=== PATIENT | female | born 1935 | race Caucasian/White ===

== ENCOUNTER → 2016-07-11 | Outpatient (CLI) | payer OTHER, MEDICARE ==
[~2016-07-11] MED LIST: ALBU1AER9 INH; AMLO-110 PO; AMOX875T PO; ASPCH81X PO; CALC-354 PO; CARV3.12 PO; DIAZ5TAB PO; HYDR5SYP11 PO; LANS30CA12 PO; LEVO-217 PO; LOSA100T2 PO; POTA-327 PO; RIVA1TAB4 PO; SIMV20TA5 PO; SOLI5TAB2 PO; SYMIN160 INH; TEMA15CA4 PO; XRL15 PO
--- NOTE | 2016-07-11 11:39 | DIAGNOSTIC IMAGING REPORT ---
TWO VIEW CHEST CLINICAL HISTORY: Cough and dyspnea. FINDINGS: PA and lateral chest radiographs are compared to chest x-ray and chest CT dated 05/07/2016. The PA view is degraded by patient rotation and apical lordotic positioning. The heart is enlarged and there is atherosclerotic calcification of the thoracic aorta. The pulmonary vascular structures noncongested. No airspace consolidation or pleural effusion is identified. Scarring is again suggested at the right lung base. Chronic interstitial thickening is similar to previous. No pneumothorax is clearly seen. The skeletal structures are osteopenic. Degenerative change is noted throughout the thoracic spine. IMPRESSION: 1. Cardiomegaly without radiographic evidence of congestive failure. 2. No airspace consolidation or pleural effusion is identified. Electronically signed by: Doug Chakraborty M.D. 07/11/2016 11:38 AM Dictated Date/Time: 07/11/2016 11:36 AM
== END | disposition home or self-care (01) ==
LOC: C.RADBBURG 10:44
PROVIDERS: ATTEND Internal Medicine Pulmonary Disease
DX: R05 Cough (principal); R06.02 Shortness of breath; I51.7 Cardiomegaly

== ENCOUNTER → 2016-08-08 | Outpatient (CLI) | payer OTHER, MEDICARE ==
--- NOTE | 2016-08-08 10:56 | DIAGNOSTIC IMAGING REPORT ---
CT SCAN OF THE CHEST WITHOUT IV CONTRAST CLINICAL HISTORY: Follow-up pleural collection. COMPARISON STUDY: Chest CT dated 05/07/2016 and 04/18/2016. TECHNIQUE: CT scan of the thorax was performed from the thoracic inlet to the upper abdomen. Images are reviewed in the axial, sagittal, and coronal planes. IV contrast was not administered for this examination as per the referring clinician. CT DOSE: 317.92 mGy.cm FINDINGS: Thyroid: Imaged portions of the thyroid are mildly enlarged and heterogeneous, likely representing goiter. A portion of the right lobe extends into the superior mediastinum. Thoracic aorta: There is atherosclerotic calcification of the thoracic aorta, which is normal in caliber and demonstrates standard 3-vessel arch anatomy. Heart: The heart is enlarged and there is a small pericardial effusion. The coronary arteries are densely calcified. The main pulmonary arteries are mildly dilated suggesting pulmonary artery hypertension. There is diminished attenuation of the cardiac blood pool as compared to the myocardium suggesting anemia. Lungs and pleural spaces: There is only trace residual pleural fluid at the right lung base. The pleural collection identified previously has completely resolved. Loculated pleural fluid is previously seen at the right apex has also resolved. Linear atelectasis versus scarring is present in the lower lung bilaterally. There is no airspace consolidation typical for pneumonia. No left pleural effusion is seen. There are scattered calcified granulomas. There is a 7 mm lingular nodule seen on image #155. There are 2 right lower lobe nodules measuring up to 3 mm seen on images #134 and #147. A 2 mm left upper lobe nodule is seen on image #142. The trachea and central airways are clear. Mediastinum: There is no mediastinal lymphadenopathy. Viktoriya: Not well assessed without IV contrast. Axillae: There is no axillary lymphadenopathy. Upper abdomen: Cortical atrophy is noted in the partially imaged kidneys. Cholecystectomy clips are identified. Skeletal structures: The skeletal structures are osteopenic. Degenerative change and hyperkyphosis is noted in the thoracic spine. Arthritic change is noted in the shoulders. No lytic or blastic bony lesions are seen. IMPRESSION: 1. There is only trace residual pleural fluid at the right lung base. The loculated pleural collection seen previously has resolved. 2. No airspace consolidation is identified typical for pneumonia. 3. There are scattered indeterminant pulmonary nodules. The largest is in the lingula measures 7 mm. This is unchanged from previous and can be followed as per the Fleischner criteria. 4. Cardiomegaly with a small pericardial effusion. Please refer to below summary of Fleischner criteria recommendations for follow-up of incidental CT nodules (Gabriele Caal, Guidelines for management of small pulmonary nodules detected on CT scans: A statement from the Fleischner Society, Radiology 237: [phone].) Low Risk Patient: Minimal or no smoking or other known risk factors for malignancy <=4 mm: No follow-up needed. >4-6 mm: Initial follow-up CT at 12 months; if unchanged, no further follow-up. >6-8 mm: Initial follow-up CT at 6-12 months then at 18-24 months if no change. >8 mm: Follow-up CT at \R\3, 9, 24 months, or PET and/or biopsy. High Risk Patient: History of smoking or other known risk factors <=4 mm: Follow-up at 12 months; if unchanged, no further follow-up. >4-6 mm: Initial follow-up CT at 6-12 months then at 18-24 months if no change. >6-8 mm: Initial follow-up CT at 3-6 months then at 9-12 and 24 months if no change. >8 mm: Same as low risk patient. Note: Nodule size measured as average of length and width. Ground glass or partly solid nodules may require longer follow-up to exclude indolent adenocarcinoma. Electronically signed by: Doug Chakraborty M.D. 08/08/2016 10:55 AM Dictated Date/Time: 08/08/2016 9:45 AM
== END | disposition home or self-care (01) ==
LOC: C.CTS 09:13
PROVIDERS: ATTEND Internal Medicine Critical Care Medicine
DX: J90 Pleural effusion, not elsewhere classified (principal); J86.9 Pyothorax without fistula; R91.8 Other nonspecific abnormal finding of lung field; I51.7 Cardiomegaly; I82.432 Acute embolism and thrombosis of left popliteal vein; Z86.718 Personal history of other venous thrombosis and embolism

== ENCOUNTER → 2016-08-08 | Outpatient (CLI) | payer OTHER, MEDICARE ==
--- NOTE | 2016-08-08 10:10 | DIAGNOSTIC IMAGING REPORT ---
BILATERAL LOWER EXTREMITY VENOUS DOPPLER CLINICAL HISTORY: BILATERAL DVT COMPARISON STUDY: Bilateral lower extremity venous Doppler May 08, 2016. TECHNIQUE: Sonography of the deep venous system of the bilateral lower extremities was performed. Compression and augmentation were evaluated. FINDINGS: The deep venous thrombus shown within the right lower extremity on exam of May 08, 2016 is no longer visualized and has resolved. There is stranding within the left popliteal vein which is similar to exam of May 08, 2016. This is likely chronic. IMPRESSION: 1. No evidence of acute deep venous thrombus within either lower extremity. 2. Nonocclusive thrombus within the left popliteal vein which is similar to exam of May 08, 2016. This suggests chronic thrombus. 3. Interval resolution of right lower extremity deep venous thrombus since prior exam. Electronically signed by: Landon Guevara M.D. 08/08/2016 10:09 AM Dictated Date/Time: 08/08/2016 10:07 AM
== END | disposition home or self-care (01) ==
LOC: C.ULTR 09:15
PROVIDERS: ATTEND Family Medicine
DX: I82.432 Acute embolism and thrombosis of left popliteal vein (principal); Z86.718 Personal history of other venous thrombosis and embolism

== ENCOUNTER → 2016-11-06 | Outpatient (CLI) | payer OTHER, MEDICARE ==
--- NOTE | 2016-11-06 12:55 | MAMMOGRAPHY REPORT ---
BILATERAL DIGITAL SCREENING MAMMOGRAM WITH CAD: 11/06/2016 CLINICAL HISTORY: Routine screening. Patient has no complaints. TECHNIQUE: Current study was also evaluated with a Computer Aided Detection (CAD) system. Bilateral CC and MLO views were obtained. COMPARISON: Comparison is made to exams dated: 10/19/2015 mammogram, 10/13/2014 mammogram, 10/07/2013 juvenal mogram, 10/01/2012 mammogram, and 09/17/2011 mammogram - [facility]. BREAST COMPOSITION: The tissue of both breasts is almost entirely fatty. FINDINGS: No suspicious masses, calcifications, or areas of architectural distortion are noted in ei ther breast. There has been no significant interval change compared to prior exams. Scattered bilat eral benign-appearing calcifications are not significantly changed. There are stable postsurgical ch anges in the left upper outer breast. IMPRESSION: ACR BI-RADS CATEGORY 2: BENIGN There is no mammographic evidence of malignancy. A 1 year screening mammogram is recommended. The pa tient will receive written notification of the results. Approximately 10% of breast cancers are not detected with mammography. A negative mammographic report should not delay biopsy if a clinically suggestive mass is present. Anabel Daniels M.D. ah/:11/06/2016 09:30:02 Software Quality Tester: Mikaela IQBAL(R)(M), [facility] letter sent: Normal 1/2 BI-RADS Code: ACR BI-RADS Category 2: Benign
== END | disposition home or self-care (01) ==
LOC: C.MAMM 08:22
PROVIDERS: ATTEND Family Medicine
DX: Z12.31 Encounter for screening mammogram for malignant neoplasm of breast (principal)

== ENCOUNTER → 2017-08-20 | Outpatient (CLI) | payer OTHER, MEDICARE ==
--- NOTE | 2017-08-20 08:45 | DIAGNOSTIC IMAGING REPORT ---
(CHEST) THORAX WITHOUT CT DOSE: 397.20 mGy.cm HISTORY: Lung nodules I26.99 Pulmonary [id number] Pulmonary [id number] TECHNIQUE: Multiaxial CT images of the chest were performed without contrast. A dose lowering technique was utilized adhering to the principles of ALARA. COMPARISON: 08/08/2016 FINDINGS: ] Basilar chronic linear atelectatic/fibrotic change. No acute infiltrate. Pulmonary nodularity has remained stable with no interval change. Mild stable cardiomegaly. No significant mediastinal or hilar adenopathy. Tortuosity and ectasia of the thoracic aorta considered unchanged. Substernal thyroid with moderate impact upon the trachea at the thoracic inlet is unchanged. IMPRESSION: 1. Identical exam compared to the prior study. 2. Unchanging minimal nodularity. 3. 1 year follow-up is felt to be sufficient. The above report was generated using voice recognition software. It may contain grammatical, syntax or spelling errors. Electronically signed by: Jacques Mac M.D. 08/20/2017 8:44 AM Dictated Date/Time: 08/20/2017 8:38 AM
== END | disposition home or self-care (01) ==
LOC: C.CTS 08:23
PROVIDERS: ATTEND Surgery
DX: I26.99 Other pulmonary embolism without acute cor pulmonale (principal); R91.8 Other nonspecific abnormal finding of lung field

== ENCOUNTER → 2018-01-21 | Outpatient (CLI) | payer OTHER, MEDICARE ==
[~2018-01-21] MED LIST changes: +ALBU18002 INH; -ALBU1AER9 INH; -AMLO-110 PO; +AMLO5TAB3 PO; -AMOX875T PO; -CARV3.12 PO; +CARV6.252 PO; +CHOL1000 PO; +CRAN1TAB PO; -HYDR5SYP11 PO; -LANS30CA12 PO; -LEVO-217 PO; -LOSA100T2 PO; +LOSA100T33 PO; +MULT-506 PO; -POTA-327 PO; +POTA10TA PO; -RIVA1TAB4 PO; +SIMV10TA2 PO; -SIMV20TA5 PO; -TEMA15CA4 PO; +ZOLP6.2529
--- NOTE | 2018-01-21 15:42 | MAMMOGRAPHY REPORT ---
BILATERAL DIGITAL SCREENING MAMMOGRAM TOMOSYNTHESIS WITH CAD: 01/21/2018 CLINICAL HISTORY: Routine screening. Patient has no complaints. TECHNIQUE: The study was acquired using full field digital technology and interpreted from soft copy. Breast tomosynthesis in addition to standard 2D mammography was performed. Current study was also ev aluated with a Computer Aided Detection (CAD) system. COMPARISON: Comparison is made to exams dated: 11/06/2016 mammogram, 10/19/2015 mammogram, 10/13/2014 juvenal mogram, 10/07/2013 mammogram, 09/17/2011 mammogram, and 09/11/2010 mammogram - [facility] BREAST COMPOSITION: The tissue of both breasts is almost entirely fatty. FINDINGS: No suspicious masses, calcifications, or areas of architectural distortion are noted in either breast . There has been no significant interval change compared to prior exams. Scattered bilateral benign- appearing calcifications are not significantly changed. There are stable postsurgical changes in the left upper outer breast. IMPRESSION: ACR BI-RADS CATEGORY 2: BENIGN There is no mammographic evidence of malignancy. A 1 year screening mammogram is recommended.( 019) The patient will receive written notification of the results. Some breast cancers are not detected with mammography. A negative mammographic report should not cassandra y biopsy if a clinically suggestive mass is present. Anabel Daniels M.D. ah/:01/21/2018 08:23:00 Boot Maker: RT Lupis(Yoan)(M), [facility] letter sent: Normal 1/2 BI-RADS Code: ACR BI-RADS Category 2: Benign
== END | disposition home or self-care (01) ==
LOC: C.MAMM 07:49
PROVIDERS: ATTEND Family Medicine
DX: Z12.31 Encounter for screening mammogram for malignant neoplasm of breast (principal)

== ENCOUNTER 2019-05-04 19:43 | Inpatient (IN) ==
--- NOTE | 2019-05-04 20:04 | Emergency Department Note ---
Entered by Edie Carranza acting as a scribe for Kt Hutchinson DO History of Present Illness General Chief complaint: Leg Injury/Pain Stated complaint: LEG PAIN Time Seen by Provider: 05/04/19 19:48 History of Present Illness Provider complaint: right leg injury Onset (ago): hour(s) 8 Location: lower extremity and right Pain Consistency: + other (episode) Maximum Pain Intensity: 5 Associated symptoms: + other (fall on right hip, right ankle pain, heard a pop when bending down and could not get back up) Treatments prior to arrival: none The patient is an 83 year old female who presents to the ED with complaints of an episode of a right leg injury that occurred 8 hours ago. The patient states that she was sitting on a barstool for a long time this morning which caused her legs to become numb. The patient states that when she stood up and tried to walk, she fell because her legs were weak. Per daughter, the patient fell on her right hip. The patient states that she did not have much pain after this episode except for some minor right ankle pain. The patient states that later today she bent down, heard a pop and then had a very hard time standing back up. The patient states that she sat down on the toilet next to her and could not get back up. The patient denies receiving any treatments prior to arrival. Home Medications Home Medications Medication Instructions Recorded Confirmed Type albuterol sulfate 90 mcg/actuation 2 puffs INHALATION Q4H PRN gm 02/18/19 05/04/19 History aerosol inhaler amlodipine 5 mg tablet 5 mg PO QAM tab 02/18/19 05/04/19 History aspirin 81 mg tablet 81 mg PO QAM tab 02/18/19 05/04/19 History carvedilol 6.25 mg tablet 6.25 mg PO BID tab 02/18/19 05/04/19 History coenzyme Q10 10 10 mg capsule 1 mg PO QAM cap 02/18/19 05/04/19 History cranberry 400 mg capsule 400 mg PO DAILY 02/18/19 05/04/19 History diazepam 5 mg tablet 5 mg PO BID tab 02/18/19 05/04/19 History levothyroxine 50 mcg tablet 50 mcg PO QAM tab 02/18/19 05/04/19 History rivaroxaban 20 mg tablet 20 mg PO QAM #1 tab 02/18/19 05/04/19 History simvastatin 10 mg tablet 10 mg PO QPM tab 02/18/19 05/04/19 History solifenacin 5 mg tablet 5 mg PO DAILY tab 02/18/19 05/04/19 History valsartan 160 1 tab PO DAILY tab 02/18/19 05/04/19 History mg-hydrochlorothiazide 12.5 mg tablet budesonide-formoterol HFA 160 2 puffs INH BID 03/24/19 05/04/19 History mcg-4.5 mcg/actuation aerosol inhaler potassium citrate 10 mEq (1,080 10 meq PO BID tab 03/24/19 05/04/19 History mg) tablet,extended release montelukast 10 mg PO QPM 05/04/19 05/04/19 History Allergies Allergy/AdvReac Type Severity Reaction Status Date / Time adhesive Allergy Unknown BANDAIDS Unverified 05/04/19 20:14 AND CLOTH ADHESIVE-BLISTERS No Known Drug Allergies Allergy Unknown Verified 05/04/19 20:14 Past Med/Surg History Medical History (Updated 05/04/19 @ 21:17 by Edie Carranza) Asthma (Inactive) Bilateral pulmonary embolism Left ankle sprain (Inactive) Saddle embolism of pulmonary artery Social History Preferred Language: Japanese Feels Safe at Home: Yes Smoking Status: Never smoker Review of Systems See HPI for pertinent positives & negatives. and A total of 10 systems reviewed and were otherwise negative Physical Exam Vital Signs Vital Signs - 24 hr 05/04/19 19:48 05/04/19 20:55 Temperature 36.8 C Temperature Source Oral Pulse Rate 87 Pulse Rate [Right Finger] 76 Pulse Rhythm Regular Pulse Rhythm [Right Finger] Regular Pulse Strength Normal Pulse Strength [Right Finger] Normal Respiratory Rate 20 20 Respiratory Effort / Characteristics Non-Labored Spontaneous Non-Labored Spontaneous Respiratory Depth Normal Normal Respiratory Pattern Regular Blood Pressure 112/57 L Blood Pressure [Right Arm] 120/58 L Blood Pressure Mean 75 Blood Pressure Mean [Right Arm] 78 Blood Pressure Position Sitting Pulse Oximetry 98 97 Oxygen Delivery Method Room Air Room Air Sepsis Recent Fever Within 48 Hours No Sepsis Action Taken by Nursing No Action Required CONSTITUTIONAL/VITAL SIGNS: Reviewed / noted above. GENERAL: Non-toxic in appearance. INTEGUMENTARY: Warm, dry, and [place]. HEAD: Normocephalic. EYES: without scleral icterus or trauma. ENT/OROPHARYNX: clear and moist. LYMPHADENOPATHY/NECK: Is supple without lymphadenopathy or meningismus. RESPIRATORY: Lungs clear and equal. CARDIOVASCULAR: Regular rate and rhythm. GI/ABDOMEN: Soft and nontender. No organomegaly or pulsatile mass. No rebound or guarding. Normal bowel sounds. EXTREMITIES: Warm and well perfused. Right leg shortened compared to left. Distal pulses intact. Tenderness to palpation of right lateral hip. BACK: No CVA tenderness. NEUROLOGICAL: Intact without focal deficits. PSYCHIATRIC: normal affect. MUSCULOSKELETAL: Normally developed with good muscle tone. Course Course 1952: Past medical records reviewed. The patient was evaluated in room A11B. A complete history and physical exam was performed. 2103: I discussed the patient's case with Dr. Doll [facility] Hospitalist. He will evaluate the patient for further management. Consultations Consultation #1: I discussed the patient's case with Dr. Doll [facility] Ho spitalist. He will evaluate the patient for further management. Time: 21:04 Administered Medications Sodium Chloride (Nss 1000ml) 1,000 mls @ 150 mls/hr IV .[id number] ANITHA Stop: 05/05/19 02:39 Last Admin: 05/04/19 20:30 Dose: 150 mls/hr Documented by: [id number] Medical Decision Making Differential Diagnosis Differential diagnosis: Etiologies such as fracture, cervical/vertebral injury, dislocation, intra- abdominal process, pneumothorax, intrathoracic trauma, intracranial injury, soft tissue injury, neurologic process, as well as other traumatic pathologies were entertained. Medical Records Attestation: I reviewed the patient's medical records. Home Medications Current Medication List: was personally reviewed by me Laboratory Data Attestation: I reviewed the patient's lab results. Result diagrams: 05/04/19 19:55 05/04/19 19:55 Lab Results 05/04/19 05/04/19 05/04/19 Range/Units 19:55 19:55 19:55 WBC 10.14 (4.8-10.8) K/uL RBC 3.95 L (4.2-5.4) M/uL Hgb 11.5 L (12.0-16.0) g/dL Hct 34.9 L (37-47) % MCV 88.4 (80-100) fL MCH 29.1 (25-34) pg MCHC 33.0 (32-36) g/dL RDW Std Deviation 46.6 H (36.4-46.3) fL RDW Coeff of Jerrell 14.2 (11.5-14.5) % Plt Count 199 (130-400) K/uL MPV 9.4 (7.4-10.4) fL Immature Gran % (Auto) 0.3 % Neut % (Auto) 84.4 % Lymph % (Auto) 6.1 % [place] % (Auto) 7.8 % Eos % (Auto) 1.1 % Baso % (Auto) 0.3 % Immature Gran # (Auto) 0.03 H (0.00-0.02) K/uL Neut # (Auto) 8.56 H (1.4-6.5) K/uL Lymph # (Auto) 0.62 L (1.2-3.4) K/uL [place] # (Auto) 0.79 H (0.11-0.59) K/uL Eos # (Auto) 0.11 (0-0.5) K/uL Baso # (Auto) 0.03 (0-0.2) K/uL PT 11.9 (9.0-12.0) Seconds INR 1.2 H (0.9-1.1) APTT 25.6 (21.0-31.0) Seconds PTT Ratio 0.9 Sodium 139 (136-145) mmol/L Potassium 3.9 (3.5-5.1) mmol/L Chloride 107 (98-107) mmol/L Carbon Dioxide 23 (21-32) mmol/L Anion Gap 9.0 (3-11) BUN 24 H (7-18) mg/dl Creatinine 1.23 H (0.6-1.2) mg/dl Est Cr Clr Drug Dosing 28.1 ml/min Est GFR ( Amer) 47.6 Est GFR (Non-Af Amer) 41.1 BUN/Creatinine Ratio 19.5 (10-20) Glucose 139 H (70-99) mg/dl Calcium 9.1 (8.5-10.1) mg/dl Urine Color Urine Appearance (Clear) Urine pH (4.5-7.5) Ur Specific [place] (1.000-1.030) Urine Protein (Negative) Urine Glucose (UA) (Negative) Urine Ketones (Negative) Urine Blood (Negative) Urine Nitrite (Negative) Urine Bilirubin (Negative) Urine Urobilinogen (Negative) Ur Leukocyte Esterase (Negative) Blood Type Antibody Screen 05/04/19 05/04/19 Range/Units 20:15 20:24 WBC (4.8-10.8) K/uL RBC (4.2-5.4) M/uL Hgb (12.0-16.0) g/dL Hct (37-47) % MCV (80-100) fL MCH (25-34) pg MCHC (32-36) g/dL RDW Std Deviation (36.4-46.3) fL RDW Coeff of Jerrell (11.5-14.5) % Plt Count (130-400) K/uL MPV (7.4-10.4) fL Immature Gran % (Auto) % Neut % (Auto) % Lymph % (Auto) % [place] % (Auto) % Eos % (Auto) % Baso % (Auto) % Immature Gran # (Auto) (0.00-0.02) K/uL Neut # (Auto) (1.4-6.5) K/uL Lymph # (Auto) (1.2-3.4) K/uL [place] # (Auto) (0.11-0.59) K/uL Eos # (Auto) (0-0.5) K/uL Baso # (Auto) (0-0.2) K/uL PT (9.0-12.0) Seconds INR (0.9-1.1) APTT (21.0-31.0) Seconds PTT Ratio Sodium (136-145) mmol/L Potassium (3.5-5.1) mmol/L Chloride (98-107) mmol/L Carbon Dioxide (21-32) mmol/L Anion Gap (3-11) BUN (7-18) mg/dl Creatinine (0.6-1.2) mg/dl Est Cr Clr Drug Dosing ml/min Est GFR ( Amer) Est GFR (Non-Af Amer) BUN/Creatinine Ratio (10-20) Glucose (70-99) mg/dl Calcium (8.5-10.1) mg/dl Urine Color Yellow Urine Appearance Clear (Clear) Urine pH 6.5 (4.5-7.5) Ur Specific [place] 1.026 (1.000-1.030) Urine Protein Negative (Negative) Urine Glucose (UA) Negative (Negative) Urine Ketones Negative (Negative) Urine Blood Negative (Negative) Urine Nitrite Negative (Negative) Urine Bilirubin Negative (Negative) Urine Urobilinogen Negative (Negative) Ur Leukocyte Esterase Negative (Negative) Blood Type B Positive Antibody Screen NEGATIVE Imaging Data Radiologist's Impression: Radiology results as stated below per my review and the radiologist's interpretation: XR chest 1V portable CLINICAL HISTORY: fall, left hip fx trauma. Pain. COMPARISON STUDY: 04/24/2016 FINDINGS: The bones soft tissues and hemidiaphragms are normal. The cardiomediastinal silhouette is normal. The lungs are clear. The pulmonary vasculature is normal. IMPRESSION: Negative chest. The above report was generated using voice recognition software. It may contain grammatical, syntax or spelling errors. Electronically signed by: Jacques Mac M.D. 05/04/2019 8:26 PM XR hip LT 2V w pelvis CLINICAL HISTORY: fall, pain COMPARISON: None. DISCUSSION: Intertrochanteric fracture right hip. Superior migration of the right femoral shaft. No evidence dislocation. No evidence for acetabular protrusion. IMPRESSION: Intertrochanteric fracture right hip with superior migration of the right femoral shaft. The above report was generated using voice recognition software. It may contain grammatical, syntax or spelling errors. Electronically signed by: Jacques Mac M.D. 05/04/2019 8:30 PM ECG Data Attestation: I personally reviewed and interpreted this ECG as follows: Indication: + weakness Rate (beats per minute): 80 Rhythm: + normal sinus ECG ST segments: no ST elevation ECG Findings: no PACs and no PVCs Blood Pressure Blood Pressure Findings: Low blood pressure Blood Pressure Disposition: further management by hospitalist BO Vázquez This is a 83-year-old female who presents to the ED with a chief complaint of right hip pain. The patient states that she fell this morning just before noon. The patient was able to ambulate afterwards but heard a pop this evening and has had pain in her hip ever since. Family knows of short leg this evening. Brought her in for evaluation. Patient's exam reveals tenderness to palpation of right total hip. The patient has an intertrochanteric right hip fracture. Chest x-ray was negative for acute disease. CBC chemistry panel was unremarkable and EKG shows normal sinus rhythm. The patient has seen Dr. Finch to be in the past. I spoke with the hospitalist, who will see the patient for further evaluation and care. Impression & Plan Closed intertrochanteric fracture of right hip Discharge Plan Visit Data Chief Complaint: Leg Injury/Pain Stated Complaint: LEG PAIN ED Provider: Kt Hutchinson Discharge Problem: Closed intertrochanteric fracture of right hip Patient Disposition: Being Evaluated by Hospitalist Forms Stand Alone Forms: My [facility] Prescriptions Prescriptions: No Action solifenacin 5 mg tablet 5 mg PO DAILY RF: 0 diazepam 5 mg tablet 5 mg PO BID RF: 0 albuterol sulfate 90 mcg/actuation HFA aerosol inhaler 2 puffs inhalation Q4H PRN (Reason: Shortness Of Breath) RF: 0 aspirin 81 mg tablet 81 mg PO QAM RF: 0 levothyroxine 50 mcg tablet 50 mcg PO QAM RF: 0 amlodipine 5 mg tablet 5 mg PO QAM RF: 0 carvedilol 6.25 mg tablet 6.25 mg PO BID RF: 0 valsartan-hydrochlorothiazide 160-12.5 mg tablet 1 tab PO DAILY RF: 0 Xarelto 20 mg tablet 20 mg PO QAM Qty: 1 RF: 0 coenzyme Q10 10 mg capsule 1 mg PO QAM RF: 0 simvastatin 10 mg tablet 10 mg PO QPM RF: 0 cranberry 400 mg capsule 400 mg PO DAILY RF: 0 potassium citrate 10 mEq (1,080 mg) tablet extended release 10 meq PO BID RF: 0 Symbicort 160-4.5 mcg/actuation HFA aerosol inhaler 2 puffs INH BID RF: 0 montelukast 10 mg tablet 10 mg PO QPM RF: 0 Referrals Referrals: Tan Savage MD [Primary Care Provider] - Discharge Problem: Closed intertrochanteric fracture of right hip Qualifiers: Encounter type: initial encounter Fracture alignment: displaced Qualified Code(s): S72.141A - Displaced intertrochanteric fracture of right femur, initial encounter for closed fracture The scribe's documentation has been prepared under my direction and personally reviewed by me in its entirety. I confirm that the note above accurately reflects all work, treatment, procedures, and medical decision making performed by me.
[2019-05-04 20:13] LABS: Basophils # (auto) 0.03 K/uL (0-0.2); Basophils % (auto) 0.3 %; Eosinophils # (auto) 0.11 K/uL (0-0.5); Eosinophils % (auto) 1.1 %; Hematocrit (blood only) 34.9 % (37-47); Hemoglobin 11.5 g/dL (12.0-16.0); Immature Granulocytes # (auto) 0.03 K/uL (0.00-0.02); Immature Granulocytes % (auto) 0.3 %; Lymphocytes # (auto) 0.62 K/uL (1.2-3.4); Lymphocytes % (auto) 6.1 %; Mean Corpuscular Hemoglobin 29.1 pg (25-34); Mean Corpuscular Volume 88.4 fL (80-100); Mean Platelet Volume 9.4 fL (7.4-10.4); Monocytes # (auto) 0.79 K/uL (0.11-0.59); Monocytes % (auto) 7.8 %; Neutrophils # (auto) 8.56 K/uL (1.4-6.5); Neutrophils % (auto) 84.4 %; Platelet Count 199 K/uL (130-400); RDW Coefficient of Variation 14.2 % (11.5-14.5); RDW Standard Deviation 46.6 fL (36.4-46.3); Red Blood Count 3.95 M/uL (4.2-5.4); White Blood Count 10.14 K/uL (4.8-10.8)
[2019-05-04 20:20] LABS: BUN Creatinine Ratio 19.5 (10-20); Calcium 9.1 mg/dl (8.5-10.1); Creatinine Clr Calc Pharmacy 28.1 ml/min; Est GFR (African American) 47.6; Est GFR (Non-African American) 41.1; Potassium 3.9 mmol/L (3.5-5.1)
[2019-05-04 20:23] LABS: INR 1.2 (0.9-1.1); Partial Thromboplastin Ratio 0.9; Partial Thromboplastin Time 25.6 Seconds (21.0-31.0); Prothrombin Time 11.9 Seconds (9.0-12.0)
--- NOTE | 2019-05-04 20:27 | XRay Report ---
XR chest 1V portable CLINICAL HISTORY: fall, left hip fx trauma. Pain. COMPARISON STUDY: 04/24/2016 FINDINGS: The bones soft tissues and hemidiaphragms are normal. The cardiomediastinal silhouette is n ormal. The lungs are clear. The pulmonary vasculature is normal. IMPRESSION: Negative chest. The above report was generated using voice recognition software. It may contain grammatical, syntax or spelling errors. Electronically signed by: Jacques Mac M.D. 05/04/2019 8:26 PM
[2019-05-04 20:30] LABS: Appearance Urine Clear (Clear); Bilirubin Urine Negative (Negative); Blood Urine Negative (Negative); Color Urine Yellow; Glucose Urine UA Negative (Negative); Ketones Urine Negative (Negative); Leukocyte Esterase Urine Negative (Negative); Nitrite Urine Negative (Negative); Protein Urine Negative (Negative); Specific Gravity Urine 1.026 (1.000-1.030); Urobilinogen Urine Negative (Negative); pH Urine 6.5 (4.5-7.5)
[2019-05-04] MEDS: SODIUM CHLORIDE 0.9% 1000ML 1,000 ML IV SCH (20:30)
--- NOTE | 2019-05-04 20:31 | XRay Report ---
XR hip LT 2V w pelvis CLINICAL HISTORY: fall, pain COMPARISON: None. DISCUSSION: Intertrochanteric fracture right hip. Superior migration of the right femoral shaft. No e vidence dislocation. No evidence for acetabular protrusion. IMPRESSION: Intertrochanteric fracture right hip with superior migration of the right femoral shaft. The above report was generated using voice recognition software. It may contain grammatical, syntax or spelling errors. Electronically signed by: Jacques Mac M.D. 05/04/2019 8:30 PM
--- NOTE | 2019-05-04 21:51 | History & Physical Report ---
Date of Service May 04, 2019 Assessment & Plan (1) Closed intertrochanteric fracture of right hip: Status post mechanical fall. NPO after midnight Acetaminophen 600 mg p.o. every 6 hours PRN mild pain or temperature. Dilaudid 0.25 mg IV every 3 hours as needed severe pain. IVF's zofran 4mf IV q6h prn famotidine 20mg IV q12h Present on Admission?: Yes (2) Asthma: continue usual regimen: Abluterol HFA, symbicort and montelukast. Duo nebs available to use PRN Present on Admission?: Yes (3) Bilateral pulmonary embolism: recurrent has been on xarelto, with last dose this AM. Hold xarelto. Will need to be restarted after discussion with orthopedics at earliest acceptable time post op. Present on Admission?: Yes (4) Hypertension: Continue carvedilol and amlodipine with hold parameters. Hold for valsartan/HCTZ. Present on Admission?: Yes (5) Anxiety: Continue valium 5mg bid. Present on Admission?: Yes (6) Hypothyroidism (acquired): continue levothyroxine 50 mcg daily in a.m. Present on Admission?: Yes (7) Hyperlipidemia: Continue simvastatin 10 mg p.o. every evening. Present on Admission?: Yes (8) Bladder spasm: Hold solifenacin 5 mg p.o. daily while Santana cath is in place. Present on Admission?: Yes (9) Chronic anticoagulation: As discussed above. Present on Admission?: Yes History of Present Illness Chief Complaint: Patient presents to the emergency department with complaint of pain in her right hip area after she sustained a fall while stepping down off of a barstool at home. 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 She reportedly fell around noon time, and continued to walk on her hip with her walker until seen by her daughter, when she came home at around 5:00 PM. X-ray in the emergency department showed a right intertrochanteric hip fracture. Allergies Allergy/AdvReac Type Severity Reaction Status Date / Time adhesive Allergy Unknown BANDAIDS Unverified 05/04/19 20:14 AND CLOTH ADHESIVE-BLISTERS No Known Drug Allergies Allergy Unknown Verified 05/04/19 20:14 Home Medications Home Medications Medication Instructions Recorded Confirmed Type albuterol sulfate 90 mcg/actuation 2 puffs INHALATION Q4H PRN gm 02/18/19 05/04/19 History aerosol inhaler amlodipine 5 mg tablet 5 mg PO QAM tab 02/18/19 05/04/19 History aspirin 81 mg tablet 81 mg PO QAM tab 02/18/19 05/04/19 History carvedilol 6.25 mg tablet 6.25 mg PO BID tab 02/18/19 05/04/19 History coenzyme Q10 10 10 mg capsule 1 mg PO QAM cap 02/18/19 05/04/19 History cranberry 400 mg capsule 400 mg PO DAILY 02/18/19 05/04/19 History diazepam 5 mg tablet 5 mg PO BID tab 02/18/19 05/04/19 History levothyroxine 50 mcg tablet 50 mcg PO QAM tab 02/18/19 05/04/19 History rivaroxaban 20 mg tablet 20 mg PO QAM #1 tab 02/18/19 05/04/19 History simvastatin 10 mg tablet 10 mg PO QPM tab 02/18/19 05/04/19 History solifenacin 5 mg tablet 5 mg PO DAILY tab 02/18/19 05/04/19 History valsartan 160 1 tab PO DAILY tab 02/18/19 05/04/19 History mg-hydrochlorothiazide 12.5 mg tablet budesonide-formoterol HFA 160 2 puffs INH BID 03/24/19 05/04/19 History mcg-4.5 mcg/actuation aerosol inhaler potassium citrate 10 mEq (1,080 10 meq PO BID tab 03/24/19 05/04/19 History mg) tablet,extended release montelukast 10 mg PO QPM 05/04/19 05/04/19 History Past Med/Surg History Medical History (Updated 05/04/19 @ 21:42 by Jean-Claude Cortes MD) Anxiety Asthma Bilateral pulmonary embolism Bladder spasm Chronic anticoagulation Hyperlipidemia Hypertension Hypothyroidism (acquired) Left ankle sprain (Inactive) Saddle embolism of pulmonary artery Social History Preferred Language: [place] Feels Safe at Home: Yes Smoking Status: Never smoker Review of Systems Review of Systems: The patient denies chest pain, palpitations, shortness of breath, dyspnea on exertion, cough, lower extremity swelling, sore throat, fevers, chills, sweats, fatigue, nausea, vomiting, diarrhea , constipation, abdominal pain, pelvic pain, blood in urine or stool, dysuria, urinary frequency or urgency, lightheadedness, dizziness, headache, memory loss, loss of consciousness, rash, abnormal bruising or bleeding, generalized arthralgias or myalgias, back or neck pain, or night sweats. The review of systems is otherwise negative other than for that already noted above, and at least 10 systems have been reviewed. Physical Exam Physical Exam: The patient is awake, alert and oriented 3, well developed and well nourished, normocephalic and atraumatic, lying in bed and in no acute distress. HEENT--PERRL, EOMI, mucous membranes and oropharynx normal. Neck--supple. No JVD. No bruits. Thyroid normal, trachea midline, no adenopathy. Heart--normal S1 and S2. No murmurs, rubs or gallops. Lungs--clear bilaterally, no respiratory distress, no accessory muscle use. Abdomen--normal bowel sounds and soft. Nontender. Nondistended, no hernias or masses, no organomegaly. Extremities--no cyanosis or clubbing. No edema. Dermatologic--normal skin turgor, normal color, no abnormal lymph nodes, no rash. Neurologic--cranial nerves II through XII grossly intact. Rheumatologic--pain of her right hip, limiting range of motion. Psychiatric--normal affect. Results & Data Vital Signs (Past 12 Hours) Vital Signs Temp Pulse Pulse Resp BP BP Pulse Ox 05/04/19 20:55 76 20 120/58 L 97 05/04/19 19:48 98.2 F 87 20 112/57 L 98 Laboratory Results Laboratory Results WBC 10.14 K/uL (4.8-10.8) 05/04/19 19:55 RBC 3.95 M/uL (4.2-5.4) L 05/04/19 19:55 Hgb 11.5 g/dL (12.0-16.0) L 05/04/19 19:55 Hct 34.9 % (37-47) L 05/04/19 19:55 MCV 88.4 fL (80-100) 05/04/19 19:55 MCH 29.1 pg (25-34) 05/04/19 19:55 MCHC 33.0 g/dL (32-36) 05/04/19 19:55 RDW Std Deviation 46.6 fL (36.4-46.3) H 05/04/19 19:55 RDW Coeff of Jerrell 14.2 % (11.5-14.5) 05/04/19 19:55 Plt Count 199 K/uL (130-400) 05/04/19 19:55 MPV 9.4 fL (7.4-10.4) 05/04/19 19:55 Immature Gran % (Auto) 0.3 % 05/04/19 19:55 Neut % (Auto) 84.4 % 05/04/19 19:55 Lymph % (Auto) 6.1 % 05/04/19 19:55 [place] % (Auto) 7.8 % 05/04/19 19:55 Eos % (Auto) 1.1 % 05/04/19 19:55 Baso % (Auto) 0.3 % 05/04/19 19:55 Immature Gran # (Auto) 0.03 K/uL (0.00-0.02) H 05/04/19 19:55 Neut # (Auto) 8.56 K/uL (1.4-6.5) H 05/04/19 19:55 Lymph # (Auto) 0.62 K/uL (1.2-3.4) L 05/04/19 19:55 [place] # (Auto) 0.79 K/uL (0.11-0.59) H 05/04/19 19:55 Eos # (Auto) 0.11 K/uL (0-0.5) 05/04/19 19:55 Baso # (Auto) 0.03 K/uL (0-0.2) 05/04/19 19:55 PT 11.9 Seconds (9.0-12.0) 05/04/19 19:55 INR 1.2 (0.9-1.1) H 05/04/19 19:55 APTT 25.6 Seconds (21.0-31.0) 05/04/19 19:55 PTT Ratio 0.9 05/04/19 19:55 Sodium 139 mmol/L (136-145) 05/04/19 19:55 Potassium 3.9 mmol/L (3.5-5.1) 05/04/19 19:55 Chloride 107 mmol/L (98-107) 05/04/19 19:55 Carbon Dioxide 23 mmol/L (21-32) 05/04/19 19:55 Anion Gap 9.0 (3-11) 05/04/19 19:55 BUN 24 mg/dl (7-18) H 05/04/19 19:55 Creatinine 1.23 mg/dl (0.6-1.2) H 05/04/19 19:55 Est Cr Clr Drug Dosing 28.1 ml/min 05/04/19 19:55 Est GFR ( Amer) 47.6 05/04/19 19:55 Est GFR (Non-Af Amer) 41.1 05/04/19 19:55 BUN/Creatinine Ratio 19.5 (10-20) 05/04/19 19:55 Glucose 139 mg/dl (70-99) H 05/04/19 19:55 Calcium 9.1 mg/dl (8.5-10.1) 05/04/19 19:55 Urine Color Yellow 05/04/19 20:15 Urine Appearance Clear (Clear) 05/04/19 20:15 Urine pH 6.5 (4.5-7.5) 05/04/19 20:15 Ur Specific [place] 1.026 (1.000-1.030) 05/04/19 20:15 Urine Protein Negative (Negative) 05/04/19 20:15 Urine Glucose (UA) Negative (Negative) 05/04/19 20:15 Urine Ketones Negative (Negative) 05/04/19 20:15 Urine Blood Negative (Negative) 05/04/19 20:15 Urine Nitrite Negative (Negative) 05/04/19 20:15 Urine Bilirubin Negative (Negative) 05/04/19 20:15 Urine Urobilinogen Negative (Negative) 05/04/19 20:15 Ur Leukocyte Esterase Negative (Negative) 05/04/19 20:15 Blood Type B Positive 05/04/19 20:24 Antibody Screen NEGATIVE 05/04/19 20:24 Diagnostic Findings [facility] [place] [phone] XRay Report Patient: RASTA CADET Date: 05/04/19 MR#: [id number]: [address] [facility] Acct ID:[id number]: [address] Date: 1935[facility] Zip: [place] [address] Age: 83Location: ED Sex: F Room/Bed: Att Phy:Diagnosis: LEG PAIN Lily Phy: Tan Savage, DEEPTIervice Date: 05/04/19 Fam Phy:Interpreting Phy: Jacques Mac MD Admit Phy: Ordering Phy: Kt Hutchinson D.O. cc: ~ XR hip LT 2V w pelvis CLINICAL HISTORY: fall, pain COMPARISON: None. DISCUSSION: Intertrochanteric fracture right hip. Superior migration of the right femoral shaft. No evidence dislocation. No evidence for acetabular protrusion. IMPRESSION: Intertrochanteric fracture right hip with superior migration of the right femoral shaft. The above report was generated using voice recognition software. It may contain grammatical, syntax or spelling errors. Electronically signed by: Jacques Mac M.D. 05/04/2019 8:30 PM Dictated: 05/04/192027 Transcribed: 05/04/192027 [facility] [place] [phone] XRay Report Patient: RASTA CADET Date: 05/04/19 MR#: [id number]: [address] [facility] Acct ID:[id number]: [address] Date: 1935[facility] Zip: [place] [address] Age: 83Location: ED Sex: F Room/Bed: Att Phy:Diagnosis: LEG PAIN Lily Phy: Tan Savage MDService Date: 05/04/19 Fam Phy:Interpreting Phy: Jacques Mac MD Admit Phy: Ordering Phy: Kt Hutchinson D.O. cc: ~ XR chest 1V portable CLINICAL HISTORY: fall, left hip fx trauma. Pain. COMPARISON STUDY: 04/24/2016 FINDINGS: The bones soft tissues and hemidiaphragms are normal. The cardiomediastinal silhouette is normal. The lungs are clear. The pulmonary vasculature is normal. IMPRESSION: Negative chest. The above report was generated using voice recognition software. It may contain grammatical, syntax or spelling errors. Electronically signed by: Jacques Mac M.D. 05/04/2019 8:26 PM Dictated: 05/04/192025 Transcribed: 05/04/192025 Code Status & VTE Plan Code Status Full code VTE Prophylaxis Plan VTE Prophylaxis will be ordered: Yes PG Care Time/CCT Total # of Minutes Spent Total Time Spent with Patient: Total time spent is greater than 50% in coordination of care (as documented) at patient's floor/unit and/or counseling patient: (1) Closed intertrochanteric fracture of right hip Encounter type: initial encounter Fracture alignment: displaced Qualified Code(s): S72.141A - Displaced intertrochanteric fracture of right femur, initial encounter for closed fracture
[2019-05-04] MEDS ORDERED: ONDANSETRON INJ 2 MG/ML 2 ML VIAL IV PRN (22:35)
[2019-05-04] MEDS ORDERED: ALBUT/IPRATROP 3MG/0.5MG NEB 3 ML VIAL NEB PRN (22:35)
[2019-05-04] MEDS ORDERED: MAGNESIUM HYDROXIDE SUSP 30 ML UDC PO PRN (22:35)
[2019-05-04] MEDS ORDERED: BISACODYL 10 MG SUPP PR PRN (22:35)
[2019-05-04] MEDS ORDERED: NALOXONE HCL 0.4 MG/1 ML VIAL/CARP IV PRN (22:35)
[2019-05-04] MEDS: HYDROmorphone INJ 0.5 MG/0.5 ML SYR IV PRN (22:48)
[2019-05-04] MEDS: diazePAM 5 MG TABLET PO SCH (23:40)
[2019-05-05] MEDS: carvediloL 6.25 MG TAB PO SCH ×3 (00:06→20:29)
[2019-05-05] MEDS: BUDESONIDE/FORMOTEROL FUMARATE 160/4.5 60 PUFFS/INHALER INH SCH ×3 (00:07→20:28)
[2019-05-05] MEDS: HYDROmorphone INJ 0.5 MG/0.5 ML SYR IV PRN ×4 (02:04→16:43)
[2019-05-05] MEDS: SODIUM CHLORIDE 0.9% 1000ML 1,000 ML IV SCH (02:09)
[2019-05-05] MEDS: POTASSIUM CITRATE 10 MEQ TAB PO SCH ×2 (08:37→20:29)
[2019-05-05] MEDS: LEVOTHYROXINE SODIUM 50 MCG TABLET PO SCH (08:37)
[2019-05-05] MEDS: LACTATED RINGER'S 1,000 ML IV SCH ×2 (08:38→19:37)
[2019-05-05] MEDS: diazePAM 5 MG TABLET PO SCH ×2 (08:39→20:29)
[2019-05-05] MEDS ORDERED: Nursing to Pharmacy Communication ONE (08:51)
[2019-05-05] MEDS ORDERED: AMLODIPINE BESYLATE 5 MG TAB PO SCH (09:00)
--- NOTE | 2019-05-05 09:28 | Hospitalist Progress Note ---
Date of Service May 05, 2019 Assessment & Plan (1) Closed intertrochanteric fracture of right hip: 83 yo F PMHx HTN, HLD, hypothyroidism, asthma, bilateral PE on chronic mcc anticoagulation presents following a fall resulting in R hip fracture, for surgery tomorrow AM. Closed intertrochanteric fracture of right hip: - Occurred following a mechanical fall from standing height. - Likely an element of osteoporosis here and have ordered Vitamin D level and started Vitamin D 1000IU daily and Calcium 500mg TID. Will recommend follow up with DEXA and bisphosphonate 1 month following surgery. - Acetaminophen 600 mg p.o. every 6 hours PRN mild pain or temperature, Hydromorphone 0.25 mg IV q3h PRN severe pain. - LR @100cc/hr - Zofran 4mf IV q6h prn Asthma: - Continue home Albuterol HFA, Symbicort and montelukast. 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 - Hold Xarelto at this time, will have surgery per Ortho tomorrow AM. Will need to be restarted after discussion with orthopedics at earliest acceptable time post op. - One dose Lovenox 40mg SQ given in for interim period given history of multiple clotting events. Hypertension: - Continue carvedilol and amlodipine. - Hold valsartan/HCTZ at this time. - Pt normotensive. Anxiety: - Continue diazepam 5mg bid. Hypothyroidism (acquired): - Continue levothyroxine 50 mcg daily in a.m. Hyperlipidemia: - Continue simvastatin 10 mg p.o. every evening. Bladder spasm: - Hold solifenacin 5 mg p.o. daily while Santana cath is in place. (2) Hypertension: (3) Anxiety: (4) Asthma: (5) Bladder spasm: (6) Chronic anticoagulation: (7) Hyperlipidemia: (8) Hypothyroidism (acquired): Supervising Physician Co-Signing Physician Notes I personally examined the patient and verified all de la o points of history and exam, discussed case, and agree with decision making with Dr Downey. feeling ok overall pain meds help but wearing off now but is due for soemthing if she needs it vitals noted nad breathing unlabored no pallor or icterus no focal neuro deficits hip fx -for surgery tomorrow - medically acceptable risk -check D, supplement calcium and D, bisphosphonate in a month or so after healing VTE/recurrent -hold xarelto for surgery -proph dose lovenox today since high risk at baseline + fracture + immobilization = higher risk. resume xarelto as soon as possible post op (hopefully tomorrow night) otherwise as above Subjective Pt without acute events overnight. Pain intermittent but well controlled with PRN hydromorphone. For surgery tomorrow AM with Dr. Francisco. Review of Systems Constitutional: no fever, no chills and no malaise Respiratory: no cough and no dyspnea Cardiovascular: no chest pain, no palpitations and no edema Gastrointestinal: no abdominal pain, no constipation and no diarrhea/loose stools Genitourinary: no dysuria and no hematuria Musculoskeletal: hip pain as subjective Physical Exam Constitutional: WD/WN, vitals as above Respiratory: normal respiratory effort, lungs clear to auscultation Cardiovascular: Heart Sounds: no murmur irregularly irregular rhythm Gastrointestinal (Abdomen): normal bowel sounds, soft, nontender, no hepatosplenomegaly Skin: no rashes, warm and dry Psychiatric: A+Ox3, euthymic affect Results & Data Vital Signs (Past 12 Hours) Vital Signs Temp Pulse Pulse Resp BP BP Pulse Ox 05/05/19 08:36 86 135/76 05/05/19 07:09 37.3 C 86 16 145/74 H 91 05/04/19 22:30 36.6 C 85 18 147/79 H 97 05/04/19 22:07 81 20 150/75 H 96 Resident Activity Tracking Resident Involvement: Resident Care Provided Care Provided: Adult Hospital Medicine (1) Closed intertrochanteric fracture of right hip Encounter type: initial encounter Fracture alignment: displaced Qualified Code(s): S72.141A - Displaced intertrochanteric fracture of right femur, initial encounter for closed fracture
[2019-05-05] MEDS: SERTRALINE HCL 50 MG TABLET PO SCH (10:30)
--- NOTE | 2019-05-05 11:02 | Orthopedic Consultation ---
Date of Consultation May 05, 2019 Assessment & Plan (1) Closed intertrochanteric fracture of right hip: The patient is a 83 year old female who sustained a right hip fracture. The patients treatment options of conservative versus surgical intervention were discussed. Since the patient was an ambulatory prior to the injury and to avoid the risks of bed sores, pulmonary complications, and to give the best chance for ambulation, I recommended surgery. The patient and family underst ands the risks of surgery, which include but are not limited to: bleeding, infection, re-operation, damage to nerves and arteries, continued pain, failure of the hardware, mal-union, non-union, DVT, AL, PE, stroke, and . In addition she is aware of the 20-30% morbidity associated with hip fracture for up to 1 year following a hip fracture. The patient and family understands all of these instructions and explanations, all of their questions have been satisfactorily addressed. The patient has elected to proceed with surgery and the informed consent was signed. Due to the patient being on Xarelto, we will need to hold the dose for 2 days, prior to being able to perform the surgery. She will require intubation rather than spinal anesthesia. She may eat today, but will be nothing by mouth after midnight. She will remain nonweightbearing on the right lower extremity, bed rest. She has been placed on the add-on list for tomorrow, pending medically stable to proceed with surgery per the primary team, hospitalist service.Continue care per the primary service. Present on Admission?: Yes History of Present Illness Reason for Consultation: Right hip fracture. Requesting Physician: Jose Francisco Francisco M.D. Attending Physician: Octavio Hernandez DO History of Present Illness Jermaine is a pleasant 83-year-old female, who typically walks with a cane, who was sitting on a bar stool yesterday around noon and when she attempted to get up her foot was asleep and she fell on her right side. She ambulated the rest of the day using a walker until her daughter brought her to the emergency room where x-rays were obtained and she was admitted to the hospitalist service. She did take her Xarelto yesterday morning, For her recurrent PE. Allergies Allergy/AdvReac Type Severity Reaction Status Date / Time adhesive Allergy Unknown BANDAIDS Unverified 05/04/19 20:14 AND CLOTH ADHESIVE-BLISTERS No Known Drug Allergies Allergy Unknown Verified 05/04/19 20:14 Home Medications Home Medications Medication Instructions Recorded Confirmed Type albuterol sulfate 90 mcg/actuation 2 puffs INHALATION Q4H PRN gm 02/18/19 05/04/19 History aerosol inhaler amlodipine 5 mg tablet 5 mg PO HS tab 02/18/19 05/05/19 History aspirin 81 mg tablet 81 mg PO QAM tab 02/18/19 05/04/19 History carvedilol 6.25 mg tablet 6.25 mg PO BID tab 02/18/19 05/04/19 History coenzyme Q10 10 10 mg capsule 1 mg PO QAM cap 02/18/19 05/04/19 History cranberry 400 mg capsule 400 mg PO DAILY 02/18/19 05/04/19 History diazepam 5 mg tablet 5 mg PO BID tab 02/18/19 05/04/19 History levothyroxine 50 mcg tablet 50 mcg PO QAM tab 02/18/19 05/04/19 History rivaroxaban 20 mg tablet 20 mg PO QAM #1 tab 02/18/19 05/04/19 History simvastatin 10 mg tablet 10 mg PO QPM tab 02/18/19 05/04/19 History solifenacin 5 mg tablet 5 mg PO DAILY tab 02/18/19 05/04/19 History valsartan 160 1 tab PO DAILY tab 02/18/19 05/04/19 History mg-hydrochlorothiazide 12.5 mg tablet budesonide-formoterol HFA 160 2 puffs INH BID 03/24/19 05/04/19 History mcg-4.5 mcg/actuation aerosol inhaler potassium citrate 10 mEq (1,080 10 meq PO BID tab 03/24/19 05/04/19 History mg) tablet,extended release montelukast 10 mg PO QPM 05/04/19 05/04/19 History Patient History Medical History Anxiety Asthma Bilateral pulmonary embolism Bladder spasm Chronic anticoagulation Hyperlipidemia Hypertension Hypothyroidism (acquired) Left ankle sprain (Inactive) Saddle embolism of pulmonary artery Surgical History (Updated 05/05/19 @ 11:04 by Jose Francisco Francisco MD) History of cholecystectomy History of thoracentesis Social History Preferred Language: [place] Communication Ability: Effective Pre Parole Counseling Aide Required: No Beliefs That Will Affect Care: None marital status: / Current Living Situation: Family Current Living Situation Comment: daughter and grandson live with pt. Feels Safe at Home: Yes Smoking Status: Former smoker Second Hand Exposure: No ; Hx Alcohol Use: Yes Hx Substance Use: No Review of Systems Review of Systems: All systems reviewed & are unremarkable except as noted in HPI & below Physical Exam Physical Exam: She is resting comfortably on her hospital bed. She is examined in the presence of her daughter. Focusing on the right lower extremity, her sensation to light touch is intact distally. She is able to wiggle her toes and ankle up and down. 1+ PT pulse. She has bruising over the lateral aspect of her foot. + Forefoot squeeze test with pain to palpation over the fifth metatarsal. The leg is shortened and externally rotated. Tenderness palpation about the hip and groin. Results & Data Vital Signs (Past 12 Hours) Vital Signs Temp Pulse Pulse Resp BP Pulse Ox 05/05/19 08:36 86 135/76 05/05/19 07:09 37.3 C 86 16 145/74 H 91 Laboratory Results 05/04/19 05/04/19 05/04/19 Range/Units 20:24 20:15 19:55 WBC (4.8-10.8) K/uL RBC (4.2-5.4) M/uL Hgb (12.0-16.0) g/dL Hct (37-47) % MCV (80-100) fL MCH (25-34) pg MCHC (32-36) g/dL RDW Std Deviation (36.4-46.3) fL RDW Coeff of Jerrell (11.5-14.5) % Plt Count (130-400) K/uL MPV (7.4-10.4) fL Immature Gran % (Auto) % Neut % (Auto) % Lymph % (Auto) % [place] % (Auto) % Eos % (Auto) % Baso % (Auto) % Immature Gran # (Auto) (0.00-0.02) K/uL Neut # (Auto) (1.4-6.5) K/uL Lymph # (Auto) (1.2-3.4) K/uL [place] # (Auto) (0.11-0.59) K/uL Eos # (Auto) (0-0.5) K/uL Baso # (Auto) (0-0.2) K/uL PT (9.0-12.0) Seconds INR (0.9-1.1) APTT (21.0-31.0) Seconds PTT Ratio Sodium 139 (136-145) mmol/L Potassium 3.9 (3.5-5.1) mmol/L Chloride 107 (98-107) mmol/L Carbon Dioxide 23 (21-32) mmol/L Anion Gap 9.0 (3-11) BUN 24 H (7-18) mg/dl Creatinine 1.23 H (0.6-1.2) mg/dl Est Cr Clr Drug Dosing 28.1 ml/min Est GFR ( Amer) 47.6 Est GFR (Non-Af Amer) 41.1 BUN/Creatinine Ratio 19.5 (10-20) Glucose 139 H (70-99) mg/dl Calcium 9.1 (8.5-10.1) mg/dl Urine Color Yellow Urine Appearance Clear (Clear) Urine pH 6.5 (4.5-7.5) Ur Specific [place] 1.026 (1.000-1.030) Urine Protein Negative (Negative) Urine Glucose (UA) Negative (Negative) Urine Ketones Negative (Negative) Urine Blood Negative (Negative) Urine Nitrite Negative (Negative) Urine Bilirubin Negative (Negative) Urine Urobilinogen Negative (Negative) Ur Leukocyte Esterase Negative (Negative) Blood Type B Positive Antibody Screen NEGATIVE 05/04/19 05/04/19 Range/Units 19:55 19:55 WBC 10.14 (4.8-10.8) K/uL RBC 3.95 L (4.2-5.4) M/uL Hgb 11.5 L (12.0-16.0) g/dL Hct 34.9 L (37-47) % MCV 88.4 (80-100) fL MCH 29.1 (25-34) pg MCHC 33.0 (32-36) g/dL RDW Std Deviation 46.6 H (36.4-46.3) fL RDW Coeff of Jerrell 14.2 (11.5-14.5) % Plt Count 199 (130-400) K/uL MPV 9.4 (7.4-10.4) fL Immature Gran % (Auto) 0.3 % Neut % (Auto) 84.4 % Lymph % (Auto) 6.1 % [place] % (Auto) 7.8 % Eos % (Auto) 1.1 % Baso % (Auto) 0.3 % Immature Gran # (Auto) 0.03 H (0.00-0.02) K/uL Neut # (Auto) 8.56 H (1.4-6.5) K/uL Lymph # (Auto) 0.62 L (1.2-3.4) K/uL [place] # (Auto) 0.79 H (0.11-0.59) K/uL Eos # (Auto) 0.11 (0-0.5) K/uL Baso # (Auto) 0.03 (0-0.2) K/uL PT 11.9 (9.0-12.0) Seconds INR 1.2 H (0.9-1.1) APTT 25.6 (21.0-31.0) Seconds PTT Ratio 0.9 Sodium (136-145) mmol/L Potassium (3.5-5.1) mmol/L Chloride (98-107) mmol/L Carbon Dioxide (21-32) mmol/L Anion Gap (3-11) BUN (7-18) mg/dl Creatinine (0.6-1.2) mg/dl Est Cr Clr Drug Dosing ml/min Est GFR ( Amer) Est GFR (Non-Af Amer) BUN/Creatinine Ratio (10-20) Glucose (70-99) mg/dl Calcium (8.5-10.1) mg/dl Urine Color Urine Appearance (Clear) Urine pH (4.5-7.5) Ur Specific [place] (1.000-1.030) Urine Protein (Negative) Urine Glucose (UA) (Negative) Urine Ketones (Negative) Urine Blood (Negative) Urine Nitrite (Negative) Urine Bilirubin (Negative) Urine Urobilinogen (Negative) Ur Leukocyte Esterase (Negative) Blood Type Antibody Screen Diagnostic Findings RADIOGRAPHS: AP pelvis, AP and lateral of the right hip, show a displaced intertrochanteric Right hip fracture. (1) Closed intertrochanteric fracture of right hip Encounter type: initial encounter Fracture alignment: displaced Qualified Code(s): S72.141A - Displaced intertrochanteric fracture of right femur, initial encounter for closed fracture
[2019-05-05] MEDS ORDERED: ENOXAPARIN INJ 40 MG/0.4 ML SYR SQ ONE (14:15)
[2019-05-05] MEDS: CALCIUM CARBONATE 500 MG CHEWABLE TAB PO SCH (17:02)
[2019-05-05] MEDS: AMLODIPINE BESYLATE 5 MG TAB PO SCH (20:29)
[2019-05-05] MEDS: MONTELUKAST SODIUM 10 MG TABLET PO SCH (20:29)
[2019-05-05] MEDS: DOCUSATE SODIUM/SENNA 50/8.6MG TAB PO SCH (20:29)
[2019-05-05] MEDS: SIMVASTATIN 10 MG TAB PO SCH (20:29)
[2019-05-05] MEDS: OXYCODONE HCL IR 5 MG TAB (IMMEDIATE RELEASE) PO PRN (22:43)
[2019-05-06] MEDS: OXYCODONE HCL IR 5 MG TAB (IMMEDIATE RELEASE) PO PRN ×2 (04:13→20:08)
[2019-05-06] MEDS: LEVOTHYROXINE SODIUM 50 MCG TABLET PO SCH (05:49)
[2019-05-06 06:44] LABS: Hematocrit (blood only) 24.6 % (37-47); Hemoglobin 8.3 g/dL (12.0-16.0); Mean Corpuscular Hemoglobin 29.5 pg (25-34); Mean Corpuscular Hgb Conc 33.7 g/dL (32-36); Mean Corpuscular Volume 87.5 fL (80-100); Mean Platelet Volume 9.7 fL (7.4-10.4); Platelet Count 136 K/uL (130-400); RDW Coefficient of Variation 14.4 % (11.5-14.5); RDW Standard Deviation 46.3 fL (36.4-46.3); Red Blood Count 2.81 M/uL (4.2-5.4); White Blood Count 6.38 K/uL (4.8-10.8)
[2019-05-06 06:56] LABS: BUN Creatinine Ratio 15.6 (10-20); Calcium 8.7 mg/dl (8.5-10.1); Creatinine Clr Calc Pharmacy 42.6 ml/min; Est GFR (African American) 78.9; Est GFR (Non-African American) 68.1
[2019-05-06] MEDS ORDERED: SODIUM CHLORIDE 0.9% 250 ML IV PRN (07:05)
[2019-05-06] MEDS: HYDROmorphone INJ 0.5 MG/0.5 ML SYR IV PRN ×2 (07:33→23:57)
--- NOTE | 2019-05-06 08:35 | Hospitalist Progress Note ---
Date of Service May 06, 2019 Assessment & Plan (1) Closed intertrochanteric fracture of right hip: 83 yo F PMHx HTN, HLD, hypothyroidism, asthma, bilateral PE on chronic care home anticoagulation presents following a fall resulting in R hip fracture, for surgery this AM. Closed intertrochanteric fracture of right hip: - For surgery this AM. Will escalate PT/OT as able and continue in the outpatient. - Fracture occurred following a mechanical fall from standing height. - Likely an element of osteoporosis in this situation. Vitamin D level 21.3 this admission. Have increased VItamin D3 to 2000IU daily and continued Calcium 500mg TID. Have also started Vitamin D2 50,000IU weekly starting with first dose today. Will recommend follow up with DEXA and bisphosphonate 1 month following surgery. - Acetaminophen 600 mg p.o. every 6 hours PRN mild pain or temperature, Hydromorphone 0.25 mg IV q3h PRN severe pain. - Zofran 4mf IV q6h PRN nausea. Anemia ?2/2 Blood Loss: - Pt's Hgb dropped overnight from 11.5 -> 8.3 today but is without signs or symptoms of anemia, appears hemodynamically stable on exam and with stable vitals. - Type and crossed 2 units given patient is preparing for surgery this AM. Will follow symptoms and H/Hs post-op. - Held Xarelto for two days in the setting of surgery to minimize bleeding. - Will continue to follow H/H. Bilateral pulmonary embolism: - On care home AC with Xarelto, with last dose 05/04/19. - Received one dose Lovenox 40mg SQ yesterday interim period for DVT prophylaxis given history of multiple clotting events. - Will receive one dose today at 6:30pm. Will restart home Xarelto at PE treatment dose (20mg daily) tomorrow afternoon. Asthma: - Continue home Albuterol HFA, Symbicort and montelukast. - Duo nebs PRN SOB/wheezing. Hypertension: - Pt continues to be normotensive. - Continue carvedilol and amlodipine. - Hold valsartan/HCTZ at this time. Anxiety: - Continue diazepam 5mg BID. Hypothyroidism (acquired): - Continue levothyroxine 50 mcg PO qAM. Hyperlipidemia: - Continue simvastatin 10 mg PO qHS. Bladder spasm: - Hold solifenacin 5 mg PO daily while catheter in place. Code Status: FULL CODE FEN/GI: Advance as tolerated per ortho DVT ppx: Lovenox 40 SQ @ 6:30pm, will restart Xarelto tomorrow afternoon Dispo: med/surg (2) Hypertension: (3) Anxiety: (4) Asthma: (5) Bladder spasm: (6) Chronic anticoagulation: (7) Hyperlipidemia: (8) Hypothyroidism (acquired): Supervising Physician Co-Signing Physician Notes I personally examined the patient and verified all de la o points of history and exam, discussed case, and agree with decision making with Dr Downey. seen post op pain controlled well mostly with ice. dtr notes needing O2 but pt does not note sob. do note that she's ordered symbicort but she normally takes budesonide nebs bid and albuterol bid via neb. just uses symbicort when she can't use nebs. vitals noted nad breathing unlabored no pallor or icterus no focal neuro def icits hip fx -presumed osteoporotic -replace calcium and D, repeat D 3 months -anticipate bisphosphonate in about a month -stable post op, supportive care; PT/OT eval and treat and anticipate rehab foot fx -per ortho - again presumed osteoporotic hypoxia - suspect atelectasis. follow. wean O2 as possible, anticipate improvment especially once she' can start moving more VTE/recurrent -can resume xarelto tomorrow -proph dose lovenox again today since high risk at baseline + fracture + immobilization = higher risk. 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 otherwise as above Subjective Pt's Hgb dropped from 11.5 to 8.3 overnight. No increased fatigue, dizziness, CP, SOB. Pain in hip intermittent but well controlled with PRN hydromorphone. For surgery today with Dr. Francisco. Review of Systems Constitutional: no fever, no chills and no malaise Respiratory: no cough and no dyspnea Cardiovascular: no chest pain, no palpitations and no edema Gastrointestinal: no abdominal pain, no constipation and no diarrhea/loose stools Genitourinary: no dysuria and no hematuria Musculoskeletal: + joint pain (well controlled with PRN pain medication) Physical Exam Constitutional: WD/WN, vitals as above Respiratory: normal respiratory effort, lungs clear to auscultation Cardiovascular: RRR, no murmur, no edema Gastrointestinal (Abdomen): normal bowel sounds, soft, nontender, no hepatosplenomegaly Skin: no rashes, warm and dry Psychiatric: A+Ox3, euthymic affect Results & Data Vital Signs (Past 12 Hours) Vital Signs Temp Pulse Resp BP Pulse Ox 05/06/19 07:18 36.7 C 79 16 117/68 94 05/05/19 22:57 37.1 C 67 18 125/74 92 Laboratory Results Laboratory Results - last 24 hr 05/04/19 05/06/19 05/06/19 20:24 06:03 06:03 WBC 6.38 RBC 2.81 L Hgb 8.3 L D Hct 24.6 L MCV 87.5 MCH 29.5 MCHC 33.7 RDW Std Deviation 46.3 RDW Coeff of Jerrell 14.4 Plt Count 136 MPV 9.7 Sodium 138 Potassium 4.0 Chloride 108 H Carbon Dioxide 25 Anion Gap 5.0 BUN 13 Creatinine 0.81 D Est Cr Clr Drug Dosing 42.6 Est GFR ( Amer) 78.9 Est GFR (Non-Af Amer) 68.1 BUN/Creatinine Ratio 15.6 Glucose 104 H Calcium 8.7 25-OH Vitamin D Total Blood Type B Positive Blood Type Recheck Antibody Screen NEGATIVE Crossmatch See Detail 05/06/19 05/06/19 06:03 06:03 WBC RBC Hgb Hct MCV MCH MCHC RDW Std Deviation RDW Coeff of Jerrell Plt Count MPV Sodium Potassium Chloride Carbon Dioxide Anion Gap BUN Creatinine Est Cr Clr Drug Dosing Est GFR ( Amer) Est GFR (Non-Af Amer) BUN/Creatinine Ratio Glucose Calcium 25-OH Vitamin D Total 21.3 L Blood Type Blood Type Recheck B Positive Antibody Screen Crossmatch Medications Administered Current Medications Albuterol (Duoneb) 3 ml NEB Q4H PRN PRN Reason: dyspnea Stop: 06/03/19 22:34 Amlodipine Besylate (Norvasc) 5 mg PO HS ANITHA Stop: 06/04/19 20:59 Last Admin: 05/05/19 20:29 Dose: 5 mg Documented by: Atropine Sulfate (Atropine Sulfate) 0.5 mg IV Q1M PRN PRN Reason: PACU Use-HR<40 &/or Bradycardi Stop: 05/06/19 14:04 Bisacodyl (Dulcolax) 10 mg [place] DAILY PRN PRN Reason: Constipation Stop: 06/03/19 22:34 Budesonide/Formoterol Fumarate (Symbicort 160mcg/4.5mcg) 2 puffs INH BID [facility] Stop: 06/03/19 22:34 Last Admin: 05/05/19 20:28 Dose: 2 puffs Documented by: Calcium Carbonate (Tums) 500 mg PO TIDM [facility] Stop: 06/04/19 16:59 Last Admin: 05/05/19 17:02 Dose: 500 mg Documented by: Carvedilol (Coreg) 6.25 mg PO BID [facility] Stop: 06/03/19 22:34 Last Admin: 05/05/19 20:29 Dose: 6.25 mg Documented by: Diazepam (Valium) 5 mg PO BID [facility] Stop: 06/03/19 22:34 Last Admin: 05/05/19 20:29 Dose: 5 mg Documented by: Ephedrine Sulfate (Ephedrine Sulfate) 5 mg IV Q5M PRN PRN Reason: PACU Use Only-SBP<90 mmHg Stop: 05/06/19 14:04 Ergocalciferol (Vitamin D2) 50,000 units PO Th@2100 [facility] Stop: 06/05/19 20:59 Fentanyl Citrate (Fentanyl Citrate) 50 mcg IV Q5M PRN PRN Reason: PACU Use Only-Pain Stop: 05/06/19 14:04 Hydromorphone HCl (Dilaudid) 0.25 mg IV Q3H PRN PRN Reason: Pain Stop: 05/18/19 22:34 Last Admin: 05/06/19 07:33 Dose: 0.25 mg Documented by: Sodium Chloride (Nss) 250 mls @ 15 mls/hr IV .[id number] PRN PRN Reason: For Transfusion Stop: 05/06/19 17:06 Lactated Ringer's (Lr) 1,000 mls @ 0 mls/hr IV .Q0M ANITHA Stop: 06/05/19 08:59 Last Infusion: 05/06/19 10:12 Dose: Infused Documented by: Levothyroxine Sodium (Synthroid) 50 mcg PO DAILYBB [facility] Stop: 06/04/19 08:59 Last Admin: 11/29/19 05:49 Dose: 50 mcg Documented by: Magnesium Hydroxide (Milk Of Magnesia) 30 ml PO DAILY PRN PRN Reason: Constipation Stop: 06/03/19 22:34 Montelukast Sodium (Singulair) 10 mg PO QPM [facility] Stop: 06/04/19 20:59 Last Admin: 05/05/19 20:29 Dose: 10 mg Documented by: Naloxone HCl (Narcan) 0.1 mg IV UD PRN PRN Reason: Opiate Overdose Stop: 06/03/19 22:34 Nystatin (Mycostatin) 5 ml PO QID [facility] Stop: 05/10/19 08:59 Ondansetron HCl (Zofran) 4 mg IV Q6H PRN PRN Reason: Nausea Stop: 06/03/19 22:34 Ondansetron HCl (Zofran) 4 mg IV ONCE PRN PRN Reason: PACU Use Only-Nausea/Vomiting Stop: 05/06/19 14:04 Oxycodone HCl (Roxicodone Immediate Rel) 5 mg PO Q4H PRN PRN Reason: Pain Stop: 05/19/19 16:54 Last Admin: 05/06/19 04:13 Dose: 5 mg Documented by: Potassium Citrate (Urocit-K) 10 meq PO BID [facility] Stop: 06/04/19 08:59 Last Admin: 05/05/19 20:29 Dose: 10 meq Documented by: Senna/Docusate Sodium (Senokot S) 2 tab PO HS [facility] Stop: 06/04/19 20:59 Last Admin: 05/05/19 20:29 Dose: 2 tab Documented by: Sertraline HCl (Zoloft) 25 mg PO QAM [facility] Stop: 06/04/19 09:29 Last Admin: 05/05/19 10:30 Dose: 25 mg Documented by: Simvastatin (Zocor) 10 mg PO QPM [facility] Stop: 06/04/19 20:59 Last Admin: 05/05/19 20:29 Dose: 10 mg Documented by: Vitamin D (Vitamin D3) 2,000 units PO QAM [facility] Stop: 06/05/19 08:59 Resident Activity Tracking Resident Involvement: Resident Care Provided Care Provided: Adult Hospital Medicine (1) Closed intertrochanteric fracture of right hip Encounter type: initial encounter Fracture alignment: displaced Qualified Code(s): S72.141A - Displaced intertrochanteric fracture of right femur, initial encounter for closed fracture
[2019-05-06] MEDS ORDERED: LACTATED RINGER'S 1,000 ML IV SCH (09:00)
[2019-05-06] MEDS ORDERED: CHOLECALCIFEROL 1,000 UNITS TAB PO SCH (09:00)
[2019-05-06] MEDS ORDERED: ONDANSETRON INJ 2 MG/ML 2 ML VIAL IV PRN (09:04)
[2019-05-06] MEDS ORDERED: ATROPINE SULFATE 0.1 MG/ML 10ML SYR IV PRN (09:04)
[2019-05-06] MEDS ORDERED: ePHEDrine sulfate 50 MG/ML AMP IV PRN (09:04)
[2019-05-06] MEDS ORDERED: fentaNYL citrate 100 MCG/2 ML VIAL IV PRN (09:04)
--- NOTE | 2019-05-06 09:04 | Anesthesiology Consultation ---
Date of Service May 06, 2019 Moderate asthma Bilateral PEs Chronic anticoagultion acute on chronic anemia htn obesity hypothyroidism advanced age Assessment & Plan (1) Encounter for pre-operative examination: Chart Review Chart Review: Acceptable Risk for Surgery and Patient NOT seen in Pre Admission Testing Consults Requested none ASA ASA4 Proposed Anesthesia Anesthesia Type: General Risk / Benefits Reviewed With: PT / POA / Parent / Guardian, Accepts Plan and Informed Consent Obtained History Surgery Operation Date: 05/06/19 08:20 Proposed Procedures p Right Troch Nail Versus - Jose Francisco Andrei Francisco MD s Dynamic Hip Screw Open Reduction Internal Fixation - Jose Francisco Andrei Francisco MD Operation Date: 05/06/19 10:00 Proposed Procedures p Intramedullary Tito Femur - Jose Francisco Andrei Francisco MD s Open Reduction Internal Fixation Femur - Jose Francisco Andrei Francisco MD Height/Weight Height: 4 ft 8 in Weight: 69.4 kg Allergies Allergy/AdvReac Type Severity Reaction Status Date / Time adhesive Allergy Unknown BANDAIDS Verified 05/06/19 09:03 AND CLOTH ADHESIVE-BLISTERS No Known Drug Allergies Allergy Unknown Verified 05/04/19 20:14 Medications Home Medications Medication Instructions Recorded Confirmed Last Taken albuterol sulfate 90 mcg/actuation 2 puffs INHALATION Q4H PRN gm 02/18/19 05/04/19 Unknown aerosol inhaler amlodipine 5 mg tablet 5 mg PO HS tab 02/18/19 05/05/19 Unknown aspirin 81 mg tablet 81 mg PO QAM tab 02/18/19 05/04/19 Unknown carvedilol 6.25 mg tablet 6.25 mg PO BID tab 02/18/19 05/04/19 Unknown coenzyme Q10 10 10 mg capsule 1 mg PO QAM cap 02/18/19 05/04/19 Unknown cranberry 400 mg capsule 400 mg PO DAILY 02/18/19 05/04/19 Unknown diazepam 5 mg tablet 5 mg PO BID tab 02/18/19 05/04/19 Unknown levothyroxine 50 mcg tablet 50 mcg PO QAM tab 02/18/19 05/04/19 Unknown rivaroxaban 20 mg tablet 20 mg PO QAM #1 tab 02/18/19 05/04/19 Unknown simvastatin 10 mg tablet 10 mg PO QPM tab 02/18/19 05/04/19 Unknown solifenacin 5 mg tablet 5 mg PO DAILY tab 02/18/19 05/04/19 Unknown valsartan 160 1 tab PO DAILY tab 02/18/19 05/04/19 Unknown mg-hydrochlorothiazide 12.5 mg tablet budesonide-formoterol HFA 160 2 puffs INH BID 03/24/19 05/04/19 Unknown mcg-4.5 mcg/actuation aerosol inhaler potassium citrate 10 mEq (1,080 10 meq PO BID tab 03/24/19 05/04/19 Unknown mg) tablet,extended release montelukast 10 mg PO QPM 05/04/19 05/04/19 Unknown Active Medications Generic Name Dose Route Start Last Admin Trade Name Freq PRN Reason Stop Dose Admin Amlodipine Besylate 5 mg 05/05/19 21:00 05/05/19 20:29 Norvasc PO 06/04/19 20:59 5 mg HS ANITHA Administration Budesonide/Formoterol Fumarate 2 puffs 05/04/19 22:35 05/05/19 20:28 Symbicort 160mcg/4.5mcg INH 06/03/19 22:34 2 puffs BID ANITHA Administration Calcium Carbonate 500 mg 05/05/19 17:00 05/05/19 17:02 Tums PO 06/04/19 16:59 500 mg TIDM ANITHA Administration Carvedilol 6.25 mg 05/04/19 22:35 05/05/19 20:29 Coreg PO 06/03/19 22:34 6.25 mg BID ANITHA Administration Diazepam 5 mg 05/04/19 22:35 05/05/19 20:29 Valium PO 06/03/19 22:34 5 mg BID ANITHA Administration Hydromorphone HCl 0.25 mg 05/04/19 22:35 05/06/19 07:33 Dilaudid IV 05/18/19 22:34 0.25 mg Q3H PRN Administration Pain Levothyroxine Sodium 50 mcg 05/05/19 09:00 05/06/19 05:49 Synthroid PO 06/04/19 08:59 50 mcg DAILYBB ANITHA Administration Montelukast Sodium 10 mg 05/05/19 21:00 05/05/19 20:29 Singulair PO 06/04/19 20:59 10 mg QPM ANITHA Administration Oxycodone HCl 5 mg 05/05/19 16:55 05/06/19 04:13 Roxicodone Immediate Rel PO 05/19/19 16:54 5 mg Q4H PRN Administration Pain Potassium Citrate 10 meq 05/05/19 09:00 05/05/19 20:29 Urocit-K PO 06/04/19 08:59 10 meq BID ANITHA Administration Senna/Docusate Sodium 2 tab 05/05/19 21:00 05/05/19 20:29 Senokot S PO 06/04/19 20:59 2 tab HS ANITHA Administration Sertraline HCl 25 mg 05/05/19 09:30 05/05/19 10:30 Zoloft PO 06/04/19 09:29 25 mg QAM ANITHA Administration Simvastatin 10 mg 05/05/19 21:00 05/05/19 20:29 Zocor PO 06/04/19 20:59 10 mg QPM ANITHA Administration NPO Date Last Intake of Fluids: 05/05/19 Time Last Intake of Fluids: 23:59 Date Last Intake of Solids: 05/05/19 Time Last Intake of Solids: 23:59 Past Medical History Medical History Anxiety Asthma Bilateral pulmonary embolism Bladder spasm Chronic anticoagulation Hyperlipidemia Hypertension Hypothyroidism (acquired) Left ankle sprain (Inactive) Saddle embolism of pulmonary artery Exercise / Class Metabolic Activity III < 4 Walking/Shop/Light housework Past Surgical History Surgical History History of cholecystectomy History of thoracentesis Past Anesthesia History No Hx of Anesthesia Complications and No Family Hx of Anesthesia Complications History of PONV No Hx of PONV and No Hx of Motion Sickness Social History Smoking Status: Former smoker Do You Dip or Chew Tobacco: No Hx Alcohol Use: Yes alcohol intake frequency: other Alcohol Intake Frequency Comment: very rarely Hx Substance Use: No Physical Exam Vital Signs Last Vital Signs Temp 37.4 C 05/06/19 08:45 Pulse 80 05/06/19 08:45 Resp 18 05/06/19 08:45 BP 134/72 05/06/19 08:45 Pulse Ox 89 L 05/06/19 08:45 ENMT Mouth: no dentition abnormality Thyromental Distance: > or= 3.5 Finger Breadths Mallampati Class: II Neck normal visual inspection Respiratory normal respiratory effort Auscultation: lungs clear to auscultation bilaterally Cardiovascular Rate/Rhythm: regular rate and regular rhythm Psychiatric Orientation: alert Testing Laboratory Results 05/06/19 06:03 05/06/19 06:03 PT 11.9 Seconds (9.0-12.0) 05/04/19 19:55 INR 1.2 (0.9-1.1) H 05/04/19 19:55 APTT 25.6 Seconds (21.0-31.0) 05/04/19 19:55 Urine Color Yellow 05/04/19 20:15 Urine Appearance Clear (Clear) 05/04/19 20:15 Urine pH 6.5 (4.5-7.5) 05/04/19 20:15 Ur Specific [place] 1.026 (1.000-1.030) 05/04/19 20:15 Urine Protein Negative (Negative) 05/04/19 20:15 Urine Glucose (UA) Negative (Negative) 05/04/19 20:15 Urine Ketones Negative (Negative) 05/04/19 20:15 Urine Nitrite Negative (Negative) 05/04/19 20:15 Ur Leukocyte Esterase Negative (Negative) 05/04/19 20:15 Blood Type B Positive 05/04/19 20:24 Antibody Screen NEGATIVE 05/04/19 20:24
--- NOTE | 2019-05-06 09:53 | Orthopedic Progress Note ---
Date of Service May 06, 2019 Assessment & Plan (1) Closed intertrochanteric fracture of right hip: The patient is a 83 year old female who sustained a right hip fracture was on Xarelto, had to hold the dose for 2 days, prior to being able to perform the surgery. She will require intubation rather than spinal anesthesia. She has had nothing by mouth after midnight. Patient is aware of the risks and benefits. Informed consent signed yesterday. RLE initialled and patient identified. She will remain nonweightbearing on the right lower extremity, bed rest. Planned surgery today as hospitalist service deemed acceptable risk. Continue care per the primary service. Subjective Right hip and foot pain Review of Systems Review of Systems: All systems reviewed & are unremarkable except as noted in HPI & below Physical Exam Physical Exam: RLE: neurovascularly unchanged. Shortened and externally rotated. Results & Data Vital Signs (Past 12 Hours) Vital Signs Temp Pulse Resp BP Pulse Ox 05/06/19 08:45 37.4 C 80 18 134/72 89 L 05/06/19 07:18 36.7 C 79 16 117/68 94 05/05/19 22:57 37.1 C 67 18 125/74 92 Laboratory Results 05/06/19 05/06/19 05/06/19 Range/Units 06:03 06:03 06:03 WBC (4.8-10.8) K/uL RBC (4.2-5.4) M/uL Hgb (12.0-16.0) g/dL Hct (37-47) % MCV (80-100) fL MCH (25-34) pg MCHC (32-36) g/dL RDW Std Deviation (36.4-46.3) fL RDW Coeff of Jerrell (11.5-14.5) % Plt Count (130-400) K/uL MPV (7.4-10.4) fL Sodium 138 (136-145) mmol/L Potassium 4.0 (3.5-5.1) mmol/L Chloride 108 H (98-107) mmol/L Carbon Dioxide 25 (21-32) mmol/L Anion Gap 5.0 (3-11) BUN 13 (7-18) mg/dl Creatinine 0.81 D (0.6-1.2) mg/dl Est Cr Clr Drug Dosing 42.6 ml/min Est GFR ( Amer) 78.9 Est GFR (Non-Af Amer) 68.1 BUN/Creatinine Ratio 15.6 (10-20) Glucose 104 H (70-99) mg/dl Calcium 8.7 (8.5-10.1) mg/dl 25-OH Vitamin D Total 21.3 L (30-100) ng/ml Blood Type Blood Type Recheck B Positive Antibody Screen Crossmatch 05/06/19 05/04/19 Range/Units 06:03 20:24 WBC 6.38 (4.8-10.8) K/uL RBC 2.81 L (4.2-5.4) M/uL Hgb 8.3 L D (12.0-16.0) g/dL Hct 24.6 L (37-47) % MCV 87.5 (80-100) fL MCH 29.5 (25-34) pg MCHC 33.7 (32-36) g/dL RDW Std Deviation 46.3 (36.4-46.3) fL RDW Coeff of Jerrell 14.4 (11.5-14.5) % Plt Count 136 (130-400) K/uL MPV 9.7 (7.4-10.4) fL Sodium (136-145) mmol/L Potassium (3.5-5.1) mmol/L Chloride (98-107) mmol/L Carbon Dioxide (21-32) mmol/L Anion Gap (3-11) BUN (7-18) mg/dl Creatinine (0.6-1.2) mg/dl Est Cr Clr Drug Dosing ml/min Est GFR ( Amer) Est GFR (Non-Af Amer) BUN/Creatinine Ratio (10-20) Glucose (70-99) mg/dl Calcium (8.5-10.1) mg/dl 25-OH Vitamin D Total (30-100) ng/ml Blood Type B Positive Blood Type Recheck Antibody Screen NEGATIVE Crossmatch See Detail (1) Closed intertrochanteric fracture of right hip Encounter type: initial encounter Fracture alignment: displaced Qualified Code(s): S72.141A - Displaced intertrochanteric fracture of right femur, initial encounter for closed fracture
[2019-05-06] MEDS ORDERED: CEFAZOLIN 2,000 MG/15 ML IV PUSH IV ONE (09:57)
[2019-05-06] MEDS ORDERED: CEFAZOLIN 2000MG 2,000 MG/15 ML SYR IV ONE (09:59)
[2019-05-06] MEDS ORDERED: PROPOFOL IV EMULSION 10 MG/ML 20 ML VIAL IV ONE (10:05)
[2019-05-06] MEDS ORDERED: fentaNYL citrate 100 MCG/2 ML VIAL ONE ×2 (10:05→10:57)
[2019-05-06] MEDS ORDERED: BUPIVACAINE 0.5 % 5 MG/1 ML MPF 30ML VIAL ONE (10:18)
[2019-05-06] MEDS ORDERED: LIDOCAINE/EPINEPHRINE 1% 20 ML VIAL ONE (10:18)
[2019-05-06] MEDS ORDERED: ONDANSETRON INJ 2 MG/ML 2 ML VIAL ONE (10:57)
[2019-05-06] MEDS ORDERED: DEXAMETHASONE SOD INJ 4 MG/ML VIAL ONE (10:57)
[2019-05-06] MEDS ORDERED: ePHEDrine sulfate 50 MG/ML AMP ONE (11:06)
--- NOTE | 2019-05-06 12:56 | Post Operative Brief Note ---
Immediate Post Op Note v1 Date of Surgery May 06, 2019 Pre & Post Diagnosis Operation Date: 05/06/19 08:20 Pre-Op Diagnosis: Right Intertrochanteric Hip fracture Post-Op Diagnosis: Right Intertrochanteric Hip fracture; right 5th metatarsal fracture I identified the patient and participated in the time-out.: Yes Procedure Operation Date: 05/06/19 08:20 Actual Procedures 1) Right hip open reduction internal fixation 2) Right 5th metatarsal closed treatment(Right) - Jose Francisco Francisco MD Surgeon Jose Francisco Francisco MD Mixing Roll Operator Bhupendra Owen MD & C LUIS FELIPE Lezama Estimated Blood Loss 100 Findings Consistent with Post-Op Diagnosis Fluids 700 cc Drains Santana Catheter (from floor, remains in) Anesthesia Type General Complications Skin tear in fold of pannus
--- NOTE | 2019-05-06 12:59 | Operative Report ---
Post Operative Report Pre & Post Diagnosis Operation Date: 05/06/19 08:20 Pre-Op Diagnosis: Right Intertrochanteric Hip fracture Post-Op Diagnosis: Right Intertrochanteric Hip fracture; right 5th metatarsal fracture I identified the patient and participated in the time-out.: Yes Procedure Operation Date: 05/06/19 08:20 Actual Procedures 1) Right hip open reduction internal fixation 2) Right 5th metatarsal closed treatment(Right) - Jose Francisco Francisco MD Surgeon Jose Francisco Francisco MD Guest Relations Receptionist Bhupendra Owen MD & Vasyl Lezama PA-C Estimated Blood Loss 100 Findings See Below Comminuted displace right intertochanteric hip fracture & non-displaced 5th metatarsal base fracture. Fluids 700 cc Specimens n/a Drains n/a Anesthesia Type General Complications skin tear along crease of pannus Indications The patient is a 83 year old female who sustained a right hip fracture. The patients treatment options of conservative versus surgical intervention were discussed. Since the patient was an ambulatory prior to the injury and to avoid the risks of bed sores, pulmonary complications, and to give the best chance for ambulation, I recommended surgery. The patient and family understands the risks of surgery, which include but are not limited to: bleeding, infection, re- operation, damage to nerves and arteries, continued pain, failure of the hardware, mal-union, non-union, DVT, and . In addition she is aware of the 20-30% morbidity associated with hip fracture for up to 1 year following a hip fracture. The patient and family understands all of these instructions and explanations, all of their questions have been satisfactorily addressed. The patient has elected to proceed with surgery and the informed consent was signed. Description of Procedure IMPLANTS: 1) DHS 4-Hole Side Plate 135 degree (Synthes). 2) 85 mm Lag screw. 3) 6.5 mm Cannulated, long thread, screw (80 mm). 4) 4.5 mm Cortical screws (36 mm, 38 x 3). Description of Procedure: The patient was taken to the Operating Room and placed in the supine position on the fracture table after general anesthesia was administered. The correct patient was identified and a multidisciplinary time-out was performed identifying my initials on the right lower limb as the correct and operative limb. Prior to the incision being made, 2 grams of intravenous Ancef were given. Fluoroscopy was brought in to ensure adequate x-rays images could be obtained. A reduction was performed with traction, adduction of the operative limb, and on the AP, the fracture looked well aligned, however on the lateral, there was significant displacement in the anterior posterior direction, that could be corrected. At that point we decided to proceed with a DHS. In addition due to the patient continuing to complain of right foot pain, fluoroscopic images of the right foot were obtained and showed a nondisplaced fifth metatarsal base fracture. The right lower extremity was prepped in the standard fashion. The trochanter was marked as was the planned incision and trajectory of the lag screw. The incision was injected with a 50:50 mixture of 1% Lidocaine plain and 0.5% Bupivacaine with epinephrine for a total of 10 cc. The planned incision was made and carried down through the Tensor Fascia Wendy and vastus lateralis to expose the lateral femur. Two guide wires were placed, 1 for the lag screw and the second for the derotation screw. They were placed after using Fluro to ensure the near anatomic reduction by elevating the femur and using the bone hook to compress the medial fragment posteriorly. In addition, the foot was slightly externally rotated. Once satisfied with both guide wires, we initially planned to place the lag using the starting reamer to create the entry hole. There was some resistance and rotation of the medial fragment despite the derotation wire before the implant could be fully seated. The 6.5 mm cannulated derotation screw was placed. The lag screw was removed and it was tapped before placing the lag screw in the standard fashion. The side plate was placed in the standard fashion with 4 screws in the distal holes. Final x-rays were obtained showing TAD of less than 25mm, near anatomic reduction and the derotation screw in good position. The wounds were copiously irrigated. The Vastus lateralis was closed with #1 Vicryl. The Tensor Fascia Wendy was closed with 0 Vicryl. The deep fat was loosely closed with 2, 2-0 Vicryl sutures. The subcutaneous tissue was closed with 3-0 Vicryl. The skin was closed with aviva. The incisions were covered with Xeroform, 4x4s, ABD, and Tegaderm. The skin tear near the pannus was covered with Xeroform and Tegaderm. The patient was transfer to her hospital bed and taken to the PACU in stable condition. The sponge and needle counts were correct. Post-op Instructions: The patient was admitted to Med/surgery floor. The patient will be WBAT through the heel with post-op shoe and with a walker. The patient will be seen by PT/OT. Her labs will be checked in the am. DVT prophylaxis will be with TEDs, mechanical devices and Lovenox tonight, but will be switch back to Xarelto tomorrow afternoon. I attest to the content of the Intraoperative Record and any orders documented therein. Any exceptions are noted below.
--- NOTE | 2019-05-06 13:09 | Fluoroscopy Report ---
FL hip RT 2-3V CLINICAL HISTORY: RIGHT TROCH NAIL VS. SHIMON COMPARISON STUDY: Right hip radiographs May 04, 2019. FLUOROSCOPY TIME: 1 minute and 58 seconds. FLUOROSCOPIC IMAGES: 7 FINDINGS: These images demonstrate internal fixation of the right femur fracture with dynamic hip scr ew. Hardware is intact. Fracture alignment has improved and appears near anatomic. There are skin sta ples. Fluoroscopic images also demonstrate a minimally distracted transverse fracture within the base of the right fifth metatarsal. IMPRESSION: 1. Expected findings following internal fixation of the proximal right femoral fracture. 2. Minimally distracted transverse fracture within the base of the right fifth metatarsal. Electronically signed by: Landon Guevara M.D. 05/06/2019 1:08 PM
--- NOTE | 2019-05-06 13:18 | Operative Report ---
Post Operative Report Pre & Post Diagnosis Operation Date: 05/06/19 08:20 Pre-Op Diagnosis: Right Intertrochanteric Hip fracture Post-Op Diagnosis: Right Intertrochanteric Hip fracture; right 5th metatarsal fracture Operation Date: 05/06/19 10:00 <No data on this case meets the specified criteria> I identified the patient and participated in the time-out.: Yes Procedure Operation Date: 05/06/19 08:20 Actual Procedures p Right hip open reduction internal fixation; right 5th metatarsal closed treatment(Right) - Jose Francisco Francisco MD Operation Date: 05/06/19 10:00 <No data on this case meets the specified criteria> Surgeon Jose Francisco Francisco MD [employer] Supervisor Bhupendra Owen MD & C LUIS FELIPE Lezama Estimated Blood Loss 100 Findings Consistent with Post-Op Diagnosis Specimens as per procedure notes Complications none Disposition Accompanied Patient To Recovery: Yes Disposition: Recovery Room Description of Procedure Supine, fracture table, standard prep and drape, time-out Right hip open reduction internal fixation; right 5th metatarsal closed treatment Please see Dr Francisco's procedure notes for specific details I was present throughout the case, assisted for wound closure and transferred the patient to PACU in stable condition I attest to the content of the Intraoperative Record and any orders documented therein. Any exceptions are noted below.
[2019-05-06] MEDS: BUDESONIDE/FORMOTEROL FUMARATE 160/4.5 60 PUFFS/INHALER INH SCH (13:40)
[2019-05-06] MEDS: CALCIUM CARBONATE 500 MG CHEWABLE TAB PO SCH ×3 (13:40→19:48)
[2019-05-06] MEDS: diazePAM 5 MG TABLET PO SCH ×2 (13:40→21:29)
[2019-05-06] MEDS: NYSTATIN SUSP 500,000 U/5 ML UDC PO SCH ×4 (13:40→19:56)
[2019-05-06] MEDS: POTASSIUM CITRATE 10 MEQ TAB PO SCH ×2 (13:40→19:57)
[2019-05-06] MEDS: carvediloL 6.25 MG TAB PO SCH ×2 (13:41→19:55)
[2019-05-06] MEDS: SERTRALINE HCL 50 MG TABLET PO SCH (13:41)
--- NOTE | 2019-05-06 14:06 | Anesthesiology Progress Note ---
Date of Service May 06, 2019 Anesthesia Post Procedure Vital Signs Vital Signs: Temp Pulse Pulse Pulse Resp BP BP 05/06/19 14:00 80 17 138/77 05/06/19 13:50 36.4 C L 74 18 115/51 L 05/06/19 13:43 36.5 C 78 16 115/53 L 05/06/19 13:41 77 16 113/53 L 05/06/19 13:31 76 18 113/53 L 05/06/19 13:21 75 17 131/63 05/06/19 13:11 36.6 C 84 19 99/53 L 05/06/19 09:00 05/06/19 08:45 37.4 C 80 18 134/72 05/06/19 07:18 36.7 C 79 16 117/68 05/05/19 22:57 37.1 C 67 18 125/74 05/05/19 20:23 85 142/79 H 05/05/19 14:57 36.6 C 83 16 129/77 Pulse Ox 05/06/19 14:00 95 05/06/19 13:50 98 05/06/19 13:43 98 05/06/19 13:41 98 05/06/19 13:31 98 05/06/19 13:21 98 05/06/19 13:11 98 05/06/19 09:00 98 05/06/19 08:45 89 L 05/06/19 07:18 94 05/05/19 22:57 92 05/05/19 20:23 05/05/19 14:57 92 Pain Intensity Right Hip: Pain Intensity: 4 Transfer of Care Handoff Completed per policy Notes Mental Status: alert / awake / arousable Patient Amnestic to Procedure: Yes Nausea / Vomiting: adequately controlled Pain: adequately controlled Airway Patency, RR, SpO2: stable & adequate BP & HR: stable & adequate Hydration State: stable & adequate Anesthetic Complications: no major complications apparent
--- NOTE | 2019-05-06 14:10 | XRay Report ---
SINGLE VIEW PELVIS; SINGLE VIEW RIGHT HIP CLINICAL HISTORY: Postoperative examination. FINDINGS: An AP portable view of the hips and pelvis with a crosstable lateral portable view of the r ight hip are obtained. There is posttraumatic deformity of the right femoral neck. A dynamic compress ion screw with buttress plate has been placed in the right femur. There is also intertrochanteric cor tical lag screw. 4 cortical lag screws transfix the buttress plate. Near-anatomic alignment is mainta ined. There are expected postoperative changes overlying the right hip including skin clips, subcutan eous gas, and soft tissue swelling. The left hip and the visualized bony pelvis appear intact. IMPRESSION: Expected postoperative findings involving the right hip status post open reduction and in ternal fixation. Electronically signed by: Doug Chakraborty M.D. 05/06/2019 2:08 PM
[2019-05-06] MEDS ORDERED: NALOXONE HCL 0.4 MG/1 ML VIAL/CARP IV PRN (14:13)
--- NOTE | 2019-05-06 15:28 | Billing Data ---
Coding Level of Care Code 06293 Subseq Hosp Care Lvl 3
[2019-05-06] MEDS ORDERED: ENOXAPARIN INJ 40 MG/0.4 ML SYR SQ ONE (18:30)
[2019-05-06] MEDS: ALBUTEROL 0.083% NEBU SOLN 3 ML VIAL NEB SCH (19:27)
[2019-05-06] MEDS: BUDESONIDE 0.5 MG/2 ML VIAL (PULMICORT) NEB SCH (19:27)
[2019-05-06] MEDS: AMLODIPINE BESYLATE 5 MG TAB PO SCH (19:54)
[2019-05-06] MEDS: SIMVASTATIN 10 MG TAB PO SCH (19:55)
[2019-05-06] MEDS: MONTELUKAST SODIUM 10 MG TABLET PO SCH (19:56)
[2019-05-06] MEDS: CHOLECALCIFEROL 1,000 UNITS TAB PO SCH (19:56)
[2019-05-06] MEDS: DOCUSATE SODIUM/SENNA 50/8.6MG TAB PO SCH (19:57)
[2019-05-06] MEDS ORDERED: ERGOCALCIFEROL 50,000 UNITS CAP PO SCH (21:00)
[2019-05-07] MEDS: OXYCODONE HCL IR 5 MG TAB (IMMEDIATE RELEASE) PO PRN ×4 (04:55→20:09)
[2019-05-07 05:12] LABS: Hematocrit (blood only) 26.9 % (37-47); Hemoglobin 9.3 g/dL (12.0-16.0); Immature Granulocytes # (auto) 0.02 K/uL (0.00-0.02); Immature Granulocytes % (auto) 0.2 %; Lymphocytes # (auto) 0.44 K/uL (1.2-3.4); Lymphocytes % (auto) 5.3 %; Mean Corpuscular Hemoglobin 29.6 pg (25-34); Mean Corpuscular Hgb Conc 34.6 g/dL (32-36); Mean Corpuscular Volume 85.7 fL (80-100); Mean Platelet Volume 9.4 fL (7.4-10.4); Monocytes # (auto) 0.59 K/uL (0.11-0.59); Monocytes % (auto) 7.2 %; Neutrophils # (auto) 7.19 K/uL (1.4-6.5); Neutrophils % (auto) 87.3 %; Platelet Count 132 K/uL (130-400); RDW Coefficient of Variation 14.4 % (11.5-14.5); RDW Standard Deviation 44.7 fL (36.4-46.3); Red Blood Count 3.14 M/uL (4.2-5.4); White Blood Count 8.24 K/uL (4.8-10.8)
[2019-05-07 05:31] LABS: BUN Creatinine Ratio 18.3 (10-20); Calcium 8.4 mg/dl (8.5-10.1); Creatinine Clr Calc Pharmacy 37.1 ml/min; Est GFR (African American) 66.8; Est GFR (Non-African American) 57.6; Potassium 4.4 mmol/L (3.5-5.1)
[2019-05-07] MEDS: LEVOTHYROXINE SODIUM 50 MCG TABLET PO SCH (05:46)
[2019-05-07] MEDS: BUDESONIDE 0.5 MG/2 ML VIAL (PULMICORT) NEB SCH ×2 (07:31→18:59)
[2019-05-07] MEDS: ALBUTEROL 0.083% NEBU SOLN 3 ML VIAL NEB SCH ×2 (07:31→18:59)
--- NOTE | 2019-05-07 08:09 | Orthopedic Progress Note ---
Date of Service May 07, 2019 Assessment & Plan (1) Closed intertrochanteric fracture of right hip: POD # 1, S/P ORIF right hip fracture with DHS, doing as well as expected. Received 1 unit pRBC for acute anemia blood loss. Continue WBAT through heel with post-op shoe and walker. OOB to chair. PT/OT Continue pain control. D/C Santana from ortho stand point. DVT prophylaxis: SCDs, TEDs, restart Xarelto today. Ice right hip. Change dressings 05/08/2019. Continue care per primary service. Present on Admission?: Yes (2) Fracture of 5th metatarsal: Non-displaced right 5th Metatarsal fracture, closed. WBAT through heel, with post-op shoe. Ice, elevate. Continue pain control. Will follow-up as outpt in 2 weeks with x-rays 3 views Right foot. Present on Admission?: Yes Subjective Wish I was feeling much better. Denies SOB or CP. Review of Systems Review of Systems: All systems reviewed & are unremarkable except as noted in HPI & below Physical Exam Physical Exam: RLE: Neurovascularly intact. Dressings clean, dry, intact. + TTP R 5th metatarsal. Calfs soft and non-tender Results & Data Vital Signs (Past 12 Hours) Vital Signs Temp Pulse Pulse Resp BP Pulse Ox 05/07/19 07:32 79 18 93 05/07/19 03:44 36.8 C 88 16 117/61 94 05/06/19 23:25 36.8 C 84 16 111/66 95 Laboratory Results 05/07/19 05/07/19 05/04/19 Range/Units 04:55 04:55 20:24 WBC 8.24 (4.8-10.8) K/uL RBC 3.14 L (4.2-5.4) M/uL Hgb 9.3 L (12.0-16.0) g/dL Hct 26.9 L (37-47) % MCV 85.7 (80-100) fL MCH 29.6 (25-34) pg MCHC 34.6 (32-36) g/dL RDW Std Deviation 44.7 (36.4-46.3) fL RDW Coeff of Jerrell 14.4 (11.5-14.5) % Plt Count 132 (130-400) K/uL MPV 9.4 (7.4-10.4) fL Immature Gran % (Auto) 0.2 % Neut % (Auto) 87.3 % Lymph % (Auto) 5.3 % [place] % (Auto) 7.2 % Eos % (Auto) 0.0 % Baso % (Auto) 0.0 % Immature Gran # (Auto) 0.02 (0.00-0.02) K/uL Neut # (Auto) 7.19 H (1.4-6.5) K/uL Lymph # (Auto) 0.44 L (1.2-3.4) K/uL [place] # (Auto) 0.59 (0.11-0.59) K/uL Eos # (Auto) 0.00 (0-0.5) K/uL Baso # (Auto) 0.00 (0-0.2) K/uL Sodium 138 (136-145) mmol/L Potassium 4.4 (3.5-5.1) mmol/L Chloride 107 (98-107) mmol/L Carbon Dioxide 27 (21-32) mmol/L Anion Gap 4.0 (3-11) BUN 17 (7-18) mg/dl Creatinine 0.93 (0.6-1.2) mg/dl Est Cr Clr Drug Dosing 37.1 ml/min Est GFR ( Amer) 66.8 Est GFR (Non-Af Amer) 57.6 BUN/Creatinine Ratio 18.3 (10-20) Glucose 126 H (70-99) mg/dl Calcium 8.4 L (8.5-10.1) mg/dl Blood Type B Positive Antibody Screen NEGATIVE Crossmatch See Detail (1) Closed intertrochanteric fracture of right hip Encounter type: initial encounter Fracture alignment: displaced Qualified Code(s): S72.141A - Displaced intertrochanteric fracture of right femur, initial encounter for closed fracture
[2019-05-07] MEDS: POTASSIUM CITRATE 10 MEQ TAB PO SCH ×2 (09:32→20:06)
[2019-05-07] MEDS: carvediloL 6.25 MG TAB PO SCH ×2 (09:32→20:06)
[2019-05-07] MEDS: SERTRALINE HCL 50 MG TABLET PO SCH (09:32)
--- NOTE | 2019-05-07 09:32 | Hospitalist Progress Note ---
Date of Service May 07, 2019 Assessment & Plan (1) Closed intertrochanteric fracture of right hip: 83 yo F PMHx HTN, HLD, hypothyroidism, asthma, bilateral PE on chronic snf anticoagulation presents following a fall resulting in R hip fracture, for surgery this AM. Closed intertrochanteric fracture of right hip: - Surgery completed on 05/06/19. Will escalate PT/OT as able and continue in the outpatient. - Fracture occurred following a mechanical fall from standing height. - Likely an element of osteoporosis in this situation. Vitamin D level 21.3 this admission. Will supplement Vitamin D3 2000IU daily and continued Calcium 500mg TID. Have also started Vitamin D2 50,000IU weekly starting with first dose yesterday. Will recommend follow up with DEXA and bisphosphonate 1 month following surgery. - Oxycodone 5mg PO q4h PRN pain, Hydromorphone 0.25 mg IV q3h PRN pain. - Zofran 4mf IV q6h PRN nausea. - For eventual placement to SNF for physical rehabilitation. Anemia ?2/2 Blood Loss: - Pt's Hgb dropped overnight from 11.5 -> 8.3 today but is without signs or symptoms of anemia, appears hemodynamically stable on exam and with stable vitals. - Type and crossed 2 units given patient is preparing for surgery this AM. Will follow symptoms and H/Hs post-op. - Held Xarelto for two days in the setting of surgery to minimize bleeding. - Will continue to follow H/H. Bilateral pulmonary embolism: - On snf AC with Xarelto, with last dose 05/04/19. - Received one dose Lovenox 40mg SQ yesterday interim period for DVT prophylaxis given history of multiple clotting events. - Restarted home Xarelto at PE treatment dose (20mg daily) this afternoon. - Will trend H/H. Asthma: - Continue home Albuterol HFA, Symbicort and montelukast. - Duo nebs PRN SOB/wheezing. Hypertension: - Pt continues to be normotensive. - Continue carvedilol and amlodipine. - Hold valsartan/HCTZ at this time. Anxiety: - Continue diazepam 5mg BID. Hypothyroidism (acquired): - Continue levothyroxine 50 mcg PO qAM. Hyperlipidemia: - Continue simvastatin 10 mg PO qHS. Bladder spasm: - Santana d/c'ed this AM. - Continue home solifenacin 5mg daily today Code Status: FULL CODE FEN/GI: Heart Healthy DVT ppx: Xarelto 20mg daily Dispo: med/surg (2) Hypertension: (3) Anxiety: (4) Asthma: (5) Bladder spasm: (6) Chronic anticoagulation: (7) Hyperlipidemia: (8) Hypothyroidism (acquired): Supervising Physician Co-Signing Physician Notes I personally examined the patient and verified all de la o points of history and exam, discussed case, and agree with decision making with Dr Downey. doing well pain reasonable controlled. walked a little. vitals noted nad breathing unlabored no pallor or icterus no focal neuro deficits hip fx -presumed osteoporotic -replace calcium and D, repeat D 3 months -anticipate bisphosphonate in about a month -recovering well, continue supportive care and PT/OT eval and treat and anticipate rehab foot fx -per ortho - again presumed osteoporotic hypoxia - suspect atelectasis. improved. 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 otherwise as above Subjective Pt without acute events overnight. Pain well controlled with oxycodone PO and hydromorphone IV both PRN. Was able to take 3 steps yesterday and 5 steps this AM before having to stop due to discomfort. No fevers or chills, no dizziness headache CP SOB. Review of Systems Constitutional: no fever, no chills and no malaise Respiratory: no cough and no dyspnea Cardiovascular: no chest pain, no palpitations and no edema Gastrointestinal: no abdominal pain, no constipation and no diarrhea/loose stools Genitourinary: no dysuria and no hematuria Musculoskeletal: + joint pain (well controlled with PRN pain medication) Physical Exam Constitutional: WD/WN, vitals as above Respiratory: normal respiratory effort, lungs clear to auscultation Cardiovascular: RRR, no murmur, no edema Gastrointestinal (Abdomen): normal bowel sounds, soft, nontender, no hepatosplenomegaly Skin: no rashes, warm and dry Psychiatric: A+Ox3, euthymic affect Results & Data Vital Signs (Past 12 Hours) Vital Signs Temp Pulse Pulse Resp BP Pulse Ox 05/07/19 08:10 36.4 C L 77 16 123/72 93 05/07/19 07:32 79 18 93 05/07/19 03:44 36.8 C 88 16 117/61 94 05/06/19 23:25 36.8 C 84 16 111/66 95 Laboratory Results Laboratory Results - last 24 hr 05/04/19 05/07/19 05/07/19 20:24 04:55 04:55 WBC 8.24 RBC 3.14 L Hgb 9.3 L Hct 26.9 L MCV 85.7 MCH 29.6 MCHC 34.6 RDW Std Deviation 44.7 RDW Coeff of Jerrell 14.4 Plt Count 132 MPV 9.4 Immature Gran % (Auto) 0.2 Neut % (Auto) 87.3 Lymph % (Auto) 5.3 Ray % (Auto) 7.2 Eos % (Auto) 0.0 Baso % (Auto) 0.0 Immature Gran # (Auto) 0.02 Neut # (Auto) 7.19 H Lymph # (Auto) 0.44 L Ray # (Auto) 0.59 Eos # (Auto) 0.00 Baso # (Auto) 0.00 Sodium 138 Potassium 4.4 Chloride 107 Carbon Dioxide 27 Anion Gap 4.0 BUN 17 Creatinine 0.93 Est Cr Clr Drug Dosing 37.1 Est GFR ( Amer) 66.8 Est GFR (Non-Af Amer) 57.6 BUN/Creatinine Ratio 18.3 Glucose 126 H Calcium 8.4 L Blood Type B Positive Antibody Screen NEGATIVE Crossmatch See Detail Medications Administered Current Medications Albuterol (Duoneb) 3 ml NEB Q4H PRN PRN Reason: dyspnea Stop: 06/03/19 22:34 Albuterol (Ventolin 0.083% 2.5mg/3ml) 2.5 mg NEB BIDR ANITHA Stop: 06/05/19 18:59 Last Admin: 05/07/19 07:31 Dose: 2.5 mg Documented by: Amlodipine Besylate (Norvasc) 5 mg PO HS ANITHA Stop: 06/04/19 20:59 Last Admin: 05/06/19 19:54 Dose: 5 mg Documented by: Bisacodyl (Dulcolax) 10 mg NE DAILY PRN PRN Reason: Constipation Stop: 06/03/19 22:34 Budesonide (Pulmicort Respules) 0.5 mg NEB BIDR [facility] Stop: 06/05/19 18:59 Last Admin: 05/07/19 07:31 Dose: 0.5 mg Documented by: Budesonide/Formoterol Fumarate (Symbicort 160mcg/4.5mcg) 2 puffs INH BID [facility] Stop: 06/03/19 22:34 Last Admin: 05/06/19 13:40 Dose: Not Given Documented by: Calcium Carbonate (Tums) 500 mg PO TIDM [facility] Stop: 06/04/19 16:59 Last Admin: 05/07/19 12:02 Dose: Not Given Documented by: Carvedilol (Coreg) 6.25 mg PO BID [facility] Stop: 06/03/19 22:34 Last Admin: 05/07/19 09:32 Dose: 6.25 mg Documented by: Diazepam (Valium) 5 mg PO BID [facility] Stop: 06/03/19 22:34 Last Admin: 05/07/19 09:36 Dose: 5 mg Documented by: Ergocalciferol (Vitamin D2) 50,000 units PO Th@2100 [facility] Stop: 06/05/19 20:59 Last Admin: 05/06/19 19:58 Dose: 50,000 units Documented by: Hydromorphone HCl (Dilaudid) 0.25 mg IV Q3H PRN PRN Reason: Pain Stop: 05/18/19 22:34 Last Admin: 05/06/19 23:57 Dose: 0.25 mg Documented by: Levothyroxine Sodium (Synthroid) 50 mcg PO DAILYBB [facility] Stop: 06/04/19 08:59 Last Admin: 05/07/19 05:46 Dose: 50 mcg Documented by: Magnesium Hydroxide (Milk Of Magnesia) 30 ml PO DAILY PRN PRN Reason: Constipation Stop: 06/03/19 22:34 Miscellaneous (Order Awaiting Action) 1 ea N/A QS [facility] Stop: 06/06/19 11:59 Last Admin: 05/07/19 12:02 Dose: Not Given Documented by: Montelukast Sodium (Singulair) 10 mg PO QPM [facility] Stop: 06/04/19 20:59 Last Admin: 05/06/19 19:56 Dose: 10 mg Documented by: Naloxone HCl (Narcan) 0.1 mg IV UD PRN PRN Reason: Opioid Overdose Stop: 06/05/19 14:12 Nystatin (Mycostatin) 5 ml PO QID [facility] Stop: 05/10/19 08:59 Last Admin: 05/07/19 12:02 Dose: 5 ml Documented by: Ondansetron HCl (Zofran) 4 mg IV Q6H PRN PRN Reason: Nausea Stop: 06/03/19 22:34 Oxycodone HCl (Roxicodone Immediate Rel) 5 mg PO Q4H PRN PRN Reason: Pain Stop: 05/19/19 16:54 Last Admin: 05/07/19 10:24 Dose: 5 mg Documented by: Potassium Citrate (Urocit-K) 10 meq PO BID [facility] Stop: 06/04/19 08:59 Last Admin: 05/07/19 09:32 Dose: 10 meq Documented by: Rivaroxaban (Xarelto) 20 mg PO DAILY [facility] Stop: 06/06/19 11:59 Last Admin: 05/07/19 12:02 Dose: 20 mg Documented by: Senna/Docusate Sodium (Senokot S) 2 tab PO HS [facility] Stop: 06/04/19 20:59 Last Admin: 05/06/19 19:57 Dose: 2 tab Documented by: Sertraline HCl (Zoloft) 50 mg PO QAM [facility] Stop: 06/06/19 08:59 Last Admin: 05/07/19 09:32 Dose: 50 mg Documented by: Simvastatin (Zocor) 10 mg PO QPM [facility] Stop: 06/04/19 20:59 Last Admin: 05/06/19 19:55 Dose: 10 mg Documented by: Vitamin D (Vitamin D3) 2,000 units PO QAM [facility] Stop: 06/05/19 08:59 Last Admin: 05/06/19 19:56 Dose: 2,000 units Documented by: Resident Activity Tracking Resident Involvement: Resident Care Provided Care Provided: Adult Hospital Medicine (1) Closed intertrochanteric fracture of right hip Encounter type: initial encounter Fracture alignment: displaced Qualified Code(s): S72.141A - Displaced intertrochanteric fracture of right femur, initial encounter for closed fracture
[2019-05-07] MEDS: CALCIUM CARBONATE 500 MG CHEWABLE TAB PO SCH ×3 (09:33→17:32)
[2019-05-07] MEDS: NYSTATIN SUSP 500,000 U/5 ML UDC PO SCH ×4 (09:34→20:06)
[2019-05-07] MEDS: diazePAM 5 MG TABLET PO SCH ×2 (09:36→20:09)
[2019-05-07] MEDS: RIVAROXABAN 20 MG TAB PO SCH (12:02)
[2019-05-07] MEDS: SOLIFENACIN 5 MG SCH ×3 (12:02→23:47)
--- NOTE | 2019-05-07 17:06 | Billing Data ---
Coding Level of Care Code 07714 Subseq Hosp Care Lvl 3
[2019-05-07] MEDS: SIMVASTATIN 10 MG TAB PO SCH (20:06)
[2019-05-07] MEDS: AMLODIPINE BESYLATE 5 MG TAB PO SCH (20:06)
[2019-05-07] MEDS: DOCUSATE SODIUM/SENNA 50/8.6MG TAB PO SCH (20:06)
[2019-05-07] MEDS: MONTELUKAST SODIUM 10 MG TABLET PO SCH (20:06)
[2019-05-08] MEDS: LEVOTHYROXINE SODIUM 50 MCG TABLET PO SCH (05:30)
[2019-05-08] MEDS: OXYCODONE HCL IR 5 MG TAB (IMMEDIATE RELEASE) PO PRN ×4 (05:31→19:29)
[2019-05-08 05:37] LABS: Hematocrit (blood only) 24.1 % (37-47); Mean Corpuscular Hemoglobin 29.1 pg (25-34); Mean Corpuscular Hgb Conc 33.2 g/dL (32-36); Mean Corpuscular Volume 87.6 fL (80-100); Mean Platelet Volume 9.3 fL (7.4-10.4); Platelet Count 146 K/uL (130-400); RDW Coefficient of Variation 14.7 % (11.5-14.5); RDW Standard Deviation 46.8 fL (36.4-46.3); Red Blood Count 2.75 M/uL (4.2-5.4)
--- NOTE | 2019-05-08 07:13 | Hospitalist Progress Note ---
Date of Service May 08, 2019 Assessment & Plan (1) Closed intertrochanteric fracture of right hip: 83 yo F PMHx HTN, HLD, hypothyroidism, asthma, bilateral PE on chronic senior living anticoagulation presents following a fall resulting in R hip fracture, s/p surgery 05/06/19. Closed intertrochanteric fracture of right hip: - Surgery completed on 05/06/19. Will escalate PT/OT as able and continue in the outpatient. - Fracture occurred following a mechanical fall from standing height. - Likely an element of osteoporosis in this situation. Vitamin D level 21.3 this admission. Will supplement Vitamin D3 2000IU daily and continued Calcium 500mg TID. Have also started Vitamin D2 50,000IU weekly starting with first dose yesterday. Will recommend follow up with DEXA and bisphosphonate 1 month following surgery. - Oxycodone 5mg PO q4h PRN pain, Hydromorphone 0.25 mg IV q3h PRN pain. Ordered Tylenol 650mg PO TID scheduled. Ice packs to right hip helpful for pain so will continue. - Zofran 4mf IV q6h PRN nausea. - For eventual placement to SNF for physical rehabilitation. Anemia ?2/2 Blood Loss: - Pt's Hgb stable from 11.5 -> 8.3 -> 9.3 -> 8.0 today and is without signs or symptoms of anemia, appears hemodynamically stable on exam and with stable vitals. - Continue to follow H?H and monitor for Si/Sx of active bleeding. - Held Xarelto for two days in the setting of surgery to minimize bleeding, however restarted yesterday afternoon. - Will continue to follow H/H. Bilateral pulmonary embolism: - On senior living AC with Xarelto, with resumption of treatment started 05/07/19. - Received one dose Lovenox 40mg SQ in interim period of surgery for DVT prophylaxis given history of multiple clotting events. - Restarted home Xarelto at PE treatment dose (20mg daily) yesterday afternoon. - Will trend H/H. Non-displaced right 5th Metatarsal fracture: - per ortho weight-bearing as tolerated with boot, ice, elevation, pain control. - Will follow-up as outpatient in 2 weeks with x-rays 3 views R foot. Asthma: - Continue home Albuterol HFA, Symbicort and montelukast. - Duo nebs PRN SOB/wheezing. Hypertension: - Pt continues to be normotensive. - Continue carvedilol and amlodipine. - Hold valsartan/HCTZ at this time. Anxiety: - Continue diazepam 5mg BID. Hypothyroidism (acquired): - Continue levothyroxine 50 mcg PO qAM. Hyperlipidemia: - Continue simvastatin 10 mg PO qHS. Bladder spasm: - Santana d/c'ed yesterday. - Continue home solifenacin 5mg daily today Code Status: FULL CODE FEN/GI: Heart Healthy DVT ppx: Xarelto 20mg daily Dispo: med/surg (2) Hypertension: (3) Anxiety: (4) Asthma: (5) Bladder spasm: (6) Chronic anticoagulation: (7) Hyperlipidemia: (8) Hypothyroidism (acquired): Supervising Physician Co-Signing Physician Notes I personally examined the patient and verified all de la o points of history and exam, discussed case, and agree with decision making with Dr Downey. Pain controlled, leg just weak. Feeling a little discourageddiscussed normal pace of recovery from similar injuries, and that overall she is doing quite well but just needs to continue to give it time to heal and work hard with therapy. vitals noted nad breathing unlabored no pallor or icterus no focal neuro deficits hip fx -presumed osteoporotic -replace calcium and D, repeat D approximately 3 months -anticipate bisphosphonate in about a month after fractures had a chance to heal -recovering well, continue supportive care and PT/OT eval and treat and anticipate rehab tomorrow foot fx -per ortho - again presumed osteoporotic, management going well hypoxia - suspect atelectasis. improved. 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 Continue to follow. At any rate given her repeated and recurrent VTE, and less she was truly hemorrhaging the risks of stopping her anticoagulation would definitely outweigh the benefits. otherwise as above Subjective Pt without acute events overnight. Pain well controlled with oxycodone PO and hydromorphone IV both PRN. Continues to work with PT however reports it is very uncomfortable when she walks on her affected hip. Pain well controlled after she takes her PRN pain medications however wears off before she is due for another dose. No fevers or chills. No CP or SOB. No fatigue, dizziness. Review of Systems Constitutional: no fever, no chills and no malaise Respiratory: no cough and no dyspnea Cardiovascular: no chest pain, no palpitations and no edema Gastrointestinal: no abdominal pain, no constipation and no diarrhea/loose stools Genitourinary: no dysuria and no hematuria Musculoskeletal: + joint pain Physical Exam Constitutional: WD/WN, vitals as above Respiratory: normal respiratory effort, lungs clear to auscultation Cardiovascular: RRR, no murmur, no edema Gastrointestinal (Abdomen): normal bowel sounds, soft, nontender, no hepatosplenomegaly Musculoskeletal: Pt able to wiggle bilateral toes and ankles. Sensation intact to right foot. TTP over right lateral metatarsal. Skin: no rashes, warm and dry right hip with dressing clean dry and intact. right inguinal fold with dressing also clean dry and intact. Ecchymosis over right hip, right lateral foot. Psychiatric: A+Ox3, euthymic affect Results & Data Vital Signs (Past 12 Hours) Vital Signs Temp Pulse Resp BP Pulse Ox 05/08/19 07:09 36.8 C 78 16 111/66 94 05/07/19 23:05 36.6 C 92 H 18 106/64 91 05/07/19 20:05 89 132/72 Resident Activity Tracking Resident Involvement: Resident Care Provided Care Provided: Adult Hospital Medicine (1) Closed intertrochanteric fracture of right hip Encounter type: initial encounter Fracture alignment: displaced Qualified Code(s): S72.141A - Displaced intertrochanteric fracture of right femur, initial encounter for closed fracture
[2019-05-08] MEDS: ALBUTEROL 0.083% NEBU SOLN 3 ML VIAL NEB SCH ×2 (07:32→19:16)
[2019-05-08] MEDS: BUDESONIDE 0.5 MG/2 ML VIAL (PULMICORT) NEB SCH ×2 (07:32→19:16)
[2019-05-08] MEDS: CHOLECALCIFEROL 1,000 UNITS TAB PO SCH (09:01)
[2019-05-08] MEDS: CALCIUM CARBONATE 500 MG CHEWABLE TAB PO SCH ×3 (09:02→16:39)
[2019-05-08] MEDS: SOLIFENACIN 5 MG SCH (09:02)
[2019-05-08] MEDS: carvediloL 6.25 MG TAB PO SCH ×2 (09:02→21:14)
[2019-05-08] MEDS: SERTRALINE HCL 50 MG TABLET PO SCH (09:02)
[2019-05-08] MEDS: POTASSIUM CITRATE 10 MEQ TAB PO SCH ×2 (09:02→21:14)
[2019-05-08] MEDS: NYSTATIN SUSP 500,000 U/5 ML UDC PO SCH ×4 (09:02→21:14)
[2019-05-08] MEDS: RIVAROXABAN 20 MG TAB PO SCH (09:04)
[2019-05-08] MEDS: diazePAM 5 MG TABLET PO SCH ×2 (09:05→21:14)
[2019-05-08] MEDS ORDERED: ACETAMINOPHEN 325 MG TAB PO SCH (10:00)
[2019-05-08] MEDS: ACETAMINOPHEN 325 MG TAB PO SCH ×2 (13:03→21:14)
--- NOTE | 2019-05-08 13:12 | Orthopedic Progress Note ---
Date of Service May 08, 2019 Assessment & Plan (1) Closed intertrochanteric fracture of right hip: POD # 2, S/P ORIF right hip fracture with DHS, doing as well as expected. Received 1 unit pRBC for acute anemia blood loss POD #0. Hgb down to 8, currently asymptomatic. Will continue to monitor, would not hesitate to transfuse again. Continue WBAT through heel with post-op shoe and walker. OOB to chair. PT/OT Continue pain control. D/C Santana 05/07/2019. DVT prophylaxis: SCDs, TEDs, Xarelto. Ice right hip. Change dressings 05/08/2019. Continue care per primary service. (2) Fracture of 5th metatarsal: Non-displaced right 5th Metatarsal fracture, closed. WBAT through heel, with post-op shoe. Ice, elevate. Continue pain control. Will follow-up as outpt in 2 weeks with x-rays 3 views Right foot. Subjective Feeling tired. Denies CP or SOB Review of Systems Review of Systems: All systems reviewed & are unremarkable except as noted in HPI & below Physical Exam Physical Exam: RLE: Neurovascularly intact. Calf soft and non-tender. Dressing Clean, dry, intact. Results & Data Vital Signs (Past 12 Hours) Vital Signs Temp Pulse Resp BP Pulse Ox 05/08/19 07:36 77 16 93 05/08/19 07:09 36.8 C 78 16 111/66 94 Laboratory Results 05/08/19 05/04/19 Range/Units 04:57 20:24 WBC 6.00 (4.8-10.8) K/uL RBC 2.75 L (4.2-5.4) M/uL Hgb 8.0 L (12.0-16.0) g/dL Hct 24.1 L (37-47) % MCV 87.6 (80-100) fL MCH 29.1 (25-34) pg MCHC 33.2 (32-36) g/dL RDW Std Deviation 46.8 H (36.4-46.3) fL RDW Coeff of Jerrell 14.7 H (11.5-14.5) % Plt Count 146 (130-400) K/uL MPV 9.3 (7.4-10.4) fL Crossmatch See Detail (1) Closed intertrochanteric fracture of right hip Encounter type: initial encounter Fracture alignment: displaced Qualified Code(s): S72.141A - Displaced intertrochanteric fracture of right femur, initial encounter for closed fracture
[2019-05-08] MEDS: VESICARE 5 MG PO SCH (14:09)
--- NOTE | 2019-05-08 17:40 | Billing Data ---
Coding Level of Care Code 32392 Subseq Hosp Care Lvl 3
[2019-05-08] MEDS: SIMVASTATIN 10 MG TAB PO SCH (21:14)
[2019-05-08] MEDS: AMLODIPINE BESYLATE 5 MG TAB PO SCH (21:14)
[2019-05-08] MEDS: MONTELUKAST SODIUM 10 MG TABLET PO SCH (21:14)
[2019-05-08] MEDS: DOCUSATE SODIUM/SENNA 50/8.6MG TAB PO SCH (21:14)
[2019-05-09] MEDS: OXYCODONE HCL IR 5 MG TAB (IMMEDIATE RELEASE) PO PRN ×2 (04:31→16:14)
[2019-05-09] MEDS: LEVOTHYROXINE SODIUM 50 MCG TABLET PO SCH (05:17)
[2019-05-09 05:23] LABS: Hematocrit (blood only) 25.8 % (37-47); Hemoglobin 8.4 g/dL (12.0-16.0); Mean Corpuscular Hgb Conc 32.6 g/dL (32-36); Mean Platelet Volume 8.9 fL (7.4-10.4); Platelet Count 186 K/uL (130-400); RDW Coefficient of Variation 14.2 % (11.5-14.5); RDW Standard Deviation 46.4 fL (36.4-46.3); White Blood Count 4.95 K/uL (4.8-10.8)
[2019-05-09] MEDS: ALBUTEROL 0.083% NEBU SOLN 3 ML VIAL NEB SCH (06:58)
[2019-05-09] MEDS: BUDESONIDE 0.5 MG/2 ML VIAL (PULMICORT) NEB SCH (06:58)
[2019-05-09] MEDS: diazePAM 5 MG TABLET PO SCH (07:43)
[2019-05-09] MEDS: RIVAROXABAN 20 MG TAB PO SCH (07:43)
[2019-05-09] MEDS: ACETAMINOPHEN 325 MG TAB PO SCH ×2 (07:43→12:46)
[2019-05-09] MEDS: SERTRALINE HCL 50 MG TABLET PO SCH (07:43)
[2019-05-09] MEDS: CHOLECALCIFEROL 1,000 UNITS TAB PO SCH (07:43)
[2019-05-09] MEDS: POTASSIUM CITRATE 10 MEQ TAB PO SCH (07:43)
[2019-05-09] MEDS: carvediloL 6.25 MG TAB PO SCH (07:44)
[2019-05-09] MEDS: VESICARE 5 MG PO SCH (07:44)
[2019-05-09] MEDS: NYSTATIN SUSP 500,000 U/5 ML UDC PO SCH ×3 (07:44→16:04)
[2019-05-09] MEDS: CALCIUM CARBONATE 500 MG CHEWABLE TAB PO SCH ×3 (07:44→16:04)
--- NOTE | 2019-05-09 07:47 | Fluoroscopy Report ---
FL foot RT 2V CLINICAL HISTORY: EVAL RIGHT LATERAL FOOT PAIN COMPARISON STUDY: None. FLUOROSCOPY TIME: 1 minute and 58 seconds. FINDINGS: 3 fluoroscopic spot images of the right foot demonstrate a nondisplaced transverse fracture at the base of the fifth metatarsal. IMPRESSION: Nondisplaced transverse fracture at the base of the fifth metatarsal is noted. Electronically signed by: Michele Ocampo M.D. 05/09/2019 7:45 AM
--- NOTE | 2019-05-09 08:43 | Hospitalist Progress Note ---
Date of Service May 09, 2019 Assessment & Plan (1) Closed intertrochanteric fracture of right hip: 83 yo F PMHx HTN, HLD, hypothyroidism, asthma, bilateral PE on chronic group home anticoagulation presents following a fall resulting in R hip fracture, s/p surgery 05/06/19. Closed intertrochanteric fracture of right hip: - Surgery completed on 05/06/19. Will escalate PT/OT as able and continue in the outpatient. - Fracture occurred following a mechanical fall from standing height. - Likely an element of osteoporosis in this situation. Vitamin D level 21.3 this admission. Will supplement Vitamin D3 2000IU daily and continued Calcium 500mg TID. Have also started Vitamin D2 50,000IU weekly starting with first dose yesterday. Will recommend follow up with DEXA and bisphosphonate 1 month following surgery. - Oxycodone 5mg PO q4h PRN pain, Hydromorphone 0.25 mg IV q3h PRN pain. Ordered Tylenol 650mg PO TID scheduled. Ice packs to right hip helpful for pain so will continue. - Zofran 4mf IV q6h PRN nausea. - For eventual placement to SNF for physical rehabilitation. Acute blood loss anemia: - Pt's Hgb stable from 11.5 -> 8.3 -> 9.3 -> 8.0 -> 8.4 today and is without signs or symptoms of anemia, appears hemodynamically stable on exam and with stable vitals. - FOBT ordered to r/o GIB - Continue to follow H/H and monitor for Si/Sx of active bleeding. - Xarelto held for two days for surgery but restarted on 05/07. Bilateral pulmonary embolism: - On group home AC with Xarelto, with resumption of treatment started 05/07/19. - Received one dose Lovenox 40mg SQ in interim period of surgery for DVT prophylaxis given history of multiple clotting events. Non-displaced right 5th Metatarsal fracture: - per ortho weight-bearing as tolerated with boot, ice, elevation, pain control. - Will follow-up as outpatient in 2 weeks with x-rays 3 views R foot. Asthma: - Continue home Albuterol HFA, Symbicort and montelukast. - Duo nebs PRN SOB/wheezing. Hypertension: - Pt continues to be normotensive. - Continue carvedilol and amlodipine. - Hold valsartan/HCTZ at this time. Anxiety: - Continue diazepam 5mg BID. Hypothyroidism (acquired): - Continue levothyroxine 50 mcg PO qAM. Hyperlipidemia: - Continue simvastatin 10 mg PO qHS. Bladder spasm: - Santana d/c'ed yesterday. - Continue home solifenacin 5mg daily today Code Status: FULL CODE FEN/GI: Heart Healthy DVT ppx: Xarelto 20mg daily Dispo: med/surg (2) Hypertension: (3) Anxiety: (4) Asthma: (5) Bladder spasm: (6) Chronic anticoagulation: (7) Hyperlipidemia: (8) Hypothyroidism (acquired): (9) Acute blood loss anemia: Subjective Pt is a pleasant 83 F with PMH HLD, HTN, anxiety, PE who was admitted for R hip fracture and ORIF s/p fall from standing height. This morning feels well but is nervous to leave hospital and go to SNF. Has been walking with PT and OT. Attests to mild dyspnea while walking but otherwise not short of breath. Denies chest pain, leg swelling. Review of Systems Constitutional: + weakness; no fever and no chills Respiratory: + dyspnea on exertion; no cough and no dyspnea Cardiovascular: no chest pain and no palpitations Gastrointestinal: no abdominal pain, no early satiety and no cramping Musculoskeletal: + joint pain and + limited range of motion Physical Exam Constitutional: WD/WN, vitals as above no acute distress Respiratory: normal respiratory effort, lungs clear to auscultation no labored breathing, does not use accessory muscles and no cough Auscultation: no crackles, no rales, no rhonchi and no wheezes Cardiovascular: RRR, no murmur, no edema Gastrointestinal (Abdomen): Inspection/Auscultation: abdomen normal to ins pection and normal bowel sounds; abdomen not distended Psychiatric: A+Ox3, euthymic affect Mood: + anxious mood Results & Data Vital Signs (Past 12 Hours) Vital Signs Temp Pulse Pulse Resp BP Pulse Ox Pulse Ox 05/09/19 08:31 92 05/09/19 07:00 36.6 C 85 90 16 141/73 H 91 05/08/19 23:45 37 C 78 16 110/64 92 Laboratory Results WBC 4.95 K/uL (4.8-10.8) 05/09/19 04:59 RBC 2.90 M/uL (4.2-5.4) L 05/09/19 04:59 Hgb 8.4 g/dL (12.0-16.0) L 05/09/19 04:59 Hct 25.8 % (37-47) L 05/09/19 04:59 MCV 89.0 fL (80-100) 05/09/19 04:59 MCH 29.0 pg (25-34) 05/09/19 04:59 MCHC 32.6 g/dL (32-36) 05/09/19 04:59 RDW Std Deviation 46.4 fL (36.4-46.3) H 05/09/19 04:59 RDW Coeff of Jerrell 14.2 % (11.5-14.5) 05/09/19 04:59 Plt Count 186 K/uL (130-400) 05/09/19 04:59 MPV 8.9 fL (7.4-10.4) 05/09/19 04:59 Immature Gran % (Auto) 0.2 % 05/07/19 04:55 Neut % (Auto) 87.3 % 05/07/19 04:55 Lymph % (Auto) 5.3 % 05/07/19 04:55 Brooke % (Auto) 7.2 % 05/07/19 04:55 Eos % (Auto) 0.0 % 05/07/19 04:55 Baso % (Auto) 0.0 % 05/07/19 04:55 Immature Gran # (Auto) 0.02 K/uL (0.00-0.02) 05/07/19 04:55 Neut # (Auto) 7.19 K/uL (1.4-6.5) H 05/07/19 04:55 Lymph # (Auto) 0.44 K/uL (1.2-3.4) L 05/07/19 04:55 Brooke # (Auto) 0.59 K/uL (0.11-0.59) 05/07/19 04:55 Eos # (Auto) 0.00 K/uL (0-0.5) 05/07/19 04:55 Baso # (Auto) 0.00 K/uL (0-0.2) 05/07/19 04:55 PT 11.9 Seconds (9.0-12.0) 05/04/19 19:55 INR 1.2 (0.9-1.1) H 05/04/19 19:55 APTT 25.6 Seconds (21.0-31.0) 05/04/19 19:55 PTT Ratio 0.9 05/04/19 19:55 Sodium 138 mmol/L (136-145) 05/07/19 04:55 Potassium 4.4 mmol/L (3.5-5.1) 05/07/19 04:55 Chloride 107 mmol/L (98-107) 05/07/19 04:55 Carbon Dioxide 27 mmol/L (21-32) 05/07/19 04:55 Anion Gap 4.0 (3-11) 05/07/19 04:55 BUN 17 mg/dl (7-18) 05/07/19 04:55 Creatinine 0.93 mg/dl (0.6-1.2) 05/07/19 04:55 Est Cr Clr Drug Dosing 37.1 ml/min 05/07/19 04:55 Est GFR ( Amer) 66.8 05/07/19 04:55 Est GFR (Non-Af Amer) 57.6 05/07/19 04:55 BUN/Creatinine Ratio 18.3 (10-20) 05/07/19 04:55 Glucose 126 mg/dl (70-99) H 05/07/19 04:55 Calcium 8.4 mg/dl (8.5-10.1) L 05/07/19 04:55 25-OH Vitamin D Total 21.3 ng/ml (30-100) L 05/06/19 06:03 Urine Color Yellow 05/04/19 20:15 Urine Appearance Clear (Clear) 05/04/19 20:15 Urine pH 6.5 (4.5-7.5) 05/04/19 20:15 Ur Specific Mackay 1.026 (1.000-1.030) 05/04/19 20:15 Urine Protein Negative (Negative) 05/04/19 20:15 Urine Glucose (UA) Negative (Negative) 05/04/19 20:15 Urine Ketones Negative (Negative) 05/04/19 20:15 Urine Blood Negative (Negative) 05/04/19 20:15 Urine Nitrite Negative (Negative) 05/04/19 20:15 Urine Bilirubin Negative (Negative) 05/04/19 20:15 Urine Urobilinogen Negative (Negative) 05/04/19 20:15 Ur Leukocyte Esterase Negative (Negative) 05/04/19 20:15 Blood Type B Positive 05/04/19 20:24 Blood Type Recheck B Positive 05/06/19 06:03 Antibody Screen NEGATIVE 05/04/19 20:24 Crossmatch See Detail 05/04/19 20:24 (1) Closed intertrochanteric fracture of right hip Encounter type: initial encounter Fracture alignment: displaced Qualified Code(s): S72.141A - Displaced intertrochanteric fracture of right femur, initial encounter for closed fracture
--- NOTE | 2019-05-09 14:19 | Discharge Summary ---
Date of Service May 09, 2019 Admission HPI Per Admitting Provider The patient is an 83-year-old female with a past medical history including recurrent pulmonary embolism on chronic anticoagulation for life, hypertension, hyperlipidemia, COPD, anxiety, insomnia and hypothyroidism who presents to the emergency department after a fall from a barstool at home. She reportedly fell around noon time, and continued to walk on her hip with her walker until seen by her daughter, when she came home at around 5:00 PM. X-ray in the emergency department showed a right intertrochanteric hip fracture. Admission Exam Per Admitting Provider The patient is awake, alert and oriented 3, well developed and well nourished, normocephalic and atraumatic, lying in bed and in no acute distress. HEENT--PERRL, EOMI, mucous membranes and oropharynx normal. Neck--supple. No JVD. No bruits. Thyroid normal, trachea midline, no adenopathy. Heart--normal S1 and S2. No murmurs, rubs or gallops. Lungs--clear bilaterally, no respiratory distress, no accessory muscle use. Abdomen--normal bowel sounds and soft. Nontender. Nondistended, no hernias or masses, no organomegaly. Extremities--no cyanosis or clubbing. No edema. Dermatologic--normal skin turgor, normal color, no abnormal lymph nodes, no rash. Neurologic--cranial nerves II through XII grossly intact. Rheumatologic--pain of her right hip, limiting range of motion. Psychiatric--normal affect. Principal Diagnosis Closed intertrochanteric fracture of right hip Fracture of 5th Metatarsal Discharge Exam Constitutional WD/WN, vitals as above average body habitus, + physical limitations, cooperative and comfortable; not in distress Respiratory normal respiratory effort; no respiratory distress, no labored breathing, does not use accessory muscles, no cough and no audible wheezes Cardiovascular Rate/Rhythm: regular rate and regular rhythm Heart Sounds: normal S1 and normal S2; no gallop, no murmur and no cardiac rub Vessels: no JVD Extremities: no calf tenderness Gastrointestinal (Abdomen) Inspection/Auscultation: abdomen normal to inspection and normal bowel sounds; abdomen not distended Musculoskeletal Extremities: + limited ROM of extremities (limited R hip ROM) Discharge Data Allergies Allergy/AdvReac Type Severity Reaction Status Date / Time adhesive Allergy Unknown BANDAIDS Verified 05/06/19 09:03 AND CLOTH ADHESIVE-BLISTERS No Known Drug Allergies Allergy Unknown Verified 05/04/19 20:14 Consultations 05/04/19 22:35 Consult Case Management - Discharge Planning Routine Consult Case Management - Discharge Planning Routine Consult Orthopedic Surgery Routine 05/06/19 14:13 Consult Case Management - Discharge Planning Routine Procedures Performed Operation Date: 05/06/19 08:20 Actual Procedures p Right hip open reduction internal fixation(Right) - Jose Franciscoyoly Francisco MD s right 5th metatarsal closed treatment(Right) - Jose Francisco Andrei Francisco MD Operation Date: 05/06/19 10:00 <No data on this case meets the specified criteria> Ordered Studies 05/06/19 07:00 FL fluoroscopy <1hr Routine FL hip RT 2-3V Routine 05/06/19 11:00 FL fluoroscopy <1hr Routine FL foot RT 2V Routine Hospital Course (1) Closed intertrochanteric fracture of right hip: 83 yo F PMHx HTN, HLD, hypothyroidism, asthma, bilateral PE on chronic senior living anticoagulation presents following a fall resulting in R hip fracture, s/p surgery 05/06/19. Closed intertrochanteric fracture of right hip: - Surgery completed on 05/06/19. - Likely an element of osteoporosis in this situation. Vitamin D 21.3 this admission. Will supplement Vitamin D3 2000IU daily and continued Calcium 500mg TID. Have also started Vitamin D2 50,000IU weekly starting with first dose yesterday. Will recommend follow up with DEXA and bisphosphonate 1 month following surgery. - Oxycodone 5mg PO q4h PRN pain, Hydromorphone 0.25 mg IV q3h PRN pain. Ordered Tylenol 650mg PO TID scheduled. Ice packs to right hip helpful for pain so will continue. - transfused 1u pRBC after surgery due to anemia; stabilized after transfusion Bilateral pulmonary embolism: - Xarelto held for 2 days for surgery, bridged with lovenox in interim. Restarted home dose Xarelto 20 mg daily on 05/07. Non-displaced right 5th Metatarsal fracture: - per ortho weight-bearing as tolerated with boot, ice, elevation, pain control. - follow-up as outpatient in 2 weeks with x-rays 3 views R foot. Hypertension: - Normotensive during hospital stay. Held HTN medications; patient instructed not to restart until PCP appointment after discharge. All other medical conditions managed per home regimens. (2) Hypertension: (3) Anxiety: (4) Hypothyroidism (acquired): (5) Hyperlipidemia: (6) Chronic anticoagulation: (7) Encounter for pre-operative examination: (8) Fracture of 5th metatarsal: (9) Acute blood loss anemia: Total Time Total Time Spent Total Time Spent (In Minutes): Discharge Plan Discharge Items Patient Disposition: Transfer Halfway Fac Reason For Visit: R INTERTROCHANTERIC HIP FX Discharge Diagnosis: Right hip fracture, left fifth metatarsal fracture Activity: Per Instructions section Exercise/Sports: Gradually increase as tolerated Driving/Machine Use: do not drive or operate heavy machinery while using narcotics like Oxycodone Weightbearing: Right partial Non-emergency contact: Primary Care Provider and Hospitalist Call non-emergency contact if: you have any medication questions, your symptoms worsen, your pain is not controlled and your temperature is above 101 Follow-up/Referrals: Daytno Finch MD [Physician] - (per Dr. Finch's notes for follow up post- op) Tan Savage MD [Primary Care Provider] - Diet: Regular Addtl Attending Provider Instructions: You were treated with surgery in the hospital for a fracture of your right hip after your fall. The weakness in your bones that led to the break is likely due to osteoporosis. In order to strengthen your bones going forward and prevent futures bone breaks, we recommend taking 2000IU of Vitamin D3 every day as well as a 500 mg Calcium tab three times a day. We also recommend a DEXA scan and treatment with a bisphosphonate. Regarding your foot fracture, continue wearing the boot and place weight on the foot as tolerated. Continue supportive care of the fracture with ice and elevation. Follow up with orthopedic surgery for assessment and repeat xrays of your foot in 2 weeks. You were also noted to have a low blood count during your hospital stay. This leveled off after the day of surgery and is likely to be secondary to the blood lost during surgery. You can take a daily iron supplement to help increase your blood counts going forward. Of note your blood pressure was normal during your hospital stay despite not getting your blood pressure medications. Do not take them again until you are able to see your primary care physician and evaluate whether or not you need those medications. Continue taking all other medications that you were taking prior to admission to the hospital, especially the 20 mg Xarelto every day to prevent any blood clot formations. For your pain control, we recommend ice packs to the right hip to help control local pain and swelling. You have also be given scripts for stronger pain medications that you can use for breakthrough pain. We recommend taking Tylenol 650 mg scheduled three times a day, with the Oxycodone for break through pain in between the scheduled tylenol for optimal pain control. Take them as prescribed. Pending Studies at Discharge: No Stand-Alone Forms: [facility] Skilled Items Patient informed of condition?: Yes DNR: No Discharge Level of Care: Skilled Communicable Disease: No Discharge Prognosis: Stable Lines: None Urinary Catheter: No Medications and DC Order Prescriptions: New nystatin 100,000 unit/mL Suspension 5 ml PO QID 14 Days Qty: 280 RF: 0 acetaminophen [Mapap (acetaminophen)] 325 mg Tablet 650 mg PO TID 10 Days Qty: 60 RF: 0 sennosides-docusate sodium [Senokot-S] 8.6-50 mg Tablet 2 tab PO HS 16 Days Qty: 32 RF: 0 bisacodyl [Laxative (bisacodyl)] 10 mg Suppository 10 mg PA DAILY PRN (Reason: constipation) Qty: 30 RF: 0 budesonide 0.5 mg/2 mL Suspension For Nebulization 0.5 mg NEB BIDR 30 Days Qty: 30 RF: 0 sertraline 50 mg Tablet 50 mg PO QAM 30 Days Qty: 30 RF: 0 oxycodone 5 mg Tablet 5 mg PO Q4H PRN (Reason: pain) 4 Days Qty: 21 RF: 0 cholecalciferol (vitamin D3) [Vitamin D3] 25 mcg (1,000 unit) Tablet 2,000 unit PO QAM 30 Days Qty: 30 RF: 0 Continued solifenacin 5 mg tablet 5 mg PO DAILY RF: 0 diazepam 5 mg tablet 5 mg PO BID RF: 0 albuterol sulfate 90 mcg/actuation HFA aerosol inhaler 2 puffs inhalation Q4H PRN (Reason: Shortness Of Breath) RF: 0 aspirin 81 mg tablet 81 mg PO QAM RF: 0 levothyroxine 50 mcg tablet 50 mcg PO QAM RF: 0 rivaroxaban 20 mg tablet 20 mg PO QAM Qty: 1 RF: 0 coenzyme Q10 10 mg capsule 1 mg PO QAM RF: 0 simvastatin 10 mg tablet 10 mg PO QPM RF: 0 cranberry 400 mg capsule 400 mg PO DAILY RF: 0 potassium citrate 10 mEq (1,080 mg) tablet extended release 10 meq PO BID RF: 0 Symbicort 160-4.5 mcg/actuation HFA aerosol inhaler 2 puffs INH BID RF: 0 montelukast 10 mg tablet 10 mg PO QPM RF: 0 Discontinued amlodipine 5 mg tablet 5 mg PO HS RF: 0 carvedilol 6.25 mg tablet 6.25 mg PO BID RF: 0 valsartan-hydrochlorothiazide 160-12.5 mg tablet 1 tab PO DAILY RF: 0 Discharge Orders: Discharge Order (Routine); Ordered 05/09/19 Ordered By: Tahmina Garcia/Other Patient Handouts: Fx Femur ORIF Admission Data Admit Date/Time: 05/04/19 21:33 Attending Provider: Vinicio Merrill Admit Provider: Jean-Claude Cortes Primary Care Provider: Tan Savage Other Providers: [facility] ; Dayton Finch Other Interventions: Discharge Summary Assessment (RN) Last Done: 05/09/19 16:26 DC Date/Time DO NOT enter until pt leaves facility: 05/09/19 16:50 Supervising Physician Co-Signing Physician Notes Attending attestation Pt seen and examined in concert with Dr. Carrillo. In agreement with the documented findings as noted in the resident documentation with any exceptions or additions as noted here. Resting in bed without active pain. Participating in rehab services with some discomfort at the hip and difficulty in gait coordination 2/2 boot and hip. On examination, S1/S2 nl RRR no MCG. CTAB. Abd NT/ND BS+ve Intertrochanteric right hip fracture, closed - orthopaedics consultation - Continue D3/calcium supplementation daily, agree w/ DEXA and bisphosophonate therapy 1 mo s/p discharge. Anemia - stable following procedure and resumption of Xarelto, but would repeat as outpatient and monitor for stigmata of bleeding. Bilateral pulmonary embolism - Xarelto Else see resident documentation as noted. Resident Activity Tracking Resident Involvement: Resident Care Provided Care Provided: Adult Hospital Medicine
== END 2019-05-09 16:50 | DRG 480 ==
LOC: ED 19:43 → 3N 21:33 → SUATTDRO 21:33 → 3N 22:18

== ENCOUNTER 2019-12-06 05:00 | Inpatient (IN) ==
--- NOTE | 2019-11-24 15:48 | PAT Medication Instructions ---
Medication Instructions Date of Service November 24, 2019 Home Medications albuterol sulfate 90 mcg/actuation aerosol inhaler 2 puffs INHALATION Q4H PRN coenzyme Q10 10 mg capsule 100 mg PO QAM cranberry 400 mg capsule 500 mg PO QAM diazepam 5 mg tablet 5 mg PO BID levothyroxine 50 mcg tablet 50 mcg PO QAM rivaroxaban 20 mg tablet 20 mg PO QAM simvastatin 10 mg tablet 10 mg PO QPM solifenacin 5 mg tablet 5 mg PO QAM montelukast 10 mg PO QPM albuterol sulfate 1.25 mg/3 mL solution for nebulization 1.25 mg INH BID amlodipine 5 mg tablet 5 mg PO QPM budesonide 0.25 mg/2 mL suspension for nebulization 2 ml INH BID calcium carbonate 200 mg calcium (500 mg) chewable tablet 200 mg PO TID carvedilol 6.25 mg tablet 6.25 mg PO BID celecoxib 100 mg capsule 100 mg PO QAM cholecalciferol (vitamin D3) 25 mcg (1,000 unit) capsule 25 mcg PO BID loratadine 10 mg tablet 10 mg PO QAM sertraline 50 mg tablet 50 mg PO QAM aspirin [Aspir-81] 81 mg PO QPM cyanocobalamin (vitamin B-12) 1,000 mcg PO QAM magnesium oxide 500 mg PO Q2D ASK your surgeon for instructions celecoxib 100 mg capsule 100 mg PO QAM ASK your prescriber and surgeon rivaroxaban 20 mg tablet 20 mg PO QAM STOP taking 2 weeks before surgery coenzyme Q10 10 mg capsule 100 mg PO QAM cranberry 400 mg capsule 500 mg PO QAM DO NOT take the morning of surgery calcium carbonate 200 mg calcium (500 mg) chewable tablet 200 mg PO TID cholecalciferol (vitamin D3) 25 mcg (1,000 unit) capsule 25 mcg PO BID loratadine 10 mg tablet 10 mg PO QAM cyanocobalamin (vitamin B-12) 1,000 mcg PO QAM magnesium oxide 500 mg PO Q2D solifenacin 5 mg tablet 5 mg PO QAM Take morning of surgery With a small sip of water, OTHERWISE NOTHING TO EAT OR DRINK AFTER MIDNIGHT: albuterol sulfate 1.25 mg/3 mL solution for nebulization 1.25 mg INH BID (if needed) budesonide 0.25 mg/2 mL suspension for nebulization 2 ml INH BID carvedilol 6.25 mg tablet 6.25 mg PO BID sertraline 50 mg tablet 50 mg PO QAM albuterol sulfate 90 mcg/actuation aerosol inhaler 2 puffs INHALATION Q4H PRN (use if needed; please bring with you to hospital day of surgery if possible) diazepam 5 mg tablet 5 mg PO BID levothyroxine 50 mcg tablet 50 mcg PO QAM Take evening before surgery albuterol sulfate 1.25 mg/3 mL solution for nebulization 1.25 mg INH BID (if needed) amlodipine 5 mg tablet 5 mg PO QPM budesonide 0.25 mg/2 mL suspension for nebulization 2 ml INH BID calcium carbonate 200 mg calcium (500 mg) chewable tablet 200 mg PO TID carvedilol 6.25 mg tablet 6.25 mg PO BID cholecalciferol (vitamin D3) 25 mcg (1,000 unit) capsule 25 mcg PO BID aspirin [Aspir-81] 81 mg PO QPM albuterol sulfate 90 mcg/actuation aerosol inhaler 2 puffs INHALATION Q4H PRN (if needed) diazepam 5 mg tablet 5 mg PO BID simvastatin 10 mg tablet 10 mg PO QPM montelukast 10 mg PO QPM Other Notes If you have any questions please call us at [phone] or [phone] or [phone] or [phone]
--- NOTE | 2019-11-25 10:44 | Anesthesiology Consultation ---
Date of Service November 25, 2019 Assessment & Plan (1) Encounter for pre-operative examination: *Spoke to pharmacist re: elevated coags. Patient is on Xarelto, which can cause false elevations in PT/INR/PTT, though not usually this high. Surgeon's office was made aware of potentially increased bleeding risk and possibility that SAB may be contraindicated if coags elevated again AM DOS. Patient's prescriber (Luis Eduardo Hernandez, pulmonology), was also notified to review labs, and made aware anesthesia would need Xarelto held for at least 3 days prior for spinal block. Patient will also be contacting him for instructions regarding holding Xarelto and possible Lovenox bridge. *Spoke to blood bank re: + antibodies. Patient will need to arrive an extra 1 hr early DOS to allow time to properly T+C. OR office notified. Pulmonary Clearance 11/09 = "Patient continue with the surgery for her hip. At this time she is to let us know if her surgeon is requiring breathing [sic, presumably meant 'bridging'] or not. I am not sure was rale to that [sic] will absolutely need to. We will discuss." PCP Clearance 11/09 = "Seen in the office on 11/09 for pre- op evaluation. She has an acceptable risk for the planned total hip replacement. She currently is taking Xarelto for chronic PE. This will be stopped three days prior to surgery and she will be started on Lovenox." CHECK PT/INR/PTT AM DOS (see above notes) Chart Review Chart Review: Acceptable Risk for Surgery and Patient seen in Pre Admission Testing Teaching & Discussion Instructed NPO after midnight before surgery, except medications with 15 cc of water. Medication instructions provided according to the PAT guidelines. Xarelto instructions per surgeon and prescriber, patient made aware must be held x 3 days min for SAB. History Surgery Operation Date: 12/06/19 07:00 Proposed Procedures p Right Total Hip Removal of Synthes DHS Plate and Screws - Edosn Womack MD Height/Weight Height: 4 ft 8 in Weight: 64 kg Allergies Allergy/AdvReac Type Severity Reaction Status Date / Time adhesive Allergy Unknown BANDAIDS Verified 11/23/19 13:22 AND CLOTH ADHESIVE-BLISTERS No Known Drug Allergies Allergy Unknown Verified 11/23/19 13:22 Medications Home Medications Medication Instructions Recorded Confirmed Last Taken albuterol sulfate 90 mcg/actuation 2 puffs INHALATION Q4H PRN gm 02/18/19 11/23/19 Unknown aerosol inhaler coenzyme Q10 10 mg capsule 100 mg PO QAM cap 02/18/19 11/23/19 Unknown cranberry 400 mg capsule 500 mg PO QAM 02/18/19 11/23/19 Unknown diazepam 5 mg tablet 5 mg PO BID tab 02/18/19 11/23/19 Unknown levothyroxine 50 mcg tablet 50 mcg PO QAM tab 02/18/19 11/23/19 Unknown rivaroxaban 20 mg tablet 20 mg PO QAM #1 tab 02/18/19 11/23/19 Unknown simvastatin 10 mg tablet 10 mg PO QPM tab 02/18/19 11/23/19 Unknown solifenacin 5 mg tablet 5 mg PO QAM tab 02/18/19 11/23/19 Unknown montelukast 10 mg PO QPM 05/04/19 11/23/19 Unknown albuterol sulfate 1.25 mg/3 mL 1.25 mg INH BID ml 11/10/19 11/23/19 Unknown solution for nebulization amlodipine 5 mg tablet 5 mg PO QPM 11/10/19 11/23/19 Unknown budesonide 0.25 mg/2 mL suspension 2 ml INH BID 11/10/19 11/23/19 Unknown for nebulization calcium carbonate 200 mg calcium 200 mg PO TID 11/10/19 11/23/19 Unknown (500 mg) chewable tablet carvedilol 6.25 mg tablet 6.25 mg PO BID 11/10/19 11/23/19 Unknown celecoxib 100 mg capsule 100 mg PO QAM 11/10/19 11/23/19 Unknown cholecalciferol (vitamin D3) 25 25 mcg PO BID 11/10/19 11/23/19 Unknown mcg (1,000 unit) capsule loratadine 10 mg tablet 10 mg PO QAM 11/10/19 11/23/19 Unknown sertraline 50 mg tablet 50 mg PO QAM 11/10/19 11/23/19 Unknown aspirin [Aspir-81] 81 mg PO QPM 11/23/19 11/23/19 Unknown cyanocobalamin (vitamin B-12) 1,000 mcg PO QAM 11/23/19 11/23/19 Unknown magnesium oxide 500 mg PO Q2D 11/23/19 11/23/19 Unknown Past Medical History Medical History Anxiety Asthma Sees [facility] pulmonology. Using neb BID. Very rare rescue inhaler use Bilateral pulmonary embolism ~ 4 yrs ago, was being treated for empyema Bladder spasm Chronic anticoagulation DVT (deep venous thrombosis) HX-ON XARELTO Essential tremor very slight in hands Hyperlipidemia Hypertension Hypothyroidism (acquired) Left ankle sprain (Inactive) Saddle embolism of pulmonary artery ~ 4 yrs ago Urinary, incontinence, stress female Exercise / Class Metabolic Activity III < 4 Walking/Shop/Light housework Currently limited by hip pain since fracture in April 2019. Prior to that doing stairs daily with mild SOB, no chest pain. Past Surgical History Surgical History History of cholecystectomy History of colonoscopy History of hysterectomy TOTAL History of open reduction and internal fixation (ORIF) procedure RIGHT HIP History of thoracentesis Past Anesthesia History No Hx of Anesthesia Complications and No Family Hx of Anesthesia Complications History of PONV No Hx of PONV and No Hx of Motion Sickness Social History Smoking Status: Former smoker Smoking End Date: QUIT MANY YRS AGO Hx Alcohol Use: No alcohol intake frequency: other Hx Substance Use: No Review of Systems Pt denies any recent chest pain, shortness of breath, palpitations, cough, fever or URI. Physical Exam Vital Signs BP: 158/65 (pt is somewhat nervous today) P: 56bpm SPO2: 97% RA T: 98.4 F R: 18 ENMT Mouth: + dentures (full upper, partial lower); no chipped teeth and no loose teeth Thyromental Distance: > or= 3.5 Finger Breadths (4) Mallampati Class: II Neck + short neck; neck extension not limited Respiratory normal respiratory effort Auscultation: lungs clear to auscultation bilaterally and + diminished lung so unds (slightly, B/L) Cardiovascular Rate/Rhythm: regular rate and regular rhythm Heart Sounds: no murmur Extremities: no edema Musculoskeletal Spine: + kyphosis Testing Laboratory Results 11/25/19 10:55 11/25/19 10:55 PT 16.2 Seconds (9.0-12.0) H 11/25/19 10:55 INR 1.6 (0.9-1.1) H 11/25/19 10:55 APTT 39.4 Seconds (21.0-31.0) H 11/25/19 10:55 Urine Color Yellow 11/25/19 Unknown Urine Appearance Clear (Clear) 11/25/19 Unknown Urine pH 7.5 (4.5-7.5) 11/25/19 Unknown Ur Specific Sullivan 1.012 (1.000-1.030) 11/25/19 Unknown Urine Protein Negative (Negative) 11/25/19 Unknown Urine Glucose (UA) Negative (Negative) 11/25/19 Unknown Urine Ketones Negative (Negative) 11/25/19 Unknown Urine Nitrite Negative (Negative) 11/25/19 Unknown Ur Leukocyte Esterase Negative (Negative) 11/25/19 Unknown Blood Type B Positive 11/25/19 10:55 Antibody Screen POSITIVE A 11/25/19 10:55 *Spoke to pharmacist re: elevated coags. Patient is on Xarelto, which can cause false elevations in PT/INR/PTT, though not usually this high. Surgeon's office was made aware of potentially increased bleeding risk. Patient's prescriber (Luis Eduardo Hernandez, pulmonology), was also notified to review labs, and made aware anesthesia would need Xarelto held for at least 3 days prior for spinal block. Patient will also be contacting him for instructions regarding holding Xarelto and possible Lovenox bridge. *Spoke to blood bank re: + antibodies. Patient will need to arrive an extra 1 hr early DOS to allow time to properly T+C. OR office notified. Electrocardiogram Date: 05/04/19 Findings: + NSR @ (80bpm) Premature atrial complexes. Chest X-Ray Date: 05/04/19 Findings: + NAD Echocardiogram Date: 11/10/17 EF: 50-55% LV Function: normal Other Findings: + LVH (mild concentric) and + diastolic dysfunction (Grade I) RV is mildly dilated. RV systolic function is moderately reduced, with global HK and apical dyskinesis. There is mild-moderate tricuspid regurgitation. RVSP elevated at 50-60 mmHg. Compared to study from 2016, there is little change.
[2019-11-25 11:14] LABS: Appearance Urine Clear (Clear); Bilirubin Urine Negative (Negative); Blood Urine Negative (Negative); Color Urine Yellow; Glucose Urine UA Negative (Negative); Ketones Urine Negative (Negative); Leukocyte Esterase Urine Negative (Negative); Nitrite Urine Negative (Negative); Protein Urine Negative (Negative); Specific Gravity Urine 1.012 (1.000-1.030); Urobilinogen Urine Negative (Negative); pH Urine 7.5 (4.5-7.5)
[2019-11-25 11:15] LABS: Basophils # (auto) 0.02 K/uL (0-0.2); Basophils % (auto) 0.3 %; Eosinophils # (auto) 0.34 K/uL (0-0.5); Eosinophils % (auto) 4.8 %; Hematocrit (blood only) 36.3 % (37-47); Hemoglobin 11.7 g/dL (12.0-16.0); Immature Granulocytes # (auto) 0.02 K/uL (0.00-0.02); Immature Granulocytes % (auto) 0.3 %; Lymphocytes # (auto) 0.95 K/uL (1.2-3.4); Lymphocytes % (auto) 13.5 %; Mean Corpuscular Hemoglobin 28.9 pg (25-34); Mean Corpuscular Hgb Conc 32.2 g/dL (32-36); Mean Corpuscular Volume 89.6 fL (80-100); Mean Platelet Volume 9.5 fL (7.4-10.4); Monocytes # (auto) 0.56 K/uL (0.11-0.59); Neutrophils # (auto) 5.14 K/uL (1.4-6.5); Neutrophils % (auto) 73.1 %; Platelet Count 294 K/uL (130-400); RDW Coefficient of Variation 13.8 % (11.5-14.5); RDW Standard Deviation 45.9 fL (36.4-46.3); Red Blood Count 4.05 M/uL (4.2-5.4); White Blood Count 7.03 K/uL (4.8-10.8)
[2019-11-25 11:26] LABS: INR 1.6 (0.9-1.1); Partial Thromboplastin Ratio 1.4; Partial Thromboplastin Time 39.4 Seconds (21.0-31.0); Prothrombin Time 16.2 Seconds (9.0-12.0)
[2019-11-25 13:11] LABS: BUN Creatinine Ratio 17.9 (10-20); Calcium 9.3 mg/dl (8.5-10.1); Creatinine Clr Calc Pharmacy 42.3 ml/min; Est GFR (African American) 82.6; Est GFR (Non-African American) 71.3; Potassium 4.1 mmol/L (3.5-5.1)
--- NOTE | 2019-11-28 07:40 | History & Physical Report ---
Date of Service November 28, 2019 Assessment & Plan (1) Fracture of right hip requiring operative repair: The patient was educated regarding today's findings. Informed written consent to proceed with total hip arthroplasty and removal of her sent DHS plate and screws will be obtained the morning of surgery. Preoperative lab work, EKG, and chest x-ray have been ordered. She will obtain medical clearance from her PCP, Dr. Savage. She will also obtain a bridging schedule for her Xarelto. Preoperative imaging has been obtained. She already has access to a walker and wheelchair. Anticipate return to her halfway facility. Patient is aware of the COVID-19 risks associated with surgery. She is currently asymptomatic of any COVID-19 symptoms. She will be scheduled for nasal swab testing of COVID-19 prior to surgery and results will be made available to her prior to surgery. History of Present Illness Chief Complaint: Right hip pain Primary Care Provider: Tan Savage MD This 83-year-old white female presents today with her daughter for her preoperative history and physical. She is scheduled to undergo a right hip removal of Synthes DHS plate and screws and total hip arthroplasty on 12/06/2019. The patient initially injured herself 05/04/2019 after her fall. She underwent hip ORIF surgery on 05/06/2019. She initially did well. Eventually, she developed significant right hip pain. Subsequent films showed that the DHS screw was cutting through the femoral head and scraping the acetabulum. She has been unable to ambulate without pain. She is currently sitting in a wheelchair. She denies any numbness or tingling. Hip fracture went on to nonunion. It has failed at this point. She now has pain with all activities of daily living. Pain is worse with any attempt at weightbearing. She elects to proceed with additional surgical intervention in hopes of improving her pain and function. Preoperative imaging has been obtained. Allergies Allergy/AdvReac Type Severity Reaction Status Date / Time adhesive Allergy Unknown BANDAIDS Verified 11/23/19 13:22 AND CLOTH ADHESIVE-BLISTERS No Known Drug Allergies Allergy Unknown Verified 11/23/19 13:22 Home Medications Home Medications Medication Instructions Recorded Confirmed Type albuterol sulfate 90 mcg/actuation 2 puffs INHALATION Q4H PRN gm 02/18/19 11/23/19 History aerosol inhaler coenzyme Q10 10 mg capsule 100 mg PO QAM cap 02/18/19 11/23/19 History cranberry 400 mg capsule 500 mg PO QAM 02/18/19 11/23/19 History diazepam 5 mg tablet 5 mg PO BID tab 02/18/19 11/23/19 History levothyroxine 50 mcg tablet 50 mcg PO QAM tab 02/18/19 11/23/19 History rivaroxaban 20 mg tablet 20 mg PO QAM #1 tab 02/18/19 11/23/19 History simvastatin 10 mg tablet 10 mg PO QPM tab 02/18/19 11/23/19 History solifenacin 5 mg tablet 5 mg PO QAM tab 02/18/19 11/23/19 History montelukast 10 mg PO QPM 05/04/19 11/23/19 History albuterol sulfate 1.25 mg/3 mL 1.25 mg INH BID ml 11/10/19 11/23/19 History solution for nebulization amlodipine 5 mg tablet 5 mg PO QPM 11/10/19 11/23/19 History budesonide 0.25 mg/2 mL suspension 2 ml INH BID 11/10/19 11/23/19 History for nebulization calcium carbonate 200 mg calcium 200 mg PO TID 11/10/19 11/23/19 History (500 mg) chewable tablet carvedilol 6.25 mg tablet 6.25 mg PO BID 11/10/19 11/23/19 History celecoxib 100 mg capsule 100 mg PO QAM 11/10/19 11/23/19 History cholecalciferol (vitamin D3) 25 25 mcg PO BID 11/10/19 11/23/19 History mcg (1,000 unit) capsule loratadine 10 mg tablet 10 mg PO QAM 11/10/19 11/23/19 History sertraline 50 mg tablet 50 mg PO QAM 11/10/19 11/23/19 History aspirin [Aspir-81] 81 mg PO QPM 11/23/19 11/23/19 History cyanocobalamin (vitamin B-12) 1,000 mcg PO QAM 11/23/19 11/23/19 History magnesium oxide 500 mg PO Q2D 11/23/19 11/23/19 History Past Med/Surg History Medical History Anxiety Asthma Sees [facility] pulmonology. Using neb BID. Very rare rescue inhaler use Bilateral pulmonary embolism ~ 4 yrs ago, was being treated for empyema Bladder spasm Chronic anticoagulation DVT (deep venous thrombosis) HX-ON XARELTO Essential tremor very slight in hands Hyperlipidemia Hypertension Hypothyroidism (acquired) Left ankle sprain (Inactive) Saddle embolism of pulmonary artery ~ 4 yrs ago Urinary, incontinence, stress female Surgical History History of cholecystectomy History of colonoscopy History of hysterectomy TOTAL History of open reduction and internal fixation (ORIF) procedure RIGHT HIP History of thoracentesis Social History Preferred Language: Sami Communication Ability: Effective 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 Other Information That Helps Us Care for You: No Feels Safe at Home: Yes Safety Concerns: Feels Safe At This Time Smoking Status: Former smoker Smoking End Date: QUIT MANY YRS AGO ; Second Hand Exposure: Yes (FAMILY) ; Hx Alcohol Use: No Hx Substance Use: No Review of Systems Review of Systems: All systems reviewed & are unremarkable except as noted in HPI & below Physical Exam Physical Exam: Vitals: Weight 64 kg, height not obtained, temperature 36.3 oral, BP 160/82, pulse 60, O2 sat 97% on room air. General: Well-developed, well-nourished, elderly white female in no acute distress. Sitting in a chair, alert and oriented. Skin: Warm and dry with fair turgor. No rashes or lesions. No ecchymosis or erythema. HEENT: Normocephalic, atraumatic. Eyes: PERRLA, EOMI. Oropharynx and nares exam deferred due to COVID precautions. Heart: fairly regular with occasional irregular beats. No murmurs, gallops or rubs. Lungs: clear to auscultation bilaterally, no crackles, rhonchi or wheezing, good air movement. Abdomen: Mildly obese, bowel sounds present x4, soft, nontender. No organomegaly. No masses. Musculoskeletal: Right hip evaluation reveals no obvious asymmetry or deformity. The patient is seated comfortably in her wheelchair. She is able to stand from the wheelchair with visible discomfort. She is bearing more weight on her left leg than on the right. No discomfort with palpation over the left hip or thigh. There is pain with palpation over the right hip anteriorly, laterally, and posteriorly. Supple motion of the left hip. She has pain with any attempted motion of the right hip. There is also limited flexion as well as internal and external rotation. External rotation is only around 10 degrees, internal rotation to neutral. No discomfort with extension of the knee or intact motion of the ankle. Neurologic: Gross sensation is intact across both lower extremities by soft t ouch. Peripheral pulses are 2+. Results & Data Results & Data ([facility]) Diagnostic Findings Radiographic imaging previously obtained shows right side dynamic hip screw cutting through the femoral head and impacting the acetabulum. There is an additional cannulated screw within the right femoral neck, which also appears to have cut out. She has collapse of the head compared to her old films. 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
[2019-12-06] MEDS ORDERED: LR 500ML BOLUS, THEN 15ML/HR IV SCH (06:00)
[2019-12-06] MEDS ORDERED: LR 60ML/HR IV SCH (06:00)
[2019-12-06] MEDS ORDERED: ROPIVACAINE 0.5% HCL/PF 150 MG, BUPIVACAINE 0.5% MPF 30 ML, EPINEPHrine 0.15 MG, Ketoro... INFIL SCH (06:00)
[2019-12-06] MEDS ORDERED: TRANEXAMIC ACID 1,000 MG x 1 **For Topical Use TOP SCH (06:00)
[2019-12-06] MEDS ORDERED: CEFAZOLIN 2000MG 2,000 MG/15 ML SYR IV SCH (06:00)
[2019-12-06] MEDS ORDERED: BUPIVACAINE 0.5 % 5 MG/1 ML PF 10ML VIAL ONE (06:19)
[2019-12-06 06:21] LABS: Partial Thromboplastin Ratio 1.1; Partial Thromboplastin Time 29.3 Seconds (21.0-31.0); Prothrombin Time 10.7 Seconds (9.0-12.0)
[2019-12-06] MEDS ORDERED: PROPOFOL IV EMULSION 10 MG/ML 20 ML VIAL IV ONE ×2 (06:23→07:14)
[2019-12-06] MEDS ORDERED: LIDOCAINE HCL 2% 2 ML VIAL/AMP(20MG/ML) INFIL ONE (06:23)
--- NOTE | 2019-12-06 06:23 | History & Physical Bridge Note ---
Date of Service December 06, 2019 History & Physical Bridge Note I have examined the patient, reviewed the History & Physical and in the interval since the performance of the History & Physical I have noted the following changes of clinical significance: consent obtained/site marked/covid screen negative.no changes noted
[2019-12-06] MEDS ORDERED: MIDAZOLAM HCL 1 MG/ML 2ML VIAL ONE (06:24)
[2019-12-06] MEDS ORDERED: fentaNYL citrate 100 MCG/2 ML VIAL ONE ×2 (06:51→08:12)
[2019-12-06] MEDS ORDERED: ePHEDrine sulfate 50 MG/ML AMP IV PRN (06:58)
[2019-12-06] MEDS ORDERED: HYDROmorphone INJ 1 MG/ML SYRINGE IV PRN (06:58)
[2019-12-06] MEDS ORDERED: PROMETHAZINE HCL 12.5 MG in SODIUM CHLORIDE 0.9% 50 ML IV PRN (06:58)
[2019-12-06] MEDS ORDERED: fentaNYL citrate 100 MCG/2 ML VIAL IV PRN (06:58)
[2019-12-06] MEDS ORDERED: ONDANSETRON INJ 2 MG/ML 2 ML VIAL IV PRN ×2 (06:58→11:44)
[2019-12-06] MEDS ORDERED: METOCLOPRAMIDE HCL INJ 5 MG/ML 2 ML VIAL IV PRN ×2 (06:58→11:44)
[2019-12-06] MEDS ORDERED: ATROPINE SULFATE 0.1 MG/ML 10ML SYR IV PRN (06:58)
[2019-12-06] MEDS ORDERED: ORTHO JOINT ANESTHETIC ONE (07:05)
[2019-12-06] MEDS ORDERED: ROCURONIUM BROMIDE 10 MG/ML 5 ML VIAL IV ONE (07:14)
[2019-12-06] MEDS ORDERED: GLYCOPYRROLATE 0.2 MG/ML VIAL ONE ×3 (07:36→09:04)
[2019-12-06] MEDS ORDERED: ePHEDrine sulfate 50 MG/ML SYR ONE (07:36)
[2019-12-06] MEDS ORDERED: NEOSTIGMINE METHYLSULFATE 5 MG/5 ML SYR ONE (09:04)
--- NOTE | 2019-12-06 09:46 | Post Operative Brief Note ---
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
--- NOTE | 2019-12-06 10:18 | Operative Report ---
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 I identified the patient and participated in the time-out.: Yes Procedure Operation Date: 12/06/19 07:00 Actual Procedures p Right Total Hip Arthroplasty (Uncemented) with Removal of Synthes Dynamic Hip Screw Plate and Screws(Right) - Edson Womack MD Surgeon MARIE Womack MD Dump Grounds Checker [email or web address] Estimated Blood Loss 200 Findings Consistent with Post-Op Diagnosis Specimens see operative report Drains none Complications none Disposition Accompanied Patient To Recovery: Yes Disposition: Recovery Room Indications This 84-year-old white female presented to the office with complaints of intractable right hip pain. She had previously undergone ORIF of a femoral fracture using DHS plate and screws. The screws had cut out and the fracture we nt on to nonunion. She elected to proceed with further surgical intervention in hopes of alleviating her pain and improving her function. Preoperative imaging was obtained. Description of Procedure Patient was taken to the operating room where she was given general anesthesia. She was prepped and draped in the usual sterile fashion. Please see Dr. Womack's operative report for specifics of the procedure. I was present for the entire case from initial patient positioning through final wound closure. Assistance was provided in tissue retraction, hemostasis, trial implant placement, final implant placement, and final wound closure. Patient was taken to the recovery room in satisfactory condition. I attest to the content of the Intraoperative Record and any orders documented therein. Any exceptions are noted below.
--- NOTE | 2019-12-06 10:26 | XRay Report ---
SINGLE VIEW PELVIS CLINICAL HISTORY: Postoperative examination. FINDINGS: 2 AP portable views of the hips and pelvis with is compared to study dated 11/25/2019. A bip olar right hip arthroplasty is in near-anatomic alignment. At least 2 cortical lag screws transfix th e acetabular cup. No acute fracture is identified. There are expected postoperative changes overlying the right hip including skin clips, subcutaneous gas, and soft tissue swelling. Moderate degenerativ e joint space narrowing is seen in the left hip. Atherosclerotic calcification is noted in the femora l arteries. IMPRESSION: Expected postoperative findings status post right hip arthroplasty. No acute fracture is seen. ACT 112: Negative or not required by law. Electronically signed by: Doug Chakraborty M.D. 12/06/2019 10:25 AM
--- NOTE | 2019-12-06 10:38 | Anesthesiology Progress Note ---
Date of Service December 06, 2019 Anesthesia Post Procedure Vital Signs Vital Signs: Temp Pulse Pulse Resp BP Pulse Ox 12/06/19 10:30 66 16 116/56 L 100 12/06/19 10:20 62 16 127/60 100 12/06/19 10:10 70 16 130/81 98 12/06/19 10:03 36.4 C L 77 16 108/53 L 96 12/06/19 06:15 62 18 162/66 H 95 12/06/19 05:41 37.1 C 65 20 156/68 H 96 Pain Intensity Right Hip: Pain Intensity: 5 Transfer of Care Handoff Completed per policy Notes Mental Status: alert / awake / arousable and participated in evaluation Patient Amnestic to Procedure: Yes Nausea / Vomiting: adequately controlled Pain: adequately controlled Airway Patency, RR, SpO2: stable & adequate BP & HR: stable & adequate Hydration State: stable & adequate Anesthetic Complications: no major complications apparent
[2019-12-06] MEDS ORDERED: VANCOMYCIN HCL 1,000 MG in SODIUM CHLORIDE 0.9% 250 ML IV ONE (11:00)
--- NOTE | 2019-12-06 11:24 | Operative Report (OR) ---
DATE OF OPERATION: 12/06/2019 SURGEON: Edson Womack MD. DISCHARGE SPECIALIST: Johana Owen MD. SECOND DISCHARGE SPECIALIST: Dickson Lezama PA-C. 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 OPERATION PERFORMED: 1. Hardware removal. 2. Total hip arthroplasty, right hip. PERIOPERATIVE SITUATION: Medically cleared female with intractable pain secondary to nonunion and cutout of the hardware of unstable proximal intertrochanteric femur fracture on the right side. At this point in time, she cannot live like this. She did not want to just risk hardware removal and continued pain. She wanted to go through a total hip replacement with all the risks and consequences of that. Consent was signed. She understands the risks and consequences and even . She is on chronic anticoagulation. SUMMARY OF IMPLANTS: Size 50 multi hole cup, 25 screw, 20 screw, 15 screw, 15 screw, 20 screw, liner is a 32 x 50 neutral liner, 32+1 ceramic head, stem size is 13.5 small stature AML. ESTIMATED BLOOD LOSS: 200 mL. CRYSTALLOID: Per Anesthesia. DESCRIPTION OF PROCEDURE: After the patient was appropriately identified, site verified, consent verified, antibiotics confirmed as being given, the old incision was utilized and extended proximally. Full thickness flaps raised, lots of scarring noted. IT band and gluteus nadya fascia opened. Protuberant hardware noted. Subperiosteal dissection of all the hardware then performed. The head was completely cutout and disengaged from the femur. The hardware was then removed and the screw removed. Proximal femur was then cut requiring multiple revisions based on the deformity. The femoral head was then removed. There was large acetabular defect including central wear as well as posterior-superior wear from the screws. This was all debrided carefully. Care taken not to penetrate the soft tissue of the acetabular floor. Serial reaming was then carried out. A 48 cup was tried to be used. It was too small. A 50 cup was then placed. It had a modest bite and then using 5 screws, excellent purchase was obtained with 3 of the screws and modest purchase with 2 of the screws. The cup was then stable in the pelvis. The wound was then irrigated, a trial liner seated. Proximal femur was then delivered in the wound. Soft tissue excised, canal localized and then serial reaming carried up to a 13.5 broach and then a trial reduction carried out. The hip was actually quite stable without any soft tissue support, so it was elected not to put a constrained liner particularly in light of the bone loss and the potential pullout. The hip was then dislocated, the remaining trial elements were removed. The permanent liner seated, the permanent stem seated. It is about 3-4 mm proud, but had excellent friction fly tier and +1 head placed and the hip reduced. It was stable without any soft tissue reduction or repair. It should be mentioned that 3 sutures were placed through the proximal femoral bone with #2 Vicryl and the hip abductors were then repaired to the remnants of the proximal femur. It should be mentioned that there was really no major bony fragments to the trochanter. Everything was all small fragments and the plate, etc., could not be utilized. Once this was done, the wound was irrigated with Betadine and Pulsavac and the IT band and gluteus nadya fascia closed with #2 Vicryl, subcutaneous layer with #2-0 Vicryl and stainless steel clips for skin. Appropriate dressing applied and the patient transferred to Recovery Room in satisfactory condition having tolerated the procedure well. Overall prognosis for this hip is guarded based on the potential for infection, DVT issues and soft bone with bone destruction and potential for acetabular cutout if she is not appropriately cared for. She needs to be cautious of dislocation. Leg lengths to be within millimeters, probably a centimeter of equality. We do not want to over tension the sciatic nerve and hopefully that did not occur with this part of the procedure, but things look quite good at the end.Post op xrays look good. I attest to the content of the Intraoperative Record and any orders documented therein. Any exceptions are noted below. MTDD
[2019-12-06] MEDS ORDERED: OXYCODONE HCL IR 5 MG TAB (IMMEDIATE RELEASE) PO PRN (11:44)
[2019-12-06] MEDS ORDERED: MAGNESIUM HYDROXIDE SUSP 30 ML UDC PO PRN (11:44)
[2019-12-06] MEDS ORDERED: DiphenhydrAMINE HCL 50 MG/ML VIAL IV PRN (11:44)
[2019-12-06] MEDS ORDERED: HYDROmorphone INJ 0.5 MG/0.5 ML SYR IV PRN (11:44)
[2019-12-06] MEDS ORDERED: ALUMINUM/MAGNESIUM SUSP 30 ML UDC PO PRN (11:44)
[2019-12-06] MEDS ORDERED: bisacodyL 10 MG SUPP PR PRN (11:44)
[2019-12-06] MEDS ORDERED: NALOXONE HCL 0.4 MG/1 ML VIAL/CARP IV PRN (11:44)
[2019-12-06] MEDS ORDERED: ALBUTEROL HFA 8 GM INHALER INH PRN (11:44)
[2019-12-06] MEDS ORDERED: SODIUM CHLORIDE 0.9% 1000ML 1,000 ML IV SCH (11:44)
[2019-12-06] MEDS: ACETAMINOPHEN 500 MG TAB PO SCH ×2 (13:32→22:04)
[2019-12-06] MEDS: KETOROLAC TROMETHAMINE 15 MG/ML VIAL IV SCH ×2 (13:32→18:47)
[2019-12-06] MEDS: CEFAZOLIN 1000MG 1,000 MG/7.5 ML SYR IV SCH ×2 (16:34→22:38)
[2019-12-06] MEDS: ASCORBIC ACID 500 MG TAB PO SCH (16:53)
[2019-12-06] MEDS: FERROUS GLUCONATE 324 MG TAB PO SCH (16:53)
--- NOTE | 2019-12-06 17:05 | Progress Notes ---
DATE: 12/06/2019 SUBJECTIVE: Postop check, status post revision right total hip replacement with removal of hardware from a proximal femoral nonunion with significant bone destruction from hardware. At this point in time, the patient is doing well, has no major issues. She states she is not nauseated or vomiting. She just does not have an appetite. She denies chest pain, shortness of breath, fever or chills. She notes that her hip pain is well manageable. OBJECTIVE: Vital signs are stable. She is afebrile. Wound dressing is clean, dry and intact. Femoral and sciatic nerve neurovascular function is excellent. Postop x-rays look excellent. ASSESSMENT: Overall, doing well. Continue with postoperative care pathway. Little bit worried about her bone destruction and her osteoporosis. We need to get that treated. We will need to protect her weightbearing with a walker. This is also for balance. Leg lengths were relatively close based on physical exam and x-ray.
[2019-12-06] MEDS: ALBUTEROL 0.083% NEBU SOLN 3 ML VIAL INH SCH (19:22)
[2019-12-06] MEDS: BUDESONIDE 0.25 MG/2 ML VIAL (PULMICORT) INH SCH (19:23)
[2019-12-06] MEDS: SENNA 8.6 MG TAB PO SCH (20:16)
[2019-12-06] MEDS: ASPIRIN 81 MG ECTAB PO SCH (20:17)
[2019-12-06] MEDS: AMLODIPINE BESYLATE 5 MG TAB PO SCH (20:17)
[2019-12-06] MEDS: DOCUSATE SODIUM 100 MG CAP PO SCH (20:17)
[2019-12-06] MEDS: MONTELUKAST SODIUM 10 MG TABLET PO SCH (20:17)
[2019-12-06] MEDS: SIMVASTATIN 10 MG TAB PO SCH (20:17)
[2019-12-06] MEDS: carvediloL 6.25 MG TAB PO SCH (20:17)
[2019-12-06] MEDS: CHOLECALCIFEROL 1,000 UNITS 25 MCG TAB PO SCH (20:17)
[2019-12-06] MEDS: diazePAM 5 MG TABLET PO SCH (22:04)
[2019-12-07] MEDS: KETOROLAC TROMETHAMINE 15 MG/ML VIAL IV SCH ×2 (00:25→06:26)
[2019-12-07] MEDS: LEVOTHYROXINE SODIUM 50 MCG TABLET PO SCH (05:40)
[2019-12-07] MEDS: ACETAMINOPHEN 500 MG TAB PO SCH ×3 (05:41→21:50)
[2019-12-07 06:28] LABS: Basophils # (auto) 0.01 K/uL (0-0.2); Basophils % (auto) 0.1 %; Eosinophils # (auto) 0.01 K/uL (0-0.5); Eosinophils % (auto) 0.1 %; Hematocrit (blood only) 23.5 % (37-47); Hemoglobin 7.8 g/dL (12.0-16.0); Immature Granulocytes # (auto) 0.02 K/uL (0.00-0.02); Immature Granulocytes % (auto) 0.2 %; Lymphocytes # (auto) 0.81 K/uL (1.2-3.4); Lymphocytes % (auto) 7.8 %; Mean Corpuscular Hemoglobin 28.8 pg (25-34); Mean Corpuscular Hgb Conc 33.2 g/dL (32-36); Mean Corpuscular Volume 86.7 fL (80-100); Mean Platelet Volume 9.5 fL (7.4-10.4); Monocytes # (auto) 1.07 K/uL (0.11-0.59); Monocytes % (auto) 10.3 %; Neutrophils # (auto) 8.42 K/uL (1.4-6.5); Neutrophils % (auto) 81.5 %; Platelet Count 294 K/uL (130-400); RDW Coefficient of Variation 14.2 % (11.5-14.5); RDW Standard Deviation 44.9 fL (36.4-46.3); Red Blood Count 2.71 M/uL (4.2-5.4); White Blood Count 10.34 K/uL (4.8-10.8)
[2019-12-07 06:49] LABS: BUN Creatinine Ratio 20.8 (10-20); Calcium 8.3 mg/dl (8.5-10.1); Creatinine Clr Calc Pharmacy 32.5 ml/min; Est GFR (African American) 62.3; Est GFR (Non-African American) 53.7; Potassium 3.9 mmol/L (3.5-5.1)
[2019-12-07] MEDS ORDERED: SODIUM CHLORIDE 0.9% 250 ML IV PRN ×2 (06:51→07:04)
[2019-12-07 06:53] LABS: RBC Morphology Unremarkable
[2019-12-07] MEDS: ALBUTEROL 0.083% NEBU SOLN 3 ML VIAL INH SCH ×2 (06:54→19:41)
[2019-12-07] MEDS: BUDESONIDE 0.25 MG/2 ML VIAL (PULMICORT) INH SCH ×2 (06:54→19:41)
--- NOTE | 2019-12-07 07:00 | Progress Notes ---
DATE: 12/07/2019 SUBJECTIVE: Postop day #1 status post conversion of femoral nonunion and loose hardware to total hip replacement. At this point in time, the patient did well overnight. She denies any chest pain, shortness of breath, fever, chills, nausea, vomiting, or headache. OBJECTIVE: Vital signs are stable. She is afebrile. The a.m. laboratory work is pending. Neurovascular check, femoral sciatic nerve is normal. Hip is located. Has minimal discomfort. A.m. lab work is pending. ASSESSMENT AND PLAN: Overall, doing well. If she does well with PT/OT and her a.m. lab work looks good, we will discharge today. She will be discharged on her usual anticoagulants. She will have a Prevena placed. She will be partial weightbearing, right lower extremity to tolerance, but protected based on hip abductor deformity from fracture, etc. She will have some leg weakness. She will need to be protected. She also has significant osteoporosis. will need transfusion and reassess for discharge later today patient on xarelto and had revision surgery so blood indicated MTDD
--- NOTE | 2019-12-07 07:57 | Discharge Summary (DS) ---
DATE OF DISCHARGE: Pending. CHIEF COMPLAINT: Right hip pain. HISTORY OF PRESENT ILLNESS: The patient underwent elective removal of hardware for nonunion with bony destruction of the right hip followed by right total hip replacement. At this point in time, the patient's hospital course has been uneventful. She denies any chest pain, shortness of breath, fever, chills, nausea, vomiting or headache. PAST MEDICAL HISTORY: Remarkable for anxiety, asthma, pulmonary embolism, bladder spasm, chronic anticoagulation, DVT, history of Xarelto use, essential tremor, hyperlipidemia, hypertension, hypothyroidism, ankle sprain, saddle embolism 4 years ago, urinary incontinence, stress-induced female. PAST SURGICAL HISTORY: Remarkable for cholecystectomy, colonoscopy, hysterectomy, status post ORIF of a hip fracture with nonunion, history of thoracentesis. SOCIAL HISTORY: Reveals that she has family. She does communicate well. There is no sewage screen operator required. She is a . She has a daughter and grandson that live with the patient. She feels safe at home. She is a former smoker. REVIEW OF SYSTEMS: Reveals no chest pain, shortness of breath, fever, chills, nausea, vomiting or headache. Hospital course has been uneventful to date. She will restart her Xarelto tomorrow. She will be up with partial weightbearing on the right lower extremity with walker. She will have a Prevena on her wound based on the size of her wound. This required extensile exposure based on the deformity of the proximal femur. services advisor/case management are involved. Discharge pending on how well she does with PT, OT tomorrow. will ressess after transfusion to see if she will be ready for discharge. MAYDA
[2019-12-07] MEDS ORDERED: dexAMETHasone 10 MG in SYRINGE 0 ML IV SCH (08:00)
[2019-12-07] MEDS ORDERED: FUROSEMIDE 20 MG in SYRINGE 0 ML IV SCH (08:00)
[2019-12-07] MEDS: RIVAROXABAN 10 MG TABLET PO SCH (08:38)
[2019-12-07] MEDS: SERTRALINE HCL 50 MG TABLET PO SCH (08:38)
[2019-12-07] MEDS: MULTIVITAMIN TAB PO SCH (08:38)
[2019-12-07] MEDS: FERROUS GLUCONATE 324 MG TAB PO SCH ×2 (08:39→18:17)
[2019-12-07] MEDS: LORATADINE 10 MG TAB PO SCH (08:39)
[2019-12-07] MEDS: CYANOCOBALAMIN 500 MCG TABLET (VITAMIN B-12) PO SCH (08:39)
[2019-12-07] MEDS: DOCUSATE SODIUM 100 MG CAP PO SCH ×2 (08:39→20:46)
[2019-12-07] MEDS: ASCORBIC ACID 500 MG TAB PO SCH ×2 (08:39→18:17)
[2019-12-07] MEDS: CHOLECALCIFEROL 1,000 UNITS 25 MCG TAB PO SCH ×2 (08:40→20:44)
[2019-12-07] MEDS: carvediloL 6.25 MG TAB PO SCH ×2 (08:40→20:44)
[2019-12-07] MEDS: SOLIFENACIN SUCCINATE PO SCH (08:40)
[2019-12-07] MEDS: diazePAM 5 MG TABLET PO SCH ×2 (08:43→20:47)
--- NOTE | 2019-12-07 08:45 | Anesthesiology Progress Note ---
Date of Service December 07, 2019 Anesthesia Post Procedure Vital Signs Vital Signs: Temp Pulse Pulse Pulse Pulse Resp BP 12/07/19 08:31 36.6 C 90 18 120/51 L 12/07/19 08:06 36.6 C 87 18 122/73 12/07/19 07:52 36.9 C 83 16 12/07/19 06:55 74 14 12/07/19 03:16 36.8 C 87 16 12/06/19 23:58 36.8 C 91 H 16 12/06/19 20:10 74 12/06/19 19:24 107 H 18 12/06/19 18:49 36.9 C 74 18 12/06/19 14:23 36.5 C 84 16 12/06/19 13:15 73 16 12/06/19 12:14 36.4 C L 71 16 12/06/19 11:43 36.4 C L 71 15 12/06/19 11:15 36.5 C 70 16 12/06/19 11:00 66 16 12/06/19 10:50 67 16 12/06/19 10:40 36.6 C 65 16 12/06/19 10:30 66 16 12/06/19 10:20 62 16 12/06/19 10:10 70 16 12/06/19 10:03 36.4 C L 77 16 BP BP Pulse Ox 12/07/19 08:31 93 12/07/19 08:06 12/07/19 07:52 119/66 91 12/07/19 06:55 92 12/07/19 03:16 109/67 91 12/06/19 23:58 116/70 90 12/06/19 20:10 105/64 12/06/19 19:24 94 12/06/19 18:49 125/69 91 12/06/19 14:23 156/80 H 96 12/06/19 13:15 142/73 H 100 12/06/19 12:14 117/65 100 12/06/19 11:43 125/74 100 12/06/19 11:15 127/64 93 12/06/19 11:00 136/67 100 12/06/19 10:50 117/59 L 100 12/06/19 10:40 122/59 L 100 12/06/19 10:30 116/56 L 100 12/06/19 10:20 127/60 100 12/06/19 10:10 130/81 98 12/06/19 10:03 108/53 L 96 Pain Intensity Right Hip: Pain Intensity: 4 Notes Mental Status: alert / awake / arousable and participated in evaluation Patient Amnestic to Procedure: Yes Nausea / Vomiting: adequately controlled Pain: adequately controlled Airway Patency, RR, SpO2: stable & adequate BP & HR: stable & adequate Hydration State: stable & adequate Anesthetic Complications: no major complications apparent and Pt Satisfied with anesthetic care
[2019-12-07] MEDS ORDERED: MAGNESIUM OXIDE 400 MG TAB PO SCH (09:00)
--- NOTE | 2019-12-07 09:37 | Orthopedic Progress Note ---
Date of Service December 07, 2019 Assessment & Plan (1) S/P total hip arthroplasty: Prevena dressing placed. Sealed, functioning. Allowed out of bed, total hip posterior precautions. PWB RLE. Abduction pillow between legs Ice to right hip PRN Xarelto for DVT prophylaxis, Teds and SCD's for DVT prophylaxis Needs PT/OT today after blood transfusion completed. Will plan for discharge later today to home with in home nursing if does well in PT/OT. If not doing well out of bed, may need inpatient rehab. Please see Dr. Womack's note for further details. Admission and Anticipated Discharge Date Admission Date: December 06, 2019 Subjective doing fine, blood transfusing. No complaints of pain right hip. Has not been out of bed yet. Physical Exam Physical Exam: Right hip incision intact with retained aviva. Bloody drainage from proximal incision. Skin edges approximated. No surrounding ecchymosis or fracture blisters. No erythema. No surrounding seroma or hematoma. Results & Data ([facility]) Vital Signs (Past 12 Hours) Vital Signs Temp Pulse Pulse Pulse Resp BP BP 12/07/19 09:16 36.4 C L 82 18 120/62 12/07/19 08:46 36.9 C 77 18 130/74 12/07/19 08:31 36.6 C 90 18 120/51 L 12/07/19 08:06 36.6 C 87 18 122/73 12/07/19 07:52 36.9 C 83 16 119/66 12/07/19 06:55 74 14 12/07/19 03:16 36.8 C 87 16 109/67 12/06/19 23:58 36.8 C 91 H 16 116/70 Pulse Ox 12/07/19 09:16 92 12/07/19 08:46 92 12/07/19 08:31 93 12/07/19 08:06 12/07/19 07:52 91 12/07/19 06:55 92 12/07/19 03:16 91 12/06/19 23:58 90
--- NOTE | 2019-12-07 13:23 | Progress Notes ---
DATE: 12/07/2019 She is getting her second unit of blood. Her hemoglobin was 7.8 and due to the fact that she is on chronic Xarelto, chronic illness based on her age I did not feel it was appropriate to discharge her without getting transfusion. She is getting her second unit now. 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 As such, it is more appropriate for her to stay overnight to repeat her crit in the morning and have OT, PT evaluate appropriately and determine whether she is going to a facility versus home.
[2019-12-07 19:26] LABS: Hematocrit (blood only) 31.8 % (37-47)
[2019-12-07] MEDS: MONTELUKAST SODIUM 10 MG TABLET PO SCH (20:43)
[2019-12-07] MEDS: SENNA 8.6 MG TAB PO SCH (20:43)
[2019-12-07] MEDS: AMLODIPINE BESYLATE 5 MG TAB PO SCH (20:43)
[2019-12-07] MEDS: SIMVASTATIN 10 MG TAB PO SCH (20:45)
[2019-12-07] MEDS: ASPIRIN 81 MG ECTAB PO SCH (20:45)
[2019-12-08] MEDS: LEVOTHYROXINE SODIUM 50 MCG TABLET PO SCH (06:00)
[2019-12-08] MEDS: ACETAMINOPHEN 500 MG TAB PO SCH (06:00)
[2019-12-08 06:13] LABS: Basophils # (auto) 0.01 K/uL (0-0.2); Basophils % (auto) 0.1 %; Eosinophils # (auto) 0.01 K/uL (0-0.5); Eosinophils % (auto) 0.1 %; Hematocrit (blood only) 29.5 % (37-47); Hemoglobin 10.1 g/dL (12.0-16.0); Immature Granulocytes # (auto) 0.05 K/uL (0.00-0.02); Immature Granulocytes % (auto) 0.4 %; Lymphocytes # (auto) 0.83 K/uL (1.2-3.4); Lymphocytes % (auto) 7.1 %; Mean Corpuscular Hemoglobin 29.4 pg (25-34); Mean Corpuscular Hgb Conc 34.2 g/dL (32-36); Mean Platelet Volume 9.8 fL (7.4-10.4); Monocytes # (auto) 1.33 K/uL (0.11-0.59); Monocytes % (auto) 11.3 %; Neutrophils # (auto) 9.53 K/uL (1.4-6.5); Platelet Count 245 K/uL (130-400); RDW Coefficient of Variation 14.2 % (11.5-14.5); RDW Standard Deviation 44.2 fL (36.4-46.3); Red Blood Count 3.43 M/uL (4.2-5.4); White Blood Count 11.76 K/uL (4.8-10.8)
[2019-12-08] MEDS: ALBUTEROL 0.083% NEBU SOLN 3 ML VIAL INH SCH (07:07)
[2019-12-08] MEDS: BUDESONIDE 0.25 MG/2 ML VIAL (PULMICORT) INH SCH (07:07)
[2019-12-08] MEDS: ASCORBIC ACID 500 MG TAB PO SCH (08:03)
[2019-12-08] MEDS: RIVAROXABAN 10 MG TABLET PO SCH (08:03)
[2019-12-08] MEDS: CYANOCOBALAMIN 500 MCG TABLET (VITAMIN B-12) PO SCH (08:03)
[2019-12-08] MEDS: LORATADINE 10 MG TAB PO SCH (08:03)
[2019-12-08] MEDS: CHOLECALCIFEROL 1,000 UNITS 25 MCG TAB PO SCH (08:03)
[2019-12-08] MEDS: SERTRALINE HCL 50 MG TABLET PO SCH (08:03)
[2019-12-08] MEDS: MULTIVITAMIN TAB PO SCH (08:03)
[2019-12-08] MEDS: carvediloL 6.25 MG TAB PO SCH (08:03)
[2019-12-08] MEDS: FERROUS GLUCONATE 324 MG TAB PO SCH (08:03)
[2019-12-08] MEDS: SOLIFENACIN SUCCINATE PO SCH (08:04)
[2019-12-08] MEDS: diazePAM 5 MG TABLET PO SCH (08:07)
[2019-12-08] MEDS: DOCUSATE SODIUM 100 MG CAP PO SCH (08:07)
--- NOTE | 2019-12-08 08:18 | Progress Notes ---
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 The patient did well overnight. A little restless. Really not having much pain. She notes she has no major issues sitting like she used to have. She notes that her pain preoperatively is virtually all gone. Vital signs are stable. She is afebrile. Hematocrit stable at 29.5. Wound VAC has minimal drainage, although the container has probably half full. At this point in time, will need to have that exchanged prior to discharge. She is back on her anticoagulation. ASSESSMENT: Overall, doing well. Continue with guarded weightbearing based on bone stock and the type of surgery she had. In addition follow up in a week for the wound VAC change. We will likely leave her aviva in 3 weeks.
--- NOTE | 2019-12-08 09:53 | Orthopedic Progress Note ---
Date of Service December 08, 2019 Assessment & Plan (1) S/P total hip arthroplasty: Wound VAC canister was changed today. Anticipate discharge to home with home health services later today. She will receive PT and OT here today before departure. Will discharge on Keflex 500 mg 3 times daily x2 weeks. Xarelto has been resumed. She has not used any IV Dilaudid while in the hospital. She did have a dose of oxycodone this morning for pain. Prescription will be provided. Follow-up in the office in 1 week for wound VAC removal. Appointment has been made for at 330. Admission and Anticipated Discharge Date Admission Date: December 06, 2019 Subjective This 84-year-old white female is seen today in her room. She is sitting in a chair. Has no complaints. She states her hip feels better than it did preoperatively. She describes soreness in both of her lower legs, which she states happens after use of the SCDs. She is hoping to go home today. She denies any chest pain or shortness of breath. No other complaints. Review of Systems Review of Systems: Unchanged from yesterday. Physical Exam Physical Exam: Evaluation of the right hip reveals her wound VAC to be in tova ce. VAC canister is approximately 3/4 full. She has supple motion of the right hip. Has some soreness with palpation over the incision. Intact motor function to her knee and ankle. Neurologic: Gross sensation is intact across both lower extremities by soft touch. Peripheral pulses are 2+. Results & Data ([facility]) Vital Signs (Past 12 Hours) Vital Signs Temp Pulse Pulse Pulse Resp BP BP 12/08/19 07:54 36.4 C L 73 80 74 16 159/82 H 154/69 H 12/08/19 07:46 36.4 C L 80 16 159/82 H 12/08/19 07:07 74 18 12/07/19 23:00 36.4 C L 88 16 154/69 H Pulse Ox 12/08/19 07:54 93 12/08/19 07:46 93 12/08/19 07:07 93 12/07/19 23:00 92 Laboratory Results H&H obtained today is 10.1 and 29.5.
--- NOTE | 2020-01-01 11:03 | Orthopedic Consultation ---
Date of Consultation January 01, 2020 Assessment & Plan (1) Failure of right total hip arthroplasty with dislocation of hip: Dr Francisco discussed with patient and daughter performing a closed reduction of her right hip. The consent was signed. The potential risks complications and outcomes were reviewed. They would like to proceed. This will be performed in ED vs Operating Room Anesthesia to see. Medicine consulted for admission. Patient receiving 1 unit of PRBc currently and plan to get another unit after the procedure. After procedure we will plan for a compression dressing to right hip and place patient in Hip Abductor Brace to follow SHP. I, Dr. Francisco, saw and examined the patient and agree with the above findings and plan of care. Present on Admission?: Yes History of Present Illness Reason for Consultation: right hip wound bleeding. dislocated right total hip replacement Requesting Physician: Jose Francisco Francisco MD Attending Physician: Hospitalist History of Present Illness Patient is a 84-year-old female patient of Dr Womack. Came into ED this am by ambulance and orthopedics consulted for bleeding from incision and worsening pain and weakness. S/P R THR by Dr Womack on 12-06-19. History of hypertension, hypothyroidism, PE currently maintained on Xarelto. Patient denies any new trauma. Pain worse in the right hip overnight according to patient and the daughter. This am daughter helped transfer her from bed to toilet then chair. Upon doing so, wound began to drain proximally. Unable to stop. ER called. Per patient, she has felt weak and near syncopal several times. Patient's on Xarelto daily last took it yesterday morning. Patient has not been ambulating other than transfers since the surgery and was started on Levaquin this week for concerns for infection of the hip secondary to some chronic drainage of wound since surgery. No fevers reported. Again denies any new trauma. Denies chest pain or shortness of breath. Upon arrival to ED, xrays show dislocated right hip. Hgb at 7.0. Medicine has been consulted for evaluation and admission. 2 units of PRBCs ordered. Allergies Allergy/AdvReac Type Severity Reaction Status Date / Time adhesive Allergy Unknown BANDAIDS Verified 01/01/20 10:56 AND CLOTH ADHESIVE-BLISTERS No Known Drug Allergies Allergy Unknown Verified 01/01/20 10:56 Home Medications Home Medications Medication Instructions Recorded Confirmed Type albuterol sulfate 90 mcg/actuation 2 puffs INHALATION Q4H PRN gm 02/18/19 01/01/20 History aerosol inhaler coenzyme Q10 10 mg capsule 100 mg PO QAM cap 02/18/19 01/01/20 History diazepam 5 mg tablet 5 mg PO BID tab 02/18/19 01/01/20 History levothyroxine 50 mcg tablet 50 mcg PO QAM tab 02/18/19 01/01/20 History rivaroxaban 20 mg tablet 20 mg PO QAM #1 tab 02/18/19 01/01/20 History simvastatin 10 mg tablet 10 mg PO HS tab 02/18/19 01/01/20 History solifenacin 5 mg tablet 5 mg PO QAM tab 02/18/19 01/01/20 History montelukast 10 mg PO HS 05/04/19 01/01/20 History albuterol sulfate 1.25 mg/3 mL 1.25 mg INH BID ml 11/10/19 01/01/20 History solution for nebulization amlodipine 5 mg tablet 5 mg PO HS 11/10/19 01/01/20 History budesonide 0.25 mg/2 mL suspension 2 ml INH BID 11/10/19 01/01/20 History for nebulization calcium carbonate 200 mg calcium 200 mg PO TID 11/10/19 01/01/20 History (500 mg) chewable tablet carvedilol 6.25 mg tablet 6.25 mg PO BID 11/10/19 01/01/20 History cholecalciferol (vitamin D3) 25 25 mcg PO BID 11/10/19 01/01/20 History mcg (1,000 unit) capsule loratadine 10 mg tablet 10 mg PO QAM 11/10/19 01/01/20 History sertraline 50 mg tablet 50 mg PO QAM 11/10/19 01/01/20 History aspirin [Aspir-81] 81 mg PO HS 11/23/19 01/01/20 History cyanocobalamin (vitamin B-12) 1,000 mcg PO QAM 11/23/19 01/01/20 History magnesium oxide 500 mg PO Q2D@2100 11/23/19 01/01/20 History oxycodone-acetaminophen [Percocet] 1 tab PO Q6H PRN #20 tab 12/07/19 01/01/20 Rx ascorbic acid (vitamin C) [Vitamin 500 mg PO QAM 01/01/20 01/01/20 History C] celecoxib 100 mg PO QAM 01/01/20 01/01/20 History cranberry 500 mg PO QAM 01/01/20 01/01/20 History levofloxacin 500 mg PO QAM 01/01/20 01/01/20 History prednisone 20 mg PO QAM 01/01/20 01/01/20 History Patient History Medical History Anxiety Asthma Sees [facility] [place] pulmonology. Using neb BID. Very rare rescue inhaler use Bilateral pulmonary embolism ~ 4 yrs ago, was being treated for empyema Bladder spasm Chronic anticoagulation DVT (deep venous thrombosis) HX-ON XARELTO Essential tremor very slight in hands Hyperlipidemia Hypertension Hypothyroidism (acquired) Left ankle sprain (Inactive) Saddle embolism of pulmonary artery ~ 4 yrs ago Urinary, incontinence, stress female Surgical History History of cholecystectomy History of colonoscopy History of hysterectomy TOTAL History of open reduction and internal fixation (ORIF) procedure RIGHT HIP History of thoracentesis Social History Smoking Status: Never smoker Second Hand Exposure: No; Hx Alcohol Use: No Hx Substance Use: No Preferred Language: Bruneian Communication Ability: Effective 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 Other Information That Helps Us Care for You: No Feels Safe at Home: Yes Safety Concerns: Feels Safe At This Time Review of Systems Review of Systems: Admits to right hip pain, right hip drainage. Feeling lightheaded. Denies f/c/s. Denies SOB, Chest pain. Denies numbness or tingling into right leg. Physical Exam Physical Exam: Patient laying in bed with daughter present. A and O x 3. Head: normocephalic and atraumatic Extremities: Patient has significant ecchymosis and bruising to right hip. Right hip wound with aviva and steri strips. At the superior edge of the wound there is active bleeding. No pus or foul odor. Right leg is shortened and externally rotated. Patient able to wiggle B toes and ankles. Sensation intact to light touch. Palpable DP and PT pulses. Calves soft. NEUROLOGICAL: No focal deficits Results & Data ([facility]) Diagnostic Findings RIGHT HIP 2 VIEWS CLINICAL HISTORY: Right hip pain. FINDINGS: AP and crosstable lateral views of the right hip are compared to study dated 12/06/2019. The skeletal structures are osteopenic. No acute fracture is seen. A right hip arthroplasty is in place. There is superior dislocation of the femoral component of the arthroplasty. The acetabular cup appears to have fractured through the right acetabulum and projects over the right hemipelvis. Chronic appearing posttraumatic deformity is noted in the right proximal femur. Screw tracks are present in the proximal femoral shaft. Skin clips, soft tissue swelling, and subcutaneous gas are expected postoperative findings. There is atherosclerotic calcification of the right femoral artery. IMPRESSION: 1. The acetabular cup appears to have fractured through the right acetabulum and now projects over the right hemipelvis. 2. There is associated dislocation of the femoral component of the arthroplasty.
--- NOTE | 2020-01-01 11:59 | Anesthesiology Consultation ---
Date of Service January 01, 2020 Assessment & Plan (1) Encounter for pre-operative examination: Chart Review Chart Review: Acceptable Risk for Surgery (Patient getting 1 unit blood for hx 7 ) History Surgery Operation Date: 12/06/19 07:00 Proposed Procedures p Right Total Hip Removal of Synthes DHS Plate and Screws - Edson Womack MD Height/Weight Height: 4 ft 8 in Weight: 61.689 kg Allergies Allergy/AdvReac Type Severity Reaction Status Date / Time adhesive Allergy Unknown BANDAIDS Verified 01/01/20 10:56 AND CLOTH ADHESIVE-BLISTERS No Known Drug Allergies Allergy Unknown Verified 01/01/20 10:56 Medications Home Medications Medication Instructions Recorded Confirmed Last Taken albuterol sulfate 90 mcg/actuation 2 puffs INHALATION Q4H PRN gm 02/18/19 01/01/20 12/06/19 04:15 aerosol inhaler coenzyme Q10 10 mg capsule 100 mg PO QAM cap 02/18/19 01/01/20 12/31/19 diazepam 5 mg tablet 5 mg PO BID tab 02/18/19 01/01/20 12/31/19 levothyroxine 50 mcg tablet 50 mcg PO QAM tab 02/18/19 01/01/20 12/31/19 rivaroxaban 20 mg tablet 20 mg PO QAM #1 tab 02/18/19 01/01/20 12/31/19 simvastatin 10 mg tablet 10 mg PO HS tab 02/18/19 01/01/20 12/31/19 solifenacin 5 mg tablet 5 mg PO QAM tab 02/18/19 01/01/20 12/31/19 montelukast 10 mg PO HS 05/04/19 01/01/20 12/31/19 albuterol sulfate 1.25 mg/3 mL 1.25 mg INH BID ml 11/10/19 01/01/20 12/31/19 solution for nebulization amlodipine 5 mg tablet 5 mg PO HS 11/10/19 01/01/20 12/31/19 budesonide 0.25 mg/2 mL suspension 2 ml INH BID 11/10/19 01/01/20 12/31/19 for nebulization calcium carbonate 200 mg calcium 200 mg PO TID 11/10/19 01/01/20 12/31/19 (500 mg) chewable tablet carvedilol 6.25 mg tablet 6.25 mg PO BID 11/10/19 01/01/20 12/31/19 cholecalciferol (vitamin D3) 25 25 mcg PO BID 11/10/19 01/01/20 12/31/19 mcg (1,000 unit) capsule loratadine 10 mg tablet 10 mg PO QAM 11/10/19 01/01/20 12/31/19 sertraline 50 mg tablet 50 mg PO QAM 11/10/19 01/01/20 12/31/19 aspirin [Aspir-81] 81 mg PO HS 11/23/19 01/01/20 12/31/19 cyanocobalamin (vitamin B-12) 1,000 mcg PO QAM 11/23/19 01/01/20 12/31/19 magnesium oxide 500 mg PO Q2D@2100 11/23/19 01/01/20 12/04/19 17:30 oxycodone-acetaminophen [Percocet] 1 tab PO Q6H PRN #20 tab 12/07/19 01/01/20 12/31/19 22:15 1 tablet ascorbic acid (vitamin C) [Vitamin 500 mg PO QAM 01/01/20 01/01/20 12/31/19 C] celecoxib 100 mg PO QAM 01/01/20 01/01/20 12/31/19 cranberry 500 mg PO QAM 01/01/20 01/01/20 12/31/19 levofloxacin 500 mg PO QAM 01/01/20 01/01/20 12/31/19 prednisone 20 mg PO QAM 01/01/20 01/01/20 12/31/19 NPO Date Last Intake of Fluids: 12/05/19 Time Last Intake of Fluids: 21:30 Last Intake of Fluids Comment: sips of water with medsd this am at 0430 Date Last Intake of Solids: 12/05/19 Time Last Intake of Solids: 17:30 Past Medical History Medical History Anxiety Asthma Sees [facility] [place]. Using neb BID. Very rare rescue inhaler use Bilateral pulmonary embolism ~ 4 yrs ago, was being treated for empyema Bladder spasm Chronic anticoagulation DVT (deep venous thrombosis) HX-ON XARELTO Essential tremor very slight in hands Hyperlipidemia Hypertension Hypothyroidism (acquired) Left ankle sprain (Inactive) Saddle embolism of pulmonary artery ~ 4 yrs ago Urinary, incontinence, stress female Past Surgical History Surgical History History of cholecystectomy History of colonoscopy History of hysterectomy TOTAL History of open reduction and internal fixation (ORIF) procedure RIGHT HIP History of thoracentesis Past Anesthesia History No Hx of Anesthesia Complications History of PONV No Hx of PONV and No Hx of Motion Sickness Social History Smoking Status: Never smoker Smoking End Date: QUIT MANY YRS AGO Hx Alcohol Use: No alcohol intake frequency: other Hx Substance Use: No Physical Exam Vital Signs Last Vital Signs Temp 36.4 C L 12/08/19 07:54 Pulse 74 12/08/19 07:54 Resp 16 12/08/19 07:54 BP 154/69 H 12/08/19 07:54 Pulse Ox 93 12/08/19 07:54 Testing Laboratory Results 12/08/19 05:14 12/07/19 05:46 PT 10.7 Seconds (9.0-12.0) 12/06/19 05:31 INR 1.0 (0.9-1.1) 12/06/19 05:31 APTT 29.3 Seconds (21.0-31.0) 12/06/19 05:31 Urine Color Yellow 11/25/19 Unknown Urine Appearance Clear (Clear) 11/25/19 Unknown Urine pH 7.5 (4.5-7.5) 11/25/19 Unknown Ur Specific [place] 1.012 (1.000-1.030) 11/25/19 Unknown Urine Protein Negative (Negative) 11/25/19 Unknown Urine Glucose (UA) Negative (Negative) 11/25/19 Unknown Urine Ketones Negative (Negative) 11/25/19 Unknown Urine Nitrite Negative (Negative) 11/25/19 Unknown Ur Leukocyte Esterase Negative (Negative) 11/25/19 Unknown Blood Type B Positive 12/06/19 05:30 Antibody Screen POSITIVE A 12/06/19 05:30 12/06/19 07:56 Gram Stain - Final Hip,Right Aerobic and Anaerobic Culture - Final No growth Laboratory Tests 01/01/20 09:47 Hct 21.9 L
--- NOTE | 2020-01-01 14:30 | Operative Report ---
Post Operative Report Pre & Post Diagnosis Operation Date: 01/01/2020 Pre-Op Diagnosis: s/p Right SHIMON, dislocated Post-Op Diagnosis: s/p Right SHIMON, dislocated I identified the patient and participated in the time-out.: Yes Procedure Operation Date: 12/06/19 07:00 Actual Procedures Right SHIMON Closed Reduction, Ly Francisco MD Surgeon Jose Francisco Francisco MD [employer] Representative Juan David Drummond PA-C Estimated Blood Loss 0 Findings Consistent with Post-Op Diagnosis Specimens n/a Anesthesia Type MAC Complications none Indications 84 y.o. female 3 weeks s/p R SHIMON, presented to ED today with bloody drainage from incision and light headedness. No obvious injury, but x-rays revealed a dislocated R SHIMON. Discussed the risk and benefits of closed reduction. The patient and daughter agreed and the informed consent was signed. Description of Procedure The patient was taken to the Trauma bay and anesthesia provided the conscious sedation. A Time-out was preformed identifying the patient and the RLE as the correct limb for closed reduction. Once the patient was relaxed enough following conscious sedation a reduction maneuver was preformed with flexion, traction, internal rotation. The leg was no longer shortened and able to internal and external rotate the leg. negative pistoning of the limb. Post reduction radiographs confirmed a reduced R SHIMON. An Abduction pillow was placed. The incision was re-enforced with 4x4's, ABD's and a compressive dressing. She will be admitted to Hospitalist service. Currently undergoing transfusion. Bedrest for now. An Abduction brace was sent with the patient to the floor. She will be re-educated on Total Hip Precautions. Ortho will continue to follow while in house. Will cancel her outpatient appoint tomorrow with Dr. Womack and will notify him that she has been admitted. I attest to the content of the Intraoperative Record and any orders documented therein. Any exceptions are noted below.
--- NOTE | 2020-02-21 09:32 | Coding Query ---
To promote full compliance with coding requirements relating to patient care, physician participation is requested in all cases of type copyist uncertainty. Please assist us with the question(s) below: Coding Question(s): It was noted on Progress Notes 12/06/19 and 12/07/19 in the record that the patient has/is suspected to have osteoporosis. According to coding guidelines "a code for osteoporotic fracture, and not a traumatic fracture, should be used for any patient with known osteoporosis who suffers a fracture, even if the patient had a minor fall or trauma, if that fall or trauma would not usually break a normal, healthy bone." Please indicate below the type of fracture: Physician's Response(s): ( x ) Osteoporotic fracture of (type copyist indicate site of fracture)pelvis/femur ( ) Traumatic fracture of (type copyist indicate site of fracture) ( ) Other, please specify ( ) Unable to be determined MTDD
== END 2019-12-08 11:36 | disposition home health service (06) | DRG 469 ==
LOC: ASU 05:00 → 3N 05:00 → OBSVTOIN 10:13 → 3N 18:49

== ENCOUNTER 2020-01-01 09:13 | Inpatient (IN) ==
[2020-01-01] MEDS ORDERED: SODIUM CHLORIDE 0.9% 500 ML IV SCH (09:45)
[2020-01-01 10:07] LABS: Basophils # (auto) 0.03 K/uL (0-0.2); Basophils % (auto) 0.3 %; Eosinophils # (auto) 0.08 K/uL (0-0.5); Eosinophils % (auto) 0.8 %; Hematocrit (blood only) 21.9 % (37-47); Immature Granulocytes # (auto) 0.08 K/uL (0.00-0.02); Immature Granulocytes % (auto) 0.8 %; Lymphocytes # (auto) 1.18 K/uL (1.2-3.4); Lymphocytes % (auto) 12.3 %; Mean Corpuscular Hemoglobin 29.3 pg (25-34); Mean Corpuscular Volume 91.6 fL (80-100); Monocytes # (auto) 1.17 K/uL (0.11-0.59); Monocytes % (auto) 12.2 %; Neutrophils # (auto) 7.05 K/uL (1.4-6.5); Neutrophils % (auto) 73.6 %; Platelet Count 387 K/uL (130-400); RDW Coefficient of Variation 15.2 % (11.5-14.5); RDW Standard Deviation 51.1 fL (36.4-46.3); Red Blood Count 2.39 M/uL (4.2-5.4); White Blood Count 9.59 K/uL (4.8-10.8)
[2020-01-01] MEDS ORDERED: SODIUM CHLORIDE 0.9% 250 ML IV PRN (10:10)
[2020-01-01] MEDS ORDERED: SODIUM CHLORIDE 0.9% 1000ML 500 ML IV ONE (10:11)
--- NOTE | 2020-01-01 10:20 | Emergency Department Note ---
Impression & Plan Bleeding from right hip wound, Acute blood loss anemia, Dislocation of internal right hip prosthesis, Acute hypotension, Weakness, Near syncope ED Provider Note Provider: Brandon Friend MD DATE OF SERVICE: 01/01/2020 CHIEF COMPLAINT: Bleeding, weakness HISTORY OF PRESENT ILLNESS: Patient is a 84-year-old female with a history of hypertension, hypothyroidism, PE currently maintained on Xarelto status post redo right hip arthroplasty on December 05 presenting today due to bleeding from the incisional wound with weakness and worsening pain of the right hip. Patient denies any new trauma. Pain worse in the right hip overnight according to patient and the daughter. He is felt weak and near syncopal several times. Daughter noted this morning bleeding from the upper area of the incisional wound. Patient's on Xarelto daily last took it yesterday morning. Patient is on Coreg normally. No new falls reported. Patient has not been ambulating since the surgery and was started on Levaquin this week for concerns for infection of the hip. No fevers reported. Again denies any new trauma. Denies chest pain or shortness of breath. States she is occasional been feeling near syncopal. REVIEW OF SYSTEMS: A total of 10 review of systems was obtained and negative except as stated above in the HPI. PAST MEDICAL HISTORY: As noted above MEDICATIONS: Reviewed home medications which include Xarelto (last dose yesterday morning) SOCIAL HISTORY: Lives at home with daughter, very distant former smoker PHYSICAL EXAM: GENERAL: alert and oriented laying in stretcher eyes closed appears weak Head: normocephalic and atraumatic EYES: No injection, discharge or icterus. NECK: Trachea midline. Supple. ENT: Mucous membranes pink and moist. LUNGS: Airway patent. No retractions. Breath sounds clear HEART: Regular rate and rhythm. No chest wall tenderness ABDOMEN: Soft and non-tender, without guarding or rebound. SKIN: Acyanotic, warm, dry, without rashes EXTREMITIES: Patient has significant ecchymosis and bruising around a very large right lateral hip wound stapled. At the superior edge of the wound there is active bleeding present form the wound. Gauze and pressure was applied here. 1+ PD pulse R foot. NEUROLOGICAL: No focal deficits. No aphasia. No facial droop or slurred speech. Neuro intact in the R foot/lower leg. EK bpm sinus rhythm with PACs. No acute ST segment elevation or depressions appreciated. CONTINUOUS CARDIAC MONITORING: was ordered and showed a heart rate of 70's bpm in normal sinus rhythm occasional PAC HOSPITAL COURSE: 936 Patient was first seen and H&P performed. 953 patient consented for blood, which for her daughter to sign who was at bedside. Called blood bank who states she is antibodies and screening is in process. 1032 orthopedics at bedside with the patient. 1041 called and discussed with the blood bank who state their matching antibodies anti-specific blood should be available within the next 20 to 25 minutes. Blood pressures have improved at this point with some fluid hydration. 1101 discussed the patient with the hospitalist team for admission with orthopedic consultation. Patient's laboratory studies and imaging reviewed. Differential includes Infection, dehydration, metabolic abnormality, hypo/hyperglycemia, electrolyte disturbance, anemia, hypoxia, cardiac sources, intracerebral event, toxicologic, neurologic, as well as other pathologies. IMPRESSION/MEDICAL DECISION MAKING: Called to the room by nursing staff for evaluation of the patient has bleeding from her upper surgical site was hypotensive. Reports more pain swelling and bleeding around the right hip incisional site starting overnight. Patient is on Xarelto last dose yesterday morning. Patient is pale. Morning care hemoglobin 6.8 inform hemoglobin 7. Still having active bleeding gauze and some pressure was applied to the area. Discussed with orthopedics who are made aware of the patient. They states they be down to see the patient. X-rays obtained to the area showing evidence of what appears to be dislocation of the arthroplasty of the right hip. No new traumas reported. Unsure what this is from a she is not been ambulatory since the surgery plan is been sometime since she is an x-ray according to family members. Patient is neurologically intact in the right lower extremity however. No tachycardia with the patient is maintained on a beta-aubrey. Patient's blood pressure did improve with some fluid hydration and patient was consented as well with her daughter's consent for blood and urgent 2 units of blood were ordered and given. Orthopedics evaluated in the emergency department. Given the hemodynamic instability and acute anemia requiring transfusion do not feel conscious sedation by myself at this time would be in the patient's best interest or safety. Anesthesia will be involved for possible sedation per orthopedics vs OR. Hospitalist was alerted for admission for further care. DIAGNOSIS: Near syncope, weakness, right hip pain, right hip dislocation, right hip bleeding, acute blood loss anemia DISPOSITION: Hospitalist will evaluate in addition to the orthopedics team who is planning fo r reduction of dislocation of her hip Critical Care I have personally spent 31 minutes of critical care time in the direct management of this patient. This includes bedside care, interpretation of diagnostic studies, and testing, discussion with consultants, patient, and family members, and other required patient management activities. These 31 minutes is in excess of all separately billable procedures. 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 Other Information That Helps Us Care for You: No Feels Safe at Home: Yes Safety Concerns: Feels Safe At This Time Allergies Allergies Allergy/AdvReac Type Severity Reaction Status Date / Time adhesive Allergy Unknown BANDAIDS Verified 01/01/20 10:56 AND CLOTH ADHESIVE-BLISTERS No Known Drug Allergies Allergy Unknown Verified 01/01/20 10:56 Home Meds Home Medications Medication Instructions Recorded Confirmed albuterol sulfate 90 mcg/actuation 2 puffs INHALATION Q4H PRN gm 02/18/19 01/01/20 aerosol inhaler coenzyme Q10 10 mg capsule 100 mg PO QAM cap 02/18/19 01/01/20 diazepam 5 mg tablet 5 mg PO BID tab 02/18/19 01/01/20 levothyroxine 50 mcg tablet 50 mcg PO QAM tab 02/18/19 01/01/20 rivaroxaban 20 mg tablet 20 mg PO QAM #1 tab 02/18/19 01/01/20 simvastatin 10 mg tablet 10 mg PO HS tab 02/18/19 01/01/20 solifenacin 5 mg tablet 5 mg PO QAM tab 02/18/19 01/01/20 montelukast 10 mg PO HS 05/04/19 01/01/20 albuterol sulfate 1.25 mg/3 mL 1.25 mg INH BID ml 11/10/19 01/01/20 solution for nebulization amlodipine 5 mg tablet 5 mg PO HS 11/10/19 01/01/20 budesonide 0.25 mg/2 mL suspension 2 ml INH BID 11/10/19 01/01/20 for nebulization calcium carbonate 200 mg calcium 200 mg PO TID 11/10/19 01/01/20 (500 mg) chewable tablet carvedilol 6.25 mg tablet 6.25 mg PO BID 11/10/19 01/01/20 cholecalciferol (vitamin D3) 25 25 mcg PO BID 11/10/19 01/01/20 mcg (1,000 unit) capsule loratadine 10 mg tablet 10 mg PO QAM 11/10/19 01/01/20 sertraline 50 mg tablet 50 mg PO QAM 11/10/19 01/01/20 aspirin [Aspir-81] 81 mg PO 11/23/19 01/01/20 cyanocobalamin (vitamin B-12) 1,000 mcg PO QAM 11/23/19 01/01/20 magnesium oxide 500 mg PO Q2D@2100 11/23/19 01/01/20 ascorbic acid (vitamin C) [Vitamin 500 mg PO QAM 01/01/20 01/01/20 C] celecoxib 100 mg PO QAM 01/01/20 01/01/20 cranberry 500 mg PO QAM 01/01/20 01/01/20 levofloxacin 500 mg PO QAM 01/01/20 01/01/20 prednisone 20 mg PO QAM 01/01/20 01/01/20 Previous Rx's Medication Instructions Recorded oxycodone-acetaminophen [Percocet] 1 tab PO Q6H PRN #20 tab 12/07/19 Results & Data (ED) Vital Signs Vital Signs - 24 hr 01/01/20 09:31 01/01/20 09:34 01/01/20 09:40 Temperature 36.8 C Temperature Source Oral Pulse Rate 86 90 87 Pulse Rate from SpO2 Sensor 81 87 Respiratory Rate 28 H 20 28 H Respiratory Effort / Characteristics Non-Labored Respiratory Depth Normal Blood Pressure 78/47 L 85/50 L 63/46 L Blood Pressure Mean 52 61 51 Blood Pressure Position Lying Pulse Oximetry 95 99 99 Oxygen Delivery Method Room Air Room Air Room Air Oxygen Flow Rate Sepsis Recent Fever Within 48 Hours No Sepsis New/Unexplained Change in Mental Status No Sepsis Action Taken by Nursing No Action Required End-Tidal CO2 01/01/20 09:42 01/01/20 09:59 01/01/20 10:00 Temperature Temperature Source Pulse Rate 80 78 77 Pulse Rate from SpO2 Sensor 81 78 Respiratory Rate 25 H 30 H 24 Respiratory Effort / Characteristics Respiratory Depth Blood Pressure 85/44 L 104/39 L 95/42 L Blood Pressure Mean 48 58 51 Blood Pressure Position Pulse Oximetry 97 97 Oxygen Delivery Method Room Air Room Air Room Air Oxygen Flow Rate Sepsis Recent Fever Within 48 Hours Sepsis New/Unexplained Change in Mental Status Sepsis Action Taken by Nursing End-Tidal CO2 01/01/20 10:05 01/01/20 10:10 01/01/20 10:15 Temperature Temperature Source Pulse Rate 85 87 84 Pulse Rate from SpO2 Sensor 85 84 84 Respiratory Rate 27 H 24 24 Respiratory Effort / Characteristics Respiratory Depth Blood Pressure 66/41 L 103/49 L 92/42 L Blood Pressure Mean 49 58 45 Blood Pressure Position Pulse Oximetry 97 95 93 Oxygen Delivery Method Room Air Room Air Room Air Oxygen Flow Rate Sepsis Recent Fever Within 48 Hours Sepsis New/Unexplained Change in Mental Status Sepsis Action Taken by Nursing End-Tidal CO2 01/01/20 10:20 01/01/20 10:25 01/01/20 10:30 Temperature Temperature Source Pulse Rate 76 81 78 Pulse Rate from SpO2 Sensor 78 77 77 Respiratory Rate 26 H 23 22 Respiratory Effort / Characteristics Respiratory Depth Blood Pressure 123/53 L 121/52 L 121/57 L Blood Pressure Mean 80 62 60 Blood Pressure Position Pulse Oximetry 98 99 98 Oxygen Delivery Method Room Air Room Air Room Air Oxygen Flow Rate Sepsis Recent Fever Within 48 Hours Sepsis New/Unexplained Change in Mental Status Sepsis Action Taken by Nursing End-Tidal CO2 01/01/20 10:35 01/01/20 10:40 01/01/20 10:45 Temperature Temperature Source Pulse Rate 82 79 83 Pulse Rate from SpO2 Sensor 82 79 83 Respiratory Rate 18 23 26 H Respiratory Effort / Characteristics Respiratory Depth Blood Pressure 124/71 132/53 L 128/56 L Blood Pressure Mean 76 62 66 Blood Pressure Position Pulse Oximetry 96 98 98 Oxygen Delivery Method Room Air Room Air Room Air Oxygen Flow Rate Sepsis Recent Fever Within 48 Hours Sepsis New/Unexplained Change in Mental Status Sepsis Action Taken by Nursing End-Tidal CO2 01/01/20 10:50 01/01/20 10:55 01/01/20 11:26 Temperature 37.0 C Temperature Source Oral Pulse Rate 85 84 85 Pulse Rate from SpO2 Sensor 86 84 Respiratory Rate 24 21 20 Respiratory Effort / Characteristics Respiratory Depth Blood Pressure 141/58 H 139/60 139/51 L Blood Pressure Mean 80 89 80 Blood Pressure Position Lying Pulse Oximetry 97 98 97 Oxygen Delivery Method Room Air Room Air Oxygen Flow Rate Sepsis Recent Fever Within 48 Hours Sepsis New/Unexplained Change in Mental Status Sepsis Action Taken by Nursing End-Tidal CO2 01/01/20 11:30 01/01/20 11:42 01/01/20 11:50 Temperature 37.0 C 37.1 C Temperature Source Oral Pulse Rate 83 90 87 Pulse Rate from SpO2 Sensor 83 88 Respiratory Rate 22 20 22 Respiratory Effort / Characteristics Respiratory Depth Blood Pressure 135/61 145/51 H Blood Pressure Mean 94 82 Blood Pressure Position Pulse Oximetry 97 97 97 Oxygen Delivery Method Oxygen Flow Rate Sepsis Recent Fever Within 48 Hours Sepsis New/Unexplained Change in Mental Status Sepsis Action Taken by Nursing End-Tidal CO2 01/01/20 11:58 01/01/20 12:00 01/01/20 12:05 Temperature 37.1 C Temperature Source Oral Pulse Rate 86 83 92 H Pulse Rate from SpO2 Sensor 86 85 96 H Respiratory Rate Respiratory Effort / Characteristics Respiratory Depth Blood Pressure 152/71 H 153/64 H 155/63 H Blood Pressure Mean 80 69 91 Blood Pressure Position Pulse Oximetry 98 97 97 Oxygen Delivery Method Room Air Room Air Room Air Oxygen Flow Rate Sepsis Recent Fever Within 48 Hours Sepsis New/Unexplained Change in Mental Status Sepsis Action Taken by Nursing End-Tidal CO2 25 26 01/01/20 12:11 01/01/20 12:15 01/01/20 12:16 Temperature Temperature Source Pulse Rate 80 80 78 Pulse Rate from SpO2 Sensor 76 81 Respiratory Rate Respiratory Effort / Characteristics Spontaneous Respiratory Depth Shallow Blood Pressure 117/30 L 117/38 L Blood Pressure Mean 59 81 Blood Pressure Position Pulse Oximetry 96 100 100 Oxygen Delivery Method Nasal Cannula Nasal Cannula Nasal Cannula Oxygen Flow Rate 4 4 4 Sepsis Recent Fever Within 48 Hours Sepsis New/Unexplained Change in Mental Status Sepsis Action Taken by Nursing End-Tidal CO2 14 16 12 01/01/20 12:20 01/01/20 12:25 01/01/20 12:26 Temperature 37.0 C Temperature Source Oral Pulse Rate 81 86 Pulse Rate from SpO2 Sensor 81 85 Respiratory Rate Respiratory Effort / Characteristics Non-Labored Spontaneous Respiratory Depth Normal Blood Pressure 131/56 L 119/61 Blood Pressure Mean 81 67 Blood Pressure Position Pulse Oximetry 100 95 Oxygen Delivery Method Nasal Cannula Room Air Oxygen Flow Rate 2 Sepsis Recent Fever Within 48 Hours Sepsis New/Unexplained Change in Mental Status Sepsis Action Taken by Nursing End-Tidal CO2 24 26 01/01/20 12:32 01/01/20 12:36 01/01/20 12:41 Temperature Temperature Source Pulse Rate 84 90 83 Pulse Rate from SpO2 Sensor 93 H 84 82 Respiratory Rate Respiratory Effort / Characteristics Respiratory Depth Blood Pressure 139/59 L 135/95 128/63 Blood Pressure Mean 89 114 73 Blood Pressure Position Pulse Oximetry 97 94 96 Oxygen Delivery Method Room Air Room Air Oxygen Flow Rate Sepsis Recent Fever Within 48 Hours Sepsis New/Unexplained Change in Mental Status Sepsis Action Taken by Nursing End-Tidal CO2 28 29 25 01/01/20 12:45 01/01/20 12:47 01/01/20 12:51 Temperature 36.7 C Temperature Source Oral Pulse Rate 84 74 Pulse Rate from SpO2 Sensor 87 78 Respiratory Rate Respiratory Effort / Characteristics Respiratory Depth Blood Pressure 142/58 H 148/68 H Blood Pressure Mean 82 81 Blood Pressure Position Pulse Oximetry 96 97 Oxygen Delivery Method Room Air Oxygen Flow Rate Sepsis Recent Fever Within 48 Hours Sepsis New/Unexplained Change in Mental Status Sepsis Action Taken by Nursing End-Tidal CO2 01/01/20 12:56 01/01/20 13:00 01/01/20 13:01 Temperature 36.9 C Temperature Source Oral Pulse Rate 72 76 Pulse Rate from SpO2 Sensor 78 79 Respiratory Rate Respiratory Effort / Characteristics Respiratory Depth Blood Pressure 150/67 H 131/79 Blood Pressure Mean 83 84 Blood Pressure Position Pulse Oximetry 97 96 Oxygen Delivery Method Room Air Oxygen Flow Rate Sepsis Recent Fever Within 48 Hours Sepsis New/Unexplained Change in Mental Status Sepsis Action Taken by Nursing End-Tidal CO2 01/01/20 13:05 01/01/20 13:11 01/01/20 13:15 Temperature 36.9 C Temperature Source Oral Pulse Rate 83 77 85 Pulse Rate from SpO2 Sensor 80 76 88 Respiratory Rate Respiratory Effort / Characteristics Respiratory Depth Blood Pressure 145/51 H 139/61 142/68 H Blood Pressure Mean 92 103 80 Blood Pressure Position Pulse Oximetry 95 95 96 Oxygen Delivery Method Room Air Room Air Room Air Oxygen Flow Rate Sepsis Recent Fever Within 48 Hours Sepsis New/Unexplained Change in Mental Status Sepsis Action Taken by Nursing End-Tidal CO2 01/01/20 13:20 Temperature 36.9 C Temperature Source Oral Pulse Rate 81 Pulse Rate from SpO2 Sensor 80 Respiratory Rate Respiratory Effort / Characteristics Respiratory Depth Blood Pressure 147/90 H Blood Pressure Mean 109 Blood Pressure Position Pulse Oximetry 96 Oxygen Delivery Method Room Air Oxygen Flow Rate Sepsis Recent Fever Within 48 Hours Sepsis New/Unexplained Change in Mental Status Sepsis Action Taken by Nursing End-Tidal CO2 Laboratory Data Result diagrams: 01/01/20 09:47 01/01/20 09:47 Lab Results 01/01/20 01/01/20 01/01/20 Range/Units 09:47 09:47 09:47 WBC 9.59 (4.8-10.8) K/uL RBC 2.39 L (4.2-5.4) M/uL Hgb 7.0 L (12.0-16.0) g/dL Hct 21.9 L (37-47) % MCV 91.6 (80-100) fL MCH 29.3 (25-34) pg MCHC 32.0 (32-36) g/dL RDW Std Deviation 51.1 H (36.4-46.3) fL RDW Coeff of Jerrell 15.2 H (11.5-14.5) % Plt Count 387 (130-400) K/uL MPV 9.0 (7.4-10.4) fL Immature Gran % (Auto) 0.8 % Neut % (Auto) 73.6 % Lymph % (Auto) 12.3 % Stanton % (Auto) 12.2 % Eos % (Auto) 0.8 % Baso % (Auto) 0.3 % Reticulocyte % (Auto) (0.5-2.0) % Neut # (Auto) 7.05 H (1.4-6.5) K/uL Lymph # (Auto) 1.18 L (1.2-3.4) K/uL Stanton # (Auto) 1.17 H (0.11-0.59) K/uL Eos # (Auto) 0.08 (0-0.5) K/uL Baso # (Auto) 0.03 (0-0.2) K/uL Reticulocyte # (0.02-0.10) 10^6/uL Immature Gran # (Auto) 0.08 H (0.00-0.02) K/uL Polychromasia 1+ PT 12.0 (9.0-12.0) Seconds INR 1.1 (0.9-1.1) APTT < 20.0 L (21.0-31.0) Seconds PTT Ratio 0.7 Sodium (136-145) mmol/L Potassium (3.5-5.1) mmol/L Chloride (98-107) mmol/L Carbon Dioxide (21-32) mmol/L Anion Gap (3-11) BUN (7-18) mg/dl Creatinine (0.6-1.2) mg/dl Est Cr Clr Drug Dosing ml/min Est GFR ( Amer) Est GFR (Non-Af Amer) BUN/Creatinine Ratio (10-20) Glucose (70-99) mg/dl POC Glucose (70-99) mg/dl Lactate (0.4-2.0) mmol/L Calcium (8.5-10.1) mg/dl Magnesium (1.8-2.4) mg/dl Iron (35-150) mcg/dl Transferrin (200-360) mg/dl Transferrin % Sat (15-50) % Ferritin (8-388) ng/ml Total Bilirubin (0.2-1) mg/dl AST (15-37) U/L ALT (12-78) U/L Alkaline Phosphatase (45-117) U/L Troponin I (0-0.045) ng/ml Total Protein (6.4-8.2) gm/dl Albumin (3.4-5.0) gm/dl Globulin (2.5-4.0) gm/dl Albumin/Globulin Ratio (0.9-2) TSH (0.300-4.500) uIu/ml Blood Type B Positive Antibody Screen POSITIVE A Antibody Identification Anti-E Crossmatch See Detail 01/01/20 01/01/20 01/01/20 Range/Units 09:47 09:47 09:47 WBC (4.8-10.8) K/uL RBC (4.2-5.4) M/uL Hgb (12.0-16.0) g/dL Hct (37-47) % MCV (80-100) fL MCH (25-34) pg MCHC (32-36) g/dL RDW Std Deviation (36.4-46.3) fL RDW Coeff of Jerrell (11.5-14.5) % Plt Count (130-400) K/uL MPV (7.4-10.4) fL Immature Gran % (Auto) % Neut % (Auto) % Lymph % (Auto) % Stanton % (Auto) % Eos % (Auto) % Baso % (Auto) % Reticulocyte % (Auto) 4.6 H (0.5-2.0) % Neut # (Auto) (1.4-6.5) K/uL Lymph # (Auto) (1.2-3.4) K/uL Stanton # (Auto) (0.11-0.59) K/uL Eos # (Auto) (0-0.5) K/uL Baso # (Auto) (0-0.2) K/uL Reticulocyte # 0.11 H (0.02-0.10) 10^6/uL Immature Gran # (Auto) (0.00-0.02) K/uL Polychromasia PT (9.0-12.0) Seconds INR (0.9-1.1) APTT (21.0-31.0) Seconds PTT Ratio Sodium 143 (136-145) mmol/L Potassium 3.7 (3.5-5.1) mmol/L Chloride 112 H (98-107) mmol/L Carbon Dioxide 22 (21-32) mmol/L Anion Gap 9.0 (3-11) BUN 20 H (7-18) mg/dl Creatinine 1.05 (0.6-1.2) mg/dl Est Cr Clr Drug Dosing 32.3 ml/min Est GFR ( Amer) 57.3 Est GFR (Non-Af Amer) 49.4 BUN/Creatinine Ratio 18.6 (10-20) Glucose 109 H (70-99) mg/dl POC Glucose (70-99) mg/dl Lactate (0.4-2.0) mmol/L Calcium 8.1 L (8.5-10.1) mg/dl Magnesium 2.1 (1.8-2.4) mg/dl Iron 35 (35-150) mcg/dl Transferrin 197 L (200-360) mg/dl Transferrin % Sat 13 L (15-50) % Ferritin 179.4 (8-388) ng/ml Total Bilirubin 0.4 (0.2-1) mg/dl AST 10 L (15-37) U/L ALT 13 (12-78) U/L Alkaline Phosphatase 112 (45-117) U/L Troponin I < 0.015 (0-0.045) ng/ml Total Protein 5.5 L (6.4-8.2) gm/dl Albumin 2.7 L (3.4-5.0) gm/dl Globulin 2.8 (2.5-4.0) gm/dl Albumin/Globulin Ratio 1.0 (0.9-2) TSH 1.300 (0.300-4.500) uIu/ml Blood Type Antibody Screen Antibody Identification Crossmatch 01/01/20 01/01/20 Range/Units 09:57 13:08 WBC (4.8-10.8) K/uL RBC (4.2-5.4) M/uL Hgb (12.0-16.0) g/dL Hct (37-47) % MCV (80-100) fL MCH (25-34) pg MCHC (32-36) g/dL RDW Std Deviation (36.4-46.3) fL RDW Coeff of Jerrell (11.5-14.5) % Plt Count (130-400) K/uL MPV (7.4-10.4) fL Immature Gran % (Auto) % Neut % (Auto) % Lymph % (Auto) % Stanton % (Auto) % Eos % (Auto) % Baso % (Auto) % Reticulocyte % (Auto) (0.5-2.0) % Neut # (Auto) (1.4-6.5) K/uL Lymph # (Auto) (1.2-3.4) K/uL Stanton # (Auto) (0.11-0.59) K/uL Eos # (Auto) (0-0.5) K/uL Baso # (Auto) (0-0.2) K/uL Reticulocyte # (0.02-0.10) 10^6/uL Immature Gran # (Auto) (0.00-0.02) K/uL Polychromasia PT (9.0-12.0) Seconds INR (0.9-1.1) APTT (21.0-31.0) Seconds PTT Ratio Sodium (136-145) mmol/L Potassium (3.5-5.1) mmol/L Chloride (98-107) mmol/L Carbon Dioxide (21-32) mmol/L Anion Gap (3-11) BUN (7-18) mg/dl Creatinine (0.6-1.2) mg/dl Est Cr Clr Drug Dosing ml/min Est GFR ( Amer) Est GFR (Non-Af Amer) BUN/Creatinine Ratio (10-20) Glucose (70-99) mg/dl POC Glucose 101 H (70-99) mg/dl Lactate 4.8 H* (0.4-2.0) mmol/L Calcium (8.5-10.1) mg/dl Magnesium (1.8-2.4) mg/dl Iron (35-150) mcg/dl Transferrin (200-360) mg/dl Transferrin % Sat (15-50) % Ferritin (8-388) ng/ml Total Bilirubin (0.2-1) mg/dl AST (15-37) U/L ALT (12-78) U/L Alkaline Phosphatase (45-117) U/L Troponin I (0-0.045) ng/ml Total Protein (6.4-8.2) gm/dl Albumin (3.4-5.0) gm/dl Globulin (2.5-4.0) gm/dl Albumin/Globulin Ratio (0.9-2) TSH (0.300-4.500) uIu/ml Blood Type Antibody Screen Antibody Identification Crossmatch Administered Medications Discontinued Medications Sodium Chloride (Nss) 500 mls @ 999 mls/hr IV .Q31M ANITHA Stop: 01/01/20 10:15 Last Infusion: 01/01/20 10:33 Dose: 0 mls/hr Documented by: [id number] Admin: 01/01/20 09:54 Dose: 999 mls/hr Documented by: [id number] Sodium Chloride (Nss 1000ml) 500 mls @ 999 mls/hr IV .Q31M ONE Stop: 01/01/20 10:41 Last Infusion: 01/01/20 10:59 Dose: 0 mls/hr Documented by: [id number] Admin: 01/01/20 10:25 Dose: 999 mls/hr Documented by: [id number] Pantoprazole Sodium 40 mg/ (Syringe) 10 mls @ 5 mls/min IV NOW ONE Stop: 01/01/20 12:16 Last Admin: 01/01/20 12:56 Dose: 5 mls/min Documented by: [id number] Discharge Plan Visit Data Chief Complaint: Bleeding ED Provider: Brandon Friend Discharge Problem: Bleeding from right hip wound, Acute blood loss anemia, Dislocation of internal right hip prosthesis, Acute hypotension, Weakness, Near syncope Patient Disposition: Admitted As Inpatient Condition: Serious Discharge Instructions Interventions: ED Discharge Assessment Last Done: 01/01/20 13:21 Forms Stand Alone Forms: Anesthesia/Sedation, Adult, [facility] Prescriptions Prescriptions: No Action solifenacin 5 mg tablet 5 mg PO QAM RF: 0 diazepam 5 mg tablet 5 mg PO BID RF: 0 albuterol sulfate 90 mcg/actuation HFA aerosol inhaler 2 puffs inhalation Q4H PRN (Reason: Shortness Of Breath) RF: 0 levothyroxine 50 mcg tablet 50 mcg PO QAM RF: 0 rivaroxaban 20 mg tablet 20 mg PO QAM Qty: 1 RF: 0 coenzyme Q10 10 mg capsule 100 mg PO QAM RF: 0 simvastatin 10 mg tablet 10 mg PO HS RF: 0 budesonide 0.25 mg/2 mL suspension for nebulization 2 ml INH BID RF: 0 albuterol sulfate 1.25 mg/3 mL solution for nebulization 1.25 mg INH BID RF: 0 sertraline 50 mg tablet 50 mg PO QAM RF: 0 carvedilol 6.25 mg tablet 6.25 mg PO BID RF: 0 loratadine 10 mg tablet 10 mg PO QAM RF: 0 amlodipine 5 mg tablet 5 mg PO HS RF: 0 calcium carbonate [Tums] 200 mg calcium (500 mg) tablet,chewable 200 mg PO TID RF: 0 cholecalciferol (vitamin D3) 25 mcg (1,000 unit) capsule 25 mcg PO BID RF: 0 montelukast 10 mg tablet 10 mg PO HS RF: 0 aspirin [Aspir-81] 81 mg Tablet,Delayed Release (Dr/Ec) 81 mg PO HS RF: 0 cyanocobalamin (vitamin B-12) 1,000 mcg Capsule 1,000 mcg PO QAM RF: 0 magnesium oxide 500 mg Capsule 500 mg PO Q2D@2100 RF: 0 oxycodone-acetaminophen [Percocet] 5-325 mg tablet 1 tab PO Q6H PRN (Reason: pain) Qty: 20 RF: 0 prednisone 20 mg tablet 20 mg PO QAM RF: 0 levofloxacin 500 mg tablet 500 mg PO QAM RF: 0 celecoxib 100 mg capsule 100 mg PO QAM RF: 0 cranberry 500 mg Capsule 500 mg PO QAM RF: 0 ascorbic acid (vitamin C) [Vitamin C] 500 mg tablet 500 mg PO QAM RF: 0 Referrals Referrals: Tan Savage MD [Primary Care Provider] -
[2020-01-01 10:29] LABS: INR 1.1 (0.9-1.1); Partial Thromboplastin Ratio 0.7; Partial Thromboplastin Time < 20.0 Seconds (21.0-31.0)
[2020-01-01 10:33] LABS: Polychromasia 1+
--- NOTE | 2020-01-01 10:34 | XRay Report ---
RIGHT HIP 2 VIEWS CLINICAL HISTORY: Right hip pain. FINDINGS: AP and crosstable lateral views of the right hip are compared to study dated 12/06/2019. The skeletal structures are osteopenic. No acute fracture is seen. A right hip arthroplasty is in place. There is superior dislocation of the femoral component of the arthroplasty. The acetabular cup appea rs to have fractured through the right acetabulum and projects over the right hemipelvis. Chronic alina earing posttraumatic deformity is noted in the right proximal femur. Screw tracks are present in the proximal femoral shaft. Skin clips, soft tissue swelling, and subcutaneous gas are expected postopera tive findings. There is atherosclerotic calcification of the right femoral artery. IMPRESSION: 1. The acetabular cup appears to have fractured through the right acetabulum and now projects over th e right hemipelvis. 2. There is associated dislocation of the femoral component of the arthroplasty. Electronically signed by: Doug Chakraborty M.D. 01/01/2020 10:33 AM
--- NOTE | 2020-01-01 10:40 | XRay Report ---
SINGLE VIEW CHEST CLINICAL HISTORY: Generalized weakness. FINDINGS: An AP, portable, supine chest radiograph is compared to study dated 05/04/2019 and correlat ed with chest CT dated 11/09/2017. The examination is degraded by portable technique and patient rotati on. The heart is enlarged noting atherosclerotic calcification of the thoracic aorta. The pulmonary vasculature is noncongested. Emphysema and chronic interstitial thickening is similar to previous. T here is bibasilar scarring/atelectasis. No airspace consolidation or large pleural effusion is identi fied. No pneumothorax is seen. The skeletal structures are osteopenic. The bony thorax is grossly int act. IMPRESSION: Cardiomegaly and emphysema with no acute cardiopulmonary abnormality. ACT 112: Negative or not required by law. Electronically signed by: Doug Chakraborty M.D. 01/01/2020 10:39 AM
[2020-01-01 10:46] LABS: Alanine Aminotransferase 13 U/L (12-78); Albumin Level 2.7 gm/dl (3.4-5.0); Aspartate Aminotransferase 10 U/L (15-37); BUN Creatinine Ratio 18.6 (10-20); Blood Urea Nitrogen 20 mg/dl (7-18); Calcium 8.1 mg/dl (8.5-10.1); Carbon Dioxide 22 mmol/L (21-32); Chloride 112 mmol/L (98-107); Creatinine Clr Calc Pharmacy 32.3 ml/min; Est GFR (African American) 57.3; Est GFR (Non-African American) 49.4; Glucose 109 mg/dl (70-99); Magnesium 2.1 mg/dl (1.8-2.4); Potassium 3.7 mmol/L (3.5-5.1); Sodium 143 mmol/L (136-145)
[2020-01-01 10:55] LABS: Alkaline Phosphatase 112 U/L (45-117); Bilirubin,Total 0.4 mg/dl (0.2-1); Globulin 2.8 gm/dl (2.5-4.0); Total Protein 5.5 gm/dl (6.4-8.2); Troponin I < 0.015 ng/ml (0-0.045)
--- NOTE | 2020-01-01 11:30 | Orthopedic Consultation ---
Date of Consultation January 01, 2020 History of Present Illness Allergies Allergy/AdvReac Type Severity Reaction Status Date / Time adhesive Allergy Unknown BANDAIDS Verified 01/01/20 10:56 AND CLOTH ADHESIVE-BLISTERS No Known Drug Allergies Allergy Unknown Verified 01/01/20 10:56 Home Medications Home Medications Medication Instructions Recorded Confirmed Type albuterol sulfate 90 mcg/actuation 2 puffs INHALATION Q4H PRN gm 02/18/19 01/01/20 History aerosol inhaler coenzyme Q10 10 mg capsule 100 mg PO QAM cap 02/18/19 01/01/20 History diazepam 5 mg tablet 5 mg PO BID tab 02/18/19 01/01/20 History levothyroxine 50 mcg tablet 50 mcg PO QAM tab 02/18/19 01/01/20 History rivaroxaban 20 mg tablet 20 mg PO QAM #1 tab 02/18/19 01/01/20 History simvastatin 10 mg tablet 10 mg PO HS tab 02/18/19 01/01/20 History solifenacin 5 mg tablet 5 mg PO QAM tab 02/18/19 01/01/20 History montelukast 10 mg PO HS 05/04/19 01/01/20 History albuterol sulfate 1.25 mg/3 mL 1.25 mg INH BID ml 11/10/19 01/01/20 History solution for nebulization amlodipine 5 mg tablet 5 mg PO HS 11/10/19 01/01/20 History budesonide 0.25 mg/2 mL suspension 2 ml INH BID 11/10/19 01/01/20 History for nebulization calcium carbonate 200 mg calcium 200 mg PO TID 11/10/19 01/01/20 History (500 mg) chewable tablet carvedilol 6.25 mg tablet 6.25 mg PO BID 11/10/19 01/01/20 History cholecalciferol (vitamin D3) 25 25 mcg PO BID 11/10/19 01/01/20 History mcg (1,000 unit) capsule loratadine 10 mg tablet 10 mg PO QAM 11/10/19 01/01/20 History sertraline 50 mg tablet 50 mg PO QAM 11/10/19 01/01/20 History aspirin [Aspir-81] 81 mg PO HS 11/23/19 01/01/20 History cyanocobalamin (vitamin B-12) 1,000 mcg PO QAM 11/23/19 01/01/20 History magnesium oxide 500 mg PO Q2D@2100 11/23/19 01/01/20 History oxycodone-acetaminophen [Percocet] 1 tab PO Q6H PRN #20 tab 12/07/19 01/01/20 Rx ascorbic acid (vitamin C) [Vitamin 500 mg PO QAM 01/01/20 01/01/20 History C] celecoxib 100 mg PO QAM 01/01/20 01/01/20 History cranberry 500 mg PO QAM 01/01/20 01/01/20 History levofloxacin 500 mg PO QAM 01/01/20 01/01/20 History prednisone 20 mg PO QAM 01/01/20 01/01/20 History Patient History Social History Smoking Status: Never smoker Second Hand Exposure: No; Hx Alcohol Use: Yes Hx Substance Use: No Preferred Language: Luxembourgish Communication Ability: Effective 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 Feels Safe at Home: Yes Results & Data ([facility]) Vital Signs (Past 12 Hours) Vital Signs Temp Pulse Resp BP Pulse Ox 01/01/20 11:26 37.0 C 85 20 139/51 L 97 01/01/20 10:55 84 21 139/60 98 01/01/20 10:50 85 24 141/58 H 97 01/01/20 10:45 83 26 H 128/56 L 98 01/01/20 10:40 79 23 132/53 L 98 01/01/20 10:35 82 18 124/71 96 01/01/20 10:30 78 22 121/57 L 98 01/01/20 10:25 81 23 121/52 L 99 01/01/20 10:20 76 26 H 123/53 L 98 01/01/20 10:15 84 24 92/42 L 93 01/01/20 10:10 87 24 103/49 L 95 01/01/20 10:05 85 27 H 66/41 L 97 01/01/20 10:00 77 24 95/42 L 97 01/01/20 09:59 78 30 H 104/39 L 07/26/20 09:42 80 25 H 85/44 L 97 01/01/20 09:40 87 28 H 63/46 L 99 01/01/20 09:34 36.8 C 90 20 85/50 L 99 01/01/20 09:31 86 28 H 78/47 L 95
--- NOTE | 2020-01-01 11:41 | History & Physical Report ---
Date of Service January 01, 2020 Assessment & Plan (1) Failure of right total hip arthroplasty with dislocation of hip: Given the emergent situation of needing this procedure for hemostatic pressure to stop bleeding, under sedation only, although risk of increased bleeding during the procedure this would be a surgical consideration not a medical one. I do not feel any further medical optimization is needed in order to proceed with closed reduction of her right hip under sedation. She is currently hemodynamically stable and last dose Xarelto > 24 hours, renal function = CKD stage 3 therefore likely at upper end of usual elimination: half life (5-9 hours), complete elimination (25-45 hours). Non-life threatening at the current time therefore do not feel Kcentra is warranted. Consider tranexamic acid if ongoing bleeding not stopped with hemostatic measures with reduction. Stop Xarelto last dose yesterday morning. Stop Aspirin last dose yesterday morning. Plt 387. No platelet transfusion warranted. Stop Celebrex Stop prednisone taper Last ate and drank yesterday. (2) Dislocation of internal right hip prosthesis: (3) Postoperative wound hematoma: (4) Symptomatic anemia: Suspect due to hematoma in hip although slight concerning she has had a change in bowels yesterday with diarrhea, no epigastric pain on exam and since she was only symptomatic today I believe blood loss is all her bleeding into her hip. Will give IV pantoprazole 40mg stat. Continue transfusion with 2 units packed RBCs and repeat H&H 1 hour after last transfusion. (5) Acute blood loss anemia: (6) SOB (shortness of breath): Secondary to anemia as above. Will reassess after blood transfusions and hip reduction. (7) Asthma: Continue budesonide nebs BID, albuterol PRN (8) Hypertension: Hold all anti-hypertensives until hemodynamic stability is known post hip relocation. Last dose carvedilol yesterday morning (did not take any pills last night) Last dose amlodipine 12/29 (9) Hypothyroidism (acquired): TSH WNL Continue levothyroxine (10) Hyperlipidemia: Continue simvastatin (11) Bladder spasm: Continue solifenacin (start next dose tomorrow) (12) History of pulmonary embolism: No hypoxia. Tachycardia. Chest pain. 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 Certainly Xarelto needs discontinued currently. Will defer restarting to orthopedics. Early mobilization will be de la o to preventing this again. (13) Lactic acidosis: Repeat lactic avid now. Suspect due to hypotension from acute blood loss anemia. causing hypoperfusion. 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 She has not been walking on her hip since the operation. Having a small amount of drainage from her hip. However this morning she had a sudden onset blood discharge from her hip surgical site that occurred around 8:30am this morning. She transferred from her wheelchair and after getting up from the wheelchair she had a pool of blood on the chair coming from top and bottom of the bandage. Associated with sudden onset shortness of breath and diaphoresis. Chills started in the ER. Taking iron pills right after last surgery on December 05 (beginning of December). More constipated since discharge and needed to take. Had diarrhea ?black yesterday. No abdominal pain. Was not symptomatic from anemia until today. In the ER she was hypotensive and short of breath. Hgb 7.0. Blood pressure improved with 1L NSS fluid bolus. Started 2 unit blood transfusion. XR showed hip dislocation acetabular cup fractured through the right acetabulum. She was evaluated in the ER with Dr Francisco and cleared for emergent relocation of her hip to help with hemostasis. Allergies Allergy/AdvReac Type Severity Reaction Status Date / Time adhesive Allergy Unknown BANDAIDS Verified 01/01/20 10:56 AND CLOTH ADHESIVE-BLISTERS No Known Drug Allergies Allergy Unknown Verified 01/01/20 10:56 Home Medications Home Medications Medication Instructions Recorded Confirmed Type albuterol sulfate 90 mcg/actuation 2 puffs INHALATION Q4H PRN gm 02/18/19 01/01/20 History aerosol inhaler coenzyme Q10 10 mg capsule 100 mg PO QAM cap 02/18/19 01/01/20 History diazepam 5 mg tablet 5 mg PO BID tab 02/18/19 01/01/20 History levothyroxine 50 mcg tablet 50 mcg PO QAM tab 02/18/19 01/01/20 History rivaroxaban 20 mg tablet 20 mg PO QAM #1 tab 02/18/19 01/01/20 History simvastatin 10 mg tablet 10 mg PO HS tab 02/18/19 01/01/20 History solifenacin 5 mg tablet 5 mg PO QAM tab 02/18/19 01/01/20 History montelukast 10 mg PO HS 05/04/19 01/01/20 History albuterol sulfate 1.25 mg/3 mL 1.25 mg INH BID ml 11/10/19 01/01/20 History solution for nebulization amlodipine 5 mg tablet 5 mg PO HS 11/10/19 01/01/20 History budesonide 0.25 mg/2 mL suspension 2 ml INH BID 11/10/19 01/01/20 History for nebulization calcium carbonate 200 mg calcium 200 mg PO TID 11/10/19 01/01/20 History (500 mg) chewable tablet carvedilol 6.25 mg tablet 6.25 mg PO BID 11/10/19 01/01/20 History cholecalciferol (vitamin D3) 25 25 mcg PO BID 11/10/19 01/01/20 History mcg (1,000 unit) capsule loratadine 10 mg tablet 10 mg PO QAM 11/10/19 01/01/20 History sertraline 50 mg tablet 50 mg PO QAM 11/10/19 01/01/20 History aspirin [Aspir-81] 81 mg PO HS 11/23/19 01/01/20 History cyanocobalamin (vitamin B-12) 1,000 mcg PO QAM 11/23/19 01/01/20 History magnesium oxide 500 mg PO Q2D@2100 11/23/19 01/01/20 History oxycodone-acetaminophen [Percocet] 1 tab PO Q6H PRN #20 tab 12/07/19 01/01/20 Rx ascorbic acid (vitamin C) [Vitamin 500 mg PO QAM 01/01/20 01/01/20 History C] celecoxib 100 mg PO QAM 01/01/20 01/01/20 History cranberry 500 mg PO QAM 01/01/20 01/01/20 History levofloxacin 500 mg PO QAM 01/01/20 01/01/20 History prednisone 20 mg PO QAM 01/01/20 01/01/20 History Past Med/Surg History Social History Smoking Status: Never smoker Second Hand Exposure: No; Hx Alcohol Use: No Hx Substance Use: No Preferred Language: Icelandic Communication Ability: Effective 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 Other Information That Helps Us Care for You: No Feels Safe at Home: Yes Safety Concerns: Feels Safe At This Time Review of Systems Review of Systems: All systems reviewed & are unremarkable except as noted in HPI & below Gastrointestinal: + constipation and + melena (possible although also on iron supplement, new diarrhea yesterday); no abdominal pain, no heartburn, no nausea, no vomiting, no coffee ground emesis and no hematemesis Physical Exam Constitutional: well developed and + obese; + not well nourished and no acute distress Eyes: + anicteric sclerae; normal pupil size ENMT: external ear and nose normal, oropharynx normal Neck: trachea midline, no thyromegaly Respiratory: normal respiratory effort, lungs clear to auscultation Cardiovascular: Rate/Rhythm: regular rate and regular rhythm Heart Sounds: no murmur Vessels: no JVD Gastrointestinal (Abdomen): normal bowel sounds, soft, nontender, no hepatosplenomegaly Musculoskeletal: Tender, ecchymotic right hip, b/l cool, cyanotic feet, equal. Neurologic: awake; no focal motor deficits (sensation intact distal to hip dislocation) and not confused Psychiatric: A+Ox3, euthymic affect Results & Data Results & Data ([facility]) Vital Signs (Past 12 Hours) Vital Signs Temp Pulse Resp BP Pulse Ox 01/01/20 11:26 37.0 C 85 20 139/51 L 97 01/01/20 10:55 84 21 139/60 98 01/01/20 10:50 85 24 141/58 H 97 01/01/20 10:45 83 26 H 128/56 L 98 01/01/20 10:40 79 23 132/53 L 98 01/01/20 10:35 82 18 124/71 96 01/01/20 10:30 78 22 121/57 L 98 01/01/20 10:25 81 23 121/52 L 99 01/01/20 10:20 76 26 H 123/53 L 98 07/26/20 10:15 84 24 92/42 L 93 01/01/20 10:10 87 24 103/49 L 95 01/01/20 10:05 85 27 H 66/41 L 97 01/01/20 10:00 77 24 95/42 L 97 01/01/20 09:59 78 30 H 104/39 L 01/01/20 09:42 80 25 H 85/44 L 97 01/01/20 09:40 87 28 H 63/46 L 99 01/01/20 09:34 36.8 C 90 20 85/50 L 99 01/01/20 09:31 86 28 H 78/47 L 95 Diagnostic Findings SINGLE VIEW CHEST IMPRESSION: Cardiomegaly and emphysema with no acute cardiopulmonary abnormality. RIGHT HIP 2 VIEWS IMPRESSION: 1. The acetabular cup appears to have fractured through the right acetabulum and now projects over the right hemipelvis. 2. There is associated dislocation of the femoral component of the arthroplasty. ECG Indication: other Rate (beats per minute): 89 Rhythm: normal sinus Findings: + PAC and + prolonged QT (QTc 491ms) Comparison ECG Date: from (01/01/2020) Change: no significant change Code Status & VTE Plan Code Status DNR in setting of cardiac arrest. Otherwise ok for mechanical ventilation VTE Prophylaxis Plan VTE Prophylaxis will be ordered: Yes Reason for no VTE drug order: Contraindicated PG Care Time/CCT Total # of Minutes Spent Total Time Spent with Patient: Total time spent is greater than 50% in coordination of care (as documented) at patient's floor/unit and/or counseling patient: Coding Level of Care Code 74248 Initial Inpt Care Lvl 3 Diagnoses Failure of right total hip arthroplasty with dislocation of hip T84.020A Encounter type: initial encounter Dislocation of internal right hip prosthesis T84.020A Encounter type: initial encounter Postoperative wound hematoma Symptomatic anemia D64.9 Acute blood loss anemia D62 SOB (shortness of breath) R06.02 Asthma J45.909 Hypertension I10 Hypothyroidism (acquired) E03.9 Hyperlipidemia E78.5 Bladder spasm N32.89 History of pulmonary embolism Z86.711 Lactic acidosis E87.2 (1) Failure of right total hip arthroplasty with dislocation of hip Encounter type: initial encounter Qualified Code(s): T84.020A - Dislocation of internal right hip prosthesis, initial encounter (2) Dislocation of internal right hip prosthesis Encounter type: initial encounter Qualified Code(s): T84.020A - Dislocation of internal right hip prosthesis, initial encounter
[2020-01-01 11:58] LABS: Reticulocyte % 4.6 % (0.5-2.0); Reticulocytes # 0.11 10^6/uL (0.02-0.10)
--- NOTE | 2020-01-01 12:03 | Anesthesiology Consultation ---
Date of Service January 01, 2020 Assessment & Plan (1) Encounter for pre-operative examination: Chart Review Chart Review: Acceptable Risk for Surgery (Getting blood ) History Height/Weight Height: 4 ft 9 in Weight: 65.8 kg Allergies Allergy/AdvReac Type Severity Reaction Status Date / Time adhesive Allergy Unknown BANDAIDS Verified 01/01/20 10:56 AND CLOTH ADHESIVE-BLISTERS No Known Drug Allergies Allergy Unknown Verified 01/01/20 10:56 Medications Home Medications Medication Instructions Recorded Confirmed Last Taken albuterol sulfate 90 mcg/actuation 2 puffs INHALATION Q4H PRN gm 02/18/19 01/01/20 12/06/19 04:15 aerosol inhaler coenzyme Q10 10 mg capsule 100 mg PO QAM cap 02/18/19 01/01/20 12/31/19 diazepam 5 mg tablet 5 mg PO BID tab 02/18/19 01/01/20 12/31/19 levothyroxine 50 mcg tablet 50 mcg PO QAM tab 02/18/19 01/01/20 12/31/19 rivaroxaban 20 mg tablet 20 mg PO QAM #1 tab 02/18/19 01/01/20 12/31/19 simvastatin 10 mg tablet 10 mg PO HS tab 02/18/19 01/01/20 12/31/19 solifenacin 5 mg tablet 5 mg PO QAM tab 02/18/19 01/01/20 12/31/19 montelukast 10 mg PO HS 05/04/19 01/01/20 12/31/19 albuterol sulfate 1.25 mg/3 mL 1.25 mg INH BID ml 11/10/19 01/01/20 12/31/19 solution for nebulization amlodipine 5 mg tablet 5 mg PO HS 11/10/19 01/01/20 12/31/19 budesonide 0.25 mg/2 mL suspension 2 ml INH BID 11/10/19 01/01/20 12/31/19 for nebulization calcium carbonate 200 mg calcium 200 mg PO TID 11/10/19 01/01/20 12/31/19 (500 mg) chewable tablet carvedilol 6.25 mg tablet 6.25 mg PO BID 11/10/19 01/01/20 12/31/19 cholecalciferol (vitamin D3) 25 25 mcg PO BID 06/09/2501/01/20 12/31/19 mcg (1,000 unit) capsule loratadine 10 mg tablet 10 mg PO QAM 11/10/19 01/01/20 12/31/19 sertraline 50 mg tablet 50 mg PO QAM 11/10/19 01/01/20 12/31/19 aspirin [Aspir-81] 81 mg PO HS 11/23/19 01/01/20 12/31/19 cyanocobalamin (vitamin B-12) 1,000 mcg PO QAM 11/23/19 01/01/20 12/31/19 magnesium oxide 500 mg PO Q2D@2100 11/23/19 01/01/20 12/04/19 17:30 oxycodone-acetaminophen [Percocet] 1 tab PO Q6H PRN #20 tab 12/07/19 01/01/20 12/31/19 22:15 1 tablet ascorbic acid (vitamin C) [Vitamin 500 mg PO QAM 01/01/20 01/01/20 12/31/19 C] celecoxib 100 mg PO QAM 01/01/20 01/01/20 12/31/19 cranberry 500 mg PO QAM 01/01/20 01/01/20 12/31/19 levofloxacin 500 mg PO QAM 01/01/20 01/01/20 12/31/19 prednisone 20 mg PO QAM 01/01/20 01/01/20 12/31/19 Social History Smoking Status: Never smoker Hx Alcohol Use: No alcohol intake frequency: other Hx Substance Use: No Physical Exam Vital Signs Last Vital Signs Temp 37.1 C 01/01/20 11:42 Pulse 90 01/01/20 11:42 Resp 20 01/01/20 11:42 BP 145/51 H 01/01/20 11:42 Pulse Ox 97 01/01/20 11:42 Testing Laboratory Results 01/01/20 09:47 01/01/20 09:47 PT 12.0 Seconds (9.0-12.0) 01/01/20 09:47 INR 1.1 (0.9-1.1) 01/01/20 09:47 APTT < 20.0 Seconds (21.0-31.0) L 01/01/20 09:47 Blood Type B Positive 01/01/20 09:47 Antibody Screen POSITIVE A 01/01/20 09:47
--- NOTE | 2020-01-01 12:04 | Anesthesiology Consultation ---
Date of Service January 01, 2020 History Height/Weight Height: 4 ft 9 in Weight: 65.8 kg Allergies Allergy/AdvReac Type Severity Reaction Status Date / Time adhesive Allergy Unknown BANDAIDS Verified 01/01/20 10:56 AND CLOTH ADHESIVE-BLISTERS No Known Drug Allergies Allergy Unknown Verified 01/01/20 10:56 Medications Home Medications Medication Instructions Recorded Confirmed Last Taken albuterol sulfate 90 mcg/actuation 2 puffs INHALATION Q4H PRN gm 02/18/19 01/01/20 12/06/19 04:15 aerosol inhaler coenzyme Q10 10 mg capsule 100 mg PO QAM cap 02/18/19 01/01/20 12/31/19 diazepam 5 mg tablet 5 mg PO BID tab 02/18/19 01/01/20 12/31/19 levothyroxine 50 mcg tablet 50 mcg PO QAM tab 02/18/19 01/01/20 12/31/19 rivaroxaban 20 mg tablet 20 mg PO QAM #1 tab 02/18/19 01/01/20 12/31/19 simvastatin 10 mg tablet 10 mg PO HS tab 02/18/19 01/01/20 12/31/19 solifenacin 5 mg tablet 5 mg PO QAM tab 02/18/19 01/01/20 12/31/19 montelukast 10 mg PO HS 05/04/19 01/01/20 12/31/19 albuterol sulfate 1.25 mg/3 mL 1.25 mg INH BID ml 11/10/19 01/01/20 12/31/19 solution for nebulization amlodipine 5 mg tablet 5 mg PO HS 11/10/19 01/01/20 12/31/19 budesonide 0.25 mg/2 mL suspension 2 ml INH BID 11/10/19 01/01/20 12/31/19 for nebulization calcium carbonate 200 mg calcium 200 mg PO TID 11/10/19 01/01/20 12/31/19 (500 mg) chewable tablet carvedilol 6.25 mg tablet 6.25 mg PO BID 11/10/19 01/01/20 12/31/19 cholecalciferol (vitamin D3) 25 25 mcg PO BID 11/10/19 01/01/20 12/31/19 mcg (1,000 unit) capsule loratadine 10 mg tablet 10 mg PO QAM 11/10/19 01/01/20 12/31/19 sertraline 50 mg tablet 50 mg PO QAM 11/10/19 01/01/20 12/31/19 aspirin [Aspir-81] 81 mg PO HS 11/23/19 01/01/20 12/31/19 cyanocobalamin (vitamin B-12) 1,000 mcg PO QAM 11/23/19 01/01/20 12/31/19 magnesium oxide 500 mg PO Q2D@2100 11/23/19 01/01/20 12/04/19 17:30 oxycodone-acetaminophen [Percocet] 1 tab PO Q6H PRN #20 tab 12/07/19 01/01/20 12/31/19 22:15 1 tablet ascorbic acid (vitamin C) [Vitamin 500 mg PO QAM 01/01/20 01/01/20 12/31/19 C] celecoxib 100 mg PO QAM 01/01/20 01/01/20 12/31/19 cranberry 500 mg PO QAM 01/01/20 01/01/20 12/31/19 levofloxacin 500 mg PO QAM 01/01/20 01/01/20 12/31/19 prednisone 20 mg PO QAM 01/01/20 01/01/20 12/31/19 Social History Smoking Status: Never smoker Hx Alcohol Use: No alcohol intake frequency: other Hx Substance Use: No Physical Exam Vital Signs Last Vital Signs Temp 37.1 C 01/01/20 12:00 Pulse 92 H 01/01/20 12:05 Resp 22 01/01/20 11:50 BP 155/63 H 01/01/20 12:05 Pulse Ox 97 01/01/20 12:05 Testing Laboratory Results 01/01/20 09:47 01/01/20 09:47 PT 12.0 Seconds (9.0-12.0) 01/01/20 09:47 INR 1.1 (0.9-1.1) 01/01/20 09:47 APTT < 20.0 Seconds (21.0-31.0) L 01/01/20 09:47 Blood Type B Positive 01/01/20 09:47 Antibody Screen POSITIVE A 01/01/20 09:47
[2020-01-01] MEDS ORDERED: ONDANSETRON INJ 2 MG/ML 2 ML VIAL IV PRN ×2 (12:08→13:54)
[2020-01-01] MEDS ORDERED: ATROPINE SULFATE 0.1 MG/ML 10ML SYR IV PRN (12:08)
[2020-01-01] MEDS ORDERED: fentaNYL citrate 100 MCG/2 ML VIAL IV PRN (12:08)
[2020-01-01] MEDS ORDERED: PANTOprazole 40 MG in SYRINGE 0 ML IV ONE (12:15)
[2020-01-01 12:18] LABS: Ferritin 179.4 ng/ml (8-388)
--- NOTE | 2020-01-01 13:10 | Anesthesiology Progress Note ---
Date of Service January 01, 2020 Anesthesia Post Procedure Vital Signs Vital Signs: Temp Pulse Resp BP Pulse Ox 01/01/20 13:05 36.9 C 83 145/51 H 95 01/01/20 13:01 76 131/79 96 01/01/20 13:00 36.9 C 01/01/20 12:56 72 150/67 H 97 01/01/20 12:51 74 148/68 H 97 01/01/20 12:47 36.7 C 01/01/20 12:45 84 142/58 H 96 01/01/20 12:41 83 128/63 96 01/01/20 12:36 90 135/95 94 01/01/20 12:32 84 139/59 L 97 01/01/20 12:26 86 119/61 95 01/01/20 12:25 37.0 C 01/01/20 12:20 81 131/56 L 100 01/01/20 12:16 78 117/38 L 100 01/01/20 12:15 80 100 01/01/20 12:11 80 117/30 L 96 01/01/20 12:05 92 H 155/63 H 97 01/01/20 12:00 37.1 C 83 153/64 H 97 01/01/20 11:58 86 152/71 H 98 01/01/20 11:50 87 22 97 01/01/20 11:42 37.1 C 90 20 145/51 H 97 01/01/20 11:30 37.0 C 83 22 135/61 97 01/01/20 11:26 37.0 C 85 20 139/51 L 97 01/01/20 10:55 84 21 139/60 98 01/01/20 10:50 85 24 141/58 H 97 01/01/20 10:45 83 26 H 128/56 L 98 01/01/20 10:40 79 23 132/53 L 98 01/01/20 10:35 82 18 124/71 96 01/01/20 10:30 78 22 121/57 L 98 01/01/20 10:25 81 23 121/52 L 99 01/01/20 10:20 76 26 H 123/53 L 98 01/01/20 10:15 84 24 92/42 L 93 01/01/20 10:10 87 24 103/49 L 95 01/01/20 10:05 85 27 H 66/41 L 97 01/01/20 10:00 77 24 95/42 L 97 01/01/20 09:59 78 30 H 104/39 L 01/01/20 09:42 80 25 H 85/44 L 97 01/01/20 09:40 87 28 H 63/46 L 99 01/01/20 09:34 36.8 C 90 20 85/50 L 99 01/01/20 09:31 86 28 H 78/47 L 95 Pain Intensity Right Upper Hip: Pain Intensity: 4 Transfer of Care Handoff Completed per policy Notes Mental Status: alert / awake / arousable Patient Amnestic to Procedure: Yes Nausea / Vomiting: adequately controlled Pain: adequately controlled Airway Patency, RR, SpO2: stable & adequate BP & HR: stable & adequate Hydration State: stable & adequate Anesthetic Complications: no major complications apparent
--- NOTE | 2020-01-01 13:14 | XRay Report ---
SINGLE VIEW PELVIS; SINGLE VIEW RIGHT HIP CLINICAL HISTORY: Postreduction examination. Right hip pain. FINDINGS: An AP, portable, supine view of the pelvis with a crosstable lateral portable view of the r ight hip are compared to study performed earlier the same day 01/01/2020. The skeletal structures are osteopenic. A right hip arthroplasty is in place. The right acetabular cup has fractured through the right acetabulum and is located along the right pelvic sidewall. There is been reduction of a disloc ated right femoral head. Chronic appearing posttraumatic deformity is again seen in the right proxima l femur. Screw tracks are present in the proximal femoral shaft. Skin clips, soft tissue swelling, an d subcutaneous gas are expected postoperative findings. There is atherosclerotic calcification of the right femoral artery. IMPRESSION: 1. The right acetabular cup has fractured through the acetabular wall and is located along the right pelvic sidewall. Orthopedic assessment is recommended. 2. There has been successful reduction of the dislocated femoral head component of the arthroplasty. Electronically signed by: Doug Chakraborty M.D. 01/01/2020 1:12 PM
[2020-01-01] MEDS ORDERED: levoFLOXacin 250 MG TABLET PO SCH (13:54)
--- NOTE | 2020-01-01 16:03 | Consultation Report ---
DATE OF CONSULTATION: 01/01/2020 ORTHOPEDIC CONSULTATION ADDENDUM I took a look at her x-rays. Post reduction it is clear that her pelvic implant, the acetabular implant is cutting loose from the acetabulum and is migrating centrally. At this point in time, the dangers that the screws on the cup will end up cutting some vital blood vessel structures. This was discussed in detail with the patient and with her daughter. At this point in time, we will need to let the blood thinner wear down, get her hemodynamically stable and then prepare for an excisional arthroplasty. We will try to attempt to contact Vascular Surgery just to make sure that they are on standby for this. We will either do this tomorrow or on Thursday depending on how she is doing hemodynamically. Discussed with Ld Lund, her Internal Medicine hospitalist. Past medical history is remarkable for multiple hip procedures including cut out of a cephalomedullary nail, recent revision to total hip replacement with a significant acetabular bone loss. At this point in time, it is clear that her osteopenia is becoming an issue. PAST MEDICAL HISTORY: Remarkable for anemia, pulmonary disease, asthma, hypertension, hypothyroidism, hyperlipidemia, pulmonary embolism and is on chronic Xarelto. PAST SURGICAL HISTORY: Remarkable for hip fracture surgery. PERTINENT PHYSICAL EXAMINATION: Today reveals the right leg to be slightly short, is comfortable, has normal neurovascular check to femoral sciatic nerves. The wound is clean and dry. The thigh is without any masses or swelling.palpable DP/PT pulses R lower extremity. X-rays are reviewed revealing the centralization of the cup. 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 At this point in time, we will need excisional arthroplasty in an urgent fashion. Discussed in detail with her daughter and the patient. Consent obtained. Keep n.p.o. after midnight. Hold all blood thinners. MAYDA
[2020-01-01 16:12] LABS: Hematocrit (blood only) 30.9 % (37-47); Hemoglobin 10.1 g/dL (12.0-16.0)
--- NOTE | 2020-01-01 17:40 | XRay Report ---
LEFT HIP 2 VIEWS CLINICAL HISTORY: Left hip assessment. 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 FINDINGS: AP and frog-leg views of the left hip are correlated with pelvic x-ray dated 12/06/2019. The skeletal structures are osteopenic. There is no radiographic evidence of fracture involving the left hip or the visualized left hemipelvis. Mild degenerative joint space narrowing is seen in the left h ip. The overlying soft tissues are normal as imaged. Atherosclerotic calcification is noted in the le ft femoral artery. IMPRESSION: No acute bony abnormality is seen in the left hip. Electronically signed by: Doug Chakraborty M.D. 01/01/2020 5:38 PM
[2020-01-01] MEDS: ALBUTEROL 0.083% NEBU SOLN 3 ML VIAL INH SCH (19:00)
[2020-01-01] MEDS: BUDESONIDE 0.25 MG/2 ML VIAL (PULMICORT) INH SCH (19:00)
[2020-01-01] MEDS: MONTELUKAST SODIUM 10 MG TABLET PO SCH (20:06)
[2020-01-01] MEDS: MAGNESIUM OXIDE 400 MG TAB PO SCH (20:06)
[2020-01-01] MEDS: SIMVASTATIN 10 MG TAB PO SCH (20:06)
[2020-01-01] MEDS: carvediloL 6.25 MG TAB PO SCH (20:07)
[2020-01-01] MEDS: CHOLECALCIFEROL 1,000 UNITS 25 MCG TAB PO SCH (20:07)
[2020-01-01] MEDS: diazePAM 5 MG TABLET PO SCH (20:12)
[2020-01-01] MEDS ORDERED: carvediloL 6.25 MG TAB PO SCH (21:00)
[2020-01-01 21:23] LABS: Hematocrit (blood only) 29.2 % (37-47); Hemoglobin 9.6 g/dL (12.0-16.0)
[2020-01-01] MEDS: PANTOprazole 40 MG in SYRINGE 0 ML IV SCH (22:30)
[2020-01-01 22:41] LABS: Appearance Urine Clear (Clear); Bacteria Urine Automated Negative (Negative); Bilirubin Urine Negative (Negative); Blood Urine Trace (Negative); Color Urine Yellow; Epithelial Cell Urine Auto 20-30 /lpf (0-5); Glucose Urine UA Negative (Negative); Ketones Urine Negative (Negative); Leukocyte Esterase Urine Negative (Negative); Nitrite Urine Negative (Negative); Protein Urine Negative (Negative); RBC Urine Automated 0-4 /hpf (0-4); Specific Gravity Urine 1.014 (1.000-1.030); Urobilinogen Urine Negative (Negative); pH Urine 7.5 (4.5-7.5)
[2020-01-02] MEDS: LEVOTHYROXINE SODIUM 50 MCG TABLET PO SCH (05:40)
[2020-01-02 05:59] LABS: Basophils # (auto) 0.02 K/uL (0-0.2); Basophils % (auto) 0.3 %; Eosinophils % (auto) 1.6 %; Hematocrit (blood only) 28.5 % (37-47); Hemoglobin 9.3 g/dL (12.0-16.0); Immature Granulocytes # (auto) 0.06 K/uL (0.00-0.02); Immature Granulocytes % (auto) 0.9 %; Lymphocytes % (auto) 18.8 %; Mean Corpuscular Hemoglobin 28.6 pg (25-34); Mean Corpuscular Hgb Conc 32.6 g/dL (32-36); Mean Corpuscular Volume 87.7 fL (80-100); Mean Platelet Volume 9.2 fL (7.4-10.4); Monocytes # (auto) 0.85 K/uL (0.11-0.59); Monocytes % (auto) 13.3 %; Neutrophils # (auto) 4.17 K/uL (1.4-6.5); Neutrophils % (auto) 65.1 %; Platelet Count 241 K/uL (130-400); RDW Coefficient of Variation 15.2 % (11.5-14.5); RDW Standard Deviation 48.2 fL (36.4-46.3); Red Blood Count 3.25 M/uL (4.2-5.4)
[2020-01-02 06:31] LABS: Albumin Globulin Ratio 0.9 (0.9-2); Albumin Level 2.4 gm/dl (3.4-5.0); BUN Creatinine Ratio 15.3 (10-20); Bilirubin,Total 0.7 mg/dl (0.2-1); Calcium 8.1 mg/dl (8.5-10.1); Creatinine Clr Calc Pharmacy 42.8 ml/min; Est GFR (African American) 79.6; Est GFR (Non-African American) 68.7; Globulin 2.7 gm/dl (2.5-4.0); Potassium 4.2 mmol/L (3.5-5.1); Total Protein 5.1 gm/dl (6.4-8.2)
--- NOTE | 2020-01-02 07:06 | Progress Notes ---
DATE: 01/02/2020 ORTHOPEDIC PROGRESS NOTE SUBJECTIVE: At this point in time, the patient is resting comfortably in bed. She states she slept well last night. She denies any chest pain, shortness of breath, fever, chills, nausea, vomiting or headache. She denies any abdominal pain. She denies any increasing right hip pain. Hematocrit stable at 28.5. OBJECTIVE: Vital signs are stable. She is not tachycardic. Neurovascular check, femoral sciatic nerve is intact including good dorsalis pedis pulse. Wound dressing clean, dry and intact. Abdomen soft, nontender. Calves nontender. INR is 1.1. APTT is less than 20 seconds. ASSESSMENT: The patient is resting comfortably, tenuous situation, had a face to face discussion with her again this morning with her daughter and herself last evening going over the risks and complications which include neurovascular injury, infection, need for repeat operation. They understands that the leg will be short with a Girdlestone/excisional arthroplasty and will need a shoe buildup. X-rays were gone over with the daughter in person at the computer screen.She is not a good candidate for pelvic reconstruction and revision based on co-morbidities and annual mortality rate associated with hip fracture in general. Excisional arthroplasty will get her on her feet quickly with risks of infection and instability being decreased; and minimizing her baseline risk of DVT/PE; this compared to major revision surgery. This was discussed with the patient and her daughter as well. At this point in time, will make arrangements as soon as possible to do the excisional arthroplasty pending OR availability. Still holding anticoagulant at this point in time. MAYDA
[2020-01-02] MEDS: ALBUTEROL 0.083% NEBU SOLN 3 ML VIAL INH SCH ×2 (07:10→19:17)
[2020-01-02] MEDS: BUDESONIDE 0.25 MG/2 ML VIAL (PULMICORT) INH SCH ×2 (07:12→19:16)
[2020-01-02] MEDS ORDERED: PROPOFOL IV EMULSION 10 MG/ML 20 ML VIAL IV ONE (07:35)
[2020-01-02] MEDS ORDERED: LIDOCAINE HCL 2% 2 ML VIAL/AMP(20MG/ML) INFIL ONE (07:35)
[2020-01-02] MEDS ORDERED: ONDANSETRON INJ 2 MG/ML 2 ML VIAL ONE ×2 (07:35→11:46)
[2020-01-02] MEDS ORDERED: MIDAZOLAM HCL 1 MG/ML 2ML VIAL ONE (07:35)
[2020-01-02] MEDS ORDERED: fentaNYL citrate 100 MCG/2 ML VIAL ONE ×2 (07:36→11:22)
[2020-01-02] MEDS: ASCORBIC ACID 500 MG TAB PO SCH (07:50)
[2020-01-02] MEDS: CHOLECALCIFEROL 1,000 UNITS 25 MCG TAB PO SCH ×2 (07:50→21:05)
[2020-01-02] MEDS: CYANOCOBALAMIN 500 MCG TABLET (VITAMIN B-12) PO SCH (07:50)
[2020-01-02] MEDS: carvediloL 6.25 MG TAB PO SCH ×2 (07:53→21:05)
[2020-01-02] MEDS: SOLIFENACIN SUCCINATE 5 MG PO SCH (07:56)
[2020-01-02] MEDS: diazePAM 5 MG TABLET PO SCH ×2 (07:56→21:05)
[2020-01-02] MEDS: SERTRALINE HCL 50 MG TABLET PO SCH (07:56)
[2020-01-02] MEDS: LORATADINE 10 MG TAB PO SCH (07:57)
--- NOTE | 2020-01-02 08:04 | Anesthesiology Consultation ---
Date of Service January 02, 2020 Assessment & Plan (1) Encounter for pre-operative examination: Chart Review Chart Review: Acceptable Risk for Surgery and Patient NOT seen in Pre Admission Testing Consults Requested none ASA ASA3 Proposed Anesthesia Anesthesia Type: General Anesthesia Line Insertion: Arterial line Risk / Benefits Reviewed With: PT / POA / Parent / Guardian, Accepts Plan and Informed Consent Obtained Additional Notes Patient is only about 48 hours outside of last dose of xarelto - will require GA History Surgery Operation Date: 01/02/20 07:30 Proposed Procedures p Right Hip Excisional Arthroplasty - Edson Womack MD Height/Weight Height: 4 ft 9 in Weight: 67 kg Allergies Allergy/AdvReac Type Severity Reaction Status Date / Time adhesive Allergy Unknown BANDAIDS Verified 01/01/20 10:56 AND CLOTH ADHESIVE-BLISTERS No Known Drug Allergies Allergy Unknown Verified 01/01/20 10:56 Medications Home Medications Medication Instructions Recorded Confirmed Last Taken albuterol sulfate 90 mcg/actuation 2 puffs INHALATION Q4H PRN gm 02/18/19 01/01/20 12/06/19 04:15 aerosol inhaler coenzyme Q10 10 mg capsule 100 mg PO QAM cap 02/18/19 01/01/20 12/31/19 diazepam 5 mg tablet 5 mg PO BID tab 02/18/19 01/01/20 12/31/19 levothyroxine 50 mcg tablet 50 mcg PO QAM tab 02/18/19 01/01/20 12/31/19 rivaroxaban 20 mg tablet 20 mg PO QAM #1 tab 02/18/19 01/01/20 12/31/19 simvastatin 10 mg tablet 10 mg PO HS tab 02/18/19 01/01/20 12/31/19 solifenacin 5 mg tablet 5 mg PO QAM tab 02/18/19 01/01/20 12/31/19 montelukast 10 mg PO HS 05/04/19 01/01/20 12/31/19 albuterol sulfate 1.25 mg/3 mL 1.25 mg INH BID ml 11/10/19 01/01/20 12/31/19 solution for nebulization amlodipine 5 mg tablet 5 mg PO HS 11/10/19 01/01/20 12/31/19 budesonide 0.25 mg/2 mL suspension 2 ml INH BID 0601/01/20 12/31/19 for nebulization calcium carbonate 200 mg calcium 200 mg PO TID 11/10/19 01/01/20 12/31/19 (500 mg) chewable tablet carvedilol 6.25 mg tablet 6.25 mg PO BID 11/10/19 01/01/20 12/31/19 cholecalciferol (vitamin D3) 25 25 mcg PO BID 11/10/19 01/01/20 12/31/19 mcg (1,000 unit) capsule loratadine 10 mg tablet 10 mg PO QAM 11/10/19 01/01/20 12/31/19 sertraline 50 mg tablet 50 mg PO QAM 11/10/19 01/01/20 12/31/19 aspirin [Aspir-81] 81 mg PO HS 11/23/19 01/01/20 12/31/19 cyanocobalamin (vitamin B-12) 1,000 mcg PO QAM 11/23/19 01/01/20 12/31/19 magnesium oxide 500 mg PO Q2D@2100 11/23/19 01/01/20 12/04/19 17:30 oxycodone-acetaminophen [Percocet] 1 tab PO Q6H PRN #20 tab 12/07/19 01/01/20 12/31/19 22:15 1 tablet ascorbic acid (vitamin C) [Vitamin 500 mg PO QAM 01/01/20 01/01/20 12/31/19 C] celecoxib 100 mg PO QAM 01/01/20 01/01/20 12/31/19 cranberry 500 mg PO QAM 01/01/20 01/01/20 12/31/19 levofloxacin 500 mg PO QAM 01/01/20 01/01/20 12/31/19 prednisone 20 mg PO QAM 01/01/20 01/01/20 12/31/19 Active Medications Generic Name Dose Route Start Last Admin Trade Name Freq PRN Reason Stop Dose Admin Albuterol 2.5 mg 01/01/20 19:00 01/02/20 07:10 Ventolin 0.083% 2.5mg/3ml INH 01/31/20 18:59 2.5 mg BIDR ANITHA Administration Ascorbic Acid 500 mg 01/02/20 09:00 01/02/20 07:50 Vitamin C PO 02/01/20 08:59 Not Given QAM ANITHA Budesonide 0.25 mg 01/01/20 19:00 01/02/20 07:12 Pulmicort Respules INH 01/31/20 18:59 0.25 mg BIDR ANITHA Administration Carvedilol 6.25 mg 01/01/20 21:00 01/02/20 07:53 Coreg PO 01/31/20 20:59 6.25 mg BID ANITHA Administration Cyanocobalamin 1,000 mcg 01/02/20 09:00 01/02/20 07:50 Vitamin B-12 PO 02/01/20 08:59 Not Given QAM ANITHA Diazepam 5 mg 01/01/20 21:00 01/02/20 07:56 Valium PO 01/31/20 20:59 Not Given BID ANITHA Pantoprazole Sodium 40 mg/ 10 mls @ 5 mls/min 01/01/20 21:45 01/02/20 08:29 Syringe IV 01/31/20 21:44 Not Given BID ANITHA Levothyroxine Sodium 50 mcg 01/02/20 06:30 01/02/20 05:40 Synthroid PO 02/01/20 06:29 Not Given DAILYBB ANITHA Loratadine 10 mg 01/02/20 09:00 01/02/20 07:57 Claritin PO 02/01/20 08:59 Not Given QAM ANITHA Magnesium Oxide 400 mg 01/01/20 21:00 01/01/20 20:06 Mag-Ox PO 01/31/20 20:59 400 mg Q2D@2100 ANITHA Administration Montelukast Sodium 10 mg 01/01/20 21:00 01/01/20 20:06 Singulair PO 01/31/20 20:59 10 mg HS ANITHA Administration Sertraline HCl 50 mg 01/02/20 09:00 01/02/20 07:56 Zoloft PO 02/01/20 08:59 50 mg QAM ANITHA Administration Simvastatin 10 mg 01/01/20 21:00 01/01/20 20:06 Zocor PO 01/31/20 20:59 10 mg HS ANITHA Administration Solifenacin 1 ea 01/02/20 09:00 01/02/20 07:56 Vesicare PO 02/01/20 08:59 Not Given DAILY ANITHA Vitamin D 1,000 units 01/01/20 21:00 01/02/20 07:50 Vitamin D3 PO 01/31/20 20:59 Not Given BID ANITHA NPO Date Last Intake of Fluids: 01/01/20 Time Last Intake of Fluids: 00:00 Date Last Intake of Solids: 01/01/20 Time Last Intake of Solids: 19:00 Past Medical History Medical History Anxiety Asthma Sees [facility] [place]. Using neb BID. Very rare rescue inhaler use Bilateral pulmonary embolism ~ 4 yrs ago, was being treated for empyema Bladder spasm Chronic anticoagulation DVT (deep venous thrombosis) HX-ON XARELTO Essential tremor very slight in hands Hyperlipidemia Hypertension Hypothyroidism (acquired) Left ankle sprain (Inactive) Saddle embolism of pulmonary artery ~ 4 yrs ago Urinary, incontinence, stress female Exercise / Class Metabolic Activity III < 4 Walking/Shop/Light housework (Limited due to hip pain since procedure in 2019) Past Surgical History Surgical History History of cholecystectomy History of colonoscopy History of hysterectomy TOTAL History of open reduction and internal fixation (ORIF) procedure RIGHT HIP History of thoracentesis Past Anesthesia History No Hx of Anesthesia Complications History of PONV No Hx of PONV and No Hx of Motion Sickness Social History Smoking Status: Never smoker Hx Alcohol Use: No alcohol intake frequency: other Hx Substance Use: No substance use type: does not use Review of Systems Negative for chest pain or shortness of breath. Patient denies active symptoms of GERD. Physical Exam Vital Signs Last Vital Signs Temp 37.3 C 01/02/20 08:26 Pulse 90 01/02/20 08:26 Resp 18 01/02/20 08:26 BP 153/95 H 01/02/20 08:26 Pulse Ox 95 01/02/20 08:26 Constitutional not obese ENMT Mouth: no TMJ abnormality and oral opening not small Thyromental Distance: > or= 3.5 Finger Breadths Mallampati Class: III Mouth / Teeth: 1. missing Neck normal visual inspection; neck extension not limited Respiratory normal respiratory effort Auscultation: lungs clear to auscultation bilaterally Cardiovascular Rate/Rhythm: regular rate; + abnormal rhythm Heart Sounds: no murmur Neurologic moves all extremities Psychiatric Orientation: alert and oriented x 3 Testing Laboratory Results 01/02/20 05:25 01/02/20 05:25 PT 12.0 Seconds (9.0-12.0) 01/01/20 09:47 INR 1.1 (0.9-1.1) 01/01/20 09:47 APTT < 20.0 Seconds (21.0-31.0) L 01/01/20 09:47 Urine Color Yellow 01/01/20 Unknown Urine Appearance Clear (Clear) 01/01/20 Unknown Urine pH 7.5 (4.5-7.5) 01/01/20 Unknown Ur Specific Cornish 1.014 (1.000-1.030) 01/01/20 Unknown Urine Protein Negative (Negative) 01/01/20 Unknown Urine Glucose (UA) Negative (Negative) 01/01/20 Unknown Urine Ketones Negative (Negative) 01/01/20 Unknown Urine Nitrite Negative (Negative) 01/01/20 Unknown Ur Leukocyte Esterase Negative (Negative) 01/01/20 Unknown Urine WBC (Auto) 1-5 /hpf (0-5) 01/01/20 Unknown Urine RBC (Auto) 0-4 /hpf (0-4) 01/01/20 Unknown U Hyaline Cast (Auto) 1-5 /lpf (0-5) 01/01/20 Unknown U Epithel Cells (Auto) 20-30 /lpf (0-5) H 01/01/20 Unknown Urine Bacteria (Auto) Negative (Negative) 01/01/20 Unknown Blood Type B Positive 01/01/20 09:47 Antibody Screen POSITIVE A 01/01/20 09:47 Electrocardiogram Date: 01/01/20 Findings: + NSR @ (89) Sinus rhythm with Premature atrial complexes Prolonged QT Abnormal ECG Chest X-Ray Date: 01/01/20 Cardiomegaly and emphysema with no acute cardiopulmonary abnormality. Other Testing Echocardiogram Date: 11/10/17 EF: 50-55% LV Function: normal Other Findings: + LVH (mild concentric) and + diastolic dysfunction (Grade I) RV is mildly dilated. RV systolic function is moderately reduced, with global HK and apical dyskinesis. There is mild-moderate tricuspid regurgitation. RVSP elevated at 50-60 mmHg. Compared to study from 2016, there is little change.
[2020-01-02] MEDS ORDERED: SODIUM CHLORIDE 0.9% 250 ML IV PRN (08:06)
[2020-01-02] MEDS: PANTOprazole 40 MG in SYRINGE 0 ML IV SCH ×2 (08:29→21:05)
--- NOTE | 2020-01-02 08:46 | History & Physical Bridge Note ---
Date of Service January 02, 2020 History & Physical Bridge Note I have examined the patient, reviewed the History & Physical and in the interval since the performance of the History & Physical I have noted the following changes of clinical significance:site marked and went over risks and logic for excisional arthroplasty documented in previous notes. Her and her daughter state they understand. changes noted
[2020-01-02] MEDS ORDERED: CEFAZOLIN 2000MG 2,000 MG/15 ML SYR IV STA (08:47)
[2020-01-02] MEDS ORDERED: CEFAZOLIN 2,000 MG/15 ML IV PUSH IV ONE (08:49)
[2020-01-02] MEDS ORDERED: NON-FORMULARY MEDICATION (Coenzyme Q10 100 MG) PO SCH (09:00)
[2020-01-02] MEDS ORDERED: NON-FORMULARY MEDICATION (Cranberry 500 MG) PO SCH (09:00)
[2020-01-02] MEDS ORDERED: GENTAMICIN SULFATE 40 MG/ML 2 ML VIAL ONE (09:05)
[2020-01-02] MEDS ORDERED: THROMBIN FOR SOLN 20000 UNIT KIT ONE (09:36)
[2020-01-02] MEDS ORDERED: GELATIN SPONGE SZ 100 ONE (09:37)
[2020-01-02] MEDS ORDERED: ATROPINE SULFATE 0.1 MG/ML 10ML SYR IV PRN (10:03)
[2020-01-02] MEDS ORDERED: ONDANSETRON INJ 2 MG/ML 2 ML VIAL IV PRN (10:03)
[2020-01-02] MEDS ORDERED: ePHEDrine sulfate 50 MG/ML AMP IV PRN (10:03)
--- NOTE | 2020-01-02 11:32 | Post Operative Brief Note ---
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
--- NOTE | 2020-01-02 11:33 | Post Operative Brief Note ---
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
--- NOTE | 2020-01-02 11:43 | Procedure Note ---
Procedure Note Date of Service January 02, 2020 Radial arterial line placed in preopin preparation for SHIMON with Dr. More. Right wrist prepped with chlorhexidine and draped with sterile towels. Site infiltrated with 1 cc of 1% lidocaine. 20 G angiocath placed under sterile technique utilizing sterile gloves, surgical hats and masks. Catheter threaded using seldinger technique with return of pulsatile, bright red blood. Site covered with occlusive dressing and taped in place. Waveform consistent with correct arterial placement. After placement, fingers of procedural hand had normal perfusion. Patient tolerated procedure well without complications. Darlene Green MD, PhD Anesthesiologist Coding
[2020-01-02] MEDS ORDERED: GLYCOPYRROLATE 0.2 MG/ML VIAL ONE (11:46)
[2020-01-02] MEDS ORDERED: DEXAMETHASONE SOD INJ 4 MG/ML VIAL ONE (11:46)
[2020-01-02] MEDS ORDERED: NEOSTIGMINE METHYLSULFATE 5 MG/5 ML SYR ONE (11:46)
[2020-01-02] MEDS ORDERED: ePHEDrine sulfate 50 MG/ML SYR ONE (11:46)
[2020-01-02] MEDS: fentaNYL citrate 100 MCG/2 ML VIAL IV PRN ×4 (12:17→12:32)
[2020-01-02 12:27] LABS: iSTAT Creatinine 0.7 mg/dl (0.6-1.3); iSTAT Hemoglobin 7.1 g/dl (12.0-16.0); iSTAT Ionized Calcium 1.22 mmol/l (1.12-1.32); iSTAT Potassium 3.8 mmol/L (3.3-5.0)
[2020-01-02 12:27] LABS: iSTAT Creatinine 0.5 mg/dl (0.6-1.3); iSTAT Hemoglobin 8.8 g/dl (12.0-16.0); iSTAT Ionized Calcium 1.2 mmol/l (1.12-1.32); iSTAT Potassium 3.6 mmol/L (3.3-5.0)
--- NOTE | 2020-01-02 12:29 | Operative Report (OR) ---
DATE OF OPERATION: 01/02/2020 SURGEON: Edson Womack MD. CLOCK AND WATCH ASSEMBLER: Naif. No resident or fellow available. PREOPERATIVE DIAGNOSIS: Acetabular fixation failure, complex revision of right total hip replacement following failed DHS. 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 OPERATION PERFORMED: Right excisional arthroplasty/Girdlestone procedure, right hip. PERIOPERATIVE SITUATION: Medically cleared female who had failure of the fixation and spontaneous dislocation of the right total hip replacement that was put in about 3-1/2 weeks ago. Her history is very complicated in the fact that she had a failed ORIF of a proximal femur fracture, had marked deformity and marked bone loss from cutout of the internal fixation of the implant. It is a DHS type implant. The x-rays looked ominous with a protrusion of the cup into the acetabulum. Due to the fact that she is on Xarelto and had a seroma postop with some minor drainage and now with the instability, protrusion and rotation of the cup, it was deemed best to proceed with excisional arthroplasty after discussing all the options including major pelvic reconstruction with revision implantation. She has already had multiple DVTs and PEs in the past and with that type of procedure, would likely need to be limited weightbearing and would not be allowed to move as freely without risk of instability, so it was deemed appropriate to proceed with excisional arthroplasty after discussing with her and her daughter. Everybody agrees. ESTIMATED BLOOD LOSS: 150 mL. PATHOLOGY PENDING: None. Implants removed. This is right hip. DESCRIPTION OF PROCEDURE: The patient was appropriately identified, site verified, consent verified. Antibiotics confirmed as being given. The right lower extremity was prepped and draped in usual routine fashion with the patient in the left lateral decubitus position. The remaining aviva were removed. The wound was then opened. There was some subcutaneous and subfascial old seroma fluid and some hematoma. There was no acute hemorrhage. Once this was all opened up, the IT band was split down to the femur and then using subperiosteal dissection, the proximal femur was then identified. Things were protruded internally so it was very difficult to get normal anatomy. Care was taken to stay away from the posterior aspect of the femur to avoid the sciatic nerve. At no point was it encountered. Once this was identified and all the tissue removed around the proximal femur, the femur was then dislocated. The femoral head removed. Attempts to remove the stem with a slap extraocular were futile and required an ETO. Once this was done, the femur was removed easily. This was then irrigated and closed with suture. There was no hardware put in. Excellent exposure of the acetabulum was then obtained with appropriate retraction, the cup at this point in time was facing very retroverted and very displaced, internally it was manipulated carefully with a cloth gloved hand to bring it out of the pelvis and then it was removed in mass. It did not require any poly removal or screw removal. The wound was irrigated, packed for a few minutes, then the packs were removed. There was no arterial bleeding or deep venous bleeding noted. Thrombin was then placed, Gelfoam was then placed. The wound was then irrigated one final time and then closed with #2 Vicryl, 2-0 Vicryl and stainless steel clips. Appropriate dressing was applied. The patient was transferred to the recovery room after 20 minutes of extubation time secondary to COVID protocol. Pathology pending none. I attest to the content of the Intraoperative Record and any orders documented therein. Any exceptions are noted below. MTDD
--- NOTE | 2020-01-02 12:50 | Anesthesiology Progress Note ---
Date of Service January 02, 2020 Anesthesia Post Procedure Vital Signs Vital Signs: Temp Pulse Pulse Resp BP BP Pulse Ox 01/02/20 12:35 56 L 18 127/55 L 99 01/02/20 12:25 56 L 18 89/63 L 95 01/02/20 12:15 61 18 144/63 H 96 01/02/20 12:09 36.6 C 69 18 134/63 97 01/02/20 08:26 37.3 C 90 18 153/95 H 95 01/02/20 08:00 84 01/02/20 07:32 36.3 C L 78 18 149/63 H 99 01/02/20 07:12 79 16 93 01/02/20 02:45 37.1 C 83 18 123/73 93 01/02/20 01:02 88 01/01/20 22:56 37.2 C 77 18 136/74 94 01/01/20 19:33 37.3 C 83 18 138/77 94 01/01/20 19:05 83 16 95 01/01/20 16:01 37.2 C 101 H 16 160/66 H 93 01/01/20 13:55 37.3 C 89 18 155/86 H 96 01/01/20 13:20 36.9 C 81 147/90 H 96 01/01/20 13:15 85 142/68 H 96 01/01/20 13:11 77 139/61 95 01/01/20 13:05 36.9 C 83 145/51 H 95 01/01/20 13:01 76 131/79 96 01/01/20 13:00 36.9 C 01/01/20 12:56 72 150/67 H 97 01/01/20 12:51 74 148/68 H 97 Pulse Ox 01/02/20 12:35 01/02/20 12:25 01/02/20 12:15 01/02/20 12:09 01/02/20 08:26 01/02/20 08:00 01/02/20 07:32 01/02/20 07:12 01/02/20 02:45 01/02/20 01:02 01/01/20 22:56 01/01/20 19:33 01/01/20 19:05 01/01/20 16:01 01/01/20 13:55 96 01/01/20 13:20 01/01/20 13:15 01/01/20 13:11 01/01/20 13:05 01/01/20 13:01 01/01/20 13:00 01/01/20 12:56 01/01/20 12:51 Pain Intensity Right Upper Hip: Pain Intensity: 3 Transfer of Care Handoff Completed per policy Notes Mental Status: alert / awake / arousable and participated in evaluation Patient Amnestic to Procedure: Yes Nausea / Vomiting: adequately controlled Pain: adequately controlled Airway Patency, RR, SpO2: stable & adequate BP & HR: stable & adequate Hydration State: stable & adequate Anesthetic Complications: no major complications apparent and Pt Satisfied with anesthetic care
[2020-01-02] MEDS ORDERED: bisacodyL 10 MG SUPP PR PRN (13:11)
[2020-01-02] MEDS ORDERED: NALOXONE HCL 0.4 MG/1 ML VIAL/CARP IV PRN (13:11)
[2020-01-02] MEDS ORDERED: HYDROmorphone INJ 0.5 MG/0.5 ML SYR IV PRN (13:11)
[2020-01-02] MEDS ORDERED: MAGNESIUM HYDROXIDE SUSP 30 ML UDC PO PRN (13:11)
--- NOTE | 2020-01-02 13:54 | Electrocardiogram Report ---
Test Reason : Blood Pressure : / mmHG Vent. Rate : 079 BPM Atrial Rate : 079 BPM P-R Int : 142 ms QRS Dur : 080 ms QT Int : 426 ms P-R-T Axes : 064 041 035 degrees QTc Int : 488 ms Poor data quality, interpretation may be adversely affected Sinus rhythm with Premature atrial complexes Otherwise normal ECG When compared with ECG of 04-MAY-2019 20:07, Nonspecific T wave abnormality now evident in Inferior leads Confirmed by Wolfgang Craven ([id number]) on 01/02/2020 1:54:27 PM Referred By: Confirmed By:Wolfgang Craven
[2020-01-02] MEDS: ACETAMINOPHEN 500 MG TAB PO SCH ×2 (13:57→21:05)
[2020-01-02] MEDS: SODIUM CHLORIDE 0.9% 1000ML 1,000 ML IV SCH ×2 (13:59→23:28)
[2020-01-02 16:40] LABS: Hematocrit (blood only) 32.2 % (37-47); Hemoglobin 10.5 g/dL (12.0-16.0)
--- NOTE | 2020-01-02 16:40 | Operative Report ---
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 Tourist Information Assistant Drea Disla PA-C, no fellow available Estimated Blood Loss 150 Findings Consistent with Post-Op Diagnosis Specimens None Anesthesia Type General Complications none Description of Procedure Patient was taken to the recovery room, placed under general anesthesia. Given 1 gm IV Ancef for surgical prophylaxis. Time out performed, prepped and draped in routine sterile fashion. I was present for the entire case, please see Dr. Womack's operative report for further detail. During the procedure, I assisted with position, tissue retraction, explantation, irrigation, debridement, closure and dressings. Patient was awakened and taken to the recovery room in stable condition. I attest to the content of the Intraoperative Record and any orders documented therein. Any exceptions are noted below.
--- NOTE | 2020-01-02 16:56 | Orthopedic Progress Note ---
Date of Service January 02, 2020 Assessment & Plan (1) Dislocation of internal right hip prosthesis: POD 0- explantation of hip prosthesis today with Dr. Womack Monitor H/H, improved at 1 unit PRBC's. CBC ordered for tomorrow AM Resume Xarelto tomorrow morning. May be out of bed to chair, toe touch weight bearing with assistance of a walker Ice to right hip PRN pain/swelling. No hip precautions necessary. ROM as tolerated for transfers only. PT/OT as ordered Case management for discharge needs. Will discuss findings with Dr. Womack. Will re-eval in AM. Admission and Anticipated Discharge Date Admission Date: January 01, 2020 Subjective Doing well, awake and alert, daughter at bedside. Pleasant. Physical Exam Physical Exam: Exam of right lower extremity: Surgical dressings intact, clean and dry. Left leg shortened as expected. Toe and ankle with full ROM. Dorsalis pedis pulse trace, distal sensation is normal. Strength 5/5. Results & Data ([facility]) Vital Signs (Past 12 Hours) Vital Signs Temp Pulse Pulse Resp BP BP Pulse Ox 01/02/20 16:00 36.8 C 67 18 125/70 94 01/02/20 15:23 36.4 C L 81 16 105/61 93 01/02/20 14:00 37 C 62 18 103/65 95 01/02/20 13:30 36.5 C 57 L 20 120/64 93 01/02/20 13:12 36.5 C 63 16 127/74 97 01/02/20 12:45 36.6 C 62 18 137/60 99 01/02/20 12:35 56 L 18 127/55 L 99 01/02/20 12:25 56 L 18 89/63 L 95 01/02/20 12:15 61 18 144/63 H 96 01/02/20 12:09 36.6 C 69 18 134/63 97 01/02/20 08:26 37.3 C 90 18 153/95 H 95 01/02/20 08:00 84 01/02/20 07:32 36.3 C L 78 18 149/63 H 99 01/02/20 07:12 79 16 93 Laboratory Results 01/02/20 01/02/20 01/02/20 Range/Units 16:31 11:29 10:49 WBC (4.8-10.8) K/uL RBC (4.2-5.4) M/uL Hgb 10.5 L (12.0-16.0) g/dL POC Hgb 8.8 L 7.1 L (12.0-16.0) g/dl Hct 32.2 L (37-47) % POC Hct 26 L 21 L (37-47) % MCV (80-100) fL MCH (25-34) pg MCHC (32-36) g/dL RDW Std Deviation (36.4-46.3) fL RDW Coeff of Jerrell (11.5-14.5) % Plt Count (130-400) K/uL MPV (7.4-10.4) fL Immature Gran % (Auto) % Neut % (Auto) % Lymph % (Auto) % Sutter % (Auto) % Eos % (Auto) % Baso % (Auto) % Neut # (Auto) (1.4-6.5) K/uL Lymph # (Auto) (1.2-3.4) K/uL Sutter # (Auto) (0.11-0.59) K/uL Eos # (Auto) (0-0.5) K/uL Baso # (Auto) (0-0.2) K/uL Immature Gran # (Auto) (0.00-0.02) K/uL POC Sodium 138 138 (135-144) mmol/L Sodium (136-145) mmol/L POC Potassium 3.6 3.8 (3.3-5.0) mmol/L Potassium (3.5-5.1) mmol/L POC Chloride 108 107 (101-112) mmol/L Chloride (98-107) mmol/L Carbon Dioxide (21-32) mmol/L POC Total CO2 23 L 24 (24-31) mmol/L Anion Gap (3-11) POC Anion Gap 11.0 L 12.0 L (16-25) mmol/L POC BUN 10 11 (7-18) mg/dl BUN (7-18) mg/dl Creatinine (0.6-1.2) mg/dl POC Creatinine 0.5 L 0.7 (0.6-1.3) mg/dl Est Cr Clr Drug Dosing ml/min Est GFR ( Amer) Est GFR (Non-Af Amer) BUN/Creatinine Ratio (10-20) Glucose (70-99) mg/dl POC Glucose (other) 108 H 90 (70-99) mg/dl Calcium (8.5-10.1) mg/dl POC Ioniz Calcium Gricel 1.20 1.22 (1.12-1.32) mmol/l Total Bilirubin (0.2-1) mg/dl AST (15-37) U/L ALT (12-78) U/L Alkaline Phosphatase (45-117) U/L Total Protein (6.4-8.2) gm/dl Albumin (3.4-5.0) gm/dl Globulin (2.5-4.0) gm/dl Albumin/Globulin Ratio (0.9-2) Urine Color Urine Appearance (Clear) Urine pH (4.5-7.5) Ur Specific Julian (1.000-1.030) Urine Protein (Negative) Urine Glucose (UA) (Negative) Urine Ketones (Negative) Urine Blood (Negative) Urine Nitrite (Negative) Urine Bilirubin (Negative) Urine Urobilinogen (Negative) Ur Leukocyte Esterase (Negative) Urine WBC (Auto) (0-5) /hpf Urine RBC (Auto) (0-4) /hpf U Hyaline Cast (Auto) (0-5) /lpf U Epithel Cells (Auto) (0-5) /lpf Urine Bacteria (Auto) (Negative) Blood Type Antibody Screen Antibody Identification Antibody ID Comment Crossmatch 01/02/20 01/02/20 01/01/20 Range/Units 05:25 05:25 Unknown WBC 6.40 (4.8-10.8) K/uL RBC 3.25 L (4.2-5.4) M/uL Hgb 9.3 L (12.0-16.0) g/dL POC Hgb (12.0-16.0) g/dl Hct 28.5 L (37-47) % POC Hct (37-47) % MCV 87.7 (80-100) fL MCH 28.6 (25-34) pg MCHC 32.6 (32-36) g/dL RDW Std Deviation 48.2 H (36.4-46.3) fL RDW Coeff of Jerrell 15.2 H (11.5-14.5) % Plt Count 241 (130-400) K/uL MPV 9.2 (7.4-10.4) fL Immature Gran % (Auto) 0.9 % Neut % (Auto) 65.1 % Lymph % (Auto) 18.8 % Sutter % (Auto) 13.3 % Eos % (Auto) 1.6 % Baso % (Auto) 0.3 % Neut # (Auto) 4.17 (1.4-6.5) K/uL Lymph # (Auto) 1.20 (1.2-3.4) K/uL Sutter # (Auto) 0.85 H (0.11-0.59) K/uL Eos # (Auto) 0.10 (0-0.5) K/uL Baso # (Auto) 0.02 (0-0.2) K/uL Immature Gran # (Auto) 0.06 H (0.00-0.02) K/uL POC Sodium (135-144) mmol/L Sodium 143 (136-145) mmol/L POC Potassium (3.3-5.0) mmol/L Potassium 4.2 (3.5-5.1) mmol/L POC Chloride (101-112) mmol/L Chloride 112 H (98-107) mmol/L Carbon Dioxide 28 (21-32) mmol/L POC Total CO2 (24-31) mmol/L Anion Gap 3.0 (3-11) POC Anion Gap (16-25) mmol/L POC BUN (7-18) mg/dl BUN 12 (7-18) mg/dl Creatinine 0.80 (0.6-1.2) mg/dl POC Creatinine (0.6-1.3) mg/dl Est Cr Clr Drug Dosing 42.8 ml/min Est GFR ( Amer) 79.6 Est GFR (Non-Af Amer) 68.7 BUN/Creatinine Ratio 15.3 (10-20) Glucose 87 (70-99) mg/dl POC Glucose (other) (70-99) mg/dl Calcium 8.1 L (8.5-10.1) mg/dl POC Ioniz Calcium Gricel (1.12-1.32) mmol/l Total Bilirubin 0.7 (0.2-1) mg/dl AST 8 L (15-37) U/L ALT 10 L (12-78) U/L Alkaline Phosphatase 98 (45-117) U/L Total Protein 5.1 L (6.4-8.2) gm/dl Albumin 2.4 L (3.4-5.0) gm/dl Globulin 2.7 (2.5-4.0) gm/dl Albumin/Globulin Ratio 0.9 (0.9-2) Urine Color Yellow Urine Appearance Clear (Clear) Urine pH 7.5 (4.5-7.5) Ur Specific Julian 1.014 (1.000-1.030) Urine Protein Negative (Negative) Urine Glucose (UA) Negative (Negative) Urine Ketones Negative (Negative) Urine Blood Trace H (Negative) Urine Nitrite Negative (Negative) Urine Bilirubin Negative (Negative) Urine Urobilinogen Negative (Negative) Ur Leukocyte Esterase Negative (Negative) Urine WBC (Auto) 1-5 (0-5) /hpf Urine RBC (Auto) 0-4 (0-4) /hpf U Hyaline Cast (Auto) 1-5 (0-5) /lpf U Epithel Cells (Auto) 20-30 H (0-5) /lpf Urine Bacteria (Auto) Negative (Negative) Blood Type Antibody Screen Antibody Identification Antibody ID Comment Crossmatch 01/01/20 01/01/20 Range/Units 21:09 09:47 WBC (4.8-10.8) K/uL RBC (4.2-5.4) M/uL Hgb 9.6 L (12.0-16.0) g/dL POC Hgb (12.0-16.0) g/dl Hct 29.2 L (37-47) % POC Hct (37-47) % MCV (80-100) fL MCH (25-34) pg MCHC (32-36) g/dL RDW Std Deviation (36.4-46.3) fL RDW Coeff of Jerrell (11.5-14.5) % Plt Count (130-400) K/uL MPV (7.4-10.4) fL Immature Gran % (Auto) % Neut % (Auto) % Lymph % (Auto) % Sutter % (Auto) % Eos % (Auto) % Baso % (Auto) % Neut # (Auto) (1.4-6.5) K/uL Lymph # (Auto) (1.2-3.4) K/uL Sutter # (Auto) (0.11-0.59) K/uL Eos # (Auto) (0-0.5) K/uL Baso # (Auto) (0-0.2) K/uL Immature Gran # (Auto) (0.00-0.02) K/uL POC Sodium (135-144) mmol/L Sodium (136-145) mmol/L POC Potassium (3.3-5.0) mmol/L Potassium (3.5-5.1) mmol/L POC Chloride (101-112) mmol/L Chloride (98-107) mmol/L Carbon Dioxide (21-32) mmol/L POC Total CO2 (24-31) mmol/L Anion Gap (3-11) POC Anion Gap (16-25) mmol/L POC BUN (7-18) mg/dl BUN (7-18) mg/dl Creatinine (0.6-1.2) mg/dl POC Creatinine (0.6-1.3) mg/dl Est Cr Clr Drug Dosing ml/min Est GFR ( Amer) Est GFR (Non-Af Amer) BUN/Creatinine Ratio (10-20) Glucose (70-99) mg/dl POC Glucose (other) (70-99) mg/dl Calcium (8.5-10.1) mg/dl POC Ioniz Calcium Gricel (1.12-1.32) mmol/l Total Bilirubin (0.2-1) mg/dl AST (15-37) U/L ALT (12-78) U/L Alkaline Phosphatase (45-117) U/L Total Protein (6.4-8.2) gm/dl Albumin (3.4-5.0) gm/dl Globulin (2.5-4.0) gm/dl Albumin/Globulin Ratio (0.9-2) Urine Color Urine Appearance (Clear) Urine pH (4.5-7.5) Ur Specific Julian (1.000-1.030) Urine Protein (Negative) Urine Glucose (UA) (Negative) Urine Ketones (Negative) Urine Blood (Negative) Urine Nitrite (Negative) Urine Bilirubin (Negative) Urine Urobilinogen (Negative) Ur Leukocyte Esterase (Negative) Urine WBC (Auto) (0-5) /hpf Urine RBC (Auto) (0-4) /hpf U Hyaline Cast (Auto) (0-5) /lpf U Epithel Cells (Auto) (0-5) /lpf Urine Bacteria (Auto) (Negative) Blood Type B Positive Antibody Screen POSITIVE A Antibody Identification Anti-E Antibody ID Comment Crossmatch See Detail (1) Dislocation of internal right hip prosthesis Encounter type: initial encounter Qualified Code(s): T84.020A - Dislocation of internal right hip prosthesis, initial encounter
[2020-01-02] MEDS: CEFAZOLIN 1000MG 1,000 MG/7.5 ML SYR IV SCH (17:38)
[2020-01-02] MEDS: OXYCODONE/ACETAMINOPHEN 5mg/325mg TAB PO PRN (18:56)
[2020-01-02] MEDS: SIMVASTATIN 10 MG TAB PO SCH (21:05)
[2020-01-02] MEDS: MONTELUKAST SODIUM 10 MG TABLET PO SCH (21:05)
--- NOTE | 2020-01-02 21:08 | Progress Notes ---
DATE: 01/02/2020 Postop excisional arthroplasty, right hip. The patient is sitting up in bed, not having much discomfort. Did take 1 oral narcotic pill. She is doing her breathing treatment for her asthma. She has no chest pain, shortness of breath, fever, chills, nausea, vomiting or headache. She denies any marked numbness or tingling in the legs. Physical assessment reveals abdomen soft, nontender. No sign of any intrapelvic bleeding. Neurovascular check of femoral sciatic nerve distally is normal. Pulses intact. Good active extension and flexion. Gross sensation is normal. Wound dressing is clean, dry and intact. Thigh is soft. The vacuumized drain is with mild output. ASSESSMENT: Overall, doing reasonably well. Hep-Lock IV if eats more. Repeat laboratory work per internal medicine hospitalist coverage. At this point in time, continue bed rest overnight. Start her Xarelto tomorrow. Hematocrits have been stable.
--- NOTE | 2020-01-02 22:25 | Hospitalist Progress Note ---
Date of Service January 02, 2020 Assessment & Plan (1) Failure of right total hip arthroplasty with dislocation of hip: Given the emergent situation of needing this procedure for hemostatic pressure to stop bleeding, under sedation only, although risk of increased bleeding during the procedure this would be a surgical consideration not a medical one. I do not feel any further medical optimization is needed in order to proceed with closed reduction of her right hip under sedation. She is currently hemodynamically stable and last dose Xarelto > 24 hours, renal function = CKD stage 3 therefore likely at upper end of usual elimination: half life (5-9 hours), complete elimination (25-45 hours). Non-life threatening at the current time therefore do not feel Kcentra is warranted. Consider tranexamic acid if ongoing bleeding not stopped with hemostatic measures with reduction. Stop Xarelto last dose yesterday morning. Stop Aspirin last dose yesterday morning. Plt 387. No platelet transfusion warranted. Stop Celebrex Stop prednisone taper Last ate and drank yesterday. 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 Will repeat PRBC later today. (2) Dislocation of internal right hip prosthesis: (3) Postoperative wound hematoma: Closed reduction as above. (4) Symptomatic anemia: improved after transfusion with 3 units packed RBCs. (5) Acute blood loss anemia: (6) SOB (shortness of breath): Secondary to anemia as above. Will reassess after blood transfusions and hip reduction. (7) Asthma: Continue budesonide nebs BID, albuterol PRN (8) Hypertension: Hold all anti-hypertensives until hemodynamic stability is known post hip relocation. Last dose carvedilol yesterday morning (did not take any pills last night) Last dose amlodipine 12/29 (9) Hypothyroidism (acquired): TSH WNL Continue levothyroxine (10) Hyperlipidemia: Continue simvastatin (11) Bladder spasm: Continue solifenacin (start next dose tomorrow) (12) History of pulmonary embolism: No hypoxia. Tachycardia. Chest pain. 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 Certainly Xarelto needs discontinued currently. Will defer restarting to orthopedics. Early mobilization will be de la o to preventing this again. (13) Lactic acidosis: repeat to 2.5. patient appears hemodynmically stable and with no complaints. Admission and Anticipated Discharge Date Admission Date: January 01, 2020 Subjective Patient is resting in bed, has no new complaints. Updated family at bedside Review of Systems Review of Systems: All systems reviewed & are unremarkable except as noted in HPI & below Physical Exam Physical Exam: Constitutional: well developed and + obese; + not well nourished and no acute distress Eyes: + anicteric sclerae; normal pupil size ENMT: external ear and nose normal, oropharynx normal Neck: trachea midline, no thyromegaly Respiratory: normal respiratory effort, lungs clear to auscultation Cardiovascular: Rate/Rhythm: regular rate and regular rhythm Heart Sounds: no murmur Vessels: no JVD Gastrointestinal (Abdomen): normal bowel sounds, soft, nontender, no hepatosplenomegaly Musculoskeletal: Tender, ecchymotic right hip, b/l cool, cyanotic feet, equal. Neurologic: awake; no focal motor deficits (sensation intact distal to hip dislocation) and not confused Psychiatric: A+Ox3, euthymic affect Results & Data Results & Data ([facility]) Vital Signs (Past 12 Hours) Vital Signs Temp Pulse Pulse Resp BP BP Pulse Ox 01/02/20 21:04 77 132/66 01/02/20 19:55 36.8 C 89 16 137/78 92 01/02/20 19:18 65 18 95 01/02/20 16:00 36.8 C 67 18 125/70 94 01/02/20 15:23 36.4 C L 81 16 105/61 93 01/02/20 15:00 85 01/02/20 14:00 37 C 62 18 103/65 95 01/02/20 13:30 36.5 C 57 L 20 120/64 93 01/02/20 13:12 36.5 C 63 16 127/74 97 01/02/20 12:45 36.6 C 62 18 137/60 99 01/02/20 12:35 56 L 18 127/55 L 99 01/02/20 12:25 56 L 18 89/63 L 95 01/02/20 12:15 61 18 144/63 H 96 01/02/20 12:09 36.6 C 69 18 134/63 97 PG Care Time/CCT Total # of Minutes Spent Total Time Spent with Patient: Total time spent is greater than 50% in coordination of care (as documented) at patient's floor/unit and/or counseling patient: Coding Level of Care Code 45923 Subseq Hosp Care Lvl 3 Diagnoses Failure of right total hip arthroplasty with dislocation of hip T84.020A Encounter type: initial encounter Dislocation of internal right hip prosthesis T84.020A Encounter type: initial encounter Postoperative wound hematoma Symptomatic anemia D64.9 Acute blood loss anemia D62 SOB (shortness of breath) R06.02 Asthma J45.909 Hypertension I10 Hypothyroidism (acquired) E03.9 Hyperlipidemia E78.5 Bladder spasm N32.89 History of pulmonary embolism Z86.711 Lactic acidosis E87.2 (1) Dislocation of internal right hip prosthesis Encounter type: initial encounter Qualified Code(s): T84.020A - Dislocation of internal right hip prosthesis, initial encounter (2) Failure of right total hip arthroplasty with dislocation of hip Encounter type: initial encounter Qualified Code(s): T84.020A - Dislocation of internal right hip prosthesis, initial encounter
[2020-01-03] MEDS: CEFAZOLIN 1000MG 1,000 MG/7.5 ML SYR IV SCH ×4 (00:53→18:30)
[2020-01-03] MEDS: LEVOTHYROXINE SODIUM 50 MCG TABLET PO SCH (05:30)
[2020-01-03] MEDS: ACETAMINOPHEN 500 MG TAB PO SCH ×3 (05:30→21:10)
[2020-01-03 06:29] LABS: Basophils # (auto) 0.01 K/uL (0-0.2); Basophils % (auto) 0.1 %; Eosinophils # (auto) 0.05 K/uL (0-0.5); Eosinophils % (auto) 0.6 %; Hematocrit (blood only) 25.6 % (37-47); Hemoglobin 8.2 g/dL (12.0-16.0); Immature Granulocytes # (auto) 0.05 K/uL (0.00-0.02); Immature Granulocytes % (auto) 0.6 %; Lymphocytes # (auto) 0.84 K/uL (1.2-3.4); Lymphocytes % (auto) 9.8 %; Mean Corpuscular Hemoglobin 27.7 pg (25-34); Mean Corpuscular Volume 86.5 fL (80-100); Mean Platelet Volume 9.4 fL (7.4-10.4); Monocytes # (auto) 1.04 K/uL (0.11-0.59); Monocytes % (auto) 12.1 %; Neutrophils # (auto) 6.57 K/uL (1.4-6.5); Neutrophils % (auto) 76.8 %; Platelet Count 201 K/uL (130-400); RDW Coefficient of Variation 15.5 % (11.5-14.5); RDW Standard Deviation 48.4 fL (36.4-46.3); Red Blood Count 2.96 M/uL (4.2-5.4); White Blood Count 8.56 K/uL (4.8-10.8)
[2020-01-03] MEDS: ALBUTEROL 0.083% NEBU SOLN 3 ML VIAL INH SCH ×2 (06:52→19:37)
[2020-01-03] MEDS: BUDESONIDE 0.25 MG/2 ML VIAL (PULMICORT) INH SCH ×2 (06:53→19:37)
[2020-01-03 07:03] LABS: BUN Creatinine Ratio 20.5 (10-20); Calcium 7.9 mg/dl (8.5-10.1); Creatinine Clr Calc Pharmacy 40.2 ml/min; Est GFR (Non-African American) 63.8
[2020-01-03] MEDS ORDERED: SODIUM CHLORIDE 0.9% 250 ML IV PRN (07:21)
--- NOTE | 2020-01-03 08:28 | Progress Notes ---
DATE: 01/03/2020 SUBJECTIVE: Postop check status post excisional arthroplasty/Girdlestone procedure, right hip, based on bone insufficiency fracture and instability of acetabulum with intrapelvic penetration. At this point in time, the patient is doing well overnight. She denies any significant issues with abdominal pain. She is able to eat, drink, and void. She notes no numbness or tingling in her feet. She denies chest pain, shortness of breath, fever, chills, nausea, vomiting, or headache. Main complaint was inability to sleep based on the SCDs. PHYSICAL EXAMINATION: Reveals intact, neurovascular check, femoral sciatic nerve bilaterally. No pain with axial loading of the right leg. Calves nontender. Abdomen soft, nontender. A.m. labs are pending. Last hematocrit last night was excellent. Wound dressing clean, dry and intact. ASSESSMENT AND PLAN: Overall doing reasonably well. At this point in time, we will leave the present dressing in place, leave drains in place. We will not place Prevena or pull drains until tomorrow. Needs to have case management assess, needs to have PT, OT. We will likely prepare for discharge for tomorrow.
--- NOTE | 2020-01-03 08:32 | Orthopedic Progress Note ---
Date of Service January 03, 2020 Assessment & Plan (1) Dislocation of internal right hip prosthesis: POD 1- explantation of hip prosthesis with Dr. Womack 1 unit PRBC's transfusing now. Resume Xarelto today. May be out of bed to chair, toe touch weight bearing with assistance of a walker Ice to right hip PRN pain/swelling. No hip precautions necessary. ROM as tolerated for transfers only. PT/OT as ordered Case management for discharge needs. Will discuss findings with Dr. Womack. Will leave dressings and Hemovacs in place today. Admission and Anticipated Discharge Date Admission Date: January 01, 2020 Subjective Doing well, awake and alert, sitting up eating breakfast. blood infusing. Appetite better today. Denies chest pain, shortness of breath, nausea or vomiting. Physical Exam Physical Exam: Right hip dressings clean, dry, intact. Hemovac functioning. Right leg shortened as expected. Dorsalis pedis 1+, no distal edema. Distal sensation normal. Moves toes and ankle well. Results & Data ([facility]) Vital Signs (Past 12 Hours) Vital Signs Temp Pulse Pulse Resp BP BP Pulse Ox 01/03/20 08:10 36.9 C 70 16 107/61 94 01/03/20 07:52 36.8 C 69 15 103/46 L 93 01/03/20 07:12 61 01/03/20 06:54 60 16 97 01/03/20 04:28 36.6 C 78 20 112/63 96 01/03/20 02:39 79 01/03/20 00:20 37.0 C 81 20 127/54 L 95 01/02/20 21:04 77 132/66 Laboratory Results 01/03/20 01/03/20 01/02/20 Range/Units 05:38 05:38 16:31 WBC 8.56 (4.8-10.8) K/uL RBC 2.96 L (4.2-5.4) M/uL Hgb 8.2 L 10.5 L (12.0-16.0) g/dL POC Hgb (12.0-16.0) g/dl Hct 25.6 L 32.2 L (37-47) % POC Hct (37-47) % MCV 86.5 (80-100) fL MCH 27.7 (25-34) pg MCHC 32.0 (32-36) g/dL RDW Std Deviation 48.4 H (36.4-46.3) fL RDW Coeff of Jerrell 15.5 H (11.5-14.5) % Plt Count 201 (130-400) K/uL MPV 9.4 (7.4-10.4) fL Immature Gran % (Auto) 0.6 % Neut % (Auto) 76.8 % Lymph % (Auto) 9.8 % Madison % (Auto) 12.1 % Eos % (Auto) 0.6 % Baso % (Auto) 0.1 % Neut # (Auto) 6.57 H (1.4-6.5) K/uL Lymph # (Auto) 0.84 L (1.2-3.4) K/uL Madison # (Auto) 1.04 H (0.11-0.59) K/uL Eos # (Auto) 0.05 (0-0.5) K/uL Baso # (Auto) 0.01 (0-0.2) K/uL Immature Gran # (Auto) 0.05 H (0.00-0.02) K/uL POC Sodium (135-144) mmol/L Sodium 139 (136-145) mmol/L POC Potassium (3.3-5.0) mmol/L Potassium 4.0 (3.5-5.1) mmol/L POC Chloride (101-112) mmol/L Chloride 111 H (98-107) mmol/L Carbon Dioxide 23 (21-32) mmol/L POC Total CO2 (24-31) mmol/L Anion Gap 5.0 (3-11) POC Anion Gap (16-25) mmol/L POC BUN (7-18) mg/dl BUN 17 (7-18) mg/dl Creatinine 0.85 (0.6-1.2) mg/dl POC Creatinine (0.6-1.3) mg/dl Est Cr Clr Drug Dosing 40.2 ml/min Est GFR ( Amer) 74.0 Est GFR (Non-Af Amer) 63.8 BUN/Creatinine Ratio 20.5 H (10-20) Glucose 89 (70-99) mg/dl POC Glucose (other) (70-99) mg/dl Calcium 7.9 L (8.5-10.1) mg/dl POC Ioniz Calcium Gricel (1.12-1.32) mmol/l Blood Type Antibody Screen Antibody Identification Antibody ID Comment Crossmatch 01/02/20 01/02/20 01/01/20 Range/Units 11:29 10:49 09:47 WBC (4.8-10.8) K/uL RBC (4.2-5.4) M/uL Hgb (12.0-16.0) g/dL POC Hgb 8.8 L 7.1 L (12.0-16.0) g/dl Hct (37-47) % POC Hct 26 L 21 L (37-47) % MCV (80-100) fL MCH (25-34) pg MCHC (32-36) g/dL RDW Std Deviation (36.4-46.3) fL RDW Coeff of Jerrell (11.5-14.5) % Plt Count (130-400) K/uL MPV (7.4-10.4) fL Immature Gran % (Auto) % Neut % (Auto) % Lymph % (Auto) % Madison % (Auto) % Eos % (Auto) % Baso % (Auto) % Neut # (Auto) (1.4-6.5) K/uL Lymph # (Auto) (1.2-3.4) K/uL Madison # (Auto) (0.11-0.59) K/uL Eos # (Auto) (0-0.5) K/uL Baso # (Auto) (0-0.2) K/uL Immature Gran # (Auto) (0.00-0.02) K/uL POC Sodium 138 138 (135-144) mmol/L Sodium (136-145) mmol/L POC Potassium 3.6 3.8 (3.3-5.0) mmol/L Potassium (3.5-5.1) mmol/L POC Chloride 108 107 (101-112) mmol/L Chloride (98-107) mmol/L Carbon Dioxide (21-32) mmol/L POC Total CO2 23 L 24 (24-31) mmol/L Anion Gap (3-11) POC Anion Gap 11.0 L 12.0 L (16-25) mmol/L POC BUN 10 11 (7-18) mg/dl BUN (7-18) mg/dl Creatinine (0.6-1.2) mg/dl POC Creatinine 0.5 L 0.7 (0.6-1.3) mg/dl Est Cr Clr Drug Dosing ml/min Est GFR ( Amer) Est GFR (Non-Af Amer) BUN/Creatinine Ratio (10-20) Glucose (70-99) mg/dl POC Glucose (other) 108 H 90 (70-99) mg/dl Calcium (8.5-10.1) mg/dl POC Ioniz Calcium Gricel 1.20 1.22 (1.12-1.32) mmol/l Blood Type B Positive Antibody Screen POSITIVE A Antibody Identification Anti-E Antibody ID Comment Crossmatch See Detail Hemovac drainage: 500mL (1) Dislocation of internal right hip prosthesis Encounter type: initial encounter Qualified Code(s): T84.020A - Dislocation of internal right hip prosthesis, initial encounter
[2020-01-03] MEDS: RIVAROXABAN 20 MG TAB PO SCH (08:34)
[2020-01-03] MEDS: CHOLECALCIFEROL 1,000 UNITS 25 MCG TAB PO SCH ×2 (08:34→21:10)
[2020-01-03] MEDS: CYANOCOBALAMIN 500 MCG TABLET (VITAMIN B-12) PO SCH (08:35)
[2020-01-03] MEDS: ASCORBIC ACID 500 MG TAB PO SCH (08:35)
[2020-01-03] MEDS: carvediloL 6.25 MG TAB PO SCH ×2 (08:35→21:10)
[2020-01-03] MEDS: LORATADINE 10 MG TAB PO SCH (08:35)
[2020-01-03] MEDS: SERTRALINE HCL 50 MG TABLET PO SCH (08:35)
[2020-01-03] MEDS: SOLIFENACIN SUCCINATE 5 MG PO SCH (08:36)
[2020-01-03] MEDS: diazePAM 5 MG TABLET PO SCH ×2 (08:37→21:09)
[2020-01-03] MEDS: PANTOprazole 40 MG TAB PO SCH ×2 (11:31→21:10)
[2020-01-03 14:33] LABS: Hematocrit (blood only) 34.1 % (37-47); Hemoglobin 11.2 g/dL (12.0-16.0)
[2020-01-03] MEDS: OXYCODONE/ACETAMINOPHEN 5mg/325mg TAB PO PRN (14:34)
[2020-01-03] MEDS: MAGNESIUM OXIDE 400 MG TAB PO SCH (21:10)
[2020-01-03] MEDS: MONTELUKAST SODIUM 10 MG TABLET PO SCH (21:10)
[2020-01-03] MEDS: SIMVASTATIN 10 MG TAB PO SCH (21:10)
--- NOTE | 2020-01-03 22:54 | Hospitalist Progress Note ---
Date of Service January 03, 2020 Assessment & Plan (1) Failure of right total hip arthroplasty with dislocation of hip: Given the emergent situation of needing this procedure for hemostatic pressure to stop bleeding, under sedation only, although risk of increased bleeding during the procedure this would be a surgical consideration not a medical one. I do not feel any further medical optimization is needed in order to proceed with closed reduction of her right hip under sedation. She is currently hemodynamically stable and last dose Xarelto > 24 hours, renal function = CKD stage 3 therefore likely at upper end of usual elimination: half life (5-9 hours), complete elimination (25-45 hours). Non-life threatening at the current time therefore do not feel Kcentra is warranted. Consider tranexamic acid if ongoing bleeding not stopped with hemostatic measures with reduction. Restarted xarelto. Stop Aspirin last dose yesterday morning. Plt 387. No platelet transfusion warranted. 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 Hemglobin has been stable. (2) Dislocation of internal right hip prosthesis: (3) Postoperative wound hematoma: Closed reduction as above. (4) Symptomatic anemia: improved after transfusion with 3 units packed RBCs. (5) Acute blood loss anemia: (6) SOB (shortness of breath): Secondary to anemia as above. Will reassess after blood transfusions and hip reduction. (7) Asthma: Continue budesonide nebs BID, albuterol PRN (8) Hypertension: Hold all anti-hypertensives until hemodynamic stability is known post hip relocation. Last dose carvedilol yesterday morning (did not take any pills last night) Last dose amlodipine 12/29 (9) Hypothyroidism (acquired): TSH WNL Continue levothyroxine (10) Hyperlipidemia: Continue simvastatin (11) Bladder spasm: Continue solifenacin (start next dose tomorrow) (12) History of pulmonary embolism: No hypoxia. Tachycardia. Chest pain. 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 Certainly Xarelto needs discontinued currently. Will defer restarting to orthopedics. Early mobilization will be de la o to preventing this again. (13) Lactic acidosis: repeat to 2.5. patient appears hemodynmically stable and with no complaints. Admission and Anticipated Discharge Date Admission Date: January 01, 2020 Subjective 74 yo female reports no new symptoms today. Appears to have less bleeding now. Review of Systems Review of Systems: All systems reviewed & are unremarkable except as noted in HPI & below Physical Exam Physical Exam: Constitutional: well developed and + obese; + not well nourished and no acute distress Eyes: + anicteric sclerae; normal pupil size ENMT: external ear and nose normal, oropharynx normal Neck: trachea midline, no thyromegaly Respiratory: normal respiratory effort, lungs clear to auscultation Cardiovascular: Rate/Rhythm: regular rate and regular rhythm Heart Sounds: no murmur Vessels: no JVD Gastrointestinal (Abdomen): normal bowel sounds, soft, nontender, no hepatosplenomegaly Musculoskeletal: Tender, ecchymotic right hip, b/l cool, cyanotic feet, equal. Neurologic: awake; no focal motor deficits (sensation intact distal to hip dislocation) and not confused Psychiatric: A+Ox3, euthymic affect Results & Data Results & Data ([facility]) Vital Signs (Past 12 Hours) Vital Signs Temp Pulse Pulse Pulse Resp BP Pulse Ox 01/03/20 19:47 37.9 C H 74 21 117/60 92 01/03/20 19:37 74 16 94 01/03/20 16:00 36.4 C L 84 18 124/62 91 01/03/20 15:00 82 01/03/20 10:58 36.9 C 71 20 126/63 94 PG Care Time/CCT Total # of Minutes Spent Total Time Spent with Patient: Total time spent is greater than 50% in coordination of care (as documented) at patient's floor/unit and/or counseling patient: Coding Level of Care Code 52554 Subseq Hosp Care Lvl 3 Diagnoses Failure of right total hip arthroplasty with dislocation of hip T84.020A Encounter type: initial encounter Dislocation of internal right hip prosthesis T84.020A Encounter type: initial encounter Postoperative wound hematoma Symptomatic anemia D64.9 Acute blood loss anemia D62 SOB (shortness of breath) R06.02 Asthma J45.909 Hypertension I10 Hypothyroidism (acquired) E03.9 Hyperlipidemia E78.5 Bladder spasm N32.89 History of pulmonary embolism Z86.711 Lactic acidosis E87.2 Time Spent (min) 35 (1) Dislocation of internal right hip prosthesis Encounter type: initial encounter Qualified Code(s): T84.020A - Dislocation of internal right hip prosthesis, initial encounter (2) Failure of right total hip arthroplasty with dislocation of hip Encounter type: initial encounter Qualified Code(s): T84.020A - Dislocation of internal right hip prosthesis, initial encounter
[2020-01-04] MEDS: CEFAZOLIN 1000MG 1,000 MG/7.5 ML SYR IV SCH ×2 (02:29→10:25)
[2020-01-04] MEDS: ACETAMINOPHEN 500 MG TAB PO SCH ×3 (05:47→21:23)
[2020-01-04] MEDS: LEVOTHYROXINE SODIUM 50 MCG TABLET PO SCH (05:47)
--- NOTE | 2020-01-04 06:54 | Progress Notes ---
DATE: 01/04/2020 SUBJECTIVE: Day #2 status post [place]/excisional arthroplasty of the right hip. At this point in time, the patient is complaining of some pain. Just got some Tylenol. She states she slept pretty well last night. She denies any chest pain, shortness of breath, fever, chills, nausea, vomiting or headache. PHYSICAL EXAMINATION: Today reveals femoral nerve and sciatic nerve to be functioning. Gentle range of motion produces some discomfort. Dressing clean and dry. Drained less than 100. It was pulled this morning. Vital signs are stable. She is afebrile. Pulse is listed at 98, but the monitor has a rate of 68. Abdomen is soft, nontender. Calves are soft and nontender. Laboratory work ordered, H and H. ASSESSMENT AND PLAN: Overall, doing reasonably well. Needs to be more mobile and more safe with transfers prior to discharge. At this point, we will see how she does today. She can be weightbearing as tolerated on the right lower extremity with a walker. Will remove dressing later today and place Prevena on. Discharge is pending her safe mobility.
[2020-01-04 07:27] LABS: Hematocrit (blood only) 31.4 % (37-47); Hemoglobin 10.4 g/dL (12.0-16.0)
[2020-01-04] MEDS: ALBUTEROL 0.083% NEBU SOLN 3 ML VIAL INH SCH ×2 (07:31→19:22)
[2020-01-04] MEDS: BUDESONIDE 0.25 MG/2 ML VIAL (PULMICORT) INH SCH ×2 (07:31→19:21)
[2020-01-04] MEDS: carvediloL 6.25 MG TAB PO SCH ×2 (08:59→21:23)
[2020-01-04] MEDS: CYANOCOBALAMIN 500 MCG TABLET (VITAMIN B-12) PO SCH (08:59)
[2020-01-04] MEDS: LORATADINE 10 MG TAB PO SCH (09:00)
[2020-01-04] MEDS: SERTRALINE HCL 50 MG TABLET PO SCH (09:00)
[2020-01-04] MEDS: ASCORBIC ACID 500 MG TAB PO SCH (09:00)
[2020-01-04] MEDS: SOLIFENACIN SUCCINATE 5 MG PO SCH (09:00)
[2020-01-04] MEDS: CHOLECALCIFEROL 1,000 UNITS 25 MCG TAB PO SCH ×2 (09:00→21:23)
[2020-01-04] MEDS: PANTOprazole 40 MG TAB PO SCH ×2 (09:01→21:23)
[2020-01-04] MEDS: diazePAM 5 MG TABLET PO SCH ×2 (09:01→21:23)
[2020-01-04] MEDS: RIVAROXABAN 20 MG TAB PO SCH (09:02)
[2020-01-04] MEDS: OXYCODONE/ACETAMINOPHEN 5mg/325mg TAB PO PRN ×2 (09:06→16:37)
--- NOTE | 2020-01-04 16:09 | Electrocardiogram Report ---
Test Reason : Blood Pressure : / mmHG Vent. Rate : 089 BPM Atrial Rate : 089 BPM P-R Int : 162 ms QRS Dur : 078 ms QT Int : 404 ms P-R-T Axes : 047 054 022 degrees QTc Int : 491 ms Sinus rhythm with Premature atrial complexes Prolonged QT Abnormal ECG When compared with ECG of 01-JAN-2020 10:23, (unconfirmed) No significant change was found Confirmed by Wolfgang Craven ([id number]) on 01/04/2020 4:08:45 PM Referred By: REFERRED SELF Confirmed By:Wolfgang Craven
[2020-01-04] MEDS ORDERED: ENSURE PO SCH (21:00)
[2020-01-04] MEDS: MONTELUKAST SODIUM 10 MG TABLET PO SCH (21:23)
[2020-01-04] MEDS: SIMVASTATIN 10 MG TAB PO SCH (21:23)
--- NOTE | 2020-01-04 22:40 | Hospitalist Progress Note ---
Date of Service January 04, 2020 Assessment & Plan (1) Failure of right total hip arthroplasty with dislocation of hip: Given the emergent situation of needing this procedure for hemostatic pressure to stop bleeding, under sedation only, although risk of increased bleeding during the procedure this would be a surgical consideration not a medical one. I do not feel any further medical optimization is needed in order to proceed with closed reduction of her right hip under sedation. She is currently hemodynamically stable and last dose Xarelto > 24 hours, renal function = CKD stage 3 therefore likely at upper end of usual elimination: half life (5-9 hours), complete elimination (25-45 hours). Non-life threatening at the current time therefore do not feel Kcentra is warranted. Consider tranexamic acid if ongoing bleeding not stopped with hemostatic measures with reduction. Restarted xarelto. Stop Aspirin last dose yesterday morning. Plt 387. No platelet transfusion warranted. 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 Hemoglobin has been stable for past 24 hours, will continue to monitor. In regards to her weakness, patient cannot safely be discharged today. will keep her at least another day. (2) Dislocation of internal right hip prosthesis: (3) Postoperative wound hematoma: Closed reduction as above. (4) Symptomatic anemia: improved after transfusion with 3 units packed RBCs. (5) Acute blood loss anemia: (6) SOB (shortness of breath): Secondary to anemia as above. Will reassess after blood transfusions and hip reduction. (7) Asthma: Continue budesonide nebs BID, albuterol PRN (8) Hypertension: Hold all anti-hypertensives until hemodynamic stability is known post hip relocation. Last dose carvedilol yesterday morning (did not take any pills last night) Last dose amlodipine 12/29 (9) Hypothyroidism (acquired): TSH WNL Continue levothyroxine (10) Hyperlipidemia: Continue simvastatin (11) Bladder spasm: Continue solifenacin (start next dose tomorrow) (12) History of pulmonary embolism: No hypoxia. Tachycardia. Chest pain. 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 Certainly Xarelto needs discontinued currently. Will defer restarting to orthopedics. Early mobilization will be de la o to preventing this again. (13) Lactic acidosis: repeat to 2.5. patient appears hemodynmically stable and with no complaints. Admission and Anticipated Discharge Date Admission Date: January 01, 2020 Subjective 84 yo basia reports feeling weak today. She has no new symptoms. Her pain is relatively controlled with a level of 3-4 out of 10, however, she would like it to be lower. Review of Systems Review of Systems: All systems reviewed & are unremarkable except as noted in HPI & below Physical Exam Physical Exam: Constitutional: well developed and + obese; + not well nourished and no acute distress Eyes: + anicteric sclerae; normal pupil size ENMT: external ear and nose normal, oropharynx normal Neck: trachea midline, no thyromegaly Respiratory: normal respiratory effort, lungs clear to auscultation Cardiovascular: Rate/Rhythm: regular rate and regular rhythm Heart Sounds: no murmur Vessels: no JVD Gastrointestinal (Abdomen): normal bowel sounds, soft, nontender, no hepatosplenomegaly Musculoskeletal: Tender, ecchymotic right hip, b/l cool, cyanotic feet, equal. Neurologic: awake; no focal motor deficits (sensation intact distal to hip dislocation) and not confused Psychiatric: A+Ox3, euthymic affect Results & Data Results & Data ([facility]) Vital Signs (Past 12 Hours) Vital Signs Temp Pulse Pulse Resp BP Pulse Ox 01/04/20 19:48 37.3 C 76 19 134/72 94 01/04/20 19:24 75 18 93 01/04/20 15:53 36.9 C 79 20 133/69 94 01/04/20 15:00 78 01/04/20 11:00 37.1 C 79 18 151/72 H 97 PG Care Time/CCT Total # of Minutes Spent Total Time Spent with Patient: Total time spent is greater than 50% in coordination of care (as documented) at patient's floor/unit and/or counseling patient: Coding Level of Care Code 86854 Subseq Hosp Care Lvl 2 Diagnoses Failure of right total hip arthroplasty with dislocation of hip T84.020A Encounter type: initial encounter Dislocation of internal right hip prosthesis T84.020A Encounter type: initial encounter Postoperative wound hematoma Symptomatic anemia D64.9 Acute blood loss anemia D62 SOB (shortness of breath) R06.02 Asthma J45.909 Hypertension I10 Hypothyroidism (acquired) E03.9 Hyperlipidemia E78.5 Bladder spasm N32.89 History of pulmonary embolism Z86.711 Lactic acidosis E87.2 Time Spent (min) 25 (1) Dislocation of internal right hip prosthesis Encounter type: initial encounter Qualified Code(s): T84.020A - Dislocation of internal right hip prosthesis, initial encounter (2) Failure of right total hip arthroplasty with dislocation of hip Encounter type: initial encounter Qualified Code(s): T84.020A - Dislocation of internal right hip prosthesis, initial encounter
[2020-01-05] MEDS: LEVOTHYROXINE SODIUM 50 MCG TABLET PO SCH (06:01)
[2020-01-05] MEDS: ACETAMINOPHEN 500 MG TAB PO SCH ×3 (06:01→21:21)
--- NOTE | 2020-01-05 06:39 | Progress Notes ---
DATE: 01/05/2020 SUBJECTIVE: Postop day #3 status post excisional arthroplasty, right hip. At this point in time, her pain is managed. She denies any chest pain, shortness of breath, fever, chills, nausea, vomiting or headache. OBJECTIVE: Vital signs are stable. She is afebrile. Wound VAC is clean and dry. Neurovascular check, femoral and sciatic nerve is normal. ASSESSMENT: At this point in time, needs occupational and physical therapy progression to allow her to get more stable to go home to be discharged to home. We will see how she does today. If she passes today, we will discharge. If not, we will continue to progress daily.
[2020-01-05] MEDS: BUDESONIDE 0.25 MG/2 ML VIAL (PULMICORT) INH SCH ×2 (07:09→20:00)
[2020-01-05] MEDS: ALBUTEROL 0.083% NEBU SOLN 3 ML VIAL INH SCH ×2 (07:09→20:00)
[2020-01-05] MEDS: ASCORBIC ACID 500 MG TAB PO SCH (08:29)
[2020-01-05] MEDS: PANTOprazole 40 MG TAB PO SCH ×2 (08:29→21:22)
[2020-01-05] MEDS: LORATADINE 10 MG TAB PO SCH (08:30)
[2020-01-05] MEDS: RIVAROXABAN 20 MG TAB PO SCH (08:30)
[2020-01-05] MEDS: SERTRALINE HCL 50 MG TABLET PO SCH (08:30)
[2020-01-05] MEDS: CYANOCOBALAMIN 500 MCG TABLET (VITAMIN B-12) PO SCH (08:30)
[2020-01-05] MEDS: diazePAM 5 MG TABLET PO SCH ×2 (08:31→21:21)
[2020-01-05] MEDS: carvediloL 6.25 MG TAB PO SCH ×2 (08:31→21:21)
[2020-01-05] MEDS: CHOLECALCIFEROL 1,000 UNITS 25 MCG TAB PO SCH ×2 (08:31→21:21)
[2020-01-05] MEDS: SOLIFENACIN SUCCINATE 5 MG PO SCH (08:31)
[2020-01-05] MEDS: OXYCODONE/ACETAMINOPHEN 5mg/325mg TAB PO PRN ×2 (10:21→16:47)
--- NOTE | 2020-01-05 11:59 | Orthopedic Progress Note ---
Date of Service January 05, 2020 Assessment & Plan (1) Fracture of right hip requiring operative repair: Patient's wound VAC is functioning correctly. She continues to have drainage from her puncture site related to the postoperative drain. Due to her delicate skin, we will try a wound care sponge for absorption. This will need to be changed periodically. If it is not adequately controlling her drainage, folded ABD pad will be applied with pressure. This was discussed with nursing as well. Wound VAC will remain in place for 7 days. Follow-up in the office for removal. Anticipate transfer to home or [facility] based on patient desire and insurance coverage. Arrangements will be made by clinical social work therapist. Continue Percocet 1 tablet every 6 hours as needed for pain control. Continue with her walker for transfers. Continue Xarelto for DVT prophylaxis. Admission and Anticipated Discharge Date Admission Date: January 01, 2020 Subjective Patient is seen in room 280 this morning. Her daughter is present. Patient continues to have drainage from her right upper hip. She is using Percocet 1 tablet every 6 hours with reasonable pain control. No new complaints. PT is in the room starting her exercises. No chest pain, shortness of breath, nausea, or vomiting. Review of Systems Review of Systems: Unchanged from yesterday. Physical Exam Physical Exam: General: Well-developed, well-nourished, obese elderly white female, in no acute distress. Occasional discomfort from moving her right lower extremity. Musculoskeletal: Patient has intact motor function to the right knee, ankle, and toes. Limited motion of the right hip secondary to pain. She is able to transfer from bed to chair with her walker and assistance. Skin: Wound VAC remains in place. It is compressed and functioning. She continues to have significant serous drainage on the bed sheets and transfer mat. It is leaking from the hole where the drain was removed. It is fairly steady in production. No signs of infection. Dressing I placed there yesterday is saturated. Neurologic: Gross sensation is intact across both lower extremities by soft touch. Results & Data ([facility]) Vital Signs (Past 12 Hours) Vital Signs Temp Pulse Pulse Resp BP BP Pulse Ox 01/05/20 08:01 36.7 C 76 18 145/63 H 97 01/05/20 07:11 78 18 95 01/05/20 07:06 83 01/05/20 03:00 37.1 C 81 20 124/66 93 01/05/20 01:00 85
[2020-01-05] MEDS: MONTELUKAST SODIUM 10 MG TABLET PO SCH (21:21)
[2020-01-05] MEDS: CEFAZOLIN 1000MG 1,000 MG/7.5 ML SYR IV SCH (21:21)
[2020-01-05] MEDS: MAGNESIUM OXIDE 400 MG TAB PO SCH (21:21)
[2020-01-05] MEDS: SIMVASTATIN 10 MG TAB PO SCH (21:21)
--- NOTE | 2020-01-05 22:23 | Hospitalist Progress Note ---
Date of Service January 05, 2020 Assessment & Plan (1) Failure of right total hip arthroplasty with dislocation of hip: Given the emergent situation of needing this procedure for hemostatic pressure to stop bleeding, under sedation only, although risk of increased bleeding during the procedure this would be a surgical consideration not a medical one. I do not feel any further medical optimization is needed in order to proceed with closed reduction of her right hip under sedation. She is currently hemodynamically stable and last dose Xarelto > 24 hours, renal function = CKD stage 3 therefore likely at upper end of usual elimination: half life (5-9 hours), complete elimination (25-45 hours). Non-life threatening at the current time therefore do not feel Kcentra is warranted. Consider tranexamic acid if ongoing bleeding not stopped with hemostatic measures with reduction. Restarted xarelto. Stop Aspirin last dose yesterday morning. Plt 387. No platelet transfusion warranted. 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 Hemoglobin has been stable but she has been having blood in the wound vac. In regards to her weakness, patient cannot safely be discharged today. Patient wants to go home but continues to require rehab as per PT. No signs of sepsis today. will monitor. (2) Dislocation of internal right hip prosthesis: (3) Postoperative wound hematoma: Closed reduction as above. (4) Symptomatic anemia: improved after transfusion with 3 units packed RBCs. (5) Acute blood loss anemia: (6) SOB (shortness of breath): Secondary to anemia as above. Will reassess after blood transfusions and hip reduction. (7) Asthma: Continue budesonide nebs BID, albuterol PRN (8) Hypertension: Hold all anti-hypertensives until hemodynamic stability is known post hip relocation. Last dose carvedilol yesterday morning (did not take any pills last night) Last dose amlodipine 12/29 (9) Hypothyroidism (acquired): TSH WNL Continue levothyroxine (10) Hyperlipidemia: Continue simvastatin (11) Bladder spasm: Continue solifenacin (start next dose tomorrow) (12) History of pulmonary embolism: No hypoxia. Tachycardia. Chest pain. 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 Certainly Xarelto needs discontinued currently. Will defer restarting to orthopedics. Early mobilization will be de la o to preventing this again. (13) Lactic acidosis: repeat to 2.5. patient appears hemodynmically stable and with no complaints. Admission and Anticipated Discharge Date Admission Date: January 01, 2020 Subjective 84 yo female reports feeling well. She has no new complaints. Review of Systems Review of Systems: All systems reviewed & are unremarkable except as noted in HPI & below Physical Exam Physical Exam: Constitutional: well developed and + obese; + not well nourished and no acute distress Eyes: + anicteric sclerae; normal pupil size ENMT: external ear and nose normal, oropharynx normal Neck: trachea midline, no thyromegaly Respiratory: normal respiratory effort, lungs clear to auscultation Cardiovascular: Rate/Rhythm: regular rate and regular rhythm Heart Sounds: no murmur Vessels: no JVD Gastrointestinal (Abdomen): normal bowel sounds, soft, nontender, no hepatosplenomegaly Musculoskeletal: Tender, ecchymotic right hip, b/l cool, cyanotic feet, equal. Neurologic: awake; no focal motor deficits (sensation intact distal to hip dislocation) and not confused Psychiatric: A+Ox3, euthymic affect Results & Data Results & Data ([facility]) Vital Signs (Past 12 Hours) Vital Signs Temp Pulse Resp BP Pulse Ox 01/05/20 20:30 37.8 C H 70 18 169/81 H 98 01/05/20 16:00 36.3 C L 85 18 162/76 H 93 01/05/20 13:44 36.4 C L 74 18 115/52 L 92 PG Care Time/CCT Total # of Minutes Spent Total Time Spent with Patient: Total time spent is greater than 50% in coordination of care (as documented) at patient's floor/unit and/or counseling patient: Coding Level of Care Code 62396 Subseq Hosp Care Lvl 2 Diagnoses Failure of right total hip arthroplasty with dislocation of hip T84.020A Encounter type: initial encounter Dislocation of internal right hip prosthesis T84.020A Encounter type: initial encounter Postoperative wound hematoma Symptomatic anemia D64.9 Acute blood loss anemia D62 SOB (shortness of breath) R06.02 Asthma J45.909 Hypertension I10 Hypothyroidism (acquired) E03.9 Hyperlipidemia E78.5 Bladder spasm N32.89 History of pulmonary embolism Z86.711 Lactic acidosis E87.2 Time Spent (min) 25 (1) Dislocation of internal right hip prosthesis Encounter type: initial encounter Qualified Code(s): T84.020A - Dislocation of internal right hip prosthesis, initial encounter (2) Failure of right total hip arthroplasty with dislocation of hip Encounter type: initial encounter Qualified Code(s): T84.020A - Dislocation of internal right hip prosthesis, initial encounter
--- NOTE | 2020-01-05 22:32 | Urology Consultation ---
Date of Consultation January 05, 2020 Assessment & Plan (1) Urine leakage from surgical incision: Suspect possible urine drainage from surgical incision will get creatinine Because I suspect this is positive have ordered a CAT scan for the morning when radiology is here and can do whatever studies are necessary to establish a diagnosis Have ordered a urine culture from the Santana a CBC and a PRP Possible that the urine is draining from the bladder in an extraperitoneal fashion which I would expect to decrease substantially overnight with a Santana catheter in place and will monitor the drainage from the drain site and have instructed the nurse to document this. If patient had intraperitoneal drainage would suspect more of an abdominal discomfort Less likely the patient could have a ureteral injury but would need a CAT scan to establish this which is been ordered History of Present Illness Attending Physician: Rashel Sage History of Present Illness 84-year-old female status post total hip replacement with revisions who presented to the emergency room on 12/31 with significant hip pain significant anemia and bleeding from her recent surgery and x-ray that appeared to show that the acetabulum implant had busted through the bone into the pelvis. This was removed the following day urgently without apparent significant bleeding after the patient had been transfused the day before. Because she was having persistent bleeding through a drain site which is subsequently been removed and the drainage appears serous the wound nurse placed a stoma bag over the drain site and yellow fluid suspicious for urine has been draining. Dr. Womack called me this evening to asked me to evaluate this patient for possible bladder or ureteral injury. Patient has multiple medical problems including hypothyroidism hypertension she is on Xarelto for history of PE. She has been afebrile until this evening when her temp was 37 8. A Santana catheter was placed this evening and is draining clear urine. There is 40 cc of yellow clear fluid in the stoma bag that surrounds the old SABI site above her right hip incision. This was drained to 40 cc and will be sent for creatinine. The patient denies any abdominal pain or flank pain. No history of hematuria or urinary issues. The patient is somewhat somnolent or but responsive. Allergies Allergy/AdvReac Type Severity Reaction Status Date / Time adhesive Allergy Unknown BANDAIDS Verified 01/01/20 10:56 AND CLOTH ADHESIVE-BLISTERS No Known Drug Allergies Allergy Unknown Verified 01/01/20 10:56 Home Medications Home Medications Medication Instructions Recorded Confirmed Type albuterol sulfate 90 mcg/actuation 2 puffs INHALATION Q4H PRN gm 02/18/19 01/01/20 History aerosol inhaler coenzyme Q10 10 mg capsule 100 mg PO QAM cap 02/18/19 01/01/20 History diazepam 5 mg tablet 5 mg PO BID tab 02/18/19 01/01/20 History levothyroxine 50 mcg tablet 50 mcg PO QAM tab 02/18/19 01/01/20 History rivaroxaban 20 mg tablet 20 mg PO QAM #1 tab 02/18/19 01/01/20 History simvastatin 10 mg tablet 10 mg PO HS tab 02/18/19 01/01/20 History solifenacin 5 mg tablet 5 mg PO QAM tab 02/18/19 01/01/20 History montelukast 10 mg PO HS 05/04/19 01/01/20 History albuterol sulfate 1.25 mg/3 mL 1.25 mg INH BID ml 11/10/19 01/01/20 History solution for nebulization amlodipine 5 mg tablet 5 mg PO HS 11/10/19 01/01/20 History budesonide 0.25 mg/2 mL suspension 2 ml INH BID 11/10/19 01/01/20 History for nebulization calcium carbonate 200 mg calcium 200 mg PO TID 11/10/19 01/01/20 History (500 mg) chewable tablet cholecalciferol (vitamin D3) 25 25 mcg PO BID 11/10/19 01/01/20 History mcg (1,000 unit) capsule loratadine 10 mg tablet 10 mg PO QAM 11/10/19 01/01/20 History sertraline 50 mg tablet 50 mg PO QAM 11/10/19 01/01/20 History aspirin [Aspir-81] 81 mg PO HS 11/23/19 01/01/20 History cyanocobalamin (vitamin B-12) 1,000 mcg PO QAM 11/23/19 01/01/20 History magnesium oxide 500 mg PO Q2D@2100 11/23/19 01/01/20 History oxycodone-acetaminophen [Percocet] 1 tab PO Q6H PRN #20 tab 12/07/19 01/01/20 Rx ascorbic acid (vitamin C) [Vitamin 500 mg PO QAM 01/01/20 01/01/20 History C] celecoxib 100 mg PO QAM 01/01/20 01/01/20 History cranberry 500 mg PO QAM 01/01/20 01/01/20 History levofloxacin 500 mg PO QAM 01/01/20 01/01/20 History prednisone 20 mg PO QAM 01/01/20 01/01/20 History Patient History Medical History Anxiety Asthma Sees [facility] pulmonology. Using neb BID. Very rare rescue inhaler use Bilateral pulmonary embolism ~ 4 yrs ago, was being treated for empyema Bladder spasm Chronic anticoagulation DVT (deep venous thrombosis) HX-ON XARELTO Essential tremor very slight in hands Hyperlipidemia Hypertension Hypothyroidism (acquired) Left ankle sprain (Inactive) Saddle embolism of pulmonary artery ~ 4 yrs ago Urinary, incontinence, stress female Surgical History History of cholecystectomy History of colonoscopy History of hysterectomy TOTAL History of open reduction and internal fixation (ORIF) procedure RIGHT HIP History of thoracentesis Social History Smoking Status: Never smoker Second Hand Exposure: No; Hx Alcohol Use: No Hx Substance Use: No Preferred Language: Faroese Communication Ability: Effective Unit Control Clerk Required: No Beliefs That Will Affect Care: None marital status: / Current Living Situation: Family Current Living Situation Comment: daughter and grandson live with pt. Other Information That Helps Us Care for You: No Feels Safe at Home: Yes Safety Concerns: Feels Safe At This Time Physical Exam Gastrointestinal (Abdomen): Abdomen is soft and nontender Unable to see the site where the urine is draining secondary to the stoma bag that is over top of it. Musculoskeletal: Significant swelling around the proximal right hip and leg Results & Data Vital Signs (Past 12 Hours) Vital Signs Temp Pulse Resp BP Pulse Ox 01/05/20 20:30 37.8 C H 70 18 169/81 H 98 01/05/20 16:00 36.3 C L 85 18 162/76 H 93 01/05/20 13:44 36.4 C L 74 18 115/52 L 92 Laboratory Results Patient's creatinine has been normal at 0.85 on 01/02 Hematocrit was 10.4 and hemoglobin 30.1 0.4 on the no white blood cell count PG Care Time/CCT Total # of Minutes Spent Total Time Spent: 50 Total Time Spent with Patient: Total time spent is greater than 50% in coordination of care (as documented) at patient's floor/unit and/or counseling patient: Coding Level of Care Code 15117 Initial Inpt Care Lvl 3 Diagnoses Urine leakage from surgical incision N99.89
--- NOTE | 2020-01-05 22:36 | Progress Notes ---
DATE: 01/05/2020 Taking late evening rounds. At this point in time, the patient had a problem with her wound VAC now being full. There is some drainage coming from the proximal drain sites which is clear yellow fluid. Wound of her thigh is without any gross change. ASSESSMENT: Concerned about urine leak with particularly in light of the fact that she had an intrapelvic displacement of her acetabular component with screws. Need to rule out ureter versus bladder injury. Santana placed. Started on Ancef since she is afebrile. We will get Urology consult. Discussed with family and with the patient.
[2020-01-06] MEDS: LEVOTHYROXINE SODIUM 50 MCG TABLET PO SCH (06:22)
[2020-01-06] MEDS: ACETAMINOPHEN 500 MG TAB PO SCH ×3 (06:22→22:08)
[2020-01-06] MEDS: CEFAZOLIN 1000MG 1,000 MG/7.5 ML SYR IV SCH ×3 (06:23→20:26)
[2020-01-06] MEDS: BUDESONIDE 0.25 MG/2 ML VIAL (PULMICORT) INH SCH ×2 (06:50→19:12)
[2020-01-06] MEDS: ALBUTEROL 0.083% NEBU SOLN 3 ML VIAL INH SCH ×2 (06:50→19:12)
[2020-01-06 07:31] LABS: Basophils # (auto) 0.02 K/uL (0-0.2); Basophils % (auto) 0.2 %; Eosinophils # (auto) 0.27 K/uL (0-0.5); Eosinophils % (auto) 2.5 %; Hematocrit (blood only) 28.1 % (37-47); Immature Granulocytes # (auto) 0.04 K/uL (0.00-0.02); Immature Granulocytes % (auto) 0.4 %; Lymphocytes # (auto) 0.84 K/uL (1.2-3.4); Lymphocytes % (auto) 7.9 %; Mean Corpuscular Hemoglobin 28.6 pg (25-34); Mean Corpuscular Volume 89.2 fL (80-100); Mean Platelet Volume 9.2 fL (7.4-10.4); Monocytes # (auto) 1.04 K/uL (0.11-0.59); Monocytes % (auto) 9.8 %; Neutrophils # (auto) 8.45 K/uL (1.4-6.5); Neutrophils % (auto) 79.2 %; Platelet Count 255 K/uL (130-400); RDW Coefficient of Variation 15.4 % (11.5-14.5); RDW Standard Deviation 50.1 fL (36.4-46.3); Red Blood Count 3.15 M/uL (4.2-5.4); White Blood Count 10.66 K/uL (4.8-10.8)
--- NOTE | 2020-01-06 07:32 | Progress Notes ---
DATE: 01/06/2020 SUBJECTIVE: Postop day #4 status post Girdlestone procedure, right hip. Was noted to have some potential urine drainage from incision site concerning for potential bladder leak versus ureteral injury. A urology consult was obtained. Appreciate note. CT ordered for later today. The patient did relatively well overnight, has no increased pain and has no abdominal pain. Denies any fever, chills, chest pain, shortness of breath. Vital signs are stable, afebrile. Wound VAC is clean and dry. No major issues. It does appear that the drainage proximally are concerning for urine leak has decreased since the insertion of the Santana. Again a.m. labs are pending. The femoral sciatic nerve function is grossly normal. ASSESSMENT: Clinically hemodynamically stable, afebrile, no sign of sepsis, concerning for urine leak, work up appropriately being performed. Appropriate treatment at this point in time is in place with Santana and Ancef antibiotic coverage. We will await final results of CT scan as to determine what the next steps would be. This was discussed last evening with the daughter and with the patient as well as again this morning with the patient. She will not be discharged today. She was asking if she can go home, I told her at this point it is not clear as to when that would occur and that we would continue to monitor carefully. Told her I will check on her again this afternoon.
[2020-01-06 07:58] LABS: Alanine Aminotransferase < 6 U/L (12-78); Albumin Level 1.7 gm/dl (3.4-5.0); Aspartate Aminotransferase 9 U/L (15-37); BUN Creatinine Ratio 22.6 (10-20); Blood Urea Nitrogen 13 mg/dl (7-18); Calcium 8.1 mg/dl (8.5-10.1); Carbon Dioxide 26 mmol/L (21-32); Chloride 109 mmol/L (98-107); Creatinine Clr Calc Pharmacy 58.7 ml/min; Est GFR (African American) 99.5; Est GFR (Non-African American) 85.8; Glucose 91 mg/dl (70-99); Potassium 3.6 mmol/L (3.5-5.1); Sodium 139 mmol/L (136-145)
[2020-01-06 08:01] LABS: Albumin Globulin Ratio 0.5 (0.9-2); Alkaline Phosphatase 74 U/L (45-117); Bilirubin,Total 0.4 mg/dl (0.2-1); Globulin 3.2 gm/dl (2.5-4.0); Total Protein 4.9 gm/dl (6.4-8.2)
[2020-01-06] MEDS: carvediloL 6.25 MG TAB PO SCH ×2 (08:23→20:26)
[2020-01-06] MEDS: LORATADINE 10 MG TAB PO SCH (08:23)
[2020-01-06] MEDS: SERTRALINE HCL 50 MG TABLET PO SCH (08:23)
[2020-01-06] MEDS: CYANOCOBALAMIN 500 MCG TABLET (VITAMIN B-12) PO SCH (08:24)
[2020-01-06] MEDS: RIVAROXABAN 20 MG TAB PO SCH (08:24)
[2020-01-06] MEDS: ASCORBIC ACID 500 MG TAB PO SCH (08:24)
[2020-01-06] MEDS: PANTOprazole 40 MG TAB PO SCH ×2 (08:24→20:26)
[2020-01-06] MEDS: CHOLECALCIFEROL 1,000 UNITS 25 MCG TAB PO SCH ×2 (08:24→20:27)
[2020-01-06] MEDS: SOLIFENACIN SUCCINATE 5 MG PO SCH (08:25)
[2020-01-06] MEDS: diazePAM 5 MG TABLET PO SCH ×2 (08:26→20:27)
[2020-01-06] MEDS: OXYCODONE/ACETAMINOPHEN 5mg/325mg TAB PO PRN ×2 (08:33→15:47)
[2020-01-06] MEDS ORDERED: IOVERSOL 100ml IV ONE (09:21)
--- NOTE | 2020-01-06 10:16 | CT Scan Report ---
CT OF THE ABDOMEN AND PELVIS WITH AND WITHOUT CONTRAST HEMATURIA PROTOCOL CLINICAL HISTORY: Evaluate for bladder or ureteral injury. Urine leaking from surgical site. COMPARISON STUDY: Renal ultrasound October 18, 2013. TECHNIQUE: Unenhanced and split bolus phase imaging of the abdomen and pelvis was performed. Intraven ous injection of 93 cc Optiray 320 IV was uneventful. Automated exposure control was utilized for th e study. A dose lowering technique was utilized adhering to the principles of ALARA. CT DOSE: 1784.54 mGycm FINDINGS: Mild biliary ductal dilatation is likely related to cholecystectomy. There is no peripancre atic infiltration. The spleen, adrenal glands and pancreas are unremarkable. Upper abdominal ventral hernia is noted. A small portion of the lateral segment of the liver protrudes through the defect. A lower abdominal ventral hernia contains small and large bowel without evidence for a bowel obstructio n. There is colonic diverticulosis without evidence for acute diverticulitis. Note is made of a moder ate amount of stool within the colon and the rectum. No bowel wall thickening is identified on this e xamination. Major vasculature is patent. Trace left pleural effusion is noted within the lower lungs with associated atelectasis. Note is made of a markedly comminuted displaced right acetabular fracture. Hypodense material within the operative bed is postsurgical and may reflect hemostatic material. This contains no radiodense ma rkers. Note is made of multiple right hip operative bed fluid collections, the largest of which measu res approximately 11.4 x 3.8 cm. The collections extend to the right thyroid is asymmetric increased size of the proximal right thigh musculature. This demonstrates peripheral enhancement which is nonsp ecific in the early postoperative setting. Soft tissue gas within the operative bed is postsurgical. There are skin aviva. The right hip arthroplasty hardware has been removed. Note is made of a commi nuted displaced intertrochanteric fracture of the right femur. There is also a mildly displaced fract ure of the right inferior pubic ramus. No residual hardware is in place. No renal, ureteral or bladder calculi are present. No hydronephrosis or hydroureter. There is no evid ence for injury to the ureters or bladder. The ureters and bladder are from the operative s ite. No contrast extravasation is noted. A Santana balloon within the bladder is present. Nephrograms a re symmetric. IMPRESSION: 1. No evidence for bladder or ureteral injury. No hydronephrosis or hydroureter. No contrast extravas ation. 2. Postoperative findings within the right hip consistent with hardware removal. Soft tissue gas is p ostsurgical. Several operative bed fluid collections measure up to approximately 11.4 x 3.8 cm. These are nonspecific in the early postoperative setting and sterility cannot be assessed by CT. Hypodense material within the operative bed is postsurgical may reflect hemostatic material. Redemonstration o f a comminuted displaced right acetabular fracture. Intertrochanteric fracture of the right femur. 3. Bowel containing ventral hernia without evidence for a bowel obstruction. 4. Moderate amount of stool within the colon and rectum. ACT 112: Negative or not required by law. Electronically signed by: Landon Guevara M.D. 01/06/2020 10:15 AM
--- NOTE | 2020-01-06 11:46 | Urology Progress Note ---
Date of Service January 06, 2020 Subjective Patient is afebrile vital signs are stable. He has no complaints. Urine is clear in her Santana bag. The fluid from the left hip drain that was sent for creatinine came back at 0.6 so this is not urine but serum She also had a CT scan showing no bladder or ureteral injury with no hydronephrosis Assessment #1 Right hip drainage -this is not urine. CT shows no evidence of injury to the urinary tract. No urologic intervention necessary. Results & Data Vital Signs (Past 12 Hours) Vital Signs Temp Pulse Pulse Resp BP Pulse Ox 01/06/20 11:37 36.8 C 86 18 123/71 94 01/06/20 07:47 37.0 C 74 18 124/81 95 01/06/20 07:17 99 H 01/06/20 06:51 82 18 93 01/06/20 03:20 36.7 C 84 19 114/67 95 01/06/20 00:16 38.2 C H 99 H 21 111/67 93 01/05/20 23:59 92 H PG Care Time/CCT Total # of Minutes Spent Total Time Spent with Patient: Total time spent is greater than 50% in coordination of care (as documented) at patient's floor/unit and/or counseling patient: Coding Level of Care Code 11480 Subseq Hosp Care Lvl 1
[2020-01-06] MEDS: MONTELUKAST SODIUM 10 MG TABLET PO SCH (20:27)
[2020-01-06] MEDS: SIMVASTATIN 10 MG TAB PO SCH (20:27)
--- NOTE | 2020-01-06 21:50 | Progress Notes ---
DATE: 01/06/2020 Urological studies did not reveal any injury to the bladder or to the ureter.CT density variances secondary to gel foam plates x2. At this point in time, continue with wound VAC dressing and stoma dressing for serous drainage, likely related to Xarelto and low albumin. At this point in time, there is no evidence of infection. Neurovascular check distally is grossly normal. Continue to monitor. Needs to improve nutrition. Potential discharge/transfer to [facility] tomorrow if she does well overnight. MTDD
--- NOTE | 2020-01-06 22:24 | Hospitalist Progress Note ---
Date of Service January 06, 2020 Assessment & Plan (1) Failure of right total hip arthroplasty with dislocation of hip: Given the emergent situation of needing this procedure for hemostatic pressure to stop bleeding, under sedation only, although risk of increased bleeding during the procedure this would be a surgical consideration not a medical one. I do not feel any further medical optimization is needed in order to proceed with closed reduction of her right hip under sedation. She is currently hemodynamically stable and last dose Xarelto > 24 hours, renal function = CKD stage 3 therefore likely at upper end of usual elimination: half life (5-9 hours), complete elimination (25-45 hours). Non-life threatening at the current time therefore do not feel Kcentra is warranted. Consider tranexamic acid if ongoing bleeding not stopped with hemostatic measures with reduction. Restarted xarelto. Stop Aspirin last dose yesterday morning. Plt 387. No platelet transfusion warranted. 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 Hemoglobin has been stable but she has been having blood in the wound vac. In regards to her weakness, patient cannot safely be discharged today. Patient wants to go home but continues to require rehab as per PT. No signs of sepsis today. Patient will now require placement. Family is in agreement. Plan will be likely tomorrow. Also surgeon will like to monitor patient for another day. (2) Dislocation of internal right hip prosthesis: (3) Postoperative wound hematoma: Closed reduction as above. (4) Symptomatic anemia: improved after transfusion with 3 units packed RBCs. (5) Acute blood loss anemia: (6) SOB (shortness of breath): Secondary to anemia as above. Will reassess after blood transfusions and hip reduction. (7) Asthma: Continue budesonide nebs BID, albuterol PRN (8) Hypertension: Hold all anti-hypertensives until hemodynamic stability is known post hip relocation. Last dose carvedilol yesterday morning (did not take any pills last night) Last dose amlodipine 12/29 (9) Hypothyroidism (acquired): TSH WNL Continue levothyroxine (10) Hyperlipidemia: Continue simvastatin (11) Bladder spasm: Continue solifenacin (start next dose tomorrow) (12) History of pulmonary embolism: No hypoxia. Tachycardia. Chest pain. 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 on xarelto (13) Lactic acidosis: repeat to 2.5. patient appears hemodynmically stable and with no complaints. Admission and Anticipated Discharge Date Admission Date: January 01, 2020 Subjective 84 yo female reports no new symptoms today. Review of Systems Review of Systems: All systems reviewed & are unremarkable except as noted in HPI & below Physical Exam Physical Exam: Constitutional: well developed and + obese; + not well nourished and no acute distress Eyes: + anicteric sclerae; normal pupil size ENMT: external ear and nose normal, oropharynx normal Neck: trachea midline, no thyromegaly Respiratory: normal respiratory effort, lungs clear to auscultation Cardiovascular: Rate/Rhythm: regular rate and regular rhythm Heart Sounds: no murmur Vessels: no JVD Gastrointestinal (Abdomen): normal bowel sounds, soft, nontender, no hepatosplenomegaly Musculoskeletal: Tender, ecchymotic right hip, b/l cool, cyanotic feet, equal. Neurologic: awake; no focal motor deficits (sensation intact distal to hip dislocation) and not confused Psychiatric: A+Ox3, euthymic affect Results & Data Results & Data ([facility]) Vital Signs (Past 12 Hours) Vital Signs Temp Pulse Pulse Resp BP Pulse Ox 01/06/20 20:30 37.6 C H 91 H 18 147/69 H 95 01/06/20 19:14 104 H 16 94 01/06/20 15:14 37.4 C 67 18 127/76 95 01/06/20 14:55 76 01/06/20 11:37 36.8 C 86 18 123/71 94 PG Care Time/CCT Total # of Minutes Spent Total Time Spent with Patient: Total time spent is greater than 50% in coordination of care (as documented) at patient's floor/unit and/or counseling patient: Coding Level of Care Code 76848 Subseq Hosp Care Lvl 2 Diagnoses Failure of right total hip arthroplasty with dislocation of hip T84.020A Encounter type: initial encounter Dislocation of internal right hip prosthesis T84.020A Encounter type: initial encounter Postoperative wound hematoma Symptomatic anemia D64.9 Acute blood loss anemia D62 SOB (shortness of breath) R06.02 Asthma J45.909 Hypertension I10 Hypothyroidism (acquired) E03.9 Hyperlipidemia E78.5 Bladder spasm N32.89 History of pulmonary embolism Z86.711 Lactic acidosis E87.2 Time Spent (min) 25 (1) Dislocation of internal right hip prosthesis Encounter type: initial encounter Qualified Code(s): T84.020A - Dislocation of internal right hip prosthesis, initial encounter (2) Failure of right total hip arthroplasty with dislocation of hip Encounter type: initial encounter Qualified Code(s): T84.020A - Dislocation of internal right hip prosthesis, initial encounter
[2020-01-07] MEDS: ACETAMINOPHEN 500 MG TAB PO SCH (05:10)
[2020-01-07] MEDS: CEFAZOLIN 1000MG 1,000 MG/7.5 ML SYR IV SCH (05:10)
[2020-01-07] MEDS: LEVOTHYROXINE SODIUM 50 MCG TABLET PO SCH (05:12)
[2020-01-07] MEDS: ALBUTEROL 0.083% NEBU SOLN 3 ML VIAL INH SCH (07:01)
[2020-01-07] MEDS: BUDESONIDE 0.25 MG/2 ML VIAL (PULMICORT) INH SCH (07:01)
[2020-01-07] MEDS ORDERED: predniSONE 20 MG TAB PO STA (07:33)
[2020-01-07] MEDS ORDERED: levoFLOXacin 750 MG TAB PO ONE (07:45)
[2020-01-07] MEDS: LORATADINE 10 MG TAB PO SCH (08:53)
[2020-01-07] MEDS: CYANOCOBALAMIN 500 MCG TABLET (VITAMIN B-12) PO SCH (08:53)
[2020-01-07] MEDS: ASCORBIC ACID 500 MG TAB PO SCH (08:53)
[2020-01-07] MEDS: CHOLECALCIFEROL 1,000 UNITS 25 MCG TAB PO SCH (08:53)
[2020-01-07] MEDS: RIVAROXABAN 20 MG TAB PO SCH (08:53)
[2020-01-07] MEDS: PANTOprazole 40 MG TAB PO SCH (08:53)
[2020-01-07] MEDS: SERTRALINE HCL 50 MG TABLET PO SCH (08:53)
[2020-01-07] MEDS: carvediloL 6.25 MG TAB PO SCH (08:54)
[2020-01-07] MEDS: SOLIFENACIN SUCCINATE 5 MG PO SCH (08:54)
[2020-01-07] MEDS: diazePAM 5 MG TABLET PO SCH (08:58)
--- NOTE | 2020-01-07 09:03 | Progress Notes ---
REVISED REPORT DATE: 01/07/2020 SUBJECTIVE: Postop day number 5 status post Girdlestone/excisional arthroplasty right hip. At this point in time, the patient just feels little bit apprehensive about going to [facility]. Otherwise, has no problems. Denies chest pain, shortness of breath, fever, chills, nausea, vomiting or headache. Had a bowel movement last night. Has no abdominal pain. She notes no major numbness or tingling in either leg. She notes no calf pain. Vital signs are stable. She is afebrile. When she is asleep on the monitor, her pulse is roughly 75-80. After stimulating for vitals, it pumps up into the high 80s. T-max was 37.4. She is 95% saturated on room air. No labs today. Had abdomen and pelvis CT scan yesterday which did not reveal any urologic injury. This means that the drainage from her wound is based on poor nutrition with low albumin and the Xarelto. There is no active bleeding. This is all serosanguineous. PHYSICAL EXAMINATION: Today reveals abdomen to be soft, nontender. Calf soft, nontender. Neurovascular check bilaterally, femoral sciatic nerve is normal. Drainage is decreasing. Thigh is bruised and appropriately swollen. There is no tense swelling. ASSESSMENT AND PLAN: At this point in time, going home with her poor mobility is a high risk for fall; therefore, would suggest, and the patient and daughter at this point in time agreed to go to [facility]. Following recommendations should be carried out upon her admission to [facility]: 1. Continue Santana for 48 hours, then discontinue. 2. Prednisone 20 mg p.o. daily to try to assist with swelling, pain control of her right leg as well as improve her appetite. 3. Improve nutrition with protein supplements. 4. Continue pressure dressing with wound VAC as noted. 5. Continue stoma bag over the area of the drain to minimize tape issues. 6. Follow up on 01/11/2020, at [facility], so that we can change her wound VAC and appropriately assess. She will need shoe modifications on the right to level out her pelvis when she is ultimately up on her feet. Until the soft tissue consolidates, her leg will feel quite springy and hypermobile. She could be weightbearing as tolerated on the right leg. In addition, final recommendation is to place on levaquin 750 mg daily for wound prophylaxis. This will be ordered prior to discharge today. Prednisone will be ordered prior to discharge today. ADDENDUM ASSESSMENT AND PLAN: 1. Please strike the Rocephin and change to Levaquin 750 mg p.o. daily, adjust based on renal issues if needed. 2. Continue the Levaquin for 7 days until the patient reevaluated by us. 3. Continue prednisone 20 mg daily for a week and then we will likely decrease that pending how appetite and limb appearance looks. Please note previous note as well. MTDD
[2020-01-07] MEDS: OXYCODONE/ACETAMINOPHEN 5mg/325mg TAB PO PRN (09:15)
--- NOTE | 2020-01-15 22:12 | Discharge Summary ---
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 She has not been walking on her hip since the operation. Having a small amount of drainage from her hip. However this morning she had a sudden onset blood discharge from her hip surgical site that occurred around 8:30am this morning. She transferred from her wheelchair and after getting up from the wheelchair she had a pool of blood on the chair coming from top and bottom of the bandage. Associated with sudden o nset shortness of breath and diaphoresis. Chills started in the ER. Taking iron pills right after last surgery on December 05 (beginning of December). More constipated since discharge and needed to take. Had diarrhea ?black yesterday. No abdominal pain. Was not symptomatic from anemia until today. In the ER she was hypotensive and short of breath. Hgb 7.0. Blood pressure improved with 1L NSS fluid bolus. Started 2 unit blood transfusion. XR showed hip dislocation acetabular cup fractured through the right acetabulum. She was evaluated in the ER with Dr Francisco and cleared for emergent relocation of her hip to help with hemostasis. Principal Diagnosis as stated below Discharge Exam Constitutional: well developed and + obese; + not well nourished and no acute distress Eyes: + anicteric sclerae; normal pupil size ENMT: external ear and nose normal, oropharynx normal Neck: trachea midline, no thyromegaly Respiratory: normal respiratory effort, lungs clear to auscultation Cardiovascular: Rate/Rhythm: regular rate and regular rhythm Heart Sounds: no murmur Vessels: no JVD Gastrointestinal (Abdomen): normal bowel sounds, soft, nontender, no hepatosplenomegaly Musculoskeletal: Tender, ecchymotic right hip, b/l cool, cyanotic feet, equal. Neurologic: awake; no focal motor deficits (sensation intact distal to hip dislocation) and not confused Psychiatric: A+Ox3, euthymic affect Discharge Data Allergies Allergy/AdvReac Type Severity Reaction Status Date / Time adhesive Allergy Unknown BANDAIDS Verified 01/01/20 10:56 AND CLOTH ADHESIVE-BLISTERS No Known Drug Allergies Allergy Unknown Verified 01/01/20 10:56 Consultations 01/01/20 11:01 ED Decision to Admit Stat 01/03/20 08:00 Consult Case Management - Discharge Planning Routine 01/05/20 20:00 Consult Urology Routine Procedures Performed Operation Date: 01/02/20 07:30 Actual Procedures p Right Hip Excisional Arthroplasty(Right) - Edson Womack MD Ordered Studies 01/06/20 09:07 CT abdomen pelvis wo/w con Routine Hospital Course (1) Failure of right total hip arthroplasty with dislocation of hip: Given the emergent situation of needing this procedure for hemostatic pressure to stop bleeding, under sedation only, although risk of increased bleeding during the procedure this would be a surgical consideration not a medical one. I do not feel any further medical optimization is needed in order to proceed with closed reduction of her right hip under sedation. She is currently hemodynamically stable and last dose Xarelto > 24 hours, renal function = CKD stage 3 therefore likely at upper end of usual elimination: half life (5-9 hours), complete elimination (25-45 hours). Non-life threatening at th e current time therefore do not feel Kcentra is warranted. Consider tranexamic acid if ongoing bleeding not stopped with hemostatic measures with reduction. Restarted xarelto. Stop Aspirin last dose yesterday morning. Plt 387. No platelet transfusion warranted. 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 Hemoglobin has been stable but she has been having blood in the wound vac. In regards to her weakness, patient cannot safely be discharged today. Patient wants to go home but continues to require rehab as per PT. No signs of sepsis today. Patient will now require placement. Family is in agreement. Patient will be discharged today. (2) Dislocation of internal right hip prosthesis: (3) Postoperative wound hematoma: Closed reduction as above. (4) Symptomatic anemia: improved after transfusion with 3 units packed RBCs. (5) Acute blood loss anemia: (6) SOB (shortness of breath): Secondary to anemia as above. Will reassess after blood transfusions and hip reduction. (7) Asthma: Continue budesonide nebs BID, albuterol PRN (8) Hypertension: Hold all anti-hypertensives until hemodynamic stability is known post hip relocation. Last dose carvedilol yesterday morning (did not take any pills last night) Last dose amlodipine 12/29 (9) Hypothyroidism (acquired): TSH WNL Continue levothyroxine (10) Hyperlipidemia: Continue simvastatin (11) Bladder spasm: Continue solifenacin (start next dose tomorrow) (12) History of pulmonary embolism: No hypoxia. Tachycardia. Chest pain. 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 on xarelto (13) Lactic acidosis: repeat to 2.5. patient appears hemodynmically stable and with no complaints. Total Time Total Time Spent Total Time Spent (In Minutes): 32 Total Time Includes: Examination of the Patient, Discharge Planning and Medication Reconciliation Discharge Plan Discharge Items Patient Disposition: Transfer Inpatient Rehab Fac Reason For Visit: SYMPTOMATIC ANEMIA, POST OP HIP HEMATOMA AND DISLO Discharge Diagnosis: symptomatic anemia Condition on Discharge: Fair Activity: Per Instructions section Lifting: Gradually increase as tolerated Bathing: Keep incision dry Weightbearing: Right weightbearing Weightbearing Comment: WBAT Non-emergency contact: Surgeon Call non-emergency contact if: you have any medication questions, your pain is worsening, your temperature is above 101, your wound has increased redness, your wound has increased drainage and your wound pain has increased Follow-up/Referrals: Tan Savage MD [Primary Care Provider] - Diet: Heart Healthy Addtl Attending Provider Instructions: Follow up with Dickson at [facility] on ThursdayJanuary 10 at 1:30pm for wound vac removal Leave the wound vac in place at all times use your walker for transfers/ambulation. recommend rechecking hemoglobin on thursday. Continue fulton for 48 more hours. Pending Studies at Discharge: No Stand-Alone Forms: My [facility] Skilled Items Patient informed of condition?: Yes DNR: Yes (no chest compression or shock) Discharge Level of Care: Acute rehab Communicable Disease: No Discharge Prognosis: Improving Lines: None Urinary Catheter: Yes Medications and DC Order Prescriptions: New carvedilol 6.25 mg Tablet 6.25 mg PO BID Qty: 60 RF: 0 pantoprazole 40 mg Tablet,Delayed Release (Dr/Ec) 40 mg PO BID Qty: 60 RF: 0 Continued solifenacin 5 mg tablet 5 mg PO QAM RF: 0 diazepam 5 mg tablet 5 mg PO BID RF: 0 albuterol sulfate 90 mcg/actuation HFA aerosol inhaler 2 puffs inhalation Q4H PRN (Reason: Shortness Of Breath) RF: 0 levothyroxine 50 mcg tablet 50 mcg PO QAM RF: 0 rivaroxaban 20 mg tablet 20 mg PO QAM Qty: 1 RF: 0 coenzyme Q10 10 mg capsule 100 mg PO QAM RF: 0 simvastatin 10 mg tablet 10 mg PO HS RF: 0 budesonide 0.25 mg/2 mL suspension for nebulization 2 ml INH BID RF: 0 albuterol sulfate 1.25 mg/3 mL solution for nebulization 1.25 mg INH BID RF: 0 sertraline 50 mg tablet 50 mg PO QAM RF: 0 loratadine 10 mg tablet 10 mg PO QAM RF: 0 calcium carbonate [Tums] 200 mg calcium (500 mg) tablet,chewable 200 mg PO TID RF: 0 cholecalciferol (vitamin D3) 25 mcg (1,000 unit) capsule 25 mcg PO BID RF: 0 montelukast 10 mg tablet 10 mg PO HS RF: 0 cyanocobalamin (vitamin B-12) 1,000 mcg Capsule 1,000 mcg PO QAM RF: 0 magnesium oxide 500 mg Capsule 500 mg PO Q2D@2100 RF: 0 cranberry 500 mg Capsule 500 mg PO QAM RF: 0 ascorbic acid (vitamin C) [Vitamin C] 500 mg tablet 500 mg PO QAM RF: 0 prednisone 20 mg tablet 20 mg PO QAM Qty: 7 RF: 0 oxycodone-acetaminophen [Percocet] 5-325 mg tablet 1 tab PO Q6H PRN (Reason: pain) Qty: 20 RF: 0 levofloxacin 500 mg tablet 500 mg PO QAM Qty: 7 RF: 0 Discontinued amlodipine 5 mg tablet 5 mg PO HS RF: 0 aspirin [Aspir-81] 81 mg Tablet,Delayed Release (Dr/Ec) 81 mg PO HS RF: 0 celecoxib 100 mg capsule 100 mg PO QAM RF: 0 Discharge Orders: Discharge Order (Routine); Ordered 01/07/20 Ordered By: Rashel Sage Admission Data Admit Date/Time: 01/01/20 11:16 Attending Provider: Rashel Sage Admit Provider: Ld Lund Primary Care Provider: Tan Savage Other Providers: Ld Lund ; [facility] ; Wolfgang Laura ; Lucian Mario ; Zain Rangel I. ; Vinicio Zamorano ; Natasha Lee ; Naima Mathew ; Tan Mckay ; Adelaida Barrera ; Rhonda Berkowitz ; Dustin Bledsoe ; Светлана Lucia ; [facility] Other Interventions: Discharge Summary Assessment (RN) Last Done: 01/07/20 12:51 DC Date/Time DO NOT enter until pt leaves facility: 01/07/20 13:26 Coding Level of Care Code D/C Day Management >30 mins Diagnoses Failure of right total hip arthroplasty with dislocation of hip T84.020A Encounter type: initial encounter Dislocation of internal right hip prosthesis T84.020A Encounter type: initial encounter Postoperative wound hematoma Symptomatic anemia D64.9 Acute blood loss anemia D62 SOB (shortness of breath) R06.02 Asthma J45.909 Hypertension I10 Hypothyroidism (acquired) E03.9 Hyperlipidemia E78.5 Bladder spasm N32.89 History of pulmonary embolism Z86.711 Lactic acidosis E87.2
--- NOTE | 2020-02-21 14:01 | Operative Report ---
Post Operative Report Pre & Post Diagnosis Operation Date: 01/01/2020 Pre-Op Diagnosis: s/p Right SHIMON, dislocated Post-Op Diagnosis: s/p Right SHIMON, dislocated I identified the patient and participated in the time-out.: Yes Procedure Operation Date: 12/06/19 07:00 Actual Procedures Right SHIMON Closed Reduction, Ly Francisco MD Surgeon Jose Francisco Francisco MD Rn Or Lvn Juan David Drummond PA-C Estimated Blood Loss 0 Findings Consistent with Post-Op Diagnosis Specimens n/a Anesthesia Type MAC Complications none Indications 84 y.o. female 3 weeks s/p R SHIMON, presented to ED today with bloody drainage from incision and light headedness. No obvious injury, but x-rays revealed a dislocated R SHIMON. Discussed the risk and benefits of closed reduction. The patient and daughter agreed and the informed consent was signed. Description of Procedure The patient was taken to the Trauma bay and anesthesia provided the conscious sedation. A Time-out was preformed identifying the patient and the RLE as the correct limb for closed reduction. Once the patient was relaxed enough following conscious sedation a reduction maneuver was preformed with flexion, traction, internal rotation. The leg was no longer shortened and able to internal and external rotate the leg. negative pistoning of the limb. Post reduction radiographs confirmed a reduced R SHIMON. An Abduction pillow was placed. The incision was re-enforced with 4x4's, ABD's and a compressive dressing. She will be admitted to Hospitalist service. Currently undergoing transfusion. Bedrest for now. An Abduction brace was sent with the patient to the floor. She will be re-educated on Total Hip Precautions. Ortho will continue to follow while in house. Will cancel her outpatient appoint tomorrow with Dr. Womack and will notify him that she has been admitted. I attest to the content of the Intraoperative Record and any orders documented therein. Any exceptions are noted below.
--- NOTE | 2020-02-21 14:03 | Anesthesiology Consultation ---
Date of Service January 01, 2020 Assessment & Plan (1) Encounter for pre-operative examination: Chart Review Chart Review: Acceptable Risk for Surgery (Patient getting 1 unit blood for hx 7 ) History Surgery Operation Date: 12/06/19 07:00 Proposed Procedures p Right Total Hip Removal of Synthes DHS Plate and Screws - Edson Womack MD Height/Weight Height: 4 ft 8 in Weight: 61.689 kg Allergies Allergy/AdvReac Type Severity Reaction Status Date / Time adhesive Allergy Unknown BANDAIDS Verified 01/01/20 10:56 AND CLOTH ADHESIVE-BLISTERS No Known Drug Allergies Allergy Unknown Verified 01/01/20 10:56 Medications Home Medications Medication Instructions Recorded Confirmed Last Taken albuterol sulfate 90 mcg/actuation 2 puffs INHALATION Q4H PRN gm 02/18/19 01/01/20 12/06/19 04:15 aerosol inhaler coenzyme Q10 10 mg capsule 100 mg PO QAM cap 02/18/19 01/01/20 12/31/19 diazepam 5 mg tablet 5 mg PO BID tab 02/18/19 01/01/20 12/31/19 levothyroxine 50 mcg tablet 50 mcg PO QAM tab 02/18/19 01/01/20 12/31/19 rivaroxaban 20 mg tablet 20 mg PO QAM #1 tab 02/18/19 01/01/20 12/31/19 simvastatin 10 mg tablet 10 mg PO HS tab 02/18/19 01/01/20 12/31/19 solifenacin 5 mg tablet 5 mg PO QAM tab 02/18/19 01/01/20 12/31/19 montelukast 10 mg PO HS 05/04/19 01/01/20 12/31/19 albuterol sulfate 1.25 mg/3 mL 1.25 mg INH BID ml 11/10/19 01/01/20 12/31/19 solution for nebulization amlodipine 5 mg tablet 5 mg PO HS 11/10/19 01/01/20 12/31/19 budesonide 0.25 mg/2 mL suspension 2 ml INH BID 11/10/19 01/01/20 12/31/19 for nebulization calcium carbonate 200 mg calcium 200 mg PO TID 11/10/19 01/01/20 12/31/19 (500 mg) chewable tablet carvedilol 6.25 mg tablet 6.25 mg PO BID 11/10/19 01/01/20 12/31/19 cholecalciferol (vitamin D3) 25 25 mcg PO BID 11/10/19 01/01/20 12/31/19 mcg (1,000 unit) capsule loratadine 10 mg tablet 10 mg PO QAM 11/10/19 01/01/20 12/31/19 sertraline 50 mg tablet 50 mg PO QAM 11/10/19 01/01/20 12/31/19 aspirin [Aspir-81] 81 mg PO HS 11/23/19 01/01/20 12/31/19 cyanocobalamin (vitamin B-12) 1,000 mcg PO QAM 11/23/19 01/01/20 12/31/19 magnesium oxide 500 mg PO Q2D@2100 11/23/19 01/01/20 12/04/19 17:30 oxycodone-acetaminophen [Percocet] 1 tab PO Q6H PRN #20 tab 12/07/19 01/01/20 12/31/19 22:15 1 tablet ascorbic acid (vitamin C) [Vitamin 500 mg PO QAM 01/01/20 01/01/20 12/31/19 C] celecoxib 100 mg PO QAM 01/01/20 01/01/20 12/31/19 cranberry 500 mg PO QAM 01/01/20 01/01/20 12/31/19 levofloxacin 500 mg PO QAM 01/01/20 01/01/20 12/31/19 prednisone 20 mg PO QAM 01/01/20 01/01/20 12/31/19 NPO Date Last Intake of Fluids: 12/05/19 Time Last Intake of Fluids: 21:30 Last Intake of Fluids Comment: sips of water with medsd this am at 0430 Date Last Intake of Solids: 12/05/19 Time Last Intake of Solids: 17:30 Past Medical History Medical History Anxiety Asthma Sees [facility]. Using neb BID. Very rare rescue inhaler use Bilateral pulmonary embolism ~ 4 yrs ago, was being treated for empyema Bladder spasm Chronic anticoagulation DVT (deep venous thrombosis) HX-ON XARELTO Essential tremor very slight in hands Hyperlipidemia Hypertension Hypothyroidism (acquired) Left ankle sprain (Inactive) Saddle embolism of pulmonary artery ~ 4 yrs ago Urinary, incontinence, stress female Past Surgical History Surgical History History of cholecystectomy History of colonoscopy History of hysterectomy TOTAL History of open reduction and internal fixation (ORIF) procedure RIGHT HIP History of thoracentesis Past Anesthesia History No Hx of Anesthesia Complications History of PONV No Hx of PONV and No Hx of Motion Sickness Social History Smoking Status: Never smoker Smoking End Date: QUIT MANY YRS AGO Hx Alcohol Use: No alcohol intake frequency: other Hx Substance Use: No Physical Exam Vital Signs Last Vital Signs Temp 36.4 C L 12/08/19 07:54 Pulse 74 12/08/19 07:54 Resp 16 12/08/19 07:54 BP 154/69 H 12/08/19 07:54 Pulse Ox 93 12/08/19 07:54 Testing Laboratory Results 12/08/19 05:14 12/07/19 05:46 PT 10.7 Seconds (9.0-12.0) 12/06/19 05:31 INR 1.0 (0.9-1.1) 12/06/19 05:31 APTT 29.3 Seconds (21.0-31.0) 12/06/19 05:31 Urine Color Yellow 11/25/19 Unknown Urine Appearance Clear (Clear) 11/25/19 Unknown Urine pH 7.5 (4.5-7.5) 11/25/19 Unknown Ur Specific [place] 1.012 (1.000-1.030) 11/25/19 Unknown Urine Protein Negative (Negative) 11/25/19 Unknown Urine Glucose (UA) Negative (Negative) 11/25/19 Unknown Urine Ketones Negative (Negative) 11/25/19 Unknown Urine Nitrite Negative (Negative) 11/25/19 Unknown Ur Leukocyte Esterase Negative (Negative) 11/25/19 Unknown Blood Type B Positive 12/06/19 05:30 Antibody Screen POSITIVE A 12/06/19 05:30 12/06/19 07:56 Gram Stain - Final Hip,Right Aerobic and Anaerobic Culture - Final No growth Laboratory Tests 01/01/20 09:47 Hct 21.9 L
--- NOTE | 2020-02-21 14:04 | Orthopedic Consultation ---
Date of Consultation January 01, 2020 Assessment & Plan (1) Failure of right total hip arthroplasty with dislocation of hip: Dr Francisco discussed with patient and daughter performing a closed reduction of her right hip. The consent was signed. The potential risks complications and outcomes were reviewed. They would like to proceed. This will be performed in ED vs Operating Room Anesthesia to see. Medicine consulted for admission. Patient receiving 1 unit of PRBc currently and plan to get another unit after the procedure. After procedure we will plan for a compression dressing to right hip and place patient in Hip Abductor Brace to follow SHP. I, Dr. Francisco, saw and examined the patient and agree with the above findings and plan of care. Present on Admission?: Yes History of Present Illness Reason for Consultation: right hip wound bleeding. dislocated right total hip replacement Requesting Physician: Jose Francisco Francisco MD Attending Physician: Hospitalist History of Present Illness Patient is a 84-year-old female patient of Dr Womack. Came into ED this am by ambulance and orthopedics consulted for bleeding from incision and worsening pain and weakness. S/P R THR by Dr Womack on 12-06-19. History of hypertension, hypothyroidism, PE currently maintained on Xarelto. Patient denies any new trauma. Pain worse in the right hip overnight according to patient and the daughter. This am daughter helped transfer her from bed to toilet then chair. Upon doing so, wound began to drain proximally. Unable to stop. ER called. Per patient, she has felt weak and near syncopal several times. Patient's on Xarelto daily last took it yesterday morning. Patient has not been ambulating other than transfers since the surgery and was started on Levaquin this week for concerns for infection of the hip secondary to some chronic drainage of wound since surgery. No fevers reported. Again denies any new trauma. Denies chest pain or shortness of breath. Upon arrival to ED, xrays show dislocated right hip. Hgb at 7.0. Medicine has been consulted for evaluation and admission. 2 units of PRBCs ordered. Allergies Allergy/AdvReac Type Severity Reaction Status Date / Time adhesive Allergy Unknown BANDAIDS Verified 01/01/20 10:56 AND CLOTH ADHESIVE-BLISTERS No Known Drug Allergies Allergy Unknown Verified 01/01/20 10:56 Home Medications Home Medications Medication Instructions Recorded Confirmed Type albuterol sulfate 90 mcg/actuation 2 puffs INHALATION Q4H PRN gm 02/18/19 01/01/20 History aerosol inhaler coenzyme Q10 10 mg capsule 100 mg PO QAM cap 02/18/19 01/01/20 History diazepam 5 mg tablet 5 mg PO BID tab 02/18/19 01/01/20 History levothyroxine 50 mcg tablet 50 mcg PO QAM tab 02/18/19 01/01/20 History rivaroxaban 20 mg tablet 20 mg PO QAM #1 tab 02/18/19 01/01/20 History simvastatin 10 mg tablet 10 mg PO HS tab 02/18/19 01/01/20 History solifenacin 5 mg tablet 5 mg PO QAM tab 02/18/19 01/01/20 History montelukast 10 mg PO HS 05/04/19 01/01/20 History albuterol sulfate 1.25 mg/3 mL 1.25 mg INH BID ml 11/10/19 01/01/20 History solution for nebulization amlodipine 5 mg tablet 5 mg PO HS 11/10/19 01/01/20 History budesonide 0.25 mg/2 mL suspension 2 ml INH BID 11/10/19 01/01/20 History for nebulization calcium carbonate 200 mg calcium 200 mg PO TID 11/10/19 01/01/20 History (500 mg) chewable tablet carvedilol 6.25 mg tablet 6.25 mg PO BID 11/10/19 01/01/20 History cholecalciferol (vitamin D3) 25 25 mcg PO BID 11/10/19 01/01/20 History mcg (1,000 unit) capsule loratadine 10 mg tablet 10 mg PO QAM 11/10/19 01/01/20 History sertraline 50 mg tablet 50 mg PO QAM 11/10/19 01/01/20 History aspirin [Aspir-81] 81 mg PO HS 11/23/19 01/01/20 History cyanocobalamin (vitamin B-12) 1,000 mcg PO QAM 11/23/19 01/01/20 History magnesium oxide 500 mg PO Q2D@2100 11/23/19 01/01/20 History oxycodone-acetaminophen [Percocet] 1 tab PO Q6H PRN #20 tab 12/07/19 01/01/20 Rx ascorbic acid (vitamin C) [Vitamin 500 mg PO QAM 01/01/20 01/01/20 History C] celecoxib 100 mg PO QAM 01/01/20 01/01/20 History cranberry 500 mg PO QAM 01/01/20 01/01/20 History levofloxacin 500 mg PO QAM 01/01/20 01/01/20 History prednisone 20 mg PO QAM 01/01/20 01/01/20 History Patient History Medical History Anxiety Asthma Sees [facility] [place] [facility]. Using neb BID. Very rare rescue inhaler use Bilateral pulmonary embolism ~ 4 yrs ago, was being treated for empyema Bladder spasm Chronic anticoagulation DVT (deep venous thrombosis) HX-ON XARELTO Essential tremor very slight in hands Hyperlipidemia Hypertension Hypothyroidism (acquired) Left ankle sprain (Inactive) Saddle embolism of pulmonary artery ~ 4 yrs ago Urinary, incontinence, stress female Surgical History History of cholecystectomy History of colonoscopy History of hysterectomy TOTAL History of open reduction and internal fixation (ORIF) procedure RIGHT HIP History of thoracentesis Social History Smoking Status: Never smoker Second Hand Exposure: No; Hx Alcohol Use: No Hx Substance Use: No Preferred Language: Grenadian Communication Ability: Effective Private Wealth Advisor Required: No Beliefs That Will Affect Care: None marital status: / Current Living Situation: Family Current Living Situation Comment: daughter and grandson live with pt. Other Information That Helps Us Care for You: No Feels Safe at Home: Yes Safety Concerns: Feels Safe At This Time Review of Systems Review of Systems: Admits to right hip pain, right hip drainage. Feeling lightheaded. Denies f/c/s. Denies SOB, Chest pain. Denies numbness or tingling into right leg. Physical Exam Physical Exam: Patient laying in bed with daughter present. A and O x 3. Head: normocephalic and atraumatic Extremities: Patient has significant ecchymosis and bruising to right hip. Right hip wound with aviva and steri strips. At the superior edge of the wound there is active bleeding. No pus or foul odor. Right leg is shortened and externally rotated. Patient able to wiggle B toes and ankles. Sensation intact to light touch. Palpable DP and PT pulses. Calves soft. NEUROLOGICAL: No focal deficits Results & Data ([facility]) Diagnostic Findings RIGHT HIP 2 VIEWS CLINICAL HISTORY: Right hip pain. FINDINGS: AP and crosstable lateral views of the right hip are compared to study dated 12/06/2019. The skeletal structures are osteopenic. No acute fracture is seen. A right hip arthroplasty is in place. There is superior dislocation of the femoral component of the arthroplasty. The acetabular cup appears to have fractured through the right acetabulum and projects over the right hemipelvis. Chronic appearing posttraumatic deformity is noted in the right proximal femur. Screw tracks are present in the proximal femoral shaft. Skin clips, soft tissue swelling, and subcutaneous gas are expected postoperative findings. There is atherosclerotic calcification of the right femoral artery. IMPRESSION: 1. The acetabular cup appears to have fractured through the right acetabulum and now projects over the right hemipelvis. 2. There is associated dislocation of the femoral component of the arthroplasty.
== END 2020-01-07 13:26 | DRG 470 ==
LOC: ED 09:13 → 2N 11:16 → SUATTDRO 11:16 → 2N 13:21

== ENCOUNTER 2021-09-05 13:21 | Observation (INO) ==
--- NOTE | 2021-09-05 13:46 | Emergency Department Note ---
Impression & Plan SIMMS (dyspnea on exertion), Hypoxia, Bilateral edema of lower extremity ED Provider Note NAME: RASTA CADET AGE: 85 SEX: F : 1935 ARRIVES VIA: Walk-In INFORMANT: Patient, the patient's family member ED PROVIDER(S): Shayan Loza DO CHIEF COMPLAINT: Difficulty breathing HPI: The patient is an 85-year-old female who presented to the emergency department for an evaluation of difficulty breathing. The patient has a history of bronchospasm as well as pulmonary embolism in the past. She presented to the emergency department with family member for an evaluation of ongoing and worsening shortness of breath. The patient has had the symptoms for the last year. Her failure states that the symptoms have been worsening. She has been noticed to have hypoxia by pulse ox. She does not currently wear supplemental oxygen. She has been noticed to have lower extremity swelling especially in her left leg. There is been no abdominal pain. There is been no fever. She has had a productive cough at times. 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 They called today to be seen and were referred to the emergency department for further evaluation. ROS: See above HPI for pertinent positives & negatives. A total of 10 systems reviewed and were otherwise negative. PAST MEDICAL HISTORY: See Below PAST SURGICAL HISTORY: See Below FAMILY HISTORY: See Below SOCIAL HISTORY: See Below HOME MEDICATIONS: See Below ALLERGIES: See Below VITALS: See Below PHYSICAL EXAMINATION: GENERAL: Patient is awake alert in no acute distress patient is resting comfortably and showing no signs of anxiety EYES: The conjunctivae are clear. The pupils are round and reactive. EARS, NOSE, MOUTH AND THROAT: The nose is without any evidence of any deformity. Mucous membranes are moist. Tongue is midline. NECK: The neck is nontender and supple. RESPIRATORY: Diminished breath sounds are noted throughout. There is no tachypnea or conversational dyspnea. Faint rales are noted in the left base. CARDIOVASCULAR: Regular rate and rhythm noted there no murmurs rubs or gallops normal S1 normal S2. GASTROINTESTINAL: The abdomen is soft. Abdomen is nontender. MUSCULOSKELETAL/EXTREMITIES: There is no evidence of gross deformity full range of motion is noted in the hips and shoulders. SKIN: Pedal edema was noted bilaterally. Skin was warm and dry. NEUROLOGIC: Patient is awake alert and oriented x3 MEDICAL DECISION MAKING: The patient is an 85-year-old female who presented to the emergency department for an evaluation of lower extremity edema and difficulty breathing. The patient's family member reports that she was experiencing lower extremity edema as well as hypoxia with exertion. I discussed patient's laboratory and radiographic studies with her. 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 This did not appear to be consistent with acute pulmonary embolism. The patient continued to have symptoms with any exertion. For this reason I discussed her case with the on-call [facility] hospitalist. Triage Nursing notes reviewed. Prior medical records reviewed Vital Signs: reviewed and remarkable for elevated blood pressure. Differential diagnosis: Reactive airway disease, pneumonia, pneumothorax, COPD, CHF, infections, cardiac ischemia, pulmonary embolism, musculoskeletal, gastrointestinal, as well as other pathologies. ER treatment provided: See below Diagnostics interpreted by me: ECG: EKG was obtained in the emergency department. My interpretation is normal sinus rhythm at 63 bpm. There was no ectopy. Inferior Q waves were noted. Nonspecific ST segment abnormalities noted. This was compared to a tracing from December [id number]. No specific changes were noted. Cardiac Monitoring: An order was placed for continuous cardiac monitoring. The monitor shows a rate of 59 bpm with sinus rhythm. Laboratory studies: As stated above and show below. Imaging studies: See below Consultation(s): I discussed this case with Dr. Lund who is on-call for the [facility] hospitalist group. Past Med/Surg History Medical History (Updated 09/05/21 @ 16:03 by Shayan Loza DO) Anxiety Asthma [place] [facility]. Using neb BID. Very rare rescue inhaler use Bilateral pulmonary embolism ~ 4 yrs ago, was being treated for empyema Bladder spasm Chronic anticoagulation DVT (deep venous thrombosis) HX-ON XARELTO Essential tremor very slight in hands Hyperlipidemia Hypertension Hypothyroidism (acquired) Left ankle sprain Saddle embolism of pulmonary artery ~ 4 yrs ago Urinary, incontinence, stress female Surgical History History of cholecystectomy History of colonoscopy History of hysterectomy TOTAL History of open reduction and internal fixation (ORIF) procedure RIGHT HIP History of thoracentesis Social History Smoking Status: Never smoker Second Hand Exposure: No; Hx Alcohol Use: No Hx Substance Use: No Preferred Language: Sinhala Communication Ability: Effective 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 Feels Safe at Home: Yes Assistive Devices: Walker Allergies Allergies Allergy/AdvReac Type Severity Reaction Status Date / Time adhesive Allergy Unknown BANDAIDS Verified 09/05/21 14:50 AND CLOTH ADHESIVE-BLISTERS No Known Drug Allergies Allergy Unknown Verified 06/13/21 14:26 Home Meds Home Medications Medication Instructions Recorded Confirmed albuterol sulfate 90 mcg/actuation 2 puffs INHALATION Q4H PRN gm 02/18/19 09/05/21 aerosol inhaler coenzyme Q10 10 mg capsule 100 mg PO QAM cap 02/18/19 09/05/21 diazepam 5 mg tablet 5 mg PO BID tab 02/18/19 09/05/21 levothyroxine 50 mcg tablet 50 mcg PO QAM tab 02/18/19 09/05/21 rivaroxaban 20 mg tablet (Xarelto) 20 mg PO QAM #1 tab 02/18/19 09/05/21 simvastatin 10 mg tablet 10 mg PO HS tab 02/18/19 09/05/21 solifenacin 5 mg tablet 5 mg PO QAM tab 02/18/19 09/05/21 montelukast 10 mg tablet 10 mg PO HS 05/04/19 09/05/21 albuterol sulfate 1.25 mg/3 mL 1.25 mg INH BID ml 11/10/19 09/05/21 solution for nebulization budesonide 0.25 mg/2 mL suspension 2 ml INH BID 11/10/19 09/05/21 for nebulization calcium carbonate 200 mg calcium 200 mg PO TID 11/10/19 09/05/21 (500 mg) chewable tablet (Tums) cholecalciferol (vitamin D3) 25 25 mcg PO BID 11/10/19 09/05/21 mcg (1,000 unit) capsule loratadine 10 mg tablet 10 mg PO QAM 11/10/19 09/05/21 sertraline 50 mg tablet 50 mg PO QAM 11/10/19 09/05/21 cyanocobalamin (vitamin B-12) 1,000 mcg PO QAM 11/23/19 09/05/21 1,000 mcg capsule magnesium oxide 500 mg capsule 500 mg PO Q2D@2100 11/23/19 09/05/21 ascorbic acid (vitamin C) 500 mg 500 mg PO QAM 01/01/20 09/05/21 tablet (Vitamin C) cranberry 500 mg capsule 500 mg PO QAM 01/01/20 09/05/21 amlodipine 5 mg tablet 10 mg PO DAILY tab 10/11/20 09/05/21 valsartan 160 mg tablet 160 mg PO DAILY 10/11/20 09/05/21 aspirin 81 mg tablet,delayed 81 mg PO DAILY 11/18/20 09/05/21 release (Aspirin Low Dose) ferrous sulfate 27 mg iron tablet 0 mg PO DAILY 09/05/21 09/05/21 Previous Rx's Medication Instructions Recorded carvedilol 6.25 mg tablet 6.25 mg PO BID #60 tab 01/07/20 tiotropium bromide 1.25 2 puff INHALATION DAILY #3 inhaler 07/09/21 mcg/actuation mist for inhalation (Spiriva Respimat) Results & Data (ED) Vital Signs Vital Signs - 24 hr 09/05/21 13:23 09/05/21 13:32 09/05/21 13:49 Temperature 36.6 C Temperature Source Temporal Artery Scan Pulse Rate 127 H Pulse Rate from SpO2 Sensor Respiratory Rate 22 Respiratory Effort / Characteristics Non-Labored Spontaneous Non-Labored Respiratory Depth Normal Shallow Respiratory Pattern Regular Regular Blood Pressure 149/58 H Blood Pressure Mean 88 Blood Pressure Position Sitting Pulse Oximetry 95 95 96 Oxygen Delivery Method Room Air Room Air Room Air Sepsis Recent Fever Within 48 Hours No Sepsis New/Unexplained Change in Mental Status No Sepsis Action Taken by Nursing No Action Required 09/05/21 14:00 Temperature Temperature Source Pulse Rate 59 L Pulse Rate from SpO2 Sensor 59 L Respiratory Rate 20 Respiratory Effort / Characteristics Respiratory Depth Respiratory Pattern Blood Pressure 150/86 H Blood Pressure Mean 107 Blood Pressure Position Pulse Oximetry 95 Oxygen Delivery Method Room Air Sepsis Recent Fever Within 48 Hours Sepsis New/Unexplained Change in Mental Status Sepsis Action Taken by Custodial Medications Current Medication List: was personally reviewed by me Laboratory Data Attestation: I reviewed the patient's lab results. Result diagrams: 09/05/21 14:10 09/05/21 14:10 Lab Results 09/05/21 09/05/21 09/05/21 Range/Units 13:47 13:47 14:10 WBC 5.61 (4.8-10.8) K/uL RBC 4.26 (4.2-5.4) M/uL Hgb 12.4 (12.0-16.0) g/dL Hct 37.5 (37-47) % MCV 88.0 (80-100) fL MCH 29.1 (25-34) pg MCHC 33.1 (32-36) g/dL RDW Std Deviation 45.1 (36.4-46.3) fL RDW Coeff of Jerrell 14.1 (11.5-14.5) % Plt Count 277 (130-400) K/uL MPV 9.7 (7.4-10.4) fL Immature Gran % (Auto) 0.2 % Neut % (Auto) 69.8 % Lymph % (Auto) 16.9 % Putnam % (Auto) 10.2 % Eos % (Auto) 2.5 % Baso % (Auto) 0.4 % Neut # (Auto) 3.92 (1.4-6.5) K/uL Lymph # (Auto) 0.95 L (1.2-3.4) K/uL Putnam # (Auto) 0.57 (0.11-0.59) K/uL Eos # (Auto) 0.14 (0-0.5) K/uL Baso # (Auto) 0.02 (0-0.2) K/uL Immature Gran # (Auto) 0.01 (0.00-0.02) K/uL PT (9.0-12.0) Seconds INR (0.9-1.1) APTT (21.0-31.0) Seconds PTT Ratio D-Dimer (0-500) ug/L FEU VBG pH (7.36-7.41) VBG pCO2 (38-50) mmHg VBG pO2 mmHg VBG HCO3 mmol/L VBG O2 Saturation % VBG Base Excess mEq/L Barometric Pressure mm/Hg Sodium (136-145) mmol/L Potassium (3.5-5.1) mmol/L Chloride (98-107) mmol/L Carbon Dioxide (21-32) mmol/L Anion Gap (3-11) BUN (6-23) mg/dl Creatinine (0.6-1.2) mg/dl Est Cr Clr Drug Dosing Est GFR ( Amer) ml/min Est GFR (Non-Af Amer) ml/min BUN/Creatinine Ratio (10-20) Glucose (70-99(Fasting)) mg/dl Calcium (8.5-10.1) mg/dl Magnesium (1.7-2.4) mg/dl Total Bilirubin (0.2-1.0) mg/dl AST (13-39) U/L ALT (7-52) U/L Alkaline Phosphatase (34-104) U/L Troponin I (0-0.04) ng/ml Total Protein (6.0-8.3) gm/dl Albumin (3.4-5.0) gm/dl Globulin (2.5-4.0) gm/dl Albumin/Globulin Ratio (0.9-2) Influ A Molecular Assay Negative (Negative) Influ B Molecular Assay Negative (Negative) SARS-CoV-2, RNA, NAAT NEGATIVE (NEGATIVE) 09/05/21 09/05/21 09/05/21 Range/Units 14:10 14:10 14:10 WBC (4.8-10.8) K/uL RBC (4.2-5.4) M/uL Hgb (12.0-16.0) g/dL Hct (37-47) % MCV (80-100) fL MCH (25-34) pg MCHC (32-36) g/dL RDW Std Deviation (36.4-46.3) fL RDW Coeff of Jerrell (11.5-14.5) % Plt Count (130-400) K/uL MPV (7.4-10.4) fL Immature Gran % (Auto) % Neut % (Auto) % Lymph % (Auto) % Putnam % (Auto) % Eos % (Auto) % Baso % (Auto) % Neut # (Auto) (1.4-6.5) K/uL Lymph # (Auto) (1.2-3.4) K/uL Putnam # (Auto) (0.11-0.59) K/uL Eos # (Auto) (0-0.5) K/uL Baso # (Auto) (0-0.2) K/uL Immature Gran # (Auto) (0.00-0.02) K/uL PT 14.9 H (9.0-12.0) Seconds INR 1.4 H (0.9-1.1) APTT 40.2 H (21.0-31.0) Seconds PTT Ratio 1.5 D-Dimer (0-500) ug/L FEU VBG pH 7.41 (7.36-7.41) VBG pCO2 44 (38-50) mmHg VBG pO2 39 mmHg VBG HCO3 28 mmol/L VBG O2 Saturation 70.2 % VBG Base Excess 2.5 mEq/L Barometric Pressure 715.9 mm/Hg Sodium 137 (136-145) mmol/L Potassium 4.2 (3.5-5.1) mmol/L Chloride 103 (98-107) mmol/L Carbon Dioxide 27 (21-32) mmol/L Anion Gap 7 (3-11) BUN 20 (6-23) mg/dl Creatinine 0.89 (0.6-1.2) mg/dl Est Cr Clr Drug Dosing Not Reportable Est GFR ( Amer) 69.5 ml/min Est GFR (Non-Af Amer) 59.9 ml/min BUN/Creatinine Ratio 22.5 H (10-20) Glucose 105 H (70-99(Fasting)) mg/dl Calcium 9.2 (8.5-10.1) mg/dl Magnesium 2.0 (1.7-2.4) mg/dl Total Bilirubin 0.3 (0.2-1.0) mg/dl AST 28 (13-39) U/L ALT 27 (7-52) U/L Alkaline Phosphatase 106 H (34-104) U/L Troponin I < 0.03 (0-0.04) ng/ml Total Protein 7.2 (6.0-8.3) gm/dl Albumin 4.1 (3.4-5.0) gm/dl Globulin 3.1 (2.5-4.0) gm/dl Albumin/Globulin Ratio 1.3 (0.9-2) Influ A Molecular Assay (Negative) Influ B Molecular Assay (Negative) SARS-CoV-2, RNA, NAAT (NEGATIVE) 09/05/21 Range/Units 14:10 WBC (4.8-10.8) K/uL RBC (4.2-5.4) M/uL Hgb (12.0-16.0) g/dL Hct (37-47) % MCV (80-100) fL MCH (25-34) pg MCHC (32-36) g/dL RDW Std Deviation (36.4-46.3) fL RDW Coeff of Jerrell (11.5-14.5) % Plt Count (130-400) K/uL MPV (7.4-10.4) fL Immature Gran % (Auto) % Neut % (Auto) % Lymph % (Auto) % Putnam % (Auto) % Eos % (Auto) % Baso % (Auto) % Neut # (Auto) (1.4-6.5) K/uL Lymph # (Auto) (1.2-3.4) K/uL Putnam # (Auto) (0.11-0.59) K/uL Eos # (Auto) (0-0.5) K/uL Baso # (Auto) (0-0.2) K/uL Immature Gran # (Auto) (0.00-0.02) K/uL PT (9.0-12.0) Seconds INR (0.9-1.1) APTT (21.0-31.0) Seconds PTT Ratio D-Dimer 890 H* (0-500) ug/L FEU VBG pH (7.36-7.41) VBG pCO2 (38-50) mmHg VBG pO2 mmHg VBG HCO3 mmol/L VBG O2 Saturation % VBG Base Excess mEq/L Barometric Pressure mm/Hg Sodium (136-145) mmol/L Potassium (3.5-5.1) mmol/L Chloride (98-107) mmol/L Carbon Dioxide (21-32) mmol/L Anion Gap (3-11) BUN (6-23) mg/dl Creatinine (0.6-1.2) mg/dl Est Cr Clr Drug Dosing Est GFR ( Amer) ml/min Est GFR (Non-Af Amer) ml/min BUN/Creatinine Ratio (10-20) Glucose (70-99(Fasting)) mg/dl Calcium (8.5-10.1) mg/dl Magnesium (1.7-2.4) mg/dl Total Bilirubin (0.2-1.0) mg/dl AST (13-39) U/L ALT (7-52) U/L Alkaline Phosphatase (34-104) U/L Troponin I (0-0.04) ng/ml Total Protein (6.0-8.3) gm/dl Albumin (3.4-5.0) gm/dl Globulin (2.5-4.0) gm/dl Albumin/Globulin Ratio (0.9-2) Influ A Molecular Assay (Negative) Influ B Molecular Assay (Negative) SARS-CoV-2, RNA, NAAT (NEGATIVE) Administered Medications Discontinued Medications Ioversol (Optiray 320 125ml) 120 ml IV ONCE ONE Stop: 09/05/21 15:31 Last Admin: 09/05/21 15:31 Dose: 120 ml Documented by: [id number] Imaging Data Radiologist's Impression: Chest X-Ray 09/05/21 13:32 XR chest 1V portable CLINICAL HISTORY: Dyspnea COMPARISON STUDY: Chest radiograph April 12, 2020. Chest CT October 16, 2020. FINDINGS: Right shoulder arthroplasty is incidentally noted. Moderate cardiomegaly is unchanged. No evidence for pulmonary edema. Linear bibasilar opacities favor atelectasis or consolidation. No consolidation to suggest pneumonia. There is no pneumothorax or pleural effusion. IMPRESSION: No acute cardiopulmonary findings. No change in appearance of the chest. ACT 112: Negative or not required by law. Electronically signed by: Landon Guevara M.D. 09/05/2021 2:50 PM Chest CTA 09/05/21 15:17 CT ANGIOGRAPHY OF THE CHEST, PULMONARY EMBOLUS PROTOCOL CLINICAL HISTORY: Shortness of breath. Evaluate for pulmonary embolus. COMPARISON STUDY: Chest CT October 16, 2020. Chest radiograph performed earlier today. TECHNIQUE: Following IV administration of 120 mL of Optiray, helical axial images of the chest were obtained utilizing the pulmonary embolus protocol. Maximal intensity projections and sagittal and coronal reformats were viewed on an independent 3D workstation. IV contrast was administered without complication. Automated exposure control was utilized for the study. A dose lowering technique was utilized adhering to the principles of ALARA. CT DOSE: 632.34 mGy.cm FINDINGS: As before, the thyroid gland is enlarged. No acute pulmonary emboli are identified. A linear filling defect within the distal left pulmonary artery is noted. This represents minimal chronic thrombus. Moderate cardiomegaly is noted. No pericardial effusion is present. No enlarged thoracic lymph nodes are present. There is no evidence for thoracic aortic dissection. Linear opacities within the lungs reflect atelectasis or scarring. There is no consolidation to suggest pneumonia. No pneumothorax or pleural effusion is present. No acute fracture or suspicious lesion is identified within the bony thorax. 7 mm lingular nodule on axial image 118 of 258 is unchanged since chest CT of November 09, 2017. This is benign given stability. A few additional smaller pulmonary nodules are also unchanged. IMPRESSION: 1. No acute pulmonary emboli identified. 2. Linear filling defect within the distal left pulmonary artery consistent with minimal chronic thrombus. 3. No acute process within the chest. 4. Moderate cardiomegaly. ACT 112: Negative or not required by law. Electronically signed by: Landon Guevara M.D. 09/05/2021 3:47 PM Discharge Plan Visit Data Chief Complaint: Respiratory Problems Stated Complaint: SOB, O2 LEVEL LOW, PULMINARY REFERRED ED Provider: Shayan Loza Discharge Problem: SIMMS (dyspnea on exertion), Hypoxia, Bilateral edema of lower extremity Patient Disposition: Being Evaluated by Hospitalist Forms Stand Alone Forms: My [facility] Prescriptions Prescriptions: No Action Spiriva Respimat 1.25 mcg/actuation mist 2 puff inhalation DAILY Qty: 3 RF: 1 amlodipine 5 mg tablet 10 mg PO DAILY RF: 0 solifenacin 5 mg tablet 5 mg PO QAM RF: 0 diazepam 5 mg tablet 5 mg PO BID RF: 0 albuterol sulfate 90 mcg/actuation HFA aerosol inhaler 2 puffs inhalation Q4H PRN (Reason: Shortness Of Breath) RF: 0 levothyroxine 50 mcg tablet 50 mcg PO QAM RF: 0 Xarelto 20 mg tablet 20 mg PO QAM Qty: 1 RF: 0 coenzyme Q10 10 mg capsule 100 mg PO QAM RF: 0 simvastatin 10 mg tablet 10 mg PO HS RF: 0 budesonide 0.25 mg/2 mL suspension for nebulization 2 ml INH BID RF: 0 albuterol sulfate 1.25 mg/3 mL solution for nebulization 1.25 mg INH BID RF: 0 sertraline 50 mg tablet 50 mg PO QAM RF: 0 loratadine 10 mg tablet 10 mg PO QAM RF: 0 calcium carbonate [Tums] 200 mg calcium (500 mg) tablet,chewable 200 mg PO TID RF: 0 cholecalciferol (vitamin D3) 25 mcg (1,000 unit) capsule 25 mcg PO BID RF: 0 valsartan 160 mg tablet 160 mg PO DAILY RF: 0 montelukast 10 mg tablet 10 mg PO HS RF: 0 cyanocobalamin (vitamin B-12) 1,000 mcg Capsule 1,000 mcg PO QAM RF: 0 magnesium oxide 500 mg Capsule 500 mg PO Q2D@2100 RF: 0 cranberry 500 mg Capsule 500 mg PO QAM RF: 0 ascorbic acid (vitamin C) [Vitamin C] 500 mg tablet 500 mg PO QAM RF: 0 carvedilol 6.25 mg Tablet 6.25 mg PO BID Qty: 60 RF: 0 ferrous sulfate 27 mg iron Tablet 0 mg PO DAILY RF: 0 aspirin [Aspirin Low Dose] 81 mg Tablet,Delayed Release (Dr/Ec) 81 mg PO DAILY RF: 0 Referrals Referrals: Tan Savage MD [Primary Care Provider] -
[2021-09-05 14:26] LABS: Basophils # (auto) 0.02 K/uL (0-0.2); Basophils % (auto) 0.4 %; Eosinophils # (auto) 0.14 K/uL (0-0.5); Eosinophils % (auto) 2.5 %; Hematocrit (blood only) 37.5 % (37-47); Hemoglobin 12.4 g/dL (12.0-16.0); Immature Granulocytes # (auto) 0.01 K/uL (0.00-0.02); Immature Granulocytes % (auto) 0.2 %; Lymphocytes # (auto) 0.95 K/uL (1.2-3.4); Lymphocytes % (auto) 16.9 %; Mean Corpuscular Hemoglobin 29.1 pg (25-34); Mean Corpuscular Hgb Conc 33.1 g/dL (32-36); Mean Platelet Volume 9.7 fL (7.4-10.4); Monocytes # (auto) 0.57 K/uL (0.11-0.59); Monocytes % (auto) 10.2 %; Neutrophils # (auto) 3.92 K/uL (1.4-6.5); Neutrophils % (auto) 69.8 %; Platelet Count 277 K/uL (130-400); RDW Coefficient of Variation 14.1 % (11.5-14.5); RDW Standard Deviation 45.1 fL (36.4-46.3); Red Blood Count 4.26 M/uL (4.2-5.4); White Blood Count 5.61 K/uL (4.8-10.8)
[2021-09-05 14:35] LABS: Influenza A virus by PCR Negative (Negative); Influenza B virus by PCR Negative (Negative)
[2021-09-05 14:40] LABS: Base Excess VBG 2.5 mEq/L; Oxygen Saturation VBG 70.2 %; pH VBG 7.41 (7.36-7.41)
[2021-09-05 14:45] LABS: INR 1.4 (0.9-1.1); Partial Thromboplastin Ratio 1.5; Partial Thromboplastin Time 40.2 Seconds (21.0-31.0); Prothrombin Time 14.9 Seconds (9.0-12.0); Troponin I < 0.03 ng/ml (0-0.04)
[2021-09-05 14:50] LABS: D Dimer 890 ug/L FEU (0-500)
--- NOTE | 2021-09-05 14:52 | XRay Report ---
XR chest 1V portable CLINICAL HISTORY: Dyspnea COMPARISON STUDY: Chest radiograph April 12, 2020. Chest CT October 16, 2020. FINDINGS: Right shoulder arthroplasty is incidentally noted. Moderate cardiomegaly is unchanged. No e vidence for pulmonary edema. Linear bibasilar opacities favor atelectasis or consolidation. No consol idation to suggest pneumonia. There is no pneumothorax or pleural effusion. IMPRESSION: No acute cardiopulmonary findings. No change in appearance of the chest. ACT 112: Negative or not required by law. Electronically signed by: Landon Guevara M.D. 09/05/2021 2:50 PM
[2021-09-05 14:58] LABS: Alanine Aminotransferase 27 U/L (7-52); Albumin Globulin Ratio 1.3 (0.9-2); Albumin Level 4.1 gm/dl (3.4-5.0); Alkaline Phosphatase 106 U/L (34-104); Anion Gap 7 (3-11); Aspartate Aminotransferase 28 U/L (13-39); BUN Creatinine Ratio 22.5 (10-20); Bilirubin,Total 0.3 mg/dl (0.2-1.0); Blood Urea Nitrogen 20 mg/dl (6-23); Calcium 9.2 mg/dl (8.5-10.1); Carbon Dioxide 27 mmol/L (21-32); Chloride 103 mmol/L (98-107); Est GFR (African American) 69.5 ml/min; Est GFR (Non-African American) 59.9 ml/min; Globulin 3.1 gm/dl (2.5-4.0); Glucose 105 mg/dl (70-99(Fasting)); Potassium 4.2 mmol/L (3.5-5.1); Sodium 137 mmol/L (136-145); Total Protein 7.2 gm/dl (6.0-8.3)
[2021-09-05] MEDS ORDERED: OPTIRAY 320 125ml IV ONE (15:30)
--- NOTE | 2021-09-05 15:48 | CT Scan Report ---
CT ANGIOGRAPHY OF THE CHEST, PULMONARY EMBOLUS PROTOCOL CLINICAL HISTORY: Shortness of breath. Evaluate for pulmonary embolus. COMPARISON STUDY: Chest CT October 16, 2020. Chest radiograph performed earlier today. TECHNIQUE: Following IV administration of 120 mL of Optiray, helical axial images of the chest were o btained utilizing the pulmonary embolus protocol. Maximal intensity projections and sagittal and cor onal reformats were viewed on an independent 3D workstation. IV contrast was administered without co mplication. Automated exposure control was utilized for the study. A dose lowering technique was ut ilized adhering to the principles of ALARA. CT DOSE: 632.34 mGy.cm FINDINGS: As before, the thyroid gland is enlarged. No acute pulmonary emboli are identified. A line ar filling defect within the distal left pulmonary artery is noted. This represents minimal chronic t hrombus. Moderate cardiomegaly is noted. No pericardial effusion is present. No enlarged thoracic lym ph nodes are present. There is no evidence for thoracic aortic dissection. Linear opacities within th e lungs reflect atelectasis or scarring. There is no consolidation to suggest pneumonia. No pneumotho rax or pleural effusion is present. No acute fracture or suspicious lesion is identified within the b cylde thorax. 7 mm lingular nodule on axial image 118 of 258 is unchanged since chest CT of November 09 8. This is benign given stability. A few additional smaller pulmonary nodules are also unchanged. IMPRESSION: 1. No acute pulmonary emboli identified. 2. Linear filling defect within the distal left pulmonary artery consistent with minimal chronic thro mbus. 3. No acute process within the chest. 4. Moderate cardiomegaly. ACT 112: Negative or not required by law. Electronically signed by: Landon Guevara M.D. 09/05/2021 3:47 PM
--- NOTE | 2021-09-05 16:47 | History & Physical Report ---
Date of Service September 05, 2021 Assessment & Plan (1) SIMMS (dyspnea on exertion): Plan: -This is chronic over the past year, daughter reports that has seemed to be worse over the past 2 to 3 weeks. It is likely multifactorial, she does have asthma, BMI of 35, also pulmonology notes from October 2020 note that she had worsening SIMMS associated with spikes in her SBP to 170-180s upon ambulation. They have increased her BP meds in an effort to manage her BP and hopefully d ecreased SIMMS. No evidence of infection or pulmonary embolism. No acute asthma exacerbation. -Currently 95% on room air. No O2 requirement at home. -Will continue all home inhalers, continuous oximetry overnight. -Plan for 6 minute walk test in AM. (2) Asthma: Plan: -Chronic, no evidence of acute exacerbation today. 95% on room air. -Continue home inhalers. (3) History of deep venous thrombosis or pulmonary embolus: Plan: -DVT in 2016, saddle PE in 2018. Now on chronic anticoagulation, Xarelto 20mg daily. -Chest CTA without any evidence of PE today. (4) Hypertension: Plan: -Valsartan 160 mg daily -Carvedilol 6.25 BID. -Amlodipine 10 mg daily. (5) Hyperlipidemia: Plan: -Simvastatin 10 mg at night. (6) Hypothyroidism (acquired): Plan: -Levothyroxine 50 mcg in AM. (7) Anxiety: Plan: -Diazepam 5mg twice daily at home, will continue this. -Sertraline 50mg daily. (8) Bladder spasm: Plan: -Solifenacin 5 mg daily. Plan: -OBS med/surg, if patient is stable overnight will likely be d/c tomorrow penidng 6 minute walk test. -SCDs, Xarelto for DVT ppx. -DNR/DNI. 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 This is chronic over the past year, pulmonology notes from October 2020 note that she had worsening SIMMS associated with spikes in her SBP to 170-180s upon ambulation. They have increased her BP meds in an effort to manage her BP and hopefully decreased SIMMS. Despite this, it has been ongoing over several months with worsening x2-3 weeks, only with ambulation. Her doctor checked her O2 saturation yesterday and it was 86% with ambulation. She spent generally more fatigued, but otherwise no other complai nts, she denies fever/chills, weakness, myalgias, SOB at rest, cough, chest pain, palpitations, nausea, vomiting. No history of heart failure, she denies orthopnea, PND. No recent sick contacts. In ED, mildly hypertensive 150/86, other vital signs within normal limits, 95% on room air. Labs largely unremarkable, PT 40.9, INR 1.4, PTT 40.2, D-dimer 890. CXR showed no acute cardiopulmonary findings, chest CTA showed no pulmonary emboli, there is a linear filling defect within the distal left pleuropulmonary artery consistent with minimal chronic thrombus. Allergies Allergy/AdvReac Type Severity Reaction Status Date / Time adhesive Allergy Unknown BANDAIDS Verified 09/05/21 14:50 AND CLOTH ADHESIVE-BLISTERS No Known Drug Allergies Allergy Unknown Verified 06/13/21 14:26 Home Medications Medication Instructions Recorded Confirmed Type albuterol sulfate 90 mcg/actuation 2 puffs INHALATION Q4H PRN gm 02/18/19 09/05/21 History aerosol inhaler coenzyme Q10 10 mg capsule 100 mg PO QAM cap 02/18/19 09/05/21 History diazepam 5 mg tablet 5 mg PO BID tab 02/18/19 09/05/21 History levothyroxine 50 mcg tablet 50 mcg PO QAM tab 02/18/19 09/05/21 History rivaroxaban 20 mg tablet (Xarelto) 20 mg PO QAM #1 tab 02/18/19 09/05/21 History simvastatin 10 mg tablet 10 mg PO HS tab 02/18/19 09/05/21 History solifenacin 5 mg tablet 5 mg PO QAM tab 02/18/19 09/05/21 History montelukast 10 mg tablet 10 mg PO HS 05/04/19 09/05/21 History albuterol sulfate 1.25 mg/3 mL 1.25 mg INH BID ml 11/10/19 09/05/21 History solution for nebulization budesonide 0.25 mg/2 mL suspension 2 ml INH BID 11/10/19 09/05/21 History for nebulization calcium carbonate 200 mg calcium 200 mg PO TID 11/10/19 09/05/21 History (500 mg) chewable tablet (Tums) cholecalciferol (vitamin D3) 25 25 mcg PO BID 11/10/19 09/05/21 History mcg (1,000 unit) capsule loratadine 10 mg tablet 10 mg PO QAM 11/10/19 09/05/21 History sertraline 50 mg tablet 50 mg PO QAM 11/10/19 09/05/21 History cyanocobalamin (vitamin B-12) 1,000 mcg PO QAM 11/23/19 09/05/21 History 1,000 mcg capsule magnesium oxide 500 mg capsule 500 mg PO Q2D@2100 11/23/19 09/05/21 History ascorbic acid (vitamin C) 500 mg 500 mg PO QAM 01/01/20 09/05/21 History tablet (Vitamin C) cranberry 500 mg capsule 500 mg PO QAM 01/01/20 09/05/21 History carvedilol 6.25 mg tablet 6.25 mg PO BID #60 tab 01/07/20 09/05/21 Rx amlodipine 5 mg tablet 10 mg PO DAILY tab 10/11/20 09/05/21 History valsartan 160 mg tablet 160 mg PO DAILY 10/11/20 09/05/21 History aspirin 81 mg tablet,delayed 81 mg PO DAILY 11/18/20 09/05/21 History release (Aspirin Low Dose) tiotropium bromide 1.25 2 puff INHALATION DAILY #3 inhaler 07/09/21 09/05/21 Rx mcg/actuation mist for inhalation (Spiriva Respimat) ferrous sulfate 27 mg iron tablet 0 mg PO DAILY 09/05/21 09/05/21 History Past Med/Surg History Medical History Anxiety Asthma [place]es [facility] [place]. Using neb BID. Very rare rescue inhaler use Bilateral pulmonary embolism ~ 4 yrs ago, was being treated for empyema Bladder spasm Chronic anticoagulation DVT (deep venous thrombosis) HX-ON XARELTO Essential tremor very slight in hands Hyperlipidemia Hypertension Hypothyroidism (acquired) Left ankle sprain Saddle embolism of pulmonary artery ~ 4 yrs ago Urinary, incontinence, stress female Surgical History History of cholecystectomy History of colonoscopy History of hysterectomy TOTAL History of open reduction and internal fixation (ORIF) procedure RIGHT HIP History of thoracentesis Social History Smoking Status: Never smoker Second Hand Exposure: No; Hx Alcohol Use: No Hx Substance Use: No Preferred Language: Indonesian Communication Ability: Effective Periodicals Clerk Required: No Beliefs That Will Affect Care: None marital status: / Current Living Situation: Family Current Living Situation Comment: daughter and grandson Feels Safe at Home: Yes Safety Concerns: Feels Safe At This Time Assistive Devices: Special Shoe and Walker Review of Systems Review of Systems: Constitutional: No fever, sweats or chills Eyes: No diplopia, no worsening or blurred vision ENT: normal hearing, no trouble swallowing Respiratory: reports ongoing SIMMS over the past several months, worse over the past 2-3 weeks Cardiovascular: No chest pain, tightness or palpitations Abdomen: No pain, nausea, vomiting, diarrhea or constipation Musculoskeletal: No joint pain, calf pain, swelling Neurologic: No weakness, numbness/tingling, or balance problems Psychiatric: No anxiety or depression Skin: No rash or itch Physical Exam Physical Exam: General: awake, alert, no apparent distress Head: Normocephalic, atraumatic ENT: PERRL, EOMI, no pharyngeal exudate, mucous membranes moist Chest: Clear to auscultation, on room air, no adventitious breath sounds Cardiac: Regular rate and rhythm, no murmur, no JVD, normal peripheral pulses, good capillary refill Abdominal: NABS x 4 quadrants, soft, nontender to palpation, no rebound, guarding or tenderness Extremities: Normal inspection, no peripheral edema or erythema, calfs nontender to palpation Psych: Normal mood and affect Neuro: AAO x 3, strength intact bilaterally and rated 5/5, no motor deficits, speech is clear, no peripheral sensory deficits Skin: no rash or erythema Results & Data Results & Data ([facility]) Vital Signs (Past 12 Hours) Vital Signs Temp Pulse Resp BP Pulse Ox 09/05/21 14:00 59 L 20 150/86 H 95 09/05/21 13:49 96 09/05/21 13:32 95 09/05/21 13:23 36.6 C 127 H 22 149/58 H 95 Laboratory Results Abnormal lab results 09/05/21 09/05/21 09/05/21 Range/Units 14:10 14:10 14:10 Lymph # (Auto) 0.95 L (1.2-3.4) K/uL PT 14.9 H (9.0-12.0) Seconds INR 1.4 H (0.9-1.1) APTT 40.2 H (21.0-31.0) Seconds D-Dimer (0-500) ug/L FEU BUN/Creatinine Ratio 22.5 H (10-20) Glucose 105 H (70-99(Fasting)) mg/dl Alkaline Phosphatase 106 H (34-104) U/L 09/05/21 Range/Units 14:10 Lymph # (Auto) (1.2-3.4) K/uL PT (9.0-12.0) Seconds INR (0.9-1.1) APTT (21.0-31.0) Seconds D-Dimer 890 H* (0-500) ug/L FEU BUN/Creatinine Ratio (10-20) Glucose (70-99(Fasting)) mg/dl Alkaline Phosphatase (34-104) U/L Diagnostic Findings Chest X-Ray 09/05/21 13:32 XR chest 1V portable CLINICAL HISTORY: Dyspnea COMPARISON STUDY: Chest radiograph April 12, 2020. Chest CT October 16, 2020. FINDINGS: Right shoulder arthroplasty is incidentally noted. Moderate cardiomegaly is unchanged. No evidence for pulmonary edema. Linear bibasilar opacities favor atelectasis or consolidation. No consolidation to suggest pneumonia. There is no pneumothorax or pleural effusion. IMPRESSION: No acute cardiopulmonary findings. No change in appearance of the chest. ACT 112: Negative or not required by law. Electronically signed by: Landon Guevara M.D. 09/05/2021 2:50 PM Chest CTA 09/05/21 15:17 CT ANGIOGRAPHY OF THE CHEST, PULMONARY EMBOLUS PROTOCOL CLINICAL HISTORY: Shortness of breath. Evaluate for pulmonary embolus. COMPARISON STUDY: Chest CT October 16, 2020. Chest radiograph performed earlier today. TECHNIQUE: Following IV administration of 120 mL of Optiray, helical axial images of the chest were obtained utilizing the pulmonary embolus protocol. M aximal intensity projections and sagittal and coronal reformats were viewed on an independent 3D workstation. IV contrast was administered without complication. Automated exposure control was utilized for the study. A dose lowering technique was utilized adhering to the principles of ALARA. CT DOSE: 632.34 mGy.cm FINDINGS: As before, the thyroid gland is enlarged. No acute pulmonary emboli are identified. A linear filling defect within the distal left pulmonary artery is noted. This represents minimal chronic thrombus. Moderate cardiomegaly is noted. No pericardial effusion is present. No enlarged thoracic lymph nodes are present. There is no evidence for thoracic aortic dissection. Linear opacities within the lungs reflect atelectasis or scarring. There is no consolidation to suggest pneumonia. No pneumothorax or pleural effusion is present. No acute fracture or suspicious lesion is identified within the bony thorax. 7 mm lingular nodule on axial image 118 of 258 is unchanged since chest CT of November 09, 2017. This is benign given stability. A few additional smaller pulmonary nodules are also unchanged. IMPRESSION: 1. No acute pulmonary emboli identified. 2. Linear filling defect within the distal left pulmonary artery consistent with minimal chronic thrombus. 3. No acute process within the chest. 4. Moderate cardiomegaly. ECG Additional Comments: Normal sinus rhythm with sinus arrhythmia Nonspecific ST and T wave abnormality Abnormal ECG When compared with ECG of 01-JAN-2020 12:55, Premature atrial complexes are no longer Present Nonspecific T wave abnormality no longer evident in Inferior leads. Code Status & VTE Plan Code Status DNR/DNI. Supervising Physician Co-Signing Physician Notes I personally saw and examined the patient. I verified all de la o points and agree with Afia Posada PA-C with the following exceptions and/or additions: 85 year old female admission for shortness of breath and hypoxia on exertion. Appears to be acute on chronic with some worsening over the last 4-5 days. O/E WD/WN, obese, Chest CTAB, HS 1+2, without murmur, Abdo SNT A/P Shortness of breath, hypoxia on exertion - no acute exacerbation of asthma noted on exam, possible her chronic asthma is just worse than usual with seasonal allergies, pt unsure of her inhalers at this time therefore will check with her daughter tomorrow and potentially add LABA as none on her home med list (Pt thinks she takes Symbicort at home). 2 step in AM to see if she qualifies for home oxygen. No definitive cause of acute worsening in last 4-5 days although per prior notes she appears to be chronically dyspneic on exertion with prior workup including unremarkable nuclear med stress. She has multiple reasons to be dyspneic as noted in her last pulmonology note including pulmonary hypertension, asthma, obesity, deconditioning, history of pulmonary embolism. PG Care Time/CCT Total # of Minutes Spent Total Time Spent with Patient: Total time spent is greater than 50% in coordination of care (as documented) at patient's floor/unit and/or counseling patient: Coding Level of Care Code INT OBSERVATION CARE 70M LVL 3 Diagnoses History of deep venous thrombosis or pulmonary embolus Hypertension I10 Asthma J45.909 Hyperlipidemia E78.5 Hypothyroidism (acquired) E03.9 Anxiety F41.9 Bladder spasm N32.89 SIMMS (dyspnea on exertion) R06.00
[2021-09-05 18:16] LABS: Appearance Urine Clear (Clear); Bilirubin Urine Negative (Negative); Blood Urine Negative (Negative); Color Urine Yellow; Glucose Urine UA Negative (Negative); Ketones Urine Negative (Negative); Leukocyte Esterase Urine Negative (Negative); Nitrite Urine Negative (Negative); Protein Urine Negative (Negative); Specific Gravity Urine 1.012 (1.000-1.030); Urobilinogen Urine Negative (Negative); pH Urine 7.5 (4.5-7.5)
[2021-09-05] MEDS ORDERED: ONDANSETRON INJ 2 MG/ML 2 ML VIAL IV PRN (18:35)
[2021-09-05] MEDS ORDERED: ALBUTEROL HFA 8 GM INHALER INH PRN (18:35)
[2021-09-05] MEDS ORDERED: ACETAMINOPHEN 325 MG TAB PO PRN (18:35)
[2021-09-05] MEDS ORDERED: POLYETHYLENE (MIRALAX) 17 GM PACK PO PRN (19:15)
[2021-09-05] MEDS: CHOLECALCIFEROL 1,000 UNITS 25 MCG TAB PO SCH (20:27)
[2021-09-05] MEDS: CALCIUM CARBONATE 500 MG CHEWABLE TAB PO SCH (20:27)
[2021-09-05] MEDS: carvediloL 6.25 MG TAB PO SCH (20:27)
[2021-09-05] MEDS: BUDESONIDE 0.25 MG/2 ML VIAL (PULMICORT) INH SCH (20:34)
[2021-09-05] MEDS: ALBUTEROL 0.083% NEBU SOLN 3 ML VIAL INH SCH (20:34)
[2021-09-05] MEDS: diazePAM 5 MG TABLET PO SCH (20:53)
[2021-09-05] MEDS ORDERED: MAGNESIUM OXIDE 400 MG TAB PO SCH (21:00)
[2021-09-05] MEDS ORDERED: SIMVASTATIN 10 MG TAB PO SCH (21:00)
[2021-09-05] MEDS ORDERED: MONTELUKAST SODIUM 10 MG TABLET PO SCH (21:00)
--- NOTE | 2021-09-06 06:08 | Electrocardiogram Report ---
Test Reason : Blood Pressure : / mmHG Vent. Rate : 063 BPM Atrial Rate : 063 BPM P-R Int : 182 ms QRS Dur : 076 ms QT Int : 458 ms P-R-T Axes : 065 070 088 degrees QTc Int : 468 ms Poor data quality, interpretation may be adversely affected Normal sinus rhythm with sinus arrhythmia Nonspecific ST and T wave abnormality Abnormal ECG When compared with ECG of 01-JAN-2020 12:55, Premature atrial complexes are no longer Present Nonspecific T wave abnormality no longer evident in Inferior leads Confirmed by Ismael Del Rio ([id number]) on 09/06/2021 6:08:16 AM Referred By: REFERRED SELF Confirmed By:Ismael Del Rio
[2021-09-06] MEDS ORDERED: LEVOTHYROXINE SODIUM 50 MCG TABLET PO SCH (06:30)
[2021-09-06 06:40] LABS: Basophils # (auto) 0.03 K/uL (0-0.2); Basophils % (auto) 0.5 %; Eosinophils # (auto) 0.12 K/uL (0-0.5); Eosinophils % (auto) 1.9 %; Hematocrit (blood only) 37.1 % (37-47); Hemoglobin 12.7 g/dL (12.0-16.0); Immature Granulocytes # (auto) 0.01 K/uL (0.00-0.02); Immature Granulocytes % (auto) 0.2 %; Lymphocytes # (auto) 1.14 K/uL (1.2-3.4); Lymphocytes % (auto) 18.4 %; Mean Corpuscular Hemoglobin 30.2 pg (25-34); Mean Corpuscular Hgb Conc 34.2 g/dL (32-36); Mean Corpuscular Volume 88.1 fL (80-100); Mean Platelet Volume 9.7 fL (7.4-10.4); Monocytes % (auto) 9.7 %; Neutrophils # (auto) 4.31 K/uL (1.4-6.5); Neutrophils % (auto) 69.3 %; Platelet Count 267 K/uL (130-400); RDW Coefficient of Variation 14.1 % (11.5-14.5); RDW Standard Deviation 45.3 fL (36.4-46.3); Red Blood Count 4.21 M/uL (4.2-5.4); White Blood Count 6.21 K/uL (4.8-10.8)
[2021-09-06 06:59] LABS: Anion Gap 7 (3-11); BUN Creatinine Ratio 17.4 (10-20); Blood Urea Nitrogen 16 mg/dl (6-23); Calcium 9.1 mg/dl (8.5-10.1); Carbon Dioxide 27 mmol/L (21-32); Chloride 104 mmol/L (98-107); Creatinine Clr Calc Pharmacy 35.8 ml/min; Est GFR (African American) 66.7 ml/min; Est GFR (Non-African American) 57.6 ml/min; Glucose 92 mg/dl (70-99(Fasting)); Sodium 138 mmol/L (136-145)
[2021-09-06] MEDS ORDERED: RIVAROXABAN 20 MG TAB PO SCH (07:30)
[2021-09-06] MEDS: ALBUTEROL 0.083% NEBU SOLN 3 ML VIAL INH SCH (07:44)
[2021-09-06] MEDS: BUDESONIDE 0.25 MG/2 ML VIAL (PULMICORT) INH SCH (07:44)
[2021-09-06] MEDS ORDERED: CYANOCOBALAMIN (B-12) 500 MCG TABLET PO SCH (09:00)
[2021-09-06] MEDS ORDERED: ASPIRIN 81 MG ECTAB PO SCH (09:00)
[2021-09-06] MEDS ORDERED: LORATADINE 10 MG TAB PO SCH (09:00)
[2021-09-06] MEDS ORDERED: VALSARTAN 80 MG TAB PO SCH (09:00)
[2021-09-06] MEDS ORDERED: UMECLIDINIUM BROMIDE 62.5MCG/BLISTER 7 PUFFS/INHALER INH SCH (09:00)
[2021-09-06] MEDS ORDERED: SERTRALINE HCL 50 MG TABLET PO SCH (09:00)
[2021-09-06] MEDS ORDERED: FERROUS SULFATE 325 MG TAB PO SCH (09:00)
[2021-09-06] MEDS ORDERED: ASCORBIC ACID 500 MG TAB PO SCH (09:00)
[2021-09-06] MEDS ORDERED: amLODIPine BESYLATE 5 MG TAB PO SCH (09:00)
[2021-09-06] MEDS: carvediloL 6.25 MG TAB PO SCH (09:07)
[2021-09-06] MEDS: CHOLECALCIFEROL 1,000 UNITS 25 MCG TAB PO SCH (09:07)
[2021-09-06] MEDS: diazePAM 5 MG TABLET PO SCH (09:12)
[2021-09-06] MEDS: CALCIUM CARBONATE 500 MG CHEWABLE TAB PO SCH ×2 (09:12→15:42)
--- NOTE | 2021-09-06 11:54 | XCELERA ---
[id number]
--- NOTE | 2021-09-06 18:14 | Discharge Summary ---
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 This is chronic over the past year, pulmonology notes from October 2020 note that she had worsening SIMMS associated with spikes in her SBP to 170-180s upon ambulation. They have increased her BP meds in an effort to manage her BP and hopefully decreased SIMMS. Despite this, it has been ongoing over several months with worsening x2-3 weeks, only with ambulation. Her doctor checked her O2 saturation yesterday and it was 86% with ambulation. She spent generally more fatigued, but otherwise no other complaints, she denies fever/chills, weakness, myalgias, SOB at rest, cough, chest pain, palpitations, nausea, vomiting. No history of heart failure, she denies orthopnea, PND. No recent sick contacts. In ED, mildly hypertensive 150/86, other vital signs within normal limits, 95% on room air. Labs largely unremarkable, PT 40.9, INR 1.4, PTT 40.2, D-dimer 890. CXR showed no acute cardiopulmonary findings, chest CTA showed no pulmonary emboli, there is a linear filling defect within the distal left pleuropulmonary artery consistent with minimal chronic thrombus. Discharge Data Allergies Allergy/AdvReac Type Severity Reaction Status Date / Time adhesive Allergy Unknown BANDAIDS Verified 09/05/21 14:50 AND CLOTH ADHESIVE-BLISTERS No Known Drug Allergies Allergy Unknown Verified 06/13/21 14:26 Consultations 09/05/21 16:00 ED Decision to Admit Stat Ordered Studies 09/05/21 15:17 CT angio chest PE protocol Stat Hospital Course (1) SIMMS (dyspnea on exertion): -This is chronic over the past year, daughter reports that has seemed to be worse over the past 2 to 3 weeks. It is likely multifactorial, she does have asthma, BMI of 35, also pulmonology notes from October 2020 note that she had worsening SIMMS associated with spikes in her SBP to 170-180s upon ambulation. They have increased her BP meds in an effort to manage her BP and hopefully decreased SIMMS. No evidence of infection or pulmonary embolism. No acute asthma exacerbation. -Currently 95% on room air. No O2 requirement at home. -Will continue all home inhalers, continuous oximetry overnight. -Plan for 6 minute walk test in AM. (2) Asthma: -Chronic, no evidence of acute exacerbation today. 95% on room air. -Continue home inhalers. (3) History of deep venous thrombosis or pulmonary embolus: -DVT in 2016, saddle PE in 2018. Now on chronic anticoagulation, Xarelto 20mg daily. -Chest CTA without any evidence of PE today. (4) Hypertension: -Valsartan 160 mg daily -Carvedilol 6.25 BID. -Amlodipine 10 mg daily. (5) Hyperlipidemia: -Simvastatin 10 mg at night. (6) Hypothyroidism (acquired): -Levothyroxine 50 mcg in AM. (7) Anxiety: -Diazepam 5mg twice daily at home, will continue this. -Sertraline 50mg daily. (8) Bladder spasm: -Solifenacin 5 mg daily. -OBS med/surg, if patient is stable overnight will likely be d/c tomorrow penidng 6 minute walk test. -SCDs, Xarelto for DVT ppx. -DNR/DNI. Discharge Plan Discharge Items Patient Disposition: Home - Self-Care Reason For Visit: DYSPNEA ON EXERTION Discharge Diagnosis: Multifactorial shortness of breath Activity: Resume your previous activity Non-emergency contact: Primary Care Provider Call non-emergency contact if: you have any medication questions and your symptoms worsen Follow-up/Referrals: Tan Savage MD [Primary Care Provider] - Diet: Heart Healthy Addtl Attending Provider Instructions: You were observed overnight at [facility] due to shortness of breath on exertion. No acute reversible etiology was identified. CT did not show any acute pulmonary embolism, or pneumonia. Echocardiogram was unremarkable. No specific wheezing was noted on exam but given acute worsening of your symptoms recommend short course of prednisone for 3 days and switching your budesonide for Breo Ellipta to see if this helps you shortness of breath better as it contains a long acting albuterol. 6 minute walk test on discharge showed you were able to maintain your O2 sats > 90% on room air therefore you do not need home oxygen at this time. Please follow up with your primary care physician for ongoing management of this. Pending Studies at Discharge: No Stand-Alone Forms: My [facility], Smoking Cessation Medications and DC Order Prescriptions: New Breo Ellipta 200-25 mcg/dose Blister With Device 1 ea inhalation DAILY Qty: 60 RF: 0 prednisone 20 mg tablet 20 mg PO DAILY 2 Days Qty: 2 RF: 0 Continued Spiriva Respimat 1.25 mcg/actuation mist 2 puff inhalation DAILY Qty: 3 RF: 1 amlodipine 5 mg tablet 10 mg PO DAILY RF: 0 solifenacin 5 mg tablet 5 mg PO QAM RF: 0 diazepam 5 mg tablet 5 mg PO BID RF: 0 albuterol sulfate 90 mcg/actuation HFA aerosol inhaler 2 puffs inhalation Q4H PRN (Reason: Shortness Of Breath) RF: 0 levothyroxine 50 mcg tablet 50 mcg PO QAM RF: 0 Xarelto 20 mg tablet 20 mg PO QAM Qty: 1 RF: 0 coenzyme Q10 10 mg capsule 100 mg PO QAM RF: 0 simvastatin 10 mg tablet 10 mg PO HS RF: 0 sertraline 50 mg tablet 50 mg PO QAM RF: 0 loratadine 10 mg tablet 10 mg PO QAM RF: 0 calcium carbonate [Tums] 200 mg calcium (500 mg) tablet,chewable 200 mg PO TID RF: 0 cholecalciferol (vitamin D3) 25 mcg (1,000 unit) capsule 25 mcg PO BID RF: 0 valsartan 160 mg tablet 160 mg PO DAILY RF: 0 montelukast 10 mg tablet 10 mg PO HS RF: 0 cyanocobalamin (vitamin B-12) 1,000 mcg Capsule 1,000 mcg PO QAM RF: 0 magnesium oxide 500 mg Capsule 500 mg PO Q2D@2100 RF: 0 cranberry 500 mg Capsule 500 mg PO QAM RF: 0 ascorbic acid (vitamin C) [Vitamin C] 500 mg tablet 500 mg PO QAM RF: 0 carvedilol 6.25 mg Tablet 6.25 mg PO BID Qty: 60 RF: 0 ferrous sulfate 27 mg iron Tablet 0 mg PO DAILY RF: 0 aspirin [Aspirin Low Dose] 81 mg Tablet,Delayed Release (Dr/Ec) 81 mg PO DAILY RF: 0 Changed albuterol sulfate 1.25 mg/3 mL solution for nebulization 1.25 mg INH Q4H PRN (Reason: shortness of breath) Qty: 0 RF: 0 Discontinued budesonide 0.25 mg/2 mL suspension for nebulization 2 ml INH BID RF: 0 Discharge Orders: Discharge Order (Routine); Ordered 09/06/21 Ordered By: Ld Lund Admission Data Admit Date/Time: 09/05/21 17:34 Attending Provider: Ld Lund Admit Provider: Ld Lund Primary Care Provider: Tan Savage Other Providers: Ld Lund Coding Diagnoses SIMMS (dyspnea on exertion) R06.00 Asthma J45.909 History of deep venous thrombosis or pulmonary embolus Hypertension I10 Hyperlipidemia E78.5 Hypothyroidism (acquired) E03.9 Anxiety F41.9 Bladder spasm N32.89
[2021-09-06] MEDS ORDERED: predniSONE 20 MG TAB PO ONE (18:30)
[2021-09-06] MEDS ORDERED: FLUTICASONE/VILANTEROL 200/25MCG 14 PUFFS/INHALER INH SCH (18:30)
== END 2021-09-06 19:11 | disposition home or self-care (01) ==
LOC: 3N 13:21 → ED 13:21 → 3N 18:07

== ENCOUNTER 2023-06-04 10:25 | Observation (INO) ==
--- NOTE | 2023-06-02 11:45 | Anesthesiology Consultation ---
Date of Service June 02, 2023 Assessment & Plan (1) Encounter for pre-operative examination: - ER [facility] 05/20/23: "...pain in the left shoulder shoulder associated with dislocation. Pt. uncertain when the shoulder dislocated. States she felt fine yesterday, but then went to transfer from her chair to a wheelchair and began complaining of pain...consulted with Dr. Bunch via phone. He did review the images and did see the patient. He does not feel that the shoulder will likely reduce here in the emergency department as a closed reduction due to suspicions for entire rotator cuff tear associated with the dislocation. He suggests that the patient will likely need scheduled for a reverse shoulder replacement next week..." - Outpatient joint assessment: Patient is currently scheduled for inpatient pathway. If re-evaluated and patient/surgeon requests outpatient pathway, patient is not recommended candidate for outpatient joint program from anesthesia standpoint. Chart Review Chart Review: Acceptable Risk for Surgery and Patient seen in Pre Admission Testing Teaching & Discussion Pre-Anesthesia Teaching/Discussion Notes: Instructed NPO after midnight before surgery, except medications with 15 cc of water. Medication instructions provided according to the PAT guidelines. History Surgery Operation Date: 06/04/23 13:00 Proposed Procedures p Left Total Shoulder Arthroplasty Reverse - Elio Bunch, DO Height/Weight Height: 4 ft 7 in Weight: 67.9 kg Allergies Allergy/AdvReac Type Severity Reaction Status Date / Time No Known Drug Allergies Allergy Unknown Verified 06/02/23 12:12 Medications Home Medications Medication Instructions Recorded Confirmed Last Taken albuterol sulfate 90 mcg/actuation 2 puffs inhalation Q4H PRN 02/18/19 06/02/23 11/18/20 aerosol inhaler Shortness Of Breath coenzyme Q10 10 mg capsule 100 mg PO QAM 02/18/19 06/02/23 09/05/21 calcium carbonate 200 mg calcium 200 mg PO TID 11/10/19 06/02/23 09/05/21 (500 mg) chewable tablet (Tums) loratadine 10 mg tablet 10 mg PO QAM allergy 11/10/19 06/02/23 09/05/21 cyanocobalamin (vitamin B-12) 1,000 mcg PO QAM 11/23/19 06/02/23 09/05/21 1,000 mcg capsule magnesium oxide 500 mg capsule 500 mg PO Q2D@2100 06/17/20 12/26/23 06/12/21 ascorbic acid (vitamin C) 500 mg 500 mg PO QAM 01/01/20 06/02/23 09/05/21 tablet (Vitamin C) cranberry 500 mg capsule 500 mg PO QAM 01/01/20 06/02/23 09/05/21 aspirin 81 mg tablet,delayed 81 mg PO DAILY 11/18/20 06/02/23 11/17/20 release ([employer] Low Dose Aspirin) ferrous sulfate 27 mg iron tablet 0 mg PO DAILY 09/05/21 06/02/23 09/05/21 Flutter Valve #1 ea 01/15/22 04/06/23 Unknown nystatin 100,000 unit/mL oral 100,000 unit PO TID #200 mL 03/26/22 06/02/23 Unknown suspension cholecalciferol (vitamin D3) 25 25 mcg PO .qd 04/29/22 06/02/23 Unknown mcg (1,000 unit) capsule nebulizers (AeroEclipse II #1 ea 05/27/22 04/06/23 Unknown Nebulizer) promethazine 6.25 mg-codeine 10 5 ml PO Q6H cough #118 mL 06/19/22 06/02/23 Unknown mg/5 mL syrup carvedilol 6.25 mg tablet 6.25 mg PO BID #180 tabs 01/28/23 06/02/23 Unknown simvastatin 10 mg tablet 10 mg PO HS cholesterol #90 tabs 02/18/23 06/02/23 Unknown levothyroxine 50 mcg tablet 50 mcg PO QAM thyriod #90 tabs 03/19/23 06/02/23 Unknown rivaroxaban 20 mg tablet (Xarelto) 20 mg PO QAM #90 tabs 04/03/23 06/02/23 Unknown budesonide-formoterol HFA 160 1 inh inhalation BID 04/06/23 06/02/23 Unknown mcg-4.5 mcg/actuation aerosol inhaler (Symbicort) diazepam 5 mg tablet 5 mg PO BID nerves #180 tabs 04/06/23 06/02/23 Unknown montelukast 10 mg tablet 10 mg PO DAILY #90 tabs 04/06/23 06/02/23 Unknown sertraline 50 mg tablet 75 mg (1.5 x 50 mg) PO QAM #150 04/06/23 06/02/23 Unknown tabs solifenacin 5 mg tablet 5 mg PO QAM bladder #90 tabs 04/06/23 06/02/23 Unknown valsartan 160 mg tablet 160 mg PO DAILY bp #90 tabs 04/06/23 06/02/23 Unknown zolpidem 5 mg tablet 5 mg PO HS PRN insomnia #90 tabs 04/06/23 06/02/23 Unknown tramadol 50 mg tablet 50 mg PO BID pain #60 tabs 04/07/23 06/02/23 Unknown formoterol fumarate 20 mcg/2 mL 2 ml inhalation BID #120 mL 05/07/23 06/02/23 Unknown solution for nebulization (Perforomist) budesonide 0.5 mg/2 mL suspension 0.5 mg (2 mL) inhalation BID #120 05/12/23 06/02/23 Unknown for nebulization mL amlodipine 10 mg tablet 10 mg PO QPM 06/02/23 06/02/23 Unknown Additional Notes: Patient and daughter were instructed and it was corrected on medication instruction list to take amlodipine the night before surgery as usual. They verbalized understanding and agreement, denied questions, concerns or adjustments to other medications. Past Medical History Medical History (Updated 06/02/23 @ 12:43 by Tanisha Timmons PA-C) History of blood transfusion 2019 nikolai-operative History of COVID-19 2020- no hosp; resolved Moderate persistent asthma controlled w/ daily nebulizer use. prn rescue inhaler-last use several weeks ago Osteoporosis Pulmonary nodules monitoring Urinary, incontinence, stress female Essential tremor very slight in hands DVT (deep venous thrombosis) HX-2015 Chronic anticoagulation Hyperlipidemia Hypothyroidism (acquired) Anxiety Hypertension controlled, stable per pt Bilateral pulmonary embolism 04/2016--was being treated for empyema, saddle embolism Patient denies h/o stroke, seizures, heart attack, heart failure, or DM. Exercise / Class Metabolic Activity IV < 2 Limit ADL/Bedbound (denies chest discomfort or shortness of breath with transfer) Past Family History Family History Mother Dementia Father Heart disease Myocardial infarction Brother Heart disease Myocardial infarction Brother Colorectal cancer Throat cancer Sister Breast cancer Ovarian cancer Dementia Past Surgical History Surgical History (Updated 06/02/23 @ 12:44 by Tanisha Timmons PA-C) H/O joint surgery hip replacement removed H/O cataract extraction bilateral H/O shoulder replacement right S/P total hip arthroplasty right History of hysterectomy TOTAL History of colonoscopy History of open reduction and internal fixation (ORIF) procedure RIGHT HIP History of thoracentesis History of cholecystectomy Past Anesthesia History No Hx of Anesthesia Complications and No Family Hx of Anesthesia Complications History of PONV No Hx of PONV and No Hx of Motion Sickness Social History Smoking Status: Never smoker Do You Dip or Chew Tobacco: No Hx Alcohol Use: No Hx Substance Use: No substance use type: does not use Review of Systems Patient denies chest pain, shortness of breath, dyspnea on exertion, snoring, witnessed apneas, reflux, fever, chills, cough, wheezing, or palpitations. Physical Exam Vital Signs Vitals BP 142/85 P 60 TEMP 97.4 SP02 98% on RA RESP 18 Physical Patient resting comfortably in wheelchair in no acute distress, alert and oriented, responding appropriately throughout visit Full cervical extension range of motion without pain TMD 3 finger breadths Mallampati Score 3 Dentition: edentulous, full upper and lower dentures Lungs: normal respiratory effort. Good air movement, clear throughout to auscultation, no adventitious breath sounds Cardiac: regular rate and rhythm, no murmurs noted Carotid arteries: negative bruit bilat Lab Results Anesthesia Preop Results Results Anesthesia Widget: WBC 6.15 K/ul (4.8-10.8) 06/02/23 Hgb 12.9 g/dl (12.0-16.0) 06/02/23 Hct 39.1 % (37.0-47.0) 06/02/23 Plt 331 K/uL (130-400) 06/02/23 Na 138 mmol/L (136-145) 04/28/23 K 4.4 mmol/L (3.5-5.1) 04/28/23 Cl 100 mmol/L (98-107) 04/28/23 CO2 24 mmol/L (21-32) 04/28/23 BUN 12 mg/dL (7-18) 04/28/23 Creat 0.9 mg/dL (0.6-1.2) 04/28/23 Glucose Level 89 mg/dL (70-99) 04/28/23 PT 10.3 Seconds (9.0-12.0) 06/02/23 PTT 26 Seconds (21-31) 06/02/23 INR 0.9 (0.9-1.1) 06/02/23 Blood Type B Positive 06/02/23 Antibody Screen NEGATIVE 06/02/23 Testing Laboratory Results 04/28/2023 SODIUM: 138 POTASSIUM: 4.4 CHLORIDE: 100 CO2: 24 BUN: 12 CREATININE: 0.9 GLUCOSE: 89 Albumin: 4.4 Electrocardiogram Date: 06/02/23 Sinus bradycardia, rate 59 bpm Chest X-Ray Date: 06/02/23 Limited lateral view secondary to upper remedy positioning. Cardiomediastinal and hilar silhouettes are unchanged. Thyroid goiter redemonstrated. No pneumothorax, pleural effusion or overt pulmonary edema. Mild linear left basilar atelectasis versus scarring. Right shoulder arthroplasty. Degenerative changes of the spine and left shoulder. IMPRESSION: Cardiomegaly without acute process. Echocardiogram Date: 09/06/21 EF 60-65% No regional wall motion abnormalities Mild cLVH Mild mitral regurgitation Mild tricuspid regurgitation Grade I diastolic dysfunction Pulmonary Function Test Date: 07/29/22 Moderate airflow obstruction without a significant postbronchodilator response. Normal lung volumes. Mildly reduced DLCO. Findings consistent with COPD.
--- NOTE | 2023-06-02 12:19 | PAT Medication Instructions ---
Medication Instructions Date of Service June 02, 2023 Home Medications Medication Instructions Recorded Flutter Valve #1 ea 01/15/22 nystatin 100,000 unit/mL oral 100,000 unit PO TID #200 mL 03/26/22 suspension nebulizers (AeroEclipse II #1 ea 05/27/22 Nebulizer) promethazine 6.25 mg-codeine 10 5 ml PO Q6H cough #118 mL 06/19/22 mg/5 mL syrup carvedilol 6.25 mg tablet 6.25 mg PO BID #180 tabs 01/28/23 simvastatin 10 mg tablet 10 mg PO HS cholesterol #90 tabs 02/18/23 amlodipine 10 mg tablet 10 mg PO DAILY #90 tabs 03/19/23 levothyroxine 50 mcg tablet 50 mcg PO QAM thyriod #90 tabs 03/19/23 rivaroxaban 20 mg tablet (Xarelto) 20 mg PO QAM #90 tabs 04/03/23 diazepam 5 mg tablet 5 mg PO BID nerves #180 tabs 04/06/23 montelukast 10 mg tablet 10 mg PO DAILY #90 tabs 04/06/23 sertraline 50 mg tablet 75 mg (1.5 x 50 mg) PO QAM #150 04/06/23 tabs solifenacin 5 mg tablet 5 mg PO QAM bladder #90 tabs 04/06/23 valsartan 160 mg tablet 160 mg PO DAILY bp #90 tabs 04/06/23 zolpidem 5 mg tablet 5 mg PO HS PRN insomnia #90 tabs 04/06/23 tramadol 50 mg tablet 50 mg PO BID pain #60 tabs 04/07/23 formoterol fumarate 20 mcg/2 mL 2 ml inhalation BID #120 mL 05/07/23 solution for nebulization (Perforomist) budesonide 0.5 mg/2 mL suspension 0.5 mg (2 mL) inhalation BID #120 05/12/23 for nebulization mL albuterol sulfate 90 mcg/actuation aerosol inhaler 2 puffs inhalation Q4H PRN Shortness Of Breath coenzyme Q10 10 mg capsule 100 mg PO QAM calcium carbonate 200 mg calcium (500 mg) chewable tablet (Tums) 200 mg PO TID loratadine 10 mg tablet 10 mg PO QAM allergy cyanocobalamin (vitamin B-12) 1,000 mcg capsule 1,000 mcg PO QAM magnesium oxide 500 mg capsule 500 mg PO Q2D@2100 ascorbic acid (vitamin C) 500 mg tablet (Vitamin C) 500 mg PO QAM cranberry 500 mg capsule 500 mg PO QAM aspirin 81 mg tablet,delayed release ([employer] Low Dose Aspirin) 81 mg PO DAILY ferrous sulfate 27 mg iron tablet 0 mg PO DAILY nystatin 100,000 unit/mL oral suspension 100,000 unit PO TID #200 mL cholecalciferol (vitamin D3) 25 mcg (1,000 unit) capsule 25 mcg PO .qd promethazine 6.25 mg-codeine 10 mg/5 mL syrup 5 ml PO Q6H cough carvedilol 6.25 mg tablet 6.25 mg PO BID simvastatin 10 mg tablet 10 mg PO HS cholesterol amlodipine 10 mg tablet 10 mg PO DAILY levothyroxine 50 mcg tablet 50 mcg PO QAM thyriod rivaroxaban 20 mg tablet (Xarelto) 20 mg PO QAM budesonide-formoterol HFA 160 mcg-4.5 mcg/actuation aerosol inhaler (Symbicort) 1 inh inhalation BID diazepam 5 mg tablet 5 mg PO BID nerves montelukast 10 mg tablet 10 mg PO DAILY sertraline 50 mg tablet 75 mg (1.5 x 50 mg) PO QAM solifenacin 5 mg tablet 5 mg PO QAM bladder valsartan 160 mg tablet 160 mg PO DAILY bp zolpidem 5 mg tablet 5 mg PO HS PRN insomnia tramadol 50 mg tablet 50 mg PO BID pain formoterol fumarate 20 mcg/2 mL solution for nebulization (Perforomist) 2 ml inhalation BID budesonide 0.5 mg/2 mL suspension for nebulization 0.5 mg (2 mL) inhalation BID ASK your prescriber and surgeon rivaroxaban 20 mg tablet (Xarelto) 20 mg PO QAM aspirin 81 mg tablet,delayed release ([employer] Low Dose Aspirin) 81 mg PO DAILY STOP taking 2 weeks before surgery (or as soon as possible if surgery is within 2 weeks) coenzyme Q10 10 mg capsule 100 mg PO QAM DO NOT take the morning of surgery calcium carbonate 200 mg calcium (500 mg) chewable tablet (Tums) 200 mg PO TID loratadine 10 mg tablet 10 mg PO QAM allergy cyanocobalamin (vitamin B-12) 1,000 mcg capsule 1,000 mcg PO QAM ascorbic acid (vitamin C) 500 mg tablet (Vitamin C) 500 mg PO QAM ferrous sulfate 27 mg iron tablet 0 mg PO DAILY nystatin 100,000 unit/mL oral suspension 100,000 unit PO TID promethazine 6.25 mg-codeine 10 mg/5 mL syrup 5 ml PO Q6H cough montelukast 10 mg tablet 10 mg PO DAILY solifenacin 5 mg tablet 5 mg PO QAM bladder valsartan 160 mg tablet 160 mg PO DAILY bp cranberry 500 mg capsule 500 mg PO QAM Take morning of surgery With a small sip of water, OTHERWISE NOTHING TO EAT OR DRINK AFTER MIDNIGHT: albuterol sulfate 90 mcg/actuation aerosol inhaler 2 puffs inhalation Q4H PRN Shortness Of Breath (use if needed; please bring rescue inhaler with you to hospital day of surgery if possible) carvedilol 6.25 mg tablet 6.25 mg PO BID amlodipine 10 mg tablet 10 mg PO DAILY levothyroxine 50 mcg tablet 50 mcg PO QAM thyriod budesonide-formoterol HFA 160 mcg-4.5 mcg/actuation aerosol inhaler (Symbicort) 1 inh inhalation BID diazepam 5 mg tablet 5 mg PO BID nerves sertraline 50 mg tablet 75 mg (1.5 x 50 mg) PO QAM tramadol 50 mg tablet 50 mg PO BID pain formoterol fumarate 20 mcg/2 mL solution for nebulization (Perforomist) 2 ml inhalation BID budesonide 0.5 mg/2 mL suspension for nebulization 0.5 mg (2 mL) inhalation BID Take evening before surgery albuterol sulfate 90 mcg/actuation aerosol inhaler 2 puffs inhalation Q4H PRN Shortness Of Breath (if needed) calcium carbonate 200 mg calcium (500 mg) chewable tablet (Tums) 200 mg PO TID magnesium oxide 500 mg capsule 500 mg PO Q2D@2100 nystatin 100,000 unit/mL oral suspension 100,000 unit PO TID cholecalciferol (vitamin D3) 25 mcg (1,000 unit) capsule 25 mcg PO .qd promethazine 6.25 mg-codeine 10 mg/5 mL syrup 5 ml PO Q6H cough carvedilol 6.25 mg tablet 6.25 mg PO BID simvastatin 10 mg tablet 10 mg PO HS cholesterol budesonide-formoterol HFA 160 mcg-4.5 mcg/actuation aerosol inhaler (Symbicort) 1 inh inhalation BID diazepam 5 mg tablet 5 mg PO BID nerves zolpidem 5 mg tablet 5 mg PO HS PRN insomnia (if needed) tramadol 50 mg tablet 50 mg PO BID pain formoterol fumarate 20 mcg/2 mL solution for nebulization (Perforomist) 2 ml inhalation BID budesonide 0.5 mg/2 mL suspension for nebulization 0.5 mg (2 mL) inhalation BID Other Notes If you have any questions please call us at [phone] or [phone] or [phone] or [phone]
--- NOTE | 2023-06-03 07:40 | History & Physical Report ---
Date of Service June 03, 2023 Assessment & Plan (1) Anterior dislocation of left shoulder: We will proceed with a left reverse shoulder arthroplasty. Postoperatively she will be placed in a sling and kept overnight in the hospital for postop medical management. She plans to have home health upon discharge. History of Present Illness Chief Complaint: Chronic dislocation left shoulder. Primary Care Provider: Tan Savage MD Jermaine is a pleasant 87-year-old female who has been dealing with acute on chronic left shoulder pain. Her shoulders been bothering her for years. She has had multiple injections. Over the past 3 weeks she has had an inability to elevate her left arm. She was brought to the emergency room by her daughter. Radiographs demonstrated an anterior shoulder dislocation of the left shoulder. An attempt was made in the emergency room and a closed reduction. They felt like they were able to reduce it but it just fell back out anteriorly. She had a history of a similar situation of her right shoulder several years ago. Closed reductions were unsuccessful and she was eventually transferred to [facility] where she had a right reverse shoulder replacement. She has done well with that. 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 After discussions with her and her daughter regarding her left shoulder, she has elected to proceed with a left reverse shoulder arthroplasty. Allergies Allergy/AdvReac Type Severity Reaction Status Date / Time No Known Drug Allergies Allergy Unknown Verified 06/02/23 12:12 Home Medications Medication Instructions Recorded Confirmed Type albuterol sulfate 90 mcg/actuation 2 puffs inhalation Q4H PRN 02/18/19 06/02/23 History aerosol inhaler Shortness Of Breath coenzyme Q10 10 mg capsule 100 mg PO QAM 02/18/19 06/02/23 History calcium carbonate 200 mg calcium 200 mg PO TID 11/10/19 06/02/23 History (500 mg) chewable tablet (Tums) loratadine 10 mg tablet 10 mg PO QAM allergy 11/10/19 06/02/23 History cyanocobalamin (vitamin B-12) 1,000 mcg PO QAM 11/23/19 06/02/23 History 1,000 mcg capsule magnesium oxide 500 mg capsule 500 mg PO Q2D@2100 11/23/19 06/02/23 History ascorbic acid (vitamin C) 500 mg 500 mg PO QAM 01/01/20 06/02/23 History tablet (Vitamin C) cranberry 500 mg capsule 500 mg PO QAM 01/01/20 06/02/23 History aspirin 81 mg tablet,delayed 81 mg PO DAILY 11/18/20 06/02/23 History release ([employer]im[employer] Low Dose Aspirin) ferrous sulfate 27 mg iron tablet 0 mg PO DAILY 09/05/21 06/02/23 History Flutter Valve #1 ea 01/15/22 04/06/23 Rx nystatin 100,000 unit/mL oral 100,000 unit PO TID #200 mL 03/26/22 06/02/23 Rx suspension cholecalciferol (vitamin D3) 25 25 mcg PO .qd 04/29/22 06/02/23 History mcg (1,000 unit) capsule nebulizers (AeroEclipse II #1 ea 05/27/22 04/06/23 Rx Nebulizer) promethazine 6.25 mg-codeine 10 5 ml PO Q6H cough #118 mL 06/19/22 06/02/23 Rx mg/5 mL syrup carvedilol 6.25 mg tablet 6.25 mg PO BID #180 tabs 01/28/23 06/02/23 Rx simvastatin 10 mg tablet 10 mg PO HS cholesterol #90 tabs 02/18/23 06/02/23 Rx levothyroxine 50 mcg tablet 50 mcg PO QAM thyriod #90 tabs 03/19/23 06/02/23 Rx rivaroxaban 20 mg tablet (Xarelto) 20 mg PO QAM #90 tabs 04/03/23 06/02/23 Rx budesonide-formoterol HFA 160 1 inh inhalation BID 04/06/23 06/02/23 History mcg-4.5 mcg/actuation aerosol inhaler (Symbicort) diazepam 5 mg tablet 5 mg PO BID nerves #180 tabs 04/06/23 06/02/23 Rx montelukast 10 mg tablet 10 mg PO DAILY #90 tabs 04/06/23 06/02/23 Rx sertraline 50 mg tablet 75 mg (1.5 x 50 mg) PO QAM #150 04/06/23 06/02/23 Rx tabs solifenacin 5 mg tablet 5 mg PO QAM bladder #90 tabs 04/06/23 06/02/23 Rx valsartan 160 mg tablet 160 mg PO DAILY bp #90 tabs 04/06/23 06/02/23 Rx zolpidem 5 mg tablet 5 mg PO HS PRN insomnia #90 tabs 04/06/23 06/02/23 Rx tramadol 50 mg tablet 50 mg PO BID pain #60 tabs 04/07/23 06/02/23 Rx formoterol fumarate 20 mcg/2 mL 2 ml inhalation BID #120 mL 05/07/23 06/02/23 Rx solution for nebulization (Perforomist) budesonide 0.5 mg/2 mL suspension 0.5 mg (2 mL) inhalation BID #120 05/12/23 06/02/23 Rx for nebulization mL amlodipine 10 mg tablet 10 mg PO QPM 06/02/23 06/02/23 History Past Med/Surg History Medical History History of blood transfusion 2018 nikolai-operative History of COVID-19 2020- no hosp; resolved Moderate persistent asthma controlled w/ daily nebulizer use. prn rescue inhaler-last use several weeks ago Osteoporosis Pulmonary nodules monitoring Urinary, incontinence, stress female Essential tremor very slight in hands DVT (deep venous thrombosis) HX-2015 Chronic anticoagulation Hyperlipidemia Hypothyroidism (acquired) Anxiety Hypertension controlled, stable per pt Bilateral pulmonary embolism 04/2016--was being treated for empyema, saddle embolism Surgical History H/O joint surgery hip replacement removed H/O cataract extraction bilateral H/O shoulder replacement right S/P total hip arthroplasty right History of hysterectomy TOTAL History of colonoscopy History of open reduction and internal fixation (ORIF) procedure RIGHT HIP History of thoracentesis History of cholecystectomy Family History Mother Dementia Father Heart disease Myocardial infarction Brother Heart disease Myocardial infarction Brother Colorectal cancer Throat cancer Sister Breast cancer Ovarian cancer Dementia Social History Smoking Status: Never smoker Second Hand Exposure: Yes (in the past); Do You Dip or Chew Tobacco: No; Tobacco Cessation Education Requested by Patient: No Hx Alcohol Use: No Hx Substance Use: No Preferred Language: [place]an Communication Ability: Effective Visual Impairment: Limited 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: Normal Site Safety Representative Required: No Beliefs That Will Affect Care: None marital status: / Current Living Situation: Family Current Living Situation Comment: daughter and grandson current occupational status: retired How many Children do You have: 2 Other Information That Helps Us Care for You: No Feels Safe at Home: Yes Safety Concerns: Feels Safe At This Time Childhood Exposure to Second-Hand Smoke: Yes Diet: regular caffeine: Yes during the past year weight has: decreased > 10 lbs Dental Care, Regularly: No Physical Activity Frequency: Does not Exercise Seatbelt Use: always Sunscreen Use: No Assistive Devices: Denture - Upper, Denture - Lower, Glasses, Nebulizer and Wheelchair Review of Systems All systems reviewed & are unremarkable except as noted in HPI & below. Physical Exam On physical examination left shoulder, she really has no active range of motion. She has pain with external rotation. She does not have much pain if she is just sitting in an internal rotated position. Her radial median ulnar nerves were checked intact to the wrist. Her axillary nerve is intact bilateral sensation but I am unable to get a really good exam of her deltoid.. Constitutional WD/WN, vitals as above Eyes PERRL, conjunctivae normal, anicteric sclerae ENMT external ear and nose normal, oropharynx normal Neck trachea midline, no thyromegaly Respiratory normal respiratory effort Cardiovascular RRR, no murmur, no edema Gastrointestinal (Abdomen) normal bowel sounds, soft, nontender, no hepatosplenomegaly Psychiatric A+Ox3, euthymic affect Results & Data Results & Data Laboratory Results . Diagnostic Findings X-rays of the left shoulder show an anterior inferior dislocation. I do not see any signs of fracture.. PG Care Time/CCT Total # of Minutes Spent Total Time Spent with Patient: Total time spent is greater than 50% in coordination of care (as documented) at patient's floor/unit and/or counseling patient: Coding Level of Care Code None Diagnoses Anterior dislocation of left shoulder S43.015A
[~2023-06-04 10:25] MED LIST changes: +ACETAMINOPHEN 500 MG TAB PO SCH; -ALBU18002 INH; -AMLO5TAB3 PO; -ASPCH81X PO; +BUPIVACAINE 0.5 % 5 MG/1 ML PF 10ML VIAL ONE; -CALC-354 PO; -CARV6.252 PO; -CHOL1000 PO; -CRAN1TAB PO; -DIAZ5TAB PO; +FAMOTIDINE 20 MG TAB PO SCH; +GABAPENTIN 300 MG CAP PO SCH; -LOSA100T33 PO; +LR 15ML/HR IV SCH; +LR 60ML/HR IV SCH; -MULT-506 PO; +ORTHO JOINT MIX INFIL SCH; -POTA10TA PO; -SIMV10TA2 PO; -SOLI5TAB2 PO; -SYMIN160 INH; +TRANEXAMIC ACID 1,000 MG **IV Intra-op IV SCH; +TRANEXAMIC ACID 1,000 MG **IV Pre-op IV SCH; -XRL15 PO; -ZOLP6.2529; +[UNRECOGNIZED DRUG - REMARK] SCH; +ceFAZolin 2000MG 2,000 MG/15 ML SYR IV SCH; +dexAMETHasone 4 MG TAB PO SCH; +dexAMETHasone**PF** 10 MG/ML VIAL IV SCH
[2023-06-04] MEDS ORDERED: ONDANSETRON INJ 2 MG/ML 2 ML VIAL ONE (11:43)
[2023-06-04] MEDS ORDERED: PROPOFOL IV EMULSION 10 MG/ML 20 ML VIAL IV ONE (11:43)
[2023-06-04] MEDS ORDERED: fentaNYL citrate PF 100 MCG/2 ML VIAL ONE (11:43)
[2023-06-04] MEDS ORDERED: MIDAZOLAM HCL 1 MG/ML 2ML VIAL ONE (11:43)
[2023-06-04] MEDS ORDERED: LIDOCAINE 2% 2 ML VIAL/AMP(20MG/ML) INFIL ONE ×2 (11:43→11:44)
[2023-06-04] MEDS ORDERED: DEXAMETHASONE SOD INJ 4 MG/ML VIAL ONE (11:43)
[2023-06-04] MEDS ORDERED: SODIUM CHLORIDE 0.9% PF INJ 10 ML VIAL ONE (11:52)
[2023-06-04] MEDS ORDERED: GLYCOPYRROLATE 0.2 MG/ML VIAL ONE (11:52)
--- NOTE | 2023-06-04 12:01 | History & Physical Bridge Note ---
Date of Service June 04, 2023 History & Physical Bridge Note I have examined the patient, reviewed the History & Physical and in the interval since the performance of the History & Physical I have noted the following changes of clinical significance: no changes noted
[2023-06-04] MEDS ORDERED: ATROPINE SULFATE 0.1 MG/ML 10ML SYR IV PRN (12:26)
[2023-06-04] MEDS ORDERED: ePHEDrine sulfate 50 MG/ML AMP IV PRN (12:26)
[2023-06-04] MEDS ORDERED: fentaNYL citrate PF 100 MCG/2 ML VIAL IV PRN (12:26)
[2023-06-04] MEDS ORDERED: ONDANSETRON INJ 2 MG/ML 2 ML VIAL IV PRN ×2 (12:26→17:37)
[2023-06-04] MEDS ORDERED: ORTHO JOINT ANESTHETIC ONE (12:46)
[2023-06-04] MEDS ORDERED: ePHEDrine sulfate 50 MG/5 ML SYR ONE (13:44)
--- NOTE | 2023-06-04 14:44 | Operative Report ---
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 On June 04, 2023 Betsy arrived at [facility] for the above procedure. She was seen in the preoperative holding area and the operative extremity identified and signed. She was given a preoperative antibiotic and a left interscalene nerve block. She was taken back the operating room and laid on table in supine position. She was put under general anesthesia. She was put into the beachchair position. The left shoulder was prepped and draped in sterile fashion. A timeout was done. The patient and the operative extremity was properly identified. A deltopectoral approach was used. Dissection was taken down through the fascia. The anterior shoulder was exposed. I was able to manually reduce the shoulder but it quickly fall anterior again. The subscapularis was released off the lesser tuberosity. The inferior capsule was then released. The shoulder was then dislocated out of the wound. Sequential reaming up to a size 9 reamer was done. A proximal humeral resection guide was placed in the proximal humeral head was resected. Sequential broaching up to a size 9 broach was done and a size 9 broach seem to be the best fit. The glenoid was then exposed. Unfortunately about 50% of the anterior glenoid was missing. I tried placing some guides on the glenoid to see if there was any way that I could safely ream a baseplate. I did not see any way I can put a baseplate on safely. There was just not enough bone stock. At this point I decided there was shoulder hemiarthroplasty. Several different heads were trialed and a size 46 x 18 eccentric head seem to be the best fit. The shoulder was then dislocated. All trials were removed. The final size 9 micro stent and 46 x 18 eccentric head was then impacted in the place. The shoulder was reduced. The shoulder was brought through near full range of motion. It did still sitting anteriorly but it moved a lot smoother with a new humeral head. The subscapularis was tenodesed back to the lesser tuberosity with transosseous FiberWire sutures. The wound was irrigated. The deltopectoral interval was closed with 2-0 Vicryl. A 3-minute Betadine lavage was done. The skin was closed with 3-0 Vicryl and aviva. She was placed in a Silverlon dressing. She was then placed in an arm sling. She was then extubated and transferred to a [facility]. She was taken to the postanesthesia care unit in stable condition. She tolerated the procedure well. Dash Piña PA-C, was present for the entire procedure. He was critical for patient positioning, prepping, draping, retraction exposure, wound closure and application of sterile dressing. I attest to the content of the Intraoperative Record and any orders documented therein. Any exceptions are noted below.
--- NOTE | 2023-06-04 15:41 | XRay Report ---
XR shoulder LT min 2V routine HISTORY: 87 years-old Female Post shoulder surgery left shoulder arthroplasty COMPARISON: 05/20/2023 TECHNIQUE: 2 views of the left shoulder FINDINGS: Limited exam secondary to positioning. Left shoulder arthroplasty demonstrates anteroinferior subluxa tion versus dislocation. Overlying skin aviva with expected postoperative soft tissue swelling. No acute fracture identified. IMPRESSION: 1. Left shoulder arthroplasty with anteroinferior subluxation/dislocation. 2. No acute fracture identified. ACT 112: Negative or not required by law. The above report was generated using voice recognition software. It may contain grammatical, syntax o r spelling errors. Electronically signed by: Stevenson Serna M.D. 06/04/2023 3:40 PM
--- NOTE | 2023-06-04 16:21 | Anesthesiology Progress Note ---
Date of Service June 04, 2023 Anesthesia Post Procedure Vital Signs Vital Signs: Temp Pulse Pulse Resp BP Pulse Ox O2 Del Method 06/04/23 16:10 64 16 100/38 L 99 Nasal Cannula 06/04/23 15:55 65 14 110/38 L 98 Nasal Cannula 06/04/23 15:40 36.4 C L 66 16 117/45 L 96 Nasal Cannula 06/04/23 15:30 66 16 109/47 L 97 Oxymask 06/04/23 15:20 66 16 103/49 L 100 Oxymask 06/04/23 15:10 66 18 110/39 L 99 Oxymask 06/04/23 15:03 36.2 C L 68 16 119/40 L 94 Oxymask 06/04/23 10:57 36.7 C 61 18 134/66 97 Room Air O2 Flow Rate 06/04/23 16:10 2 06/04/23 15:55 2 06/04/23 15:40 2 06/04/23 15:30 2 06/04/23 15:20 5 06/04/23 15:10 5 06/04/23 15:03 5 06/04/23 10:57 Pain Intensity Left Shoulder: Pain Intensity: 2 Transfer of Care Handoff Completed per policy Notes Mental Status: alert / awake / arousable Patient Amnestic to Procedure: Yes Nausea / Vomiting: adequately controlled Pain: adequately controlled Airway Patency, RR, SpO2: stable & adequate BP & HR: stable & adequate Hydration State: stable & adequate Anesthetic Complications: no major complications apparent
[2023-06-04] MEDS ORDERED: METOCLOPRAMIDE HCL INJ 5 MG/ML 2 ML VIAL IV PRN (17:37)
[2023-06-04] MEDS ORDERED: bisacodyL 10 MG SUPP PR PRN (17:37)
[2023-06-04] MEDS ORDERED: traMADol HCL 50 MG TABLET PO PRN (17:37)
[2023-06-04] MEDS ORDERED: MAGNESIUM HYDROXIDE SUSP 30 ML UDC PO PRN (17:37)
[2023-06-04] MEDS ORDERED: ZOLPIDEM TARTRATE 5 MG TAB PO PRN (17:37)
[2023-06-04] MEDS ORDERED: NALOXONE HCL 0.4 MG/1 ML VIAL/CARP IV PRN (17:37)
[2023-06-04] MEDS ORDERED: HYDROmorphone INJ 0.5 MG/0.5 ML SYR IV PRN (17:37)
[2023-06-04] MEDS: KETOROLAC TROMETHAMINE 15 MG/ML VIAL IV SCH ×2 (17:47→23:27)
[2023-06-04] MEDS: SODIUM CHLORIDE 0.9% 1,000 ML IV SCH (17:53)
[2023-06-04] MEDS: DOCUSATE SODIUM 100 MG CAP PO SCH (20:32)
[2023-06-04] MEDS: carvediloL 6.25 MG TAB PO SCH (20:32)
[2023-06-04] MEDS: CALCIUM CARBONATE 500 MG CHEWABLE TAB PO SCH (20:36)
[2023-06-04] MEDS: diazePAM 5 MG TABLET PO SCH (20:47)
[2023-06-04] MEDS: ceFAZolin 2000MG 2,000 MG/15 ML SYR IV SCH (20:48)
[2023-06-04] MEDS ORDERED: SIMVASTATIN 10 MG TAB PO SCH (21:00)
[2023-06-04] MEDS ORDERED: SENNA 8.6 MG TAB PO SCH (21:00)
[2023-06-04] MEDS ORDERED: amLODIPine BESYLATE 5 MG TAB PO SCH (21:00)
[2023-06-04] MEDS: ACETAMINOPHEN 500 MG TAB PO SCH (22:38)
[2023-06-05] MEDS: SODIUM CHLORIDE 0.9% 1,000 ML IV SCH (03:23)
[2023-06-05] MEDS: ceFAZolin 2000MG 2,000 MG/15 ML SYR IV SCH (04:42)
[2023-06-05] MEDS: ACETAMINOPHEN 500 MG TAB PO SCH (05:14)
[2023-06-05] MEDS: KETOROLAC TROMETHAMINE 15 MG/ML VIAL IV SCH (05:15)
[2023-06-05] MEDS ORDERED: LEVOTHYROXINE SODIUM 50 MCG TABLET PO SCH (06:30)
[2023-06-05] MEDS: DOCUSATE SODIUM 100 MG CAP PO SCH (07:51)
[2023-06-05] MEDS: CALCIUM CARBONATE 500 MG CHEWABLE TAB PO SCH (07:52)
[2023-06-05] MEDS: carvediloL 6.25 MG TAB PO SCH (07:56)
[2023-06-05] MEDS ORDERED: dexAMETHasone 4 MG TAB PO SCH (08:00)
[2023-06-05] MEDS: diazePAM 5 MG TABLET PO SCH (08:06)
[2023-06-05] MEDS ORDERED: ASPIRIN 81 MG ECTAB PO SCH (09:00)
[2023-06-05] MEDS ORDERED: CYANOCOBALAMIN (B-12) 500 MCG TABLET PO SCH (09:00)
[2023-06-05] MEDS ORDERED: LORATADINE 10 MG TAB PO SCH (09:00)
[2023-06-05] MEDS ORDERED: SERTRALINE HCL 50 MG TABLET PO SCH (09:00)
[2023-06-05] MEDS ORDERED: ASCORBIC ACID 500 MG TAB PO SCH (09:00)
[2023-06-05] MEDS ORDERED: VALSARTAN 80 MG TAB PO SCH (09:00)
[2023-06-05] MEDS ORDERED: MONTELUKAST SODIUM 10 MG TABLET PO SCH (09:00)
[2023-06-05] MEDS ORDERED: RIVAROXABAN 20 MG TAB PO SCH (09:00)
[2023-06-05] MEDS ORDERED: MULTIVITAMIN TAB PO SCH (09:00)
--- NOTE | 2023-06-05 10:56 | Orthopedic Progress Note ---
Date of Service June 05, 2023 Assessment & Plan (1) Status post left shoulder hemiarthroplasty: Overall, she is doing quite well today with good pain control to the left shoulder. She will work with physical therapy later on this morning to work on range of motion exercises. She can be discharged home later this morning pending physical therapy evaluation. She will follow-up in orthopedics in 2 weeks for postoperative care. Subjective . Jermaine was seen and evaluated today at bedside resting comfortably in no apparent distress. She notes that her pain is well-controlled to the left shoulder. She has been up and ambulating with no issues. She has maintain her sling to the left shoulder. She has yet to work with physical therapy today. She denies any other concerns today. Review of Systems All systems reviewed & are unremarkable except as noted in HPI & below. Physical Exam . On physical examination of the left shoulder, her dressing is in place, clean, dry, and intact. Sling is in place. She has active range of motion at the elbow, wrist, and all 5 digits. +2 radial pulse. Less than 2-second capillary refill. Normal sensation. Neurovascular intact. Results & Data Results & Data Laboratory Results . Diagnostic Findings . Postoperative x-rays of the left shoulder show the prosthesis to be in anatomical alignment with no signs of fracture complication or loosening. PG Care Time/CCT Total # of Minutes Spent Total Time Spent with Patient: Total time spent is greater than 50% in coordination of care (as documented) at patient's floor/unit and/or counseling patient: Coding Level of Care Code 94594 Post Operative Follow-Up Diagnoses Status post left shoulder hemiarthroplasty Z96.612
--- NOTE | 2023-06-05 10:59 | Discharge Summary ---
Date of Service June 05, 2023 Admission HPI (Per Admitting) Jermaine is a pleasant 87-year-old female who has been dealing with acute on chronic left shoulder pain. Her shoulders been bothering her for years. She has had multiple injections. Over the past 3 weeks she has had an inability to elevate her left arm. She was brought to the emergency room by her daughter. Radiographs demonstrated an anterior shoulder dislocation of the left shoulder. An attempt was made in the emergency room and a closed reduction. They felt like they were able to reduce it but it just fell back out anteriorly. She had a history of a similar situation of her right shoulder several years ago. Closed reductions were unsuccessful and she was eventually transferred to [facility] where she had a right reverse shoulder replacement. She has done well with that. 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 After discussions with her and her daughter regarding her left shoulder, she has elected to proceed with a left reverse shoulder arthroplasty. Admission Exam (Per Admitting) On physical examination left shoulder, she really has no active range of motion. She has pain with external rotation. She does not have much pain if she is just sitting in an internal rotated position. Her radial median ulnar nerves were checked intact to the wrist. Her axillary nerve is intact bilateral sensation but I am unable to get a really good exam of her deltoid.. Principal Diagnosis Same as "Discharge Diagnosis" noted below under Discharge Instructions. Discharge Exam . On physical examination of the left shoulder, her dressing is in place, clean, dry, and intact. Sling is in place. She has active range of motion at the elbow, wrist, and all 5 digits. +2 radial pulse. Less than 2-second capillary refill. Normal sensation. Neurovascular intact. Discharge Data Procedures Performed Operation Date: 06/04/23 12:00 Actual Procedures p Left Total Shoulder Arthroplasty Reverse(Left) - Elio Bunch DO Ordered Studies 06/04/23 05:00 US - OR guided needle placemen Routine Hospital Course (1) Status post left shoulder hemiarthroplasty: On June 04, 2023 Jermaine arrived at [facility] and underwent a left shoulder hemiarthroplasty without complications. She had a general anesthetic. Postoperatively, she was transferred to the PACU for immediate postoperative care and then transferred to the general orthopedic floor in stable condition. Her hospital course was uneventful. On postoperative day #1, her vital signs were stable and her pain was well-controlled. She participated well with physical therapy doing range of motion exercises. She was then discharged home in stable condition. She will follow-up in orthopedics in 2 weeks for postoperative care. PG Care Time/CCT Total # of Minutes Spent Total Time Spent with Patient: Total time spent is greater than 50% in coordination of care (as documented) at patient's floor/unit and/or counseling patient: Discharge Plan Discharge Items Patient Disposition: Home - Self-Care Reason For Visit: POST OP Discharge Diagnosis: Same Activity: Per Instructions section Non-emergency contact: Surgeon Call non-emergency contact if: your temperature is above 101.5, your wound has increased redness and your wound has increased drainage Follow-up/Referrals: Tan Savage MD [Primary Care Provider] - Diet: Regular Addtl Attending Provider Instructions: Activity and Therapy Recommendations: * If you are using [facility] then therapy will be provided at your home until they feel you have accomplished all of your goals. * If you are using [facility] then Physical Therapy will be provided until they feel you are ready to start Outpatient Physical Therapy. * If you are not using home therapy then Outpatient Physical Therapy should start about 3-5 days from your day of surgery. Therapy will last about 8-12 weeks * Wear your sling for 3 weeks, unless otherwise instructed. You may remove your sling to shower and to dress, but otherwise, you should be in your sling at all times, including while sleeping * The shoulder replacement is very stable and you can use your hand while in the sling * You were shown a series of exercises in the hospital. Do these exercises daily including the exercises you were shown in physical therapy. Medications: * Narcotic You will likely be sent home from the hospital with a prescription for the narcotic pain medication that worked best throughout your stay. * Cefadroxil -take the antibiotic twice a day for 10 days to help prevent infection. * Other medications may be prescribed for specific circumstances. If you have any questions, please call the office at . * Resume previous home medications unless otherwise instructed Dressing Care: Leave the Silverlon dressing in place for 7 days. After 7 days you may remove the dressing. If the incision is not draining then you may leave the aviva open to air. If there is a little bit of drainage or if the aviva are getting stuck on your clothing then cover the incision with a dry dressing. The aviva will be removed at your 2 week follow-up appointment. Showering: You may shower with the Silverlon dressing in place. Do not let the shower spray hit the dressing directly. Pat the Silverlon dressing dry. If the dressing becomes wet underneath, then simply remove the dressing. Keep the incision dry until you are 7 days out from the day of surgery. After 7 days you may remove the Silverlon dressing and shower with the aviva exposed. Let soapy water run over the aviva and pat them dry. Do not scrub or soak the incision. Things To Watch For: * Drainage from the incision site that occurs more than one week after your surgery. * Increased redness at the incision site. * Fever above 102 degrees Fahrenheit. * Unusual chest pain or shortness of breath. * Call [facility] at with any of the above problems Follow-Up Visit: Follow-up with Dr. Bunch's PA (Elio Leong) 2-3 weeks after your day of surgery. He will remove your aviva and answer any questions. If you have any additional questions or concerns, Dr Bunch is usually in the office at the same time and will be available An appointment was probably scheduled when you signed-up for surgery in the office. If you have any questions call More detailed instructions as well as Frequently Asked Questions were provided in a folder by our office when you signed-up for surgery. Please review these instructions when you get home. If you have any further questions or concerns, please feel free to call the office at [phone] Pending Studies at Discharge: No Stand-Alone Forms: My [facility] [employer], Smoking Cessation Medications and DC Order Prescriptions: New cefadroxil 500 mg capsule 500 mg PO BID 10 Days Qty: 20 0RF Continued nystatin 100,000 unit/mL suspension 100,000 unit PO TID Qty: 200 11RF Rx Instructions: administer 1/2 of dose in each side of the mouth (DME) nebulizers [AeroEclipse II Nebulizer] Misc See Rx Instructions .Route Qty: 1 0RF Rx Instructions: As directed length of need 99 months carvedilol 6.25 mg tablet 6.25 mg PO BID Qty: 180 3RF simvastatin 10 mg tablet 10 mg PO HS Qty: 90 3RF levothyroxine 50 mcg tablet 50 mcg PO QAM Qty: 90 3RF Xarelto 20 mg tablet 20 mg PO QAM Qty: 90 3RF formoterol fumarate [Perforomist] 20 mcg/2 mL solution for nebulization 2 ml inhalation BID Qty: 120 11RF budesonide 0.5 mg/2 mL suspension for nebulization 0.5 mg inhalation BID Qty: 120 11RF (DME) Flutter Valve Device See Rx Instructions .ROUTE .MEDSUPPLY Qty: 1 0RF Rx Instructions: As directed budesonide-formoterol [Symbicort] 160-4.5 mcg/actuation HFA aerosol inhaler 1 inh inhalation BID Rx Instructions: 2 puffs BID PRN zolpidem 5 mg tablet 5 mg PO HS PRN (Reason: insomnia) Qty: 90 1RF diazepam 5 mg tablet 5 mg PO BID Qty: 180 1RF montelukast 10 mg tablet 10 mg PO DAILY Qty: 90 3RF valsartan 160 mg tablet 160 mg PO DAILY Qty: 90 3RF solifenacin 5 mg tablet 5 mg PO QAM Qty: 90 3RF sertraline 50 mg tablet 75 mg PO QAM Qty: 150 3RF tramadol 50 mg tablet 50 mg PO BID Qty: 60 5RF albuterol sulfate 90 mcg/actuation HFA aerosol inhaler 2 puffs inhalation Q4H PRN (Reason: Shortness Of Breath) coenzyme Q10 10 mg capsule 100 mg PO QAM loratadine 10 mg tablet 10 mg PO QAM calcium carbonate [Tums] 200 mg calcium (500 mg) tablet,chewable 200 mg PO TID cholecalciferol (vitamin D3) 25 mcg (1,000 unit) capsule 25 mcg PO .qd promethazine-codeine 6.25-10 mg/5 mL syrup 5 ml PO Q6H Qty: 118 2RF cyanocobalamin (vitamin B-12) 1,000 mcg Capsule 1,000 mcg PO QAM magnesium oxide 500 mg Capsule 500 mg PO Q2D@2100 cranberry 500 mg Capsule 500 mg PO QAM ascorbic acid (vitamin C) [Vitamin C] 500 mg tablet 500 mg PO QAM Rx Instructions: take with iron; stop when iron completed. ferrous sulfate 27 mg iron Tablet 0 mg PO DAILY amlodipine 10 mg tablet 10 mg PO QPM aspirin [Nimco Low Dose Aspirin] 81 mg Tablet,Delayed Release (Dr/Ec) 81 mg PO DAILY Discharge Orders: Discharge Order (Routine); Ordered 06/05/23 Ordered By: Stevenson Piña Admission Data Admit Date/Time: 06/04/23 15:07 Attending Provider: Elio Bunch Admit Provider: Elio Bunch Primary Care Provider: Tan Savage
== END 2023-06-05 12:27 | disposition home or self-care (01) ==
LOC: 3W 10:25 → ASU 10:25

== ENCOUNTER 2025-05-18 21:52 | Inpatient (IN) ==
--- NOTE | 2025-05-18 22:14 | Emergency Department Note ---
Impression & Plan Acute renal failure Admission ED Provider Note HPI: History obtained from patient, bedside RN via EMS report. The patient is a 89-year-old female with history of pulmonary embolism, currently on Xarelto, who presents the emergency department with a chief complaint of shortness of breath. Patient reports that she had a urology procedure performed earlier today, she began to feel short of breath at home and her daughter contacted EMS. Per EMS the patient was hypoxic in the high 80s on their arrival, she was placed on nasal cannula oxygen with good improvement. On arrival here to the ED the patient has a blood pressure of 101/50, she is saturating at 91% on room air, heart rate is within normal limits. Patient denies any pain, she states she does have some mild shortness of breath. Patient denies any chest pain, denies any recent fever. ROS: - Per HPI Differential Diagnosis: Pneumonia/aspiration pneumonia, COPD, pulmonary embolism, pneumothorax, acute CHF exacerbation, ACS, urinary tract infection, sepsis, amongst other potential pathologies. *Outpatient medications and allergy history reviewed. PE: General: Alert, frail-appearing, no acute distress HEENT: Normocephalic, trachea midline Eyes: Extraocular eye movement is intact, no scleral erythema Pulmonary: Clear to auscultation bilaterally, no wheezing Cardio: Regular rate and rhythm GI: Abdomen is soft to palpation : No suprapubic tenderness MSK: No evidence of trauma or malformation of the extremities, no edema Skin: No evidence of rash Neuro: Alert, no focal deficits Psychiatric: Cooperative INDEPENDENT INTERPRETATIONS: monitoring and evaluation advisor: (As interpreted by myself): - An order was placed for continuous cardiac monitoring - Patient was noted to be in sinus rhythm with a rate of 82 EKG: (As interpreted by myself): Rate: 80 Rhythm: Normal sinus rhythm Intervals: Within normal limits ST changes: No ST elevation Time: 2200 Chest x-ray: (As interpreted by myself): No acute disease Interventions provided in ED: - IV fluid bolus, IV cefepime, IV Flagyl Medical Decision Making: IV was established and lab work obtained, patient was placed on child monitor. Patient was given 30 cc/kg of IV fluid given presenting hypotension. Lab work shows no leukocytosis, hemoglobin is slightly reduced at 10.4, platelet count is normal, CMP shows multiple abnormalities including creatinine elevation to 1.81, BUN is 32, initial lactic acid is elevated at 4.9, there is a transaminitis that is significant with AST of 1866, ALT of 718, alk phos of 144, total bilirubin is 2.1. BNP is mildly elevated at 143 and troponin is slightly elevated at 26.4. I do not see any evidence of any acute ischemic changes on EKG. Lipase is mildly elevated at 151 and procalcitonin is greater than 100. Urinalysis appears to be consistent with infection although stent was just placed earlier yesterday therefore unclear if this represents a true infection. Patient will be treated with broad-spectrum antibiotics including IV cefepime and IV Flagyl for intra-abdominal coverage. Will send for blood cultures as well as urine culture. Chest x-ray did not show any evidence of any acute disease. Given the patient's transaminitis I did obtain ultrasound imaging that does not show anything specific, there is some mild biliary ductal dilatation however per the interpreting radiologist this does appear to be consistent with likely physiologic state status postcholecystectomy in regards to the common bile duct. Patient does not have any abdominal pain, I have low suspicion at this point for choledocholithiasis. Given the patient's hypotension, I am suspicious that she may have transaminitis secondary to hypoperfusion of the liver. Repeat lactic acid did downtrend to 2.4. I discussed all of the above findings with the patient's daughter at the bedside, at this point the patient is DNR/DNI CODE STATUS. They are okay for interventions to that point. Patient is noted to have a history of PE and her Xarelto was on hold for the past 2 days, at this point she is stable on nasal cannula oxygen and without any chest pain. I do not want to give the patient IV contrast secondary to her renal failure. Following discussion with the on-call hospitalist will defer any potential anticoagulation to the inpatient team. The overall case was discussed with the on-call hospitalist, Dr. Cortes, and the patient was placed for admission in guarded but stable condition. Consultants/Discussions held with other healthcare providers: - Hospitalist, Dr. Cortes Disposition discussion held by myself with: - Patient and patient's daughter at the bedside * CRITICAL CARE TIME: ( 56 ) minutes - Stabilization of patient with presenting vital signs concerning for sepsis requiring initiation of broad-spectrum antibiotics and 30 cc/kg of IV fluid resuscitation, interpretation of diagnostic studies, time spent at the bedside, discussion with other healthcare providers and arrangement of admission. Diagnosis: 1. Sepsis, acute 2. Urinary tract infection, acute 3. Lactic acidosis, acute 4. Transaminitis, acute, nonspecific 5. Elevated high-sensitivity troponin level, acute 6. Elevated BUN, acute 7. 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 Abnormal abdominal CT scan (Acute) Nephrolithiasis (Chronic) Renal cyst (Chronic) Frequent UTI (Chronic) Incontinence (Chronic) Dysphagia Shoulder pain Abdominal pain Abdominal mass, left lower quadrant (Chronic) Per PCP records 10/2023- no abnormalities found on KUB or ultrasound per records Status post left shoulder hemiarthroplasty (~05/2023) Dislocation of left shoulder joint Situational stress Generalized muscle weakness Cerumen impaction Obesity Arthritis of shoulder region, left, degenerative Sleep disorder Osteoporosis Pulmonary embolism 2016 Uterine endometriosis Atelectasis Hill Sachs deformity, right (Acute ~05/2023) Urinary, incontinence, stress female Essential tremor very slight in hands Chronic anticoagulation Hyperlipidemia Hypothyroidism (acquired) Anxiety Hypertension controlled, stable per pt Asthma Sees [facility] [place] pulmon[place]. Using neb BID. Very rare rescue inhaler use Medical History Hill Sachs deformity makes it difficult to ambulate due to left shoulder aggravation per PCP records (referred to ortho at PCP appt 03/29/25) Pseudoaneurysm of aorta - Follows with [facility] - CT scan performed on 09/29/2024 and the reader of the images called it a small mildly progressive pseudoaneurysm per cardio records - [facility] plans to repeat CT scan in one year per 12/2024 office visit Hernia of anterior abdominal wall Impaired glucose metabolism diet controlled Chronic pain of left upper extremity s/p shoulder surgery - avoid using if possible. Hypertension Anxiety Hypothyroidism Hyperlipidemia Essential tremor mild in bilateral hands on diazepam Osteoarthritis Asthma Sees [facility] [place] pulmonology. Using neb BID. "has deconditioned lungs" pt is sedentary. uses nebulizer daily Generalized muscle weakness taking vitamins and increasing protein per 03/2025 PCP records Dysphagia mild Incontinence mild Frequent UTI since May 2024 off and on, to have urinanalysis week of 05/01/2025 Pancreatic cyst monitoring Renal cyst monitoring Kidney stones On anticoagulant therapy Hx of deep venous thrombosis hx - 2015 - unknown cause. on Xarelto currently Hx pulmonary embolism 04/2016--was being treated for empyema, saddle embolism on Xarelto currently Osteoporosis follows with rheum.. on Prolia Unsteady gait able to stand and pivot with 1 assist, uses wheelchair no right hip per records (all hardware removed ) History of blood transfusion 2018 nikolai-operative History of COVID-2020- no hosp; resolved Pulmonary nodules monitoring Surgical History S/P lumpectomy, left breast benign History of bilateral tubal ligation H/O shoulder surgery left shoulder "ball" replacement (unable to do full shoulder replacement) - Dr Bunch 05/2023 - does have limited mobility and mild pain (Chronic) "still partially dislocated" per daughter H/O joint surgery 12/2019 - right hip replacement removed due to complications. 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 H/O cataract extraction bilateral H/O shoulder replacement right S/P total hip arthroplasty right (November 2019) History of hysterectomy MATT BSO History of colonoscopy History of open reduction and internal fixation (ORIF) procedure Right Hip with hardware (Dr Francisco 04/2019) History of thoracentesis History of cholecystectomy Family History Mother Dementia Clotting disorder Diabetes Father Heart disease Myocardial infarction Brother Heart disease Myocardial infarction Brother Colorectal cancer Throat cancer Sister Breast cancer Ovarian cancer Dementia Social History Smoking Status: Never smoker Second Hand Exposure: No (in the past); Do You Dip or Chew Tobacco: No; Hx Alcohol Use: No Hx Substance Use: No Preferred Language: Czech Communication Ability: Effective Visual Impairment: Diminished 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: Normal Radiology Technologist Required: No Beliefs That Will Affect Care: None marital status: / Current Living Situation: Family Current Living Situation Comment: daughter and grandson current occupational status: retired How many Children do You have: 2 Feels Safe at Home: Yes Childhood Exposure to Second-Hand Smoke: Yes Diet: regular caffeine: Yes during the past year weight has: remained stable Dental Care, Regularly: Yes Physical Activity Frequency: Does not Exercise Seatbelt Use: always Sunscreen Use: No Assistive Devices: Bedside Commode, Denture - Upper, Glasses, Lift Chair, Nebulizer, Raised Toilet Seat, Walker and Wheelchair Allergies Allergies Allergy/AdvReac Type Severity Reaction Status Date / Time No Known Allergies Allergy Verified 05/18/25 23:12 Home Meds Home Medications Medication Instructions Recorded Confirmed albuterol sulfate 90 mcg/actuation 2 puffs inhalation Q4H PRN 02/18/19 05/18/25 aerosol inhaler Shortness Of Breath coenzyme Q10 10 mg capsule 100 mg PO QAM 02/18/19 05/18/25 calcium carbonate (Tums) 200 mg PO TID 11/10/19 05/18/25 cyanocobalamin (vitamin B-12) 1,000 mcg PO WK 11/23/19 05/18/25 1,000 mcg capsule magnesium oxide 500 mg capsule 500 mg PO Q2D@2100 11/23/19 05/18/25 ferrous sulfate 27 mg iron tablet 27 mg PO QPM 09/05/21 05/18/25 ascorbic acid (vitamin C) 500 mg 500 mg PO QPM 03/29/24 05/18/25 tablet (Vitamin C) budesonide-formoterol HFA 160 1 inh inhalation BID PRN sob 05/24/24 05/18/25 mcg-4.5 mcg/actuation aerosol inhaler (Symbicort) simethicone 125 mg capsule 125 mg PO 4XWK 10/10/24 05/18/25 denosumab 60 mg/mL subcutaneous 60 mg subcut Q6MO 10/19/24 05/18/25 syringe (Prolia) apple cider vinegar 250 mg 250 mg PO QID 12/29/24 05/18/25 chewable tablet stone stopper 2 cap PO BID 12/29/24 05/18/25 nystatin 100,000 unit/mL oral 100,000 unit PO TID PRN prn 03/29/25 05/18/25 suspension cranberry extract 500 mg capsule 500 mg PO DAILY 05/18/25 05/18/25 Previous Rx's Medication Instructions Recorded Flutter Valve #1 ea 01/15/22 nebulizers (AeroEclipse II #1 ea 05/27/22 Nebulizer) nebulizers (AeroEclipse II #1 ea 07/01/23 Nebulizer) valsartan 160 mg tablet 160 mg PO QAM bp #90 tabs 01/03/25 budesonide 0.5 mg/2 mL suspension 0.5 mg (2 mL) inhalation BID #120 01/18/25 for nebulization mL formoterol fumarate 20 mcg/2 mL 2 ml inhalation BID #120 mL 01/18/25 solution for nebulization (Perforomist) amlodipine 10 mg tablet 10 mg PO QPM #90 tabs 02/21/25 solifenacin 5 mg tablet 5 mg PO QAM bladder #90 tabs 02/21/25 carvedilol 6.25 mg tablet 6.25 mg PO BID #180 tabs 02/22/25 levothyroxine 50 mcg tablet 50 mcg PO QAM thyriod #90 tabs 02/22/25 rivaroxaban 20 mg tablet (Xarelto) 20 mg PO QAM #90 tabs 02/22/25 sertraline 50 mg tablet 75 mg (1.5 x 50 mg) PO QAM #150 03/21/25 tabs diazepam 5 mg tablet 5 mg PO 3XWK nerves #30 tabs 03/29/25 ipratropium bromide 42 mcg (0.06 2 spray intranasal TID #15 mL 03/29/25 %) nasal spray tramadol 50 mg tablet 50 mg PO TID pain #90 tabs 03/31/25 montelukast 10 mg tablet 10 mg PO QPM #90 tabs 05/17/25 ciprofloxacin HCl 500 mg tablet 500 mg PO Q12H #14 tabs 05/18/25 (Cipro) oxycodone-acetaminophen 7.5 mg-325 1 tab PO Q8H PRN pain 3 days #7 05/18/25 mg tablet (Percocet) tabs phenazopyridine 200 mg tablet 200 mg PO Q8H PRN pain #10 tabs 05/18/25 (Pyridium) tamsulosin 0.4 mg capsule 0.4 mg PO HS #30 caps 05/18/25 Results & Data (ED) Vital Signs Vital Signs - 24 hr 05/18/25 21:56 05/18/25 22:01 05/18/25 22:04 Temperature 36.7 C Temperature Source Oral Pulse Rate 80 80 Pulse Rate [Apical] Pulse Rate from SpO2 Sensor Respiratory Rate 22 Blood Pressure 101/50 L Blood Pressure [Left Arm] Blood Pressure Mean 67 Blood Pressure Mean [Left Arm] Pulse Oximetry 91 91 Oxygen Delivery Method Room Air Room Air Oxygen Flow Rate Sepsis Recent Fever Within 48 Hours No Sepsis New/Unexplained Change in Mental Status Yes Sepsis Action Taken by Nursing Physician Notified 05/18/25 22:39 05/18/25 23:00 05/18/25 23:12 Temperature Temperature Source Pulse Rate 79 82 Pulse Rate [Apical] 83 Pulse Rate from SpO2 Sensor 82 Respiratory Rate 24 24 22 Blood Pressure 76/43 L 90/50 L Blood Pressure [Left Arm] 90/50 L Blood Pressure Mean 54 63 Blood Pressure Mean [Left Arm] 63 Pulse Oximetry 94 96 95 Oxygen Delivery Method Nasal Cannula Nasal Cannula Oxygen Flow Rate 2 2 Sepsis Recent Fever Within 48 Hours Sepsis New/Unexplained Change in Mental Status Sepsis Action Taken by Nursing 05/18/25 23:12 05/18/25 23:15 05/18/25 23:15 Temperature Temperature Source Pulse Rate 83 Pulse Rate [Apical] 82 Pulse Rate from SpO2 Sensor 84 Respiratory Rate 22 23 Blood Pressure 86/45 L Blood Pressure [Left Arm] 86/45 L Blood Pressure Mean 58 Blood Pressure Mean [Left Arm] 58 Pulse Oximetry 95 96 95 Oxygen Delivery Method Nasal Cannula Nasal Cannula Nasal Cannula Oxygen Flow Rate 2 2 2 Sepsis Recent Fever Within 48 Hours Sepsis New/Unexplained Change in Mental Status Sepsis Action Taken by Nursing 05/18/25 23:30 05/18/25 23:45 05/19/25 00:00 Temperature Temperature Source Pulse Rate 85 88 87 Pulse Rate [Apical] Pulse Rate from SpO2 Sensor 87 Respiratory Rate 21 32 H 22 Blood Pressure 101/63 93/42 L 96/58 L Blood Pressure [Left Arm] Blood Pressure Mean 75 59 70 Blood Pressure Mean [Left Arm] Pulse Oximetry 94 92 Oxygen Delivery Method Nasal Cannula Oxygen Flow Rate 2 Sepsis Recent Fever Within 48 Hours Sepsis New/Unexplained Change in Mental Status Sepsis Action Taken by Nursing 05/19/25 01:30 05/19/25 02:00 Temperature Temperature Source Pulse Rate 94 H 92 H Pulse Rate [Apical] Pulse Rate from SpO2 Sensor 94 H 93 H Respiratory Rate 24 22 Blood Pressure 96/58 L 86/44 L Blood Pressure [Left Arm] Blood Pressure Mean 70 58 Blood Pressure Mean [Left Arm] Pulse Oximetry 94 93 Oxygen Delivery Method Nasal Cannula Nasal Cannula Oxygen Flow Rate 2 2 Sepsis Recent Fever Within 48 Hours Sepsis New/Unexplained Change in Mental Status Sepsis Action Taken by Nursing Laboratory Data 05/18/25 23:07 05/18/25 23:07 Lab Results 05/18/25 05/18/25 05/18/25 Range/Units 22:03 22:18 23:07 WBC 5.89 (4.8-10.8) K/ul RBC 3.51 L (4.20-5.40) M/uL Hgb 10.4 L (12.0-16.0) g/dL Hct 31.3 L (37.0-47.0) % MCV 89.2 (80.0-100.0) fL MCH 29.6 (25.0-34.0) pg MCHC 33.2 (32.0-36.0) g/dL RDW Std Deviation 46.2 (36.4-46.3) fL RDW Coeff of Jerrell 14.5 (11.5-14.5) % Plt Count 156 (130-400) K/uL MPV 10.2 (9.4-12.4) fL Immature Gran % (Auto) 1.2 % Neut % (Auto) 95.4 % Lymph % (Auto) 1.9 % Angelina % (Auto) 1.0 % Eos % (Auto) 0.2 % Baso % (Auto) 0.3 % Neut # (Auto) 5.62 (1.40-6.50) K/uL Lymph # (Auto) 0.11 L (1.20-3.40) K/uL Angelina # (Auto) 0.06 L (0.11-0.59) K/uL Eos # (Auto) 0.01 (0.00-0.50) K/uL Baso # (Auto) 0.02 (0.00-0.20) K/uL Immature Gran # (Auto) 0.07 (0.01-0.20) K/uL Polychromasia 1+ PT 13.2 H (9.0-12.0) Seconds INR 1.3 H (0.9-1.1) VBG pH 7.20 L (7.36-7.41) VBG pCO2 48 (38-50) mmHg VBG pO2 44 mmHg VBG HCO3 19 mmol/L VBG O2 Saturation 74.2 % VBG Base Excess -9.3 mEq/L Sodium 138 (136-145) mmol/L Potassium 4.2 (3.5-5.1) mmol/L Chloride 109 H (98-107) mmol/L Carbon Dioxide 20 L (21-32) mmol/L Anion Gap 9 (3-11) BUN 32 H (6-23) mg/dl Creatinine 1.81 H (0.6-1.2) mg/dl Est Cr Clr Drug Dosing 16.6 ml/min eGFR 26.75 BUN/Creatinine Ratio 17.7 (10-20) Glucose 106 H (70-99(Fasting)) mg/dl Lactate 4.9 H* (0.4-2.0) mmol/L Calcium 8.0 L (8.6-10.3) mg/dl Magnesium 1.9 (1.7-2.4) mg/dl Total Bilirubin 2.1 H (0.2-1.0) mg/dl Direct Bilirubin 1.6 H (0-0.2) mg/dl AST 1866 H (13-39) U/L ALT 718 H (7-52) U/L Alkaline Phosphatase 144 H (34-104) U/L Troponin I High Sens 26.4 H (0-14) pg/ml B-Natriuretic Peptide 143 H (0-100) pg/ml Total Protein 5.4 L (6.0-8.3) gm/dl Albumin 2.8 L (3.4-5.0) gm/dl Lipase 151 H (11-82) U/L Procalcitonin > 100.00 H (0-0.5) ng/ml Urine Color Urine Appearance (Clear) Urine pH (4.5-7.5) Ur Specific [place] (1.000-1.030) Urine Protein (Negative) Urine Glucose (UA) (Negative) Urine Ketones (Negative) Urine Blood (Negative) Urine Nitrite (Negative) Urine Bilirubin (Negative) Urine Urobilinogen (Negative) Ur Leukocyte Esterase (Negative) Urine WBC (Auto) (0-5) /hpf Urine RBC (Auto) (0-2) /hpf U Hyaline Cast (Auto) (0-2) /lpf U Epithel Cells (Auto) (0-2) /hpf Urine Bacteria (Auto) (None Seen) Urine Comment 05/18/25 05/19/25 Range/Units 23:43 01:47 WBC (4.8-10.8) K/ul RBC (4.20-5.40) M/uL Hgb (12.0-16.0) g/dL Hct (37.0-47.0) % MCV (80.0-100.0) fL MCH (25.0-34.0) pg MCHC (32.0-36.0) g/dL RDW Std Deviation (36.4-46.3) fL RDW Coeff of Jerrell (11.5-14.5) % Plt Count (130-400) K/uL MPV (9.4-12.4) fL Immature Gran % (Auto) % Neut % (Auto) % Lymph % (Auto) % Angelina % (Auto) % Eos % (Auto) % Baso % (Auto) % Neut # (Auto) (1.40-6.50) K/uL Lymph # (Auto) (1.20-3.40) K/uL Angelina # (Auto) (0.11-0.59) K/uL Eos # (Auto) (0.00-0.50) K/uL Baso # (Auto) (0.00-0.20) K/uL Immature Gran # (Auto) (0.01-0.20) K/uL Polychromasia PT (9.0-12.0) Seconds INR (0.9-1.1) VBG pH (7.36-7.41) VBG pCO2 (38-50) mmHg VBG pO2 mmHg VBG HCO3 mmol/L VBG O2 Saturation % VBG Base Excess mEq/L Sodium (136-145) mmol/L Potassium (3.5-5.1) mmol/L Chloride (98-107) mmol/L Carbon Dioxide (21-32) mmol/L Anion Gap (3-11) BUN (6-23) mg/dl Creatinine (0.6-1.2) mg/dl Est Cr Clr Drug Dosing ml/min eGFR BUN/Creatinine Ratio (10-20) Glucose (70-99(Fasting)) mg/dl Lactate 2.4 H* (0.4-2.0) mmol/L Calcium (8.6-10.3) mg/dl Magnesium (1.7-2.4) mg/dl Total Bilirubin (0.2-1.0) mg/dl Direct Bilirubin (0-0.2) mg/dl AST (13-39) U/L ALT (7-52) U/L Alkaline Phosphatase (34-104) U/L Troponin I High Sens 23.6 H (0-14) pg/ml B-Natriuretic Peptide (0-100) pg/ml Total Protein (6.0-8.3) gm/dl Albumin (3.4-5.0) gm/dl Lipase (11-82) U/L Procalcitonin (0-0.5) ng/ml Urine Color Dark Yellow Urine Appearance Cloudy A (Clear) Urine pH 6.0 (4.5-7.5) Ur Specific [place] 1.026 (1.000-1.030) Urine Protein 3+ H (Negative) Urine Glucose (UA) Negative (Negative) Urine Ketones Trace H (Negative) Urine Blood 3+ H (Negative) Urine Nitrite Positive A (Negative) Urine Bilirubin 1+ H (Negative) Urine Urobilinogen Negative (Negative) Ur Leukocyte Esterase 2+ H (Negative) Urine WBC (Auto) 21-50 H (0-5) /hpf Urine RBC (Auto) >20 H (0-2) /hpf U Hyaline Cast (Auto) 11-20 H (0-2) /lpf U Epithel Cells (Auto) 6-10 H (0-2) /hpf Urine Bacteria (Auto) None Seen (None Seen) Urine Comment Administered Medications Discontinued Medications Sodium Chloride (Nss) 1,000 mls @ 999 mls/hr IV .Q1H1M ANITHA Stop: 05/18/25 23:15 Last Infusion: 05/18/25 23:57 Dose: Infused Documented By: [id number] Admin: 05/18/25 22:43 Dose: 999 mls/hr Documented By: [id number] Cefepime HCl (Maxipime 2000mg) 2,000 mg in 20 mls @ 5 mls/min IV NOW STA; Protocol Stop: 05/18/25 23:37 Last Admin: 05/18/25 23:57 Dose: 5 mls/min Documented By: [id number] Sodium Chloride (Nss) 1,000 mls @ 999 mls/hr IV .Q1H1M ONE Stop: 05/19/25 00:34 Last Infusion: 05/19/25 01:49 Dose: Infused Documented By: [id number] Admin: 05/18/25 23:57 Dose: 999 mls/hr Documented By: [id number] Sodium Chloride (Nss) 250 mls @ 999 mls/hr IV .Q16M ONE Stop: 05/19/25 00:12 Last Infusion: 05/19/25 01:49 Dose: Infused Documented By: [id number] Admin: 05/19/25 00:26 Dose: 999 mls/hr Documented By: [id number] Metronidazole (Flagyl) 500 mg in 100 mls @ 100 mls/hr IV NOW STA; Protocol Stop: 05/19/25 02:06 Last Admin: 05/19/25 01:49 Dose: 100 mls/hr Documented By: [id number] Imaging Data Radiologist's Impression: Chest X-Ray 05/18/25 22:03 Exam(s): XR CXR 1 VIEW EXAM: XR Chest, 1 View CLINICAL HISTORY: Reason for exam: Sepsis. TECHNIQUE: Frontal view of the chest. Mild breathing motion artifact. COMPARISON: Chest x-ray 10/10/2024. FINDINGS: Lungs/Pleural space: Mild bibasilar atelectasis or scarring, stable. Lungs are otherwise clear. No focal infiltrate, pleural effusion or pneumothorax. Heart: Stable cardiomegaly. Mediastinum: Stable ectatic aorta. Bones/Soft Tissues: Stable bilateral shoulder prosthesis, left glenohumeral joint dislocated again. No acute abnormality. IMPRESSION: 1. No acute process in the chest. Electronically signed by: Alayna Garcia M.D. 05/19/25 00:09 AM Liver Ultrasound 05/19/25 00:27 EXAM: US liver CLINICAL HISTORY: Transaminitis TECHNIQUE: Ultrasound examination of the RUQ was performed using a [high-frequency transducer]. Scanning was performed with the patient in supine position. COMPARISON: Prior CT abdomen dated 05/18/2025. FINDINGS: Liver: Enlarged, measuring 20.4 cm. Diffusely increased heterogenous echogenicity consistent with hepatic steatosis or underlying parenchymal disease. Intrahepatic biliary ducts are mildly prominent in both lobes. No focal hepatic lesions identified. Gallbladder / Biliary System: Status post cholecystectomy; gallbladder fossa appears normal. The common bile duct measures 2.7 mm at the max hepatis and up to 7.3 mm distally, mildly prominent but within physiologic range for post-cholecystectomy. Pancreas: Pancreatic head is unremarkable without mass or ductal dilation. Body and tail are suboptimally visualized due to bowel gas. The main pancreatic duct is mildly prominent at 2.5 mm. Right Kidney: No hydronephrosis. Small amount of perinephric fluid at the lower pole. No renal calculi or masses identified. Aorta / IVC: Visualized portions of the aorta and IVC are normal in caliber and appearance. Additional Findings: None. IMPRESSION: 1. Hepatomegaly with increased echogenicity, most compatible with hepatic steatosis or parenchymal disease. Unchanged. Need clinical correlation. 2. Mild intrahepatic duct prominence; extrahepatic CBD mildly dilated but likely physiologic post-cholecystectomy. Unchanged. 3. Mild prominence of the pancreatic duct; body and tail partially obscured by bowel gas. Unchanged. 4. Small right perinephric fluid collection; no hydronephrosis. Unchanged. 5. No significant interval changes. Electronically signed by Atilio Mojica 05-19-2025 02:21 AM Discharge Plan Visit Data Chief Complaint: Lethargic Stated Complaint: Lethargic, Hypotension, SOB ED Provider: Jacques Sal Discharge Problem: Acute renal failure Patient Disposition: Admitted As Inpatient Condition: Serious Forms Stand Alone Forms: [facility] Haena Zenter Prescriptions Prescriptions: No Action (DME) nebulizers [AeroEclipse II Nebulizer] [facility] [place] See Rx Instructions .Route Qty: 1 0RF Rx Instructions: As directed length of need 99 months (DME) nebulizers [AeroEclipse II Nebulizer] [facility] See Rx Instructions .Route Qty: 1 0RF Rx Instructions: As directed length of need 99 months valsartan 160 mg tablet 160 mg PO QAM Qty: 90 3RF budesonide 0.5 mg/2 mL suspension for nebulization 0.5 mg inhalation BID Qty: 120 11RF formoterol fumarate [Perforomist] 20 mcg/2 mL solution for nebulization 2 ml inhalation BID Qty: 120 11RF amlodipine 10 mg tablet 10 mg PO QPM Qty: 90 3RF solifenacin 5 mg tablet 5 mg PO QAM Qty: 90 3RF Xarelto 20 mg tablet 20 mg PO QAM Qty: 90 3RF levothyroxine 50 mcg tablet 50 mcg PO QAM Qty: 90 3RF carvedilol 6.25 mg tablet 6.25 mg PO BID Qty: 180 3RF sertraline 50 mg tablet 75 mg PO QAM Qty: 150 3RF tramadol 50 mg tablet 50 mg PO TID Qty: 90 5RF montelukast 10 mg tablet 10 mg PO QPM Qty: 90 3RF (DME) Flutter Valve Device See Rx Instructions .ROUTE .MEDSUPPLY Qty: 1 0RF Rx Instructions: As directed budesonide-formoterol [Symbicort] 160-4.5 mcg/actuation HFA aerosol inhaler 1 inh inhalation BID PRN (Reason: sob) Rx Instructions: 2 puffs BID PRN albuterol sulfate 90 mcg/actuation HFA aerosol inhaler 2 puffs inhalation Q4H PRN (Reason: Shortness Of Breath) coenzyme Q10 10 mg capsule 100 mg PO QAM calcium carbonate [Tums] 200 mg calcium (500 mg) tablet,chewable 200 mg PO TID nystatin 100,000 unit/mL suspension 100,000 unit PO TID PRN (Reason: prn) Rx Instructions: administer 1/2 of dose in each side of the mouth diazepam 5 mg tablet 5 mg PO 3XWK Qty: 30 3RF Rx Instructions: TUES, THURS, SAT & SUN EVENINGS ipratropium bromide 42 mcg (0.06 %) spray,non-aerosol 2 spray intranasal TID Qty: 15 11RF Rx Instructions: administer into each nostril apple cider vinegar 250 mg tablet,chewable 250 mg PO QID stone stopper 2 cap PO BID cyanocobalamin (vitamin B-12) 1,000 mcg Capsule 1,000 mcg PO WK Rx Instructions: SUNDAYS magnesium oxide 500 mg Capsule 500 mg PO Q2D@2100 ascorbic acid (vitamin C) [Vitamin C] 500 mg tablet 500 mg PO QPM Rx Instructions: take with iron; stop when iron completed. ferrous sulfate 27 mg iron Tablet 27 mg PO QPM simethicone 125 mg Capsule 125 mg PO 4XWK Prolia 60 mg/mL syringe 60 mg SUBCUT Q6MO Patient Comments: around october 12 phenazopyridine [Pyridium] 200 mg tablet 200 mg PO Q8H PRN (Reason: pain) Qty: 10 0RF tamsulosin 0.4 mg capsule 0.4 mg PO HS Qty: 30 0RF oxycodone-acetaminophen [Percocet] 7.5-325 mg tablet 1 tab PO Q8H PRN (Reason: pain) 3 Days Qty: 7 0RF ciprofloxacin HCl [Cipro] 500 mg tablet 500 mg PO Q12H Qty: 14 0RF Rx Instructions: STARTED 05/18/25 WITH PM DOSE cranberry extract 500 mg Capsule 500 mg PO DAILY Rx Instructions: administer with meals Referrals Referrals: Tan Savage MD [Primary Care Provider] -
[2025-05-18] MEDS: SODIUM CHLORIDE 0.9% 1,000 ML IV SCH (22:43)
[2025-05-18 23:40] LABS: Hematocrit (blood only) 31.3 % (37.0-47.0); Hemoglobin 10.4 g/dL (12.0-16.0); Mean Corpuscular Hemoglobin 29.6 pg (25.0-34.0); Mean Corpuscular Volume 89.2 fL (80.0-100.0); Platelet Count 156 K/uL (130-400); RDW Standard Deviation 46.2 fL (36.4-46.3); Red Blood Count 3.51 M/uL (4.20-5.40); White Blood Count 5.89 K/ul (4.8-10.8)
[2025-05-18 23:42] LABS: Base Excess VBG -9.3 mEq/L; HCO3 VBG 19 mmol/L; Oxygen Saturation VBG 74.2 %; PCO2 VBG 48 mmHg (38-50); PO2 VBG 44 mmHg; pH VBG 7.20 (7.36-7.41)
[2025-05-18] MEDS: SODIUM CHLORIDE 0.9% 1,000 ML IV ONE (23:57)
[2025-05-18] MEDS: CEFEPIME 2000MG 2,000 MG/20 ML SYR IV STA (23:57)
[2025-05-18 23:59] LABS: Anion Gap 9.0 (3-11); Blood Urea Nitrogen 32.0 mg/dl (6-23); Calcium 8.0 mg/dl (8.6-10.3); Carbon Dioxide 20.0 mmol/L (21-32); Chloride 109.0 mmol/L (98-107); Creatinine Clr Calc Pharmacy 16.6 ml/min; Glucose 106.0 mg/dl (70-99(Fasting)); Potassium 4.2 mmol/L (3.5-5.1); Sodium 138.0 mmol/L (136-145)
[2025-05-19 00:10] LABS: INR 1.3 (0.9-1.1); Prothrombin Time 13.2 Seconds (9.0-12.0)
--- NOTE | 2025-05-19 00:10 | XRay Report ---
Exam(s): XR CXR 1 VIEW EXAM: XR Chest, 1 View CLINICAL HISTORY: Reason for exam: Sepsis. TECHNIQUE: Frontal view of the chest. Mild breathing motion artifact. COMPARISON: Chest x-ray 10/10/2024. FINDINGS: Lungs/Pleural space: Mild bibasilar atelectasis or scarring, stable. Lungs are otherwise clear. No focal infiltrate, pleural effusion or pneumothorax. Heart: Stable cardiomegaly. Mediastinum: Stable ectatic aorta. Bones/Soft Tissues: Stable bilateral shoulder prosthesis, left glenohumeral joint dislocated again. No acute abnormality. IMPRESSION: 1. No acute process in the chest. Electronically signed by: Alayna Garcia M.D. 05/19/25 00:09 AM
[2025-05-19 00:17] LABS: Alanine Aminotransferase 718.0 U/L (7-52); Albumin Level 2.8 gm/dl (3.4-5.0); Alkaline Phosphatase 144.0 U/L (34-104); Bilirubin,Total 2.1 mg/dl (0.2-1.0); Magnesium 1.9 mg/dl (1.7-2.4); Total Protein 5.4 gm/dl (6.0-8.3)
[2025-05-19 00:19] LABS: Appearance Urine Cloudy (Clear); Bacteria Urine Automated None Seen (None Seen); Glucose Urine UA Negative (Negative); RBC Urine Automated >20 /hpf (0-2); WBC Urine Automated 21-50 /hpf (0-5)
[2025-05-19 00:24] LABS: Immature Granulocytes # (auto) 0.07 K/uL (0.01-0.20); Immature Granulocytes % (auto) 1.2 %; Polychromasia 1+
[2025-05-19] MEDS: SODIUM CHLORIDE 0.9% 250 ML IV ONE (00:26)
[2025-05-19 01:00] LABS: Lipase 151.0 U/L (11-82)
[2025-05-19] MEDS: metroNIDAZOLE 500 MG/100 ML BAG IV STA (01:49)
[2025-05-19] MEDS ORDERED: STAT IV/IM STA (02:21)
--- NOTE | 2025-05-19 02:22 | Ultrasound Report ---
EXAM: US liver CLINICAL HISTORY: Transaminitis TECHNIQUE: Ultrasound examination of the RUQ was performed using a [high-frequency transducer]. Scanning was performed with the patient in supine position. COMPARISON: Prior CT abdomen dated 05/18/2025. FINDINGS: Liver: Enlarged, measuring 20.4 cm. Diffusely increased heterogenous echogenicity consistent with hepatic steatosis or underlying parenchymal disease. Intrahepatic biliary ducts are mildly prominent in both lobes. No focal hepatic lesions identified. Gallbladder / Biliary System: Status post cholecystectomy; gallbladder fossa appears normal. The common bile duct measures 2.7 mm at the max hepatis and up to 7.3 mm distally, mildly prominent but within physiologic range for post-cholecystectomy. Pancreas: Pancreatic head is unremarkable without mass or ductal dilation. Body and tail are suboptimally visualized due to bowel gas. The main pancreatic duct is mildly prominent at 2.5 mm. Right Kidney: No hydronephrosis. Small amount of perinephric fluid at the lower pole. No renal calculi or masses identified. Aorta / IVC: Visualized portions of the aorta and IVC are normal in caliber and appearance. Additional Findings: None. IMPRESSION: 1. Hepatomegaly with increased echogenicity, most compatible with hepatic steatosis or parenchymal disease. Unchanged. Need clinical correlation. 2. Mild intrahepatic duct prominence; extrahepatic CBD mildly dilated but likely physiologic post-cholecystectomy. Unchanged. 3. Mild prominence of the pancreatic duct; body and tail partially obscured by bowel gas. Unchanged. 4. Small right perinephric fluid collection; no hydronephrosis. Unchanged. 5. No significant interval changes. Electronically signed by Atilio Mojica 05-19-2025 02:21 AM
--- NOTE | 2025-05-19 02:37 | History & Physical Report ---
Date of Service May 19, 2025 Assessment & Plan (1) Sepsis due to urinary tract infection: (2) Lactic acidosis: (3) Shock liver: (4) Acute kidney injury superimposed on CKD: Plan The patient is an 89-year-old female with a past medical history including nephrolithiasis, frequent urinary tract infections, urinary incontinence, sleep disorder, pulmonary embolism, asthma, hypertension, anxiety, hypothyroidism, hyperlipidemia, and chronic anticoagulation. Earlier in the day on 05/18, patient underwent urologic procedure of cystoscopy with right ureteral nephroscopy, right retrograde pyelogram, laser destruction of stone, basket extraction of the stone, exchange of stent catheter on the right. Family reports that as the day progressed, the patient became more lethargic, less interactive, and fatigued. She was brought to the emergency department, and found following abnormal laboratories: Creatinine 1.81, lactate 4.9, procalcitonin greater than 100.00, troponin 26.4, INR 1.3, calcium 8.0, venous blood gas with pH 7.20 pCO2 48, pO2 44 bicarb of 19. Abnormal LFTs: Total bilirubin 2.1, direct bilirubin 1.6, AST 1866, ALT 718, alkaline phosphatase 244. From the ED patient received 2.25 L of normal saline, and was given cefepime 2 g IV x 1. Sepsis due to urinary tract infection/recent urology procedure lithotripsy and replacement of right ureteral stent- Follow urine culture and sensitivity Most recent infection from 04/27/2025 with pansensitive Proteus mirabilis, was also noted 05/24/2024. Lowest blood pressure noted in the emergency department was 78/43, but then improved to 90s to 100s/40s to 50s Discussed with family and patient is agreeable that should her pressure require support with pressors to give the antibiotics more time to work, they would be willing to do that. Given cefepime 2 g IV by the ED. Place on Zosyn 4.5 g IV every 8 hours Received a total of 2.25 L normal saline from the ED Placed on bicarb drip 150 mEq at 100 mL/h Give 1 L LR bolus. Lactate 4.9, follow-up 2.4 Pro-Paul greater than 100.0 BMP every 4 hours VBG every 4 hours. Initial VBG 7.2 0/48/44/19 Albumin 50 g IV x 1 Most recent echocardiogram from 09/06/2021 with ejection fraction 60-65% The patient will be admitted to telemetry for serial cardiac enzymes, serial EK G's, cardiac rhythm monitoring and a 2-D echocardiogram with Dopplers. Abnormal LFTs- CT scan of abdomen and pelvis showed interval resolution of right nephrolithiasis. Placement of right ureteral stent without hydronephrosis. Uncomplicated sigmoid colon diverticulosis and stable. Diastases recti with large anterior lower abdominal wall midline hernia with team herniation of small and large bowel loops and stable.- Likely shock liver secondary to sepsis from UTI- Repeat laboratory serially every 4 hours along with BMP every 4 hours as above Acute kidney injury superimposed on CKD- Creatinine 1.81, with baseline 0.91 Follow BMP every 4 hours History of pulmonary embolism- Has been off of Xarelto due to urologic procedure yesterday Resume anticoagulation. Will discuss with urology resumption on 05/19. May require transition with heparin drip initially. History of Present Illness Primary Care Provider: Tan Savage MD The patient is an 89-year-old female with a past medical history including nephrolithiasis, frequent urinary tract infections, urinary incontinence, sleep disorder, pulmonary embolism, asthma, hypertension, anxiety, hypothyroidism, hyperlipidemia, and chronic anticoagulation. Earlier in the day on 05/18, patient underwent urologic procedure of cystoscopy with right ureteral nephroscopy, right retrograde pyelogram, laser destruction of stone, basket extraction of the stone, exchange of stent catheter on the right. Family reports that as the day progressed, the patient became more lethargic, less interactive, and fatigued. She was brought to the emergency department, and found following abnormal laboratories: Creatinine 1.81, lactate 4.9, p rocalcitonin greater than 100.00, troponin 26.4, INR 1.3, calcium 8.0, venous blood gas with pH 7.20 pCO2 48, pO2 44 bicarb of 19. Abnormal LFTs: Total bilirubin 2.1, direct bilirubin 1.6, AST 1866, ALT 718, alkaline phosphatase 244. From the ED patient received 2.25 L of normal saline, and was given cefepime 2 g IV x 1. Allergies Allergy/AdvReac Type Severity Reaction Status Date / Time No Known Allergies Allergy Verified 05/18/25 23:12 Home Medications Medication Instructions Recorded Confirmed Type albuterol sulfate 90 mcg/actuation 2 puffs inhalation Q4H PRN 02/18/19 05/18/25 History aerosol inhaler Shortness Of Breath coenzyme Q10 10 mg capsule 100 mg PO QAM 02/18/19 05/18/25 History calcium carbonate (Tums) 200 mg PO TID 11/10/19 05/18/25 History cyanocobalamin (vitamin B-12) 1,000 mcg PO WK 11/23/19 05/18/25 History 1,000 mcg capsule magnesium oxide 500 mg capsule 500 mg PO Q2D@2100 11/23/19 05/18/25 History ferrous sulfate 27 mg iron tablet 27 mg PO QPM 09/05/21 05/18/25 History Flutter Valve #1 ea 01/15/22 05/18/25 Rx nebulizers (AeroEclipse II #1 ea 05/27/22 05/18/25 Rx Nebulizer) nebulizers (AeroEclipse II #1 ea 07/01/23 05/18/25 Rx Nebulizer) ascorbic acid (vitamin C) 500 mg 500 mg PO QPM 03/29/24 05/18/25 History tablet (Vitamin C) budesonide-formoterol HFA 160 1 inh inhalation BID PRN sob 05/24/24 05/18/25 History mcg-4.5 mcg/actuation aerosol inhaler (Symbicort) simethicone 125 mg capsule 125 mg PO 4XWK 10/10/24 05/18/25 History denosumab 60 mg/mL subcutaneous 60 mg subcut Q6MO 10/19/24 05/18/25 History syringe (Prolia) apple cider vinegar 250 mg 250 mg PO QID 12/29/24 05/18/25 History chewable tablet stone stopper 2 cap PO BID 12/29/24 05/18/25 History valsartan 160 mg tablet 160 mg PO QAM bp #90 tabs 01/03/25 05/18/25 Rx budesonide 0.5 mg/2 mL suspension 0.5 mg (2 mL) inhalation BID #120 01/18/25 05/18/25 Rx for nebulization mL formoterol fumarate 20 mcg/2 mL 2 ml inhalation BID #120 mL 01/18/25 05/18/25 Rx solution for nebulization (Perforomist) amlodipine 10 mg tablet 10 mg PO QPM #90 tabs 02/21/25 05/18/25 Rx solifenacin 5 mg tablet 5 mg PO QAM bladder #90 tabs 02/21/25 05/18/25 Rx carvedilol 6.25 mg tablet 6.25 mg PO BID #180 tabs 02/22/25 05/18/25 Rx levothyroxine 50 mcg tablet 50 mcg PO QAM thyriod #90 tabs 02/22/25 05/18/25 Rx rivaroxaban 20 mg tablet (Xarelto) 20 mg PO QAM #90 tabs 02/22/25 05/18/25 Rx sertraline 50 mg tablet 75 mg (1.5 x 50 mg) PO QAM #150 03/21/25 05/18/25 Rx tabs diazepam 5 mg tablet 5 mg PO 3XWK nerves #30 tabs 03/29/25 05/18/25 Rx ipratropium bromide 42 mcg (0.06 2 spray intranasal TID #15 mL 03/29/25 05/18/25 Rx %) nasal spray nystatin 100,000 unit/mL oral 100,000 unit PO TID PRN prn 03/29/25 05/18/25 History suspension tramadol 50 mg tablet 50 mg PO TID pain #90 tabs 03/31/25 05/18/25 Rx montelukast 10 mg tablet 10 mg PO QPM #90 tabs 05/17/25 05/18/25 Rx ciprofloxacin HCl 500 mg tablet 500 mg PO Q12H #14 tabs 05/18/25 05/18/25 Rx (Cipro) cranberry extract 500 mg capsule 500 mg PO DAILY 05/18/25 05/18/25 History oxycodone-acetaminophen 7.5 mg-325 1 tab PO Q8H PRN pain 3 days #7 05/18/25 05/18/25 Rx mg tablet (Percocet) tabs phenazopyridine 200 mg tablet 200 mg PO Q8H PRN pain #10 tabs 05/18/25 05/18/25 Rx (Pyridium) tamsulosin 0.4 mg capsule 0.4 mg PO HS #30 caps 05/18/25 05/18/25 Rx Past Med/Surg History Problem List (Updated 05/19/25 @ 05:21 by Jean-Claude Cortes MD) Shock liver Sepsis due to urinary tract infection Acute kidney injury superimposed on CKD Acute renal failure (Acute) Pseudoaneurysm of aorta Hernia of anterior abdominal wall Abnormal abdominal CT scan (Acute) Nephrolithiasis (Chronic) Renal cyst (Chronic) Frequent UTI (Chronic) Incontinence (Chronic) Dysphagia Shoulder pain Abdominal pain Abdominal mass, left lower quadrant (Chronic) Per PCP records 10/2023- no abnormalities found on KUB or ultrasound per records Status post left shoulder hemiarthroplasty (~05/2023) Dislocation of left shoulder joint Situational stress Generalized muscle weakness Cerumen impaction Obesity Arthritis of shoulder region, left, degenerative Sleep disorder Osteoporosis Pulmonary embolism 2016 Uterine endometriosis Atelectasis Hill Sachs deformity, right (Acute ~05/2023) Urinary, incontinence, stress female Essential tremor very slight in hands Chronic anticoagulation Hyperlipidemia Hypothyroidism (acquired) Anxiety Hypertension controlled, stable per pt Asthma Sees [facility] pulmonology. Using neb BID. Very rare rescue inhaler use Medical History Hill Sachs deformity makes it difficult to ambulate due to left shoulder aggravation per PCP records (referred to ortho at PCP appt 03/29/25) Pseudoaneurysm of aorta - Follows with [facility] - CT scan performed on 09/29/2024 and the reader of the images called it a small mildly progressive pseudoaneurysm per cardio records - [place] [facility] plans to repeat CT scan in one year per 12/2024 office visit Hernia of anterior abdominal wall Impaired glucose metabolism diet controlled Chronic pain of left upper extremity s/p shoulder surgery - avoid using if possible. Hypertension Anxiety Hypothyroidism Hyperlipidemia Essential tremor mild in bilateral hands on diazepam Osteoarthritis Asthma Sees [facility] pulmonology. Using neb BID. "has deconditioned lungs" pt is sedentary. uses nebulizer daily Generalized muscle weakness taking vitamins and increasing protein per 03/2025 PCP records Dysphagia mild Incontinence mild Frequent UTI since May 2024 off and on, to have urinanalysis week of 05/01/2025 Pancreatic cyst monitoring Renal cyst monitoring Kidney stones On anticoagulant therapy Hx of deep venous thrombosis hx - 2015 - unknown cause. on Xarelto currently Hx pulmonary embolism 04/2016--was being treated for empyema, saddle embolism on Xarelto currently Osteoporosis follows with rheum.. on Prolia Unsteady gait able to stand and pivot with 1 assist, uses wheelchair no right hip per records (all hardware removed ) History of blood transfusion 2018 nikolai-operative History of COVID-2020- no hosp; resolved Pulmonary nodules monitoring Surgical History S/P lumpectomy, left breast benign History of bilateral tubal ligation H/O shoulder surgery left shoulder "ball" replacement (unable to do full shoulder replacement) - Dr Bunch 05/2023 - does have limited mobility and mild pain (Chronic) "still partially dislocated" per daughter H/O joint surgery 12/2019 - right hip replacement removed due to complications. 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 H/O cataract extraction bilateral H/O shoulder replacement right S/P total hip arthroplasty right (November 2019) History of hysterectomy MATT BSO History of colonoscopy History of open reduction and internal fixation (ORIF) procedure Right Hip with hardware (Dr Francisco 04/2019) History of thoracentesis History of cholecystectomy Family History Mother Dementia Clotting disorder Diabetes Father Heart disease Myocardial infarction Brother Heart disease Myocardial infarction Brother Colorectal cancer Throat cancer Sister Breast cancer Ovarian cancer Dementia Social History Smoking Status: Former smoker Second Hand Exposure: No (in the past); Do You Dip or Chew Tobacco: No; Hx Alcohol Use: No Hx Substance Use: No Preferred Language: Mongolian Communication Ability: Effective Visual Impairment: Diminished 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: Normal [employer] Senior Manager Required: No Beliefs That Will Affect Care: None marital status: / Current Living Situation: Family Current Living Situation Comment: daughter and grandson current occupational status: retired How many Children do You have: 2 Feels Safe at Home: Yes Childhood Exposure to Second-Hand Smoke: Yes Diet: regular caffeine: Yes during the past year weight has: remained stable Dental Care, Regularly: Yes Physical Activity Frequency: Does not Exercise Seatbelt Use: always Sunscreen Use: No Assistive Devices: Bedside Commode, Denture - Upper, Glasses, Lift Chair, Nebulizer, Raised Toilet Seat, Walker and Wheelchair Review of Systems Review of Systems: The patient is somewhat lethargic, but is able to respond to questions. 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 Denies chest pain, palpitations, cough, sore throat, fevers, chills, sweats, nausea, vomiting, diarrhea , constipation, abdominal pain, pelvic pain, blood in urine or stool, dysuria, urinary frequency or urgency, loss of consciousness, rash, abnormal bruising or bleeding, focal weakness, numbness or tingling in arms or legs, generalized arthralgias or myalgias, back or neck pain, or night sweats. The review of systems is otherwise negative other than for that already noted above, and at least 10 systems have been reviewed. Physical Exam Physical Exam: The patient is awake, alert and oriented 3, moderately fatigued, normocephalic, small bruise right lateral canthus/orbit, lying in bed and in no acute distress. HEENT--PERRL, EOMI, mucous membranes and oropharynx moderately dry. Neck--supple. No JVD. No bruits. Thyroid normal, trachea midline, no adenopathy. Heart--normal S1 and S2. No murmurs, rubs or gallops. Lungs-- few dry crackles throughout, no respiratory distress, no accessory muscle use. Abdomen--normal bowel sounds and soft. Nontender. Nondistended, no hernias or masses, no organomegaly. Extremities--No edema. Dermatologic--skin is dry Neurologic--cranial nerves II through XII grossly intact. Rheumatologic--normal range of motion, but limited exam Psychiatric--normal affect. Results & Data Results & Data Vital Signs (Past 12 Hours) Vital Signs Temp Pulse Pulse Resp BP BP Pulse Ox 05/19/25 02:00 92 H 22 86/44 L 93 05/19/25 01:30 94 H 24 96/58 L 94 05/19/25 00:00 87 22 96/58 L 92 05/18/25 23:45 88 32 H 93/42 L 05/18/25 23:30 85 21 101/63 94 05/18/25 23:15 83 23 86/45 L 95 05/18/25 23:15 82 22 86/45 L 96 05/18/25 23:12 95 05/18/25 23:12 83 22 90/50 L 95 05/18/25 23:00 82 24 90/50 L 96 05/18/25 22:39 79 24 76/43 L 94 05/18/25 22:04 80 05/18/25 22:01 91 05/18/25 21:56 36.7 C 80 22 101/50 L 91 O2 Del Method O2 Flow Rate 05/19/25 02:00 Nasal Cannula 2 05/19/25 01:30 Nasal Cannula 2 05/19/25 00:00 05/18/25 23:45 05/18/25 23:30 Nasal Cannula 2 05/18/25 23:15 Nasal Cannula 2 05/18/25 23:15 Nasal Cannula 2 05/18/25 23:12 Nasal Cannula 2 05/18/25 23:12 Nasal Cannula 2 05/18/25 23:00 05/18/25 22:39 Nasal Cannula 2 05/18/25 22:04 05/18/25 22:01 Room Air 05/18/25 21:56 Room Air Laboratory Results Laboratory Results WBC 5.89 K/ul (4.8-10.8) 05/18/25 23:07 RBC 3.51 M/uL (4.20-5.40) L 05/18/25 23:07 Hgb 10.4 g/dL (12.0-16.0) L 05/18/25 23:07 Hct 31.3 % (37.0-47.0) L 05/18/25 23:07 MCV 89.2 fL (80.0-100.0) 05/18/25 23:07 MCH 29.6 pg (25.0-34.0) 05/18/25 23:07 MCHC 33.2 g/dL (32.0-36.0) 05/18/25 23:07 RDW Std Deviation 46.2 fL (36.4-46.3) 05/18/25 23:07 RDW Coeff of Jerrell 14.5 % (11.5-14.5) 05/18/25 23:07 Plt Count 156 K/uL (130-400) 05/18/25 23:07 MPV 10.2 fL (9.4-12.4) 05/18/25 23:07 Immature Gran % (Auto) 1.2 % 05/18/25 23:07 Neut % (Auto) 95.4 % 05/18/25 23:07 Lymph % (Auto) 1.9 % 05/18/25 23:07 [place] % (Auto) 1.0 % 05/18/25 23:07 Eos % (Auto) 0.2 % 05/18/25 23:07 Baso % (Auto) 0.3 % 05/18/25 23:07 Neut # (Auto) 5.62 K/uL (1.40-6.50) 05/18/25 23:07 Lymph # (Auto) 0.11 K/uL (1.20-3.40) L 05/18/25 23:07 [place] # (Auto) 0.06 K/uL (0.11-0.59) L 05/18/25 23:07 Eos # (Auto) 0.01 K/uL (0.00-0.50) 05/18/25 23:07 Baso # (Auto) 0.02 K/uL (0.00-0.20) 05/18/25 23:07 Immature Gran # (Auto) 0.07 K/uL (0.01-0.20) 05/18/25 23:07 Polychromasia 1+ 05/18/25 23:07 PT 13.2 Seconds (9.0-12.0) H 05/18/25 23:07 INR 1.3 (0.9-1.1) H 05/18/25 23:07 VBG pH 7.20 (7.36-7.41) L 05/18/25 23:07 VBG pCO2 48 mmHg (38-50) 05/18/25 23:07 VBG pO2 44 mmHg 05/18/25 23:07 VBG HCO3 19 mmol/L 05/18/25 23:07 VBG O2 Saturation 74.2 % 05/18/25 23:07 VBG Base Excess -9.3 mEq/L 05/18/25 23:07 Sodium 138 mmol/L (136-145) 05/18/25 23:07 Potassium 4.2 mmol/L (3.5-5.1) 05/18/25 23:07 Chloride 109 mmol/L (98-107) H 05/18/25 23:07 Carbon Dioxide 20 mmol/L (21-32) L 05/18/25 23:07 Anion Gap 9 (3-11) 05/18/25 23:07 BUN 32 mg/dl (6-23) H 05/18/25 23:07 Creatinine 1.81 mg/dl (0.6-1.2) H 05/18/25 23:07 Est Cr Clr Drug Dosing 16.6 ml/min 05/18/25 23:07 eGFR 26.75 05/18/25 23:07 BUN/Creatinine Ratio 17.7 (10-20) 05/18/25 23:07 Glucose 106 mg/dl (70-99(Fasting)) H 05/18/25 23:07 Lactate 2.4 mmol/L (0.4-2.0) H* 05/19/25 01:47 Calcium 8.0 mg/dl (8.6-10.3) L 05/18/25 23:07 Magnesium 1.9 mg/dl (1.7-2.4) 05/18/25 23:07 Total Bilirubin 2.1 mg/dl (0.2-1.0) H 05/18/25 23:07 Direct Bilirubin 1.6 mg/dl (0-0.2) H 05/18/25 23:07 AST 1866 U/L (13-39) H 05/18/25 23:07 ALT 718 U/L (7-52) H 05/18/25 23:07 Alkaline Phosphatase 144 U/L (34-104) H 05/18/25 23:07 Troponin I High Sens 23.6 pg/ml (0-14) H 05/19/25 01:47 B-Natriuretic Peptide 143 pg/ml (0-100) H 05/18/25 23:07 Total Protein 5.4 gm/dl (6.0-8.3) L 05/18/25 23:07 Albumin 2.8 gm/dl (3.4-5.0) L 05/18/25 23:07 Lipase 151 U/L (11-82) H 05/18/25 23:07 Procalcitonin > 100.00 ng/ml (0-0.5) H 05/18/25 22:18 Urine Color Dark Yellow 05/18/25 23:43 Urine Appearance Cloudy (Clear) A 05/18/25 23:43 Urine pH 6.0 (4.5-7.5) 05/18/25 23:43 Ur Specific [place] 1.026 (1.000-1.030) 05/18/25 23:43 Urine Protein 3+ (Negative) H 05/18/25 23:43 Urine Glucose (UA) Negative (Negative) 05/18/25 23:43 Urine Ketones Trace (Negative) H 05/18/25 23:43 Urine Blood 3+ (Negative) H 05/18/25 23:43 Urine Nitrite Positive (Negative) A 05/18/25 23:43 Urine Bilirubin 1+ (Negative) H 05/18/25 23:43 Urine Urobilinogen Negative (Negative) 05/18/25 23:43 Ur Leukocyte Esterase 2+ (Negative) H 05/18/25 23:43 Urine WBC (Auto) 21-50 /hpf (0-5) H 05/18/25 23:43 Urine RBC (Auto) >20 /hpf (0-2) H 05/18/25 23:43 U Hyaline Cast (Auto) 11-20 /lpf (0-2) H 05/18/25 23:43 U Epithel Cells (Auto) 6-10 /hpf (0-2) H 05/18/25 23:43 Urine Bacteria (Auto) None Seen (None Seen) 05/18/25 23:43 Urine Comment 05/18/25 23:43 Impressions Chest X-Ray 05/18/25 22:03 Exam(s): XR CXR 1 VIEW EXAM: XR Chest, 1 View CLINICAL HISTORY: Reason for exam: Sepsis. TECHNIQUE: Frontal view of the chest. Mild breathing motion artifact. COMPARISON: Chest x-ray 10/10/2024. FINDINGS: Lungs/Pleural space: Mild bibasilar atelectasis or scarring, stable. Lungs are otherwise clear. No focal infiltrate, pleural effusion or pneumothorax. Heart: Stable cardiomegaly. Mediastinum: Stable ectatic aorta. Bones/Soft Tissues: Stable bilateral shoulder prosthesis, left glenohumeral joint dislocated again. No acute abnormality. IMPRESSION: 1. No acute process in the chest. Electronically signed by: Alayna Garcia M.D. 05/19/25 00:09 AM Liver Ultrasound 05/19/25 00:27 EXAM: US liver CLINICAL HISTORY: Transaminitis TECHNIQUE: Ultrasound examination of the RUQ was performed using a [high-frequency transducer]. Scanning was performed with the patient in supine position. COMPARISON: Prior CT abdomen dated 05/18/2025. FINDINGS: Liver: Enlarged, measuring 20.4 cm. Diffusely increased heterogenous echogenicity consistent with hepatic steatosis or underlying parenchymal disease. Intrahepatic biliary ducts are mildly prominent in both lobes. No focal hepatic lesions identified. Gallbladder / Biliary System: Status post cholecystectomy; gallbladder fossa appears normal. The common bile duct measures 2.7 mm at the max hepatis and up to 7.3 mm distally, mildly prominent but within physiologic range for post-cholecystectomy. Pancreas: Pancreatic head is unremarkable without mass or ductal dilation. Body and tail are suboptimally visualized due to bowel gas. The main pancreatic duct is mildly prominent at 2.5 mm. Right Kidney: No hydronephrosis. Small amount of perinephric fluid at the lower pole. No renal calculi or masses identified. Aorta / IVC: Visualized portions of the aorta and IVC are normal in caliber and appearance. Additional Findings: None. IMPRESSION: 1. Hepatomegaly with increased echogenicity, most compatible with hepatic steatosis or parenchymal disease. Unchanged. Need clinical correlation. 2. Mild intrahepatic duct prominence; extrahepatic CBD mildly dilated but likely physiologic post-cholecystectomy. Unchanged. 3. Mild prominence of the pancreatic duct; body and tail partially obscured by bowel gas. Unchanged. 4. Small right perinephric fluid collection; no hydronephrosis. Unchanged. 5. No significant interval changes. Electronically signed by Atliio Mojica 05-19-2025 02:21 AM Abdomen/Pelvis CT 05/19/25 00:28 EXAM: CT abd pelvis wo con CLINICAL HISTORY: Transaminitis, ureteral stent today TECHNIQUE: Contiguous axial images were obtained from the level of the diaphragm to the pubic symphysis without intravenous or oral contrast. Coronal and sagittal reconstructions were likewise performed and indicated to increase the sensitivity for detecting clinically relevant pathology. CT scan was performed according to ALARA (as low as reasonably achievable). 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 Evaluation of the abdominal and pelvic visceral organs is limited without intravenous contrast. The unenhanced liver, spleen, pancreas, and adrenal glands are grossly unremarkable. The gallbladder is surgically removed. The kidneys are normal in size and attenuation without obvious calcification. There is no hydronephrosis or perinephric stranding. Right ureteric stent seen in place. The ureters are normal in caliber. The urinary bladder is normal in contour. Post hysterectomy status. No adenopathy or fluid collections are seen. Multiple small diverticuli of 2-4mm seen in sigmoid colon. No inflammatory changes. No evidence of focal or diffuse bowel wall thickening or evidence of bowel obstruction is seen. The appendix is visualized in the right lower quadrant and appears within normal limits.No evidence of inflamed appendix. Diastasis of recti with large anterior lower abdominal wall midline hernia with herniation of small and large bowel loops. The aorta is normal in caliber. No aggressive appearing osseous lesions are identified. Diffuse atherosclerotic wall calcification of abdominal aorta. Significant degenerative changes in visualized spine. Extensive degenerative changes seen in right hip joint- stable. IMPRESSION: 1. Interval resolution of right nephrolithiasis. 2. Interval placement of right ureteric stent. No hydronephrosis. 3. Uncomplicated sigmoid colon diverticulosis- Stable 4. Diastasis of recti with large anterior lower abdominal wall midline hernia with herniation of small and large bowel loops.Stable Electronically signed by Richie Fitzpatrick 05-19-2025 02:36 AM Code Status & VTE Plan Code Status DNR/DNI. Patient would except pressors. PG Care Time/CCT Total # of Minutes Spent Total Time Spent with Patient: Total time spent is greater than 50% in coordination of care (as documented) at patient's floor/unit and/or counseling patient: 54 minutes Coding Level of Care Code 90578 INT INP/OBS CARE 3/75MIN Diagnoses Sepsis due to urinary tract infection A41.9; N39.0 Lactic acidosis E87.2 Shock liver K72.00 Acute kidney injury superimposed on CKD N17.9; N18.9
[2025-05-19] MEDS: LACTATED RINGER'S 1,000 ML IV ONE (02:47)
[2025-05-19] MEDS: SODIUM BICARBONATE 8.4% 150 MEQ in DEXTROSE 5% 1,000 ML IV SCH (03:37)
[2025-05-19] MEDS ORDERED: ONDANSETRON INJ 2 MG/ML 2 ML VIAL IV PRN (04:02)
[2025-05-19] MEDS ORDERED: ALBUTEROL HFA 8 GM INHALER INH PRN (04:02)
[2025-05-19] MEDS ORDERED: NON-FORMULARY MEDICATION (Flutter Valve device) SCH (04:02)
[2025-05-19] MEDS: BUDESONIDE 0.5 MG/2 ML VIAL (PULMICORT) INH SCH (04:48)
[2025-05-19] MEDS: FORMOTEROL 20 MCG/2 ML VIAL INH SCH (04:48)
[2025-05-19] MEDS: ALBUMIN 25% 25 GM/100 ML VIAL IV SCH (05:01)
[2025-05-19] MEDS: PIPERACILLIN/TAZOBACTAM 4.5 GM/100 ML BAG IV SCH (05:10)
[2025-05-19] MEDS: LEVOTHYROXINE SODIUM 50 MCG TABLET PO SCH (05:11)
--- NOTE | 2025-05-19 05:31 | Billing Data ---
Date of Service May 19, 2025 Coding Level of Care Code 86691 CRITICAL CARE
[2025-05-19 05:32] LABS: Base Excess VBG -7.9 mEq/L; HCO3 VBG 19 mmol/L; Oxygen Saturation VBG 76.1 %; PCO2 VBG 42 mmHg (38-50); PO2 VBG 38 mmHg; pH VBG 7.26 (7.36-7.41)
--- NOTE | 2025-05-19 06:16 | XRay Report ---
EXAM: XR chest 1V portable CLINICAL HISTORY: crackles TECHNIQUE: An X-ray image of the chest is obtained in AP projection. COMPARISON: 10/10/2024 FINDINGS: Pulmonary Parenchyma: Increased bronchovascular markings. Obscured left lower lobe and costophrenic angle. Haziness is seen right upper zone. No evidence of consolidation, collapse, or focal opacities. No evidence of right pleural effusion or pleural thickening. Heart and Mediastinum: Cardiomegaly. Mediastinal widening . Prominent mediastinum. Bony Thorax: Bony thorax appears intact without fractures or deformities. Bilateral shoulder athroplasty. Soft Tissues: Soft tissues overlying the chest wall are unremarkable. IMPRESSION: 1. Increased bronchovascular markings, mostly vascular congestion. (Accentuated). 2. Cardiomegaly obscuring the left lower lobe and costophrenic angle. Stable 3. New right upper zone haziness. Electronically signed by Atilio Mojica 05-19-2025 06:16 AM
[2025-05-19] MEDS: MIDODRINE HCL 10 MG TAB PO SCH (06:34)
[2025-05-19] MEDS ORDERED: BUDESONIDE 0.5 MG/2 ML VIAL (PULMICORT) INH SCH (07:00)
[2025-05-19] MEDS ORDERED: FORMOTEROL 20 MCG/2 ML VIAL INH SCH (07:00)
[2025-05-19] MEDS: METOPROLOL TARTRATE 50 MG TAB PO STA (07:08)
[2025-05-19] MEDS ORDERED: STAT IV Infusion **Titration per Protocol STA ×2 (07:34→13:44)
[2025-05-19] MEDS: NOREPINEPHRINE/D5W 4 MG/250 ML PLCT IV SCH (08:18)
--- NOTE | 2025-05-19 08:22 | Communication Note ---
Date of Service: May 19, 2025 89 y/o with nephrolithiasis and frequent UTIs, chronic AC for hx PE (had been held for procedure) 05/18, patient underwent urologic procedure of cystoscopy with right ureteral nephroscopy, right retrograde pyelogram, laser destruction of stone, basket extraction of the stone, exchange of stent catheter on the right. Progressively hypotensive despite >3500 mL crystalloid, midodrine 10 mg, albumin On exam lethargic but awake, feels short of breath, denies CP and abd pain. Her daughter is at bedside Ecchymosis R brow laterally - bumped head on shower rail, did not fall Tachypneic, bib crackles, CTA anteriorly Heart reg tachychardic Abd s/nt large lower abdominal hernia soft/NT Skin wd no rash Ext are warm with no edema #Septic shock following urological procedure. I believe she was on oral cipro prior to procedure - cont pip-tazo add vancomycin - start norepi - consult certified midwife and move to ICU - developing more hypoxia and tachypnea so hold off on more fluid bolus for now - added random cortisol, consider steroids defer to certified midwife -flomax and antihypertensives held - follow blood, urine Cx from ED #CHRISTIANO related to sepsis with metabolic acidosis - place [place] to monitor UOP - IVF - continue sodium bicarb - monitor BMP - avoid nephrotoxins #Acute hypoxic respiratory failure due to sepsis, probably has some acute pulmonary edema at this point #COPD - judicious fluids - supp O2, continue bronchodilators. 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 NWB on R and transfers with L leg otherwise uses wheelchair, lives with her daughter who is caregiver. DNR/DNI but desires trial of pressors Updated her daughter at bedside. I spent 33 minutes (7:37-8:10) critical care time reviewing vitals, labs, radiology, micro, examining patient, writing orders, counseling family, discussions with bedside nurses and certified midwife
--- NOTE | 2025-05-19 08:22 | Billing Data ---
Date of Service May 19, 2025 Coding Level of Care Code 03480 CRITICAL CARE
[2025-05-19 08:47] LABS: Toxic Vacuolation 3+
[2025-05-19] MEDS ORDERED: OXYBUTYNIN CHLORIDE XL 5 MG TABCR PO SCH (09:00)
--- NOTE | 2025-05-19 09:02 | Electrocardiogram Report ---
Test Reason : Blood Pressure : */* mmHG Vent. Rate : 80 BPM Atrial Rate : 80 BPM P-R Int : 186 ms QRS Dur : 120 ms QT Int : 398 ms P-R-T Axes : 64 41 14 degrees QTcB Int : 459 ms Normal sinus rhythm Right bundle branch block Abnormal ECG When compared with ECG of 10-Oct-2024 11:08, No significant change Confirmed by Wolfgnag Craven ([id number]) on 05/19/2025 9:02:05 AM Referred By: REFERRED SELF Confirmed By: Wolfgang Craven
--- NOTE | 2025-05-19 09:11 | XRay Report ---
XR chest 1V portable HISTORY: 89 years-old Female eval right IJ placement status post placement of a right IJ central makayla ous catheter COMPARISON: 05/19/2025 TECHNIQUE: AP view the chest FINDINGS: Status post placement of a right IJ central venous catheter with distal tip in the expected location of the superior cavoatrial junction. Atherosclerosis of the aorta. Cardiomegaly with pulmonary vascul ar congestion, interstitial coarsening and probable trace pleural effusions. Mild left basilar atelec tasis. Bilateral shoulder arthroplasties. Cholecystectomy. IMPRESSION: 1. Status post placement of a right IJ central venous catheter. 2. No pneumothorax. 3. Cardiomegaly with pulmonary vascular congestion. ACT 112: Negative or not required by law. The above report was generated using voice recognition software. It may contain grammatical, syntax o r spelling errors. Electronically signed by: Stevenson Serna M.D. 05/19/2025 9:09 AM
[2025-05-19] MEDS: DAPTOmycin 350 MG in SYRINGE 0 ML IV SCH (09:29)
[2025-05-19 09:43] LABS: Alanine Aminotransferase 352.0 U/L (7-52); Albumin Globulin Ratio 2.3 (0.9-2); Albumin Level 3.6 gm/dl (3.4-5.0); Alkaline Phosphatase 100.0 U/L (34-104); Anion Gap 9.0 (3-11); Bilirubin,Total 1.8 mg/dl (0.2-1.0); Blood Urea Nitrogen 35.0 mg/dl (6-23); Calcium 7.1 mg/dl (8.6-10.3); Carbon Dioxide 20.0 mmol/L (21-32); Chloride 111.0 mmol/L (98-107); Creatinine Clr Calc Pharmacy 16.7 ml/min; Globulin 1.6 gm/dl (2.5-4.0); Glucose 104.0 mg/dl (70-99(Fasting)); Potassium 3.9 mmol/L (3.5-5.1); Sodium 140.0 mmol/L (136-145); Total Protein 5.2 gm/dl (6.0-8.3)
[2025-05-19] MEDS: SIMETHICONE 80 MG CHEW PO SCH (09:59)
[2025-05-19] MEDS: SERTRALINE HCL 50 MG TABLET PO SCH (09:59)
[2025-05-19] MEDS ORDERED: Nursing to Pharmacy Communication SCH (10:00)
[2025-05-19] MEDS: VASOPRESSIN 20 UNITS in SODIUM CHLORIDE 0.9% 100 ML IV SCH (10:04)
--- NOTE | 2025-05-19 10:04 | Electrocardiogram Report ---
Test Reason : Blood Pressure : */* mmHG Vent. Rate : 86 BPM Atrial Rate : 86 BPM P-R Int : 184 ms QRS Dur : 116 ms QT Int : 400 ms P-R-T Axes : 75 28 32 degrees QTcB Int : 479 ms Normal sinus rhythm with sinus arrhythmia Incomplete right bundle branch block Nonspecific T wave abnormality Abnormal ECG When compared with ECG of 18-May-2025 22:00, (unconfirmed) No significant change Confirmed by Wolfgang Craven ([id number]) on 05/19/2025 10:03:43 AM Referred By: REFERRED SELF Confirmed By: Wolfgang Craven
[2025-05-19 10:17] LABS: INR 1.4 (0.9-1.1); Prothrombin Time 14.5 Seconds (9.0-12.0)
[2025-05-19] MEDS ORDERED: Heparin IV Adult Wt-Based Standard *NO* INITIAL Bolus Protocol IV STA (10:21)
[2025-05-19 10:47] LABS: Partial Thromboplastin Time 32 Seconds (21-31)
[2025-05-19] MEDS: FLUTICASONE/VILANTEROL 100/25MCG 14 PUFFS/INHALER INH SCH (11:05)
[2025-05-19] MEDS: IPRATROPIUM BROMIDE NASAL SPRAY 0.06% 15ML NAE SCH (11:05)
[2025-05-19] MEDS: STAT IV Infusion **Titration per Protocol STA (11:33)
[2025-05-19] MEDS: HYDROCORTISONE SOD 50 MG in SYRINGE 0 ML IV SCH (11:35)
[2025-05-19 11:45] LABS: ANTI-Xa, UFH(UnfractionatedHep < 0.10 IU/ml (0.3-0.7)
[2025-05-19] MEDS: HEPARIN 25000 UNIT/500 ML D5W 25,000 UNITS/500 ML BAG IV SCH (11:54)
[2025-05-19 12:46] LABS: Magnesium 1.6 mg/dl (1.7-2.4)
[2025-05-19 13:00] LABS: Dohle Bodies 1+; Hematocrit (blood only) 28.6 % (37.0-47.0); Hemoglobin 9.6 g/dL (12.0-16.0); Immature Granulocytes # (auto) 0.14 K/uL (0.01-0.20); Immature Granulocytes % (auto) 1.2 %; Mean Corpuscular Hemoglobin 29.4 pg (25.0-34.0); Mean Corpuscular Volume 87.7 fL (80.0-100.0); Platelet Count 121 K/uL (130-400); Polychromasia 1+; RDW Standard Deviation 47.5 fL (36.4-46.3); Red Blood Count 3.26 M/uL (4.20-5.40); Toxic Vacuolation 2+; White Blood Count 11.78 K/ul (4.8-10.8)
[2025-05-19] MEDS: ALBUMIN 5% 250 ML IV ONE (14:13)
--- NOTE | 2025-05-19 14:43 | Procedure Note ---
Procedure Note Date of Service May 19, 2025 LEFT RADIAL ARTERIAL LINE PROCEDURE NOTE: Procedure: Left Arterial Line Placement Attending: Dr. Jayla Parham MD APC: SATYA Paul Indication: Monitoring on Pressors/Freq labs Anesthesia: Lidocaine 1% Consent was signed and placed on the chart prior to procedure. Indication, risks, and benefits were explained at length. A time-out was completed verifying correct patient, procedure, site, positioning, and implant(s) or special equipment if applicable. Allens test was performed to ensure adequate perfusion. Patients left wrist was prepped and draped in the usual sterile fashion. Ultrasound guidance was used to aid needle placement. A 20g Arrow arterial line was introduced into the left radial artery. Catheter was threaded, and the needle was removed with appropriate blood return. Good waveform was observed. The patient tolerated the procedure well. Confirmation of placement with ultrasound. Images saved to medical record. Blood Loss: Minimal Complications: None Procedural Ultrasound Guidance: Procedure Date: 05/19/2025 Indication: Ultrasound guidance for arterial line placement. Attending: Dr. Jayla Parham MD APC: SATYA Paul Artery Identified: YES Line confirmed in Artery with ultrasound: Yes Complications: NONE Patient tolerated procedure: [facility] [place] Procedure Codes (Charges) Tubes, Drains, and Vasc Access Procedure 1: Tubes, Drains, and Vasc Access: [id number] Arterial Cath/Cannulation Sampling/Monitoring/Transfusion Procedure 2: Tubes, Drains, and Vasc Access: [id number] Ultrasound Guidance For Vascular Coding CPT Codes Tubes, Drains, and Vasc Access - Tubes, Drains, and Vasc Access: [id number] Arterial Cath/Cannulation Sampling/Monitoring/Transfusion ([id number]) Tubes, Drains, and Vasc Access - Tubes, Drains, and Vasc Access: [id number] Ultrasound Guidance For Vascular ([id number]) Additional Codes Date of Service (PG.[email or web address])
--- NOTE | 2025-05-19 14:46 | Procedure Note ---
Procedure Note Date of Service May 19, 2025 RIGHT INTERNAL JUGULAR CENTRAL LINE PROCEDURE NOTE: Procedure: Internal Jugular Central Line Placement Attending: Dr. Jayla Parham MD APC: SATYA Paul Indication: Central Drug Administration, Poor Venous Access, Multiple Lab Draws Necessary, etc. Anesthesia: Lidocaine 1% Consent was signed and placed on the chart prior to procedure. Indication, risks, and benefits were explained at length. A time-out was completed verifying correct patient, procedure, site, positioning, and implants(s) or special equipment if applicable. Patients right Neck was cleansed and draped in the typical sterile fashion using Chloraprep. The Internal Jugular Vein and Carotid Artery were identified using ultrasound. The superficial tissue was anesthetized using 3 mL of 1% lidocaine without epinephrine under direct visualization with the ultrasound. After adequate anesthetization was achieved, the Internal Jugular vein was cannulated under direct ultrasound guidance using an introducer needle on a syringe. Good venous blood return was maintained prior to removal of syringe from introducer needle. Using Seldinger Technique, a guide wire was advanced through the introducer needle without resistance. The introducer needle was removed and ultrasound imag es were obtained of the guide wire within the Internal Jugular Vein and saved to the patients medical record. A small incision was made in penetrating fashion at the guide wire insertion site utilizing an 11 blade scalpel. The dilator was advanced to the vessel without resistance. The dilator was exchanged for the triple lumen catheter which was advanced into the vessel without resistance. The guide wire was removed intact from the catheter without issue. Claves were placed on each catheter tip with confirmation of good blood flow from each lumen. Each port was easily flushed with sterile saline. The catheter was placed at 18 cm and sutured in place. BioPatch was applied to the catheter and a sterile Tegaderm dressing was applied over the catheter with careful attention to sterility. Patient tolerated procedure well. No immediate complications were met. Post procedure x-ray was completed, placement was appropriate and no pneumothorax was noted. Images obtained are saved for permanent record Procedural Ultrasound Guidance: Procedure Date: 05/19/2025 Indication: Ultrasound Guidance for right IJ placement Attending: Dr. Jayla Parham MD APC: SATYA Paul Artery AND Vein visualized: Yes Compressible Vein: yes Guidewire or Short Catheter seen in vein prior to dilation: yes Line confirmed in Vein with ultrasound: Yes Images obtained are saved for permanent record. [facility] [place] Codes (Charges) Tubes, Drains, and Vasc Access Procedure 1: Tubes, Drains, and Vasc Access: [id number] Insertion Of Non-tunneled Catheter Age 7 Yrs> Procedure 2: Tubes, Drains, and Vasc Access: [id number] Ultrasound Guidance For Vascular Coding CPT Codes Tubes, Drains, and Vasc Access - Tubes, Drains, and Vasc Access: [id number] Insertion Of Non-tunneled Catheter Age 7 Yrs> ([id number]) Tubes, Drains, and Vasc Access - Tubes, Drains, and Vasc Access: [id number] Ultrasound Guidance For Vascular ([id number]) Additional Codes Date of Service (PG.[email or web address])
[2025-05-19] MEDS: MAX Conc; 100mg in 250mL (Std Protocol) *PHA PREP IV SCH (14:49)
--- NOTE | 2025-05-19 14:49 | Critical Care Consultation ---
Date of Consultation May 19, 2025 Assessment & Plan (1) Shock liver: (2) Sepsis due to urinary tract infection: (3) Acute kidney injury superimposed on CKD: (4) Obesity: (5) Pulmonary embolism: (6) Hyperlipidemia: (7) Hypothyroidism (acquired): (8) Anxiety: (9) Asthma: (10) Hypertension: Plan Jermaine Francis is an 89-year-old female with past medical history of nephrolithiasis, freq UTI, urinary incontinence, sleep disorder, pulm embolism on Xarelto, asthma, HTN, anxiety, hypothyroidism, and HLD who presented to [facility] ED on 05/18/25 with shortness of breath, lethargy, ad tachypnea. Patient was seen earlier on 05/18/2025 by Urology for right uretal stent placement and stone removal. Family noted her becoming more lethargic and breathing seemed more labored. Hypotensive in ED with SBP to the 70's. Patient was volume resuscitated with 3.6 liters of crystalloid, started on daptomycin and Zosyn, and admitted to PCU. Upgraded on the morning of 05/19/2025 for vasopressors in setting of likely septic shock r/t to most likely urinary source. Neuro: Acute Metabolic encephalopathy in s/o sepsis No focal deficit. Neuro exam improving with improved perfusion. Will hold off on head imaging at this time. CV: Septic shock; New onset a fib likely in setting of sepsis and vasopressors. Maintain MAP > 65 Currently on Levo 0.2 and vaso 0.04. Will transition to Eugenio and down titrate lev o due to NOAF. Start stress dose steroids Cont ABX Obtain TTE and lower ext duplex to eval for DVT. Will hold on CTA due to CHRISTIANO. Start heparin gtt. Patient on Xarelto for PE but has been off since 05/16. Pulm: Hypoxic respiratory failure; asthma SpO2 88-90 on admit. Paced on 10L oxymask Weaned O2 to 4L NC Maintain SpO2 > 92% Cont Neb ICS and bronchodilator GI: Will keep NPO while on high dose vasopressors PPI for GI prophyalxis Will initiate diet if pressors requirements are minimal : CHRISTIANO on CKD likely ATN from hypoperfusion Baseline creatinine 0.8-0.9 1.79 on admission Maintain MAP > 65 Volume resuscitated with 3.6 liters crystalloid Monitor renal function qam Heme: Anemia likely of chronic disease; thrombocytopenia likely sepsis induced and dilutional Hgb 9.6 Hct 28.6 Plts 121 Monitor CBC qam Transfuse for hgb < 7 Endo: Monitor BG Maintain BG < 180 Hyperglycemia protocol if needed Continue Synthroid ID: Sepsis likely secondary to urinary source WBC 11.78 Afebrile Procal > 100 UA positive. UC pending. Blood cultures pending. On daptomycin and Zosyn. Previous culture data with proteus mirabilis which was pansensitive. Will stop daptomycin at this time. -Follow cultures and escalate/deescalate as appropriate. Prophylaxis: -SCD -Heparin gtt -GI prophaylxis with protonix Disposition: ICU for vasopressors in setting of likely septic shock r/t to most likely urinary source. Patient is DNR/DNI. Family updated at bedside by ICU team on 05/19/2025. I have personally spent 54 minutes of critical care time in the direct management of this patient. This is a life/limb threatening event. This includes time spent evaluating patient, direct bedside care, chart review, placing orders, interpretation of diagnostic studies, discussion with consultants, patient, and family members, as well as other required patient management activities. This time is exclusive of all separately billable procedures, and teaching time and separate from and in addition to any other critical care service time. Supervising Physician Co-Signing Physician Notes I saw and evaluated the patient with SATYA Ayon, and agree with findings and plan as documented in the note. 89-year-old female was recently in the hospital for urinary intervention Was sent home and was found to be severely lethargic In the ED patient was found to be hypotensive requiring vasopressor support At the time of examination patient was on 0.2 of Levophed and 0.04 of vaso pressin systolic blood pressure were in the 100s with heart rate in the 120s Patient also developed new onset A-fib RVR. She denies any chest pain No abdominal pain No nausea or vomiting Patient's granddaughter who is an RT in the hospital was also at bedside. She was saturating 95-96% on 3 L oxy mask. Constitutional: No acute distress HEENT: EOMI, PERRLA Respiratory system: Decreased air entry bilaterally, no wheeze, no rhonchi, positive crackles bilaterally CVS: S1-S2 positive, no murmurs or gallops, distant heart sounds Abdomen: Soft, nontender, nondistended, positive bowel sounds x4 Extremities: +2 pulses bilaterally radialis/ dorsalis pedis, no cyanosis, +1 pitting edema bilateral lower extremity Neuro: Awake alert oriented x3 Psych: Normal mood and affect G/U: Positive Santana --Prophylaxis VTE: Heparin drip GI: None Lines: Right IJ, radial, positive Santana Diet: Clear liquid Plan: In/out: +3.3 L Will give 5% albumin IV Patient does have transaminitis which is most likely from shock liver. Continue to monitor UA was growing Proteus mirabilis which is pansensitive on 05/01/2025 Patient was getting Zosyn as well as daptomycin. There is no reason for Dapto. Will discontinue it. Continue with empiric Zosyn Patient has gone into A-fib RVR, will change Levophed to phenylephrine and continue with vasopressin. Will give digoxin 300 mcg IV for her A-fib RVR. If it is still not controlled then amiodarone bolus will be sought off. Continue with oxygen to keep O2 saturation between 90-92% If the patient complains of respiratory distress then high flow/BiPAP could be thought of I have personally spent 62 minutes of critical care time in the direct management of this patient. This is a life/limb threatening event. This includes time spent evaluating patient, direct bedside care, chart review, placing orders, interpretation of diagnostic studies, discussion with consultants, patient, and family members, as well as other required patient management activities. This time is exclusive of all separately billable procedures, and teaching time and separate from and in addition to any other critical care service time. Please note the above document was generated using voice recognition software. It may contain grammatical, syntax or spelling errors. History of Present Illness Attending Physician: Letty Dickens MD History of Present Illness Jermaine Francis is an 89-year-old female with past medical history of nephrolithiasis, freq UTI, urinary incontinence, sleep disorder, pulm embolism on Xarelto, asthma, HTN, anxiety, hypothyroidism, and HLD who presented to [facility] ED on 05/18/25 with shortness of breath, lethargy, ad tachypnea. Patient was seen earlier on 05/18/2025 by Urology for right uretal stent placement and stone removal. Neo was discharged chasidy post operatively but as the evening progressed her family noted her becoming more lethargic and breathing seemed more labored. Patient presented to [facility] ED and patient noted to be tachycardic, tachypneic, and hypotensive with SBP to the 70's. Patient was volume resuscitated with 3.6 liters of crystalloid, started on daptomycin and Zosyn, and admitted to PCU. Unfortunately, despite volume resuscitation the patient remained hypotensive and was upgraded on the morning of 05/19/2025 for vasopressors in setting of likely septic shock r/t to most likely urinary source. Allergies Allergy/AdvReac Type Severity Reaction Status Date / Time No Known Allergies Allergy Verified 05/18/25 23:12 Home Medications Medication Instructions Recorded Confirmed Type albuterol sulfate 90 mcg/actuation 2 puffs inhalation Q4H PRN 02/18/19 05/18/25 History aerosol inhaler Shortness Of Breath coenzyme Q10 10 mg capsule 100 mg PO QAM 02/18/19 05/18/25 History calcium carbonate (Tums) 200 mg PO TID 11/10/19 05/18/25 History cyanocobalamin (vitamin B-12) 1,000 mcg PO WK 11/23/19 05/18/25 History 1,000 mcg capsule magnesium oxide 500 mg capsule 500 mg PO Q2D@2100 11/23/19 05/18/25 History ferrous sulfate 27 mg iron tablet 27 mg PO QPM 09/05/21 05/18/25 History Flutter Valve #1 ea 01/15/22 05/18/25 Rx nebulizers (AeroEclipse II #1 ea 05/27/22 05/18/25 Rx Nebulizer) nebulizers (AeroEclipse II #1 ea 07/01/23 05/18/25 Rx Nebulizer) ascorbic acid (vitamin C) 500 mg 500 mg PO QPM 03/29/24 05/18/25 History tablet (Vitamin C) budesonide-formoterol HFA 160 1 inh inhalation BID PRN sob 05/24/24 05/18/25 History mcg-4.5 mcg/actuation aerosol inhaler (Symbicort) simethicone 125 mg capsule 125 mg PO 4XWK 10/10/24 05/18/25 History denosumab 60 mg/mL subcutaneous 60 mg subcut Q6MO 10/19/24 05/18/25 History syringe (Prolia) apple cider vinegar 250 mg 250 mg PO QID 12/29/24 05/18/25 History chewable tablet stone stopper 2 cap PO BID 12/29/24 05/18/25 History valsartan 160 mg tablet 160 mg PO QAM bp #90 tabs 01/03/25 05/18/25 Rx budesonide 0.5 mg/2 mL suspension 0.5 mg (2 mL) inhalation BID #120 01/18/25 05/18/25 Rx for nebulization mL formoterol fumarate 20 mcg/2 mL 2 ml inhalation BID #120 mL 01/18/25 05/18/25 Rx solution for nebulization (Perforomist) amlodipine 10 mg tablet 10 mg PO QPM #90 tabs 02/21/25 05/18/25 Rx solifenacin 5 mg tablet 5 mg PO QAM bladder #90 tabs 02/21/25 05/18/25 Rx carvedilol 6.25 mg tablet 6.25 mg PO BID #180 tabs 02/22/25 05/18/25 Rx levothyroxine 50 mcg tablet 50 mcg PO QAM thyriod #90 tabs 02/22/25 05/18/25 Rx rivaroxaban 20 mg tablet (Xarelto) 20 mg PO QAM #90 tabs 02/22/25 05/18/25 Rx sertraline 50 mg tablet 75 mg (1.5 x 50 mg) PO QAM #150 03/21/25 05/18/25 Rx tabs diazepam 5 mg tablet 5 mg PO 3XWK nerves #30 tabs 03/29/25 05/18/25 Rx ipratropium bromide 42 mcg (0.06 2 spray intranasal TID #15 mL 03/29/25 05/18/25 Rx %) nasal spray nystatin 100,000 unit/mL oral 100,000 unit PO TID PRN prn 03/29/25 05/18/25 History suspension tramadol 50 mg tablet 50 mg PO TID pain #90 tabs 03/31/25 05/18/25 Rx montelukast 10 mg tablet 10 mg PO QPM #90 tabs 05/17/25 05/18/25 Rx ciprofloxacin HCl 500 mg tablet 500 mg PO Q12H #14 tabs 05/18/25 05/18/25 Rx (Cipro) cranberry extract 500 mg capsule 500 mg PO DAILY 05/18/25 05/18/25 History oxycodone-acetaminophen 7.5 mg-325 1 tab PO Q8H PRN pain 3 days #7 05/18/25 05/18/25 Rx mg tablet (Percocet) tabs phenazopyridine 200 mg tablet 200 mg PO Q8H PRN pain #10 tabs 05/18/25 05/18/25 Rx (Pyridium) tamsulosin 0.4 mg capsule 0.4 mg PO HS #30 caps 05/18/25 05/18/25 Rx Patient History Medical History 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 Hypertension Anxiety Hypothyroidism Hyperlipidemia Essential tremor mild in bilateral hands on diazepam Osteoarthritis Asthma Sees [facility] pulmonology. Using neb BID. "has deconditioned lungs" pt is sedentary. uses nebulizer daily Generalized muscle weakness taking vitamins and increasing protein per 03/2025 PCP records Dysphagia mild Incontinence mild Frequent UTI since May 2024 off and on, to have urinanalysis week of 05/01/2025 Pancreatic cyst monitoring Renal cyst monitoring Kidney stones On anticoagulant therapy Hx of deep venous thrombosis hx - 2015 - unknown cause. on Xarelto currently Hx pulmonary embolism 04/2016--was being treated for empyema, saddle embolism on Xarelto currently Osteoporosis follows with rheum.. on Prolia Unsteady gait able to stand and pivot with 1 assist, uses wheelchair no right hip per records (all hardware removed ) History of blood transfusion 2018 nikolai-operative History of COVID-2020- no hosp; resolved Pulmonary nodules monitoring Surgical History S/P lumpectomy, left breast benign History of bilateral tubal ligation H/O shoulder surgery left shoulder "ball" replacement (unable to do full shoulder replacement) - Dr Bunch 05/2023 - does have limited mobility and mild pain (Chronic) "still partially dislocated" per daughter H/O joint surgery 12/2019 - right hip replacement removed due to complications. 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 H/O cataract extraction bilateral H/O shoulder replacement right S/P total hip arthroplasty right (November 2019) History of hysterectomy MATT BSO History of colonoscopy History of open reduction and internal fixation (ORIF) procedure Right Hip with hardware (Dr Francisco 04/2019) History of thoracentesis History of cholecystectomy Family History Mother Dementia Clotting disorder Diabetes Father Heart disease Myocardial infarction Brother Heart disease Myocardial infarction Brother Colorectal cancer Throat cancer Sister Breast cancer Ovarian cancer Dementia Social History Smoking Status: Former smoker Second Hand Exposure: No (in the past); Do You Dip or Chew Tobacco: No; Hx Alcohol Use: No Hx Substance Use: No Preferred Language: Malagasy Communication Ability: Effective Visual Impairment: Diminished 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: Normal 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 Internal Revenue Required: No Beliefs That Will Affect Care: None marital status: / Current Living Situation: Family Current Living Situation Comment: daughter and grandson current occupational status: retired How many Children do You have: 2 Feels Safe at Home: Yes Childhood Exposure to Second-Hand Smoke: Yes Diet: regular caffeine: Yes during the past year weight has: remained stable Dental Care, Regularly: Yes Physical Activity Frequency: Does not Exercise Seatbelt Use: always Sunscreen Use: No Assistive Devices: Bedside Commode, Denture - Upper, Glasses, Lift Chair, Nebulizer, Raised Toilet Seat, Walker and Wheelchair Review of Systems Review of Systems: All systems reviewed & are unremarkable except as noted in HPI & below Physical Exam Physical Exam: VITALS: Reviewed. WEIGHT/BMI reviewed. GEN: Pleasant, well-developed, NAD. PSYCH: AOx3. Lethargic but arousable. HEENT -Head: NC/AT; -Eyes: PERRL, EOMI. No discharge or redn ess; -Ears: External ears are normal. -Nose: Normal nares. NECK: Supple, with no masses. CV: Irregular rate and rhythm, S1/S2, no murmurs, rubs, or gallops. LUNGS: ABD: Soft, NT/ND, NBS, no masses or organomegaly. : Santana draining yellow clear urine SKIN: Warm, well perfused. No skin rashes or abnormal lesions. MSK: No deformities, Normal gait. EXT: No clubbing, cyanosis. 2+ pitting edema in b/l lower extremities. NEURO: Normal muscle strength and tone. No focal deficits. Results & Data Results & Data Vital Signs (Past 12 Hours) Vital Signs Temp Pulse Pulse Resp BP BP BP 05/19/25 14:30 115/58 L 05/19/25 14:30 128 H 37 H 05/19/25 14:15 120 H 40 H 05/19/25 14:00 112/60 05/19/25 13:45 111 H 36 H 05/19/25 13:30 104/60 05/19/25 13:30 104/60 05/19/25 13:30 119 H 35 H 05/19/25 13:15 129 H 40 H 05/19/25 13:00 108/55 L 05/19/25 13:00 117 H 38 H 05/19/25 12:46 100/65 05/19/25 12:45 120 H 37 H 05/19/25 12:44 93/56 L 05/19/25 12:42 123 H 27 H 05/19/25 12:32 97/58 L 05/19/25 12:30 112 H 36 H 05/19/25 12:15 127 H 36 H 05/19/25 12:01 108/57 L 05/19/25 12:00 115 H 39 H 05/19/25 11:45 120 H 41 H 05/19/25 11:30 99/59 L 05/19/25 11:30 112 H 30 H 05/19/25 11:15 119 H 29 H 05/19/25 11:00 95/61 L 05/19/25 11:00 122 H 35 H 05/19/25 10:45 122 H 33 H 05/19/25 10:30 83/57 L 12/12/25 10:30 109 H 30 H 05/19/25 10:15 121 H 31 H 05/19/25 10:00 05/19/25 10:00 86/50 L 05/19/25 10:00 106 H 32 H 05/19/25 09:45 93 H 34 H 05/19/25 09:30 82/39 L 05/19/25 09:30 94 H 32 H 05/19/25 09:20 88/48 L 05/19/25 09:18 96 H 37 H 05/19/25 09:15 96 H 36 H 05/19/25 09:10 90/53 L 05/19/25 09:09 95 H 31 H 05/19/25 09:00 89/56 L 05/19/25 09:00 95 H 32 H 05/19/25 08:50 90/51 L 05/19/25 08:48 95 H 31 H 05/19/25 08:40 87/47 L 05/19/25 08:39 93 H 28 H 05/19/25 08:39 87/45 L 05/19/25 08:30 99 H 30 H 05/19/25 07:55 05/19/25 07:50 86 05/19/25 07:33 36.8 C 88 32 H 74/45 L 05/19/25 07:09 86 30 H 05/19/25 07:05 96/56 L 05/19/25 07:03 83 30 H 05/19/25 07:00 82 31 H 05/19/25 06:55 91/57 L 05/19/25 06:55 91/57 L 05/19/25 06:54 82 34 H 05/19/25 06:50 92/54 L 05/19/25 06:50 92/54 L 05/19/25 06:48 83 29 H 05/19/25 06:46 98/51 L 05/19/25 06:46 98/51 L 05/19/25 06:45 86 30 H 05/19/25 06:40 86/65 L 05/19/25 06:39 83 34 H 05/19/25 06:35 87/52 L 05/19/25 06:35 87/52 L 05/19/25 06:33 83 30 H 05/19/25 06:30 83 29 H 05/19/25 06:30 80/47 L 05/19/25 06:26 89/42 L 05/19/25 06:26 89/42 L 05/19/25 06:24 83 29 H 05/19/25 05:45 86 37 H 05/19/25 05:45 80/45 L 05/19/25 05:45 80/45 L 05/19/25 05:45 80/45 L 05/19/25 05:45 80/45 L 05/19/25 05:45 80/45 L 05/19/25 05:40 85/44 L 05/19/25 05:40 85/44 L 05/19/25 05:40 85/44 L 05/19/25 05:40 85/44 L 05/19/25 05:40 85/44 L 05/19/25 05:39 86 31 H 05/19/25 05:38 96 H 05/19/25 05:35 75/49 L 05/19/25 05:35 75/49 L 05/19/25 05:35 75/49 L 05/19/25 05:35 75/49 L 05/19/25 05:35 75/49 L 05/19/25 05:33 88/51 L 05/19/25 05:33 88/51 L 05/19/25 05:33 90 41 H 05/19/25 05:30 90 40 H 05/19/25 05:25 90/51 L 05/19/25 05:25 90/51 L 05/19/25 05:25 90/51 L 05/19/25 05:25 90/51 L 05/19/25 05:25 90/51 L 05/19/25 05:24 89 20 05/19/25 05:20 84/46 L 05/19/25 05:20 84/46 L 05/19/25 05:20 84/46 L 05/19/25 05:20 84/46 L 05/19/25 05:20 84/46 L 05/19/25 05:18 90 36 H 05/19/25 05:17 05/19/25 05:15 90 35 H 05/19/25 05:15 74/41 L 05/19/25 05:15 74/41 L 05/19/25 05:15 74/41 L 05/19/25 05:15 74/41 L 05/19/25 05:15 74/41 L 05/19/25 05:10 84/52 L 05/19/25 05:10 84/52 L 05/19/25 05:10 84/52 L 05/19/25 05:10 84/52 L 05/19/25 05:10 84/52 L 05/19/25 05:09 90 32 H 05/19/25 05:05 83/40 L 05/19/25 05:05 83/40 L 05/19/25 05:05 83/40 L 05/19/25 05:05 83/40 L 05/19/25 05:05 83/40 L 05/19/25 04:48 92 H 36 H 05/19/25 04:09 37.2 C 97 H 18 88/51 L 05/19/25 04:02 05/19/25 03:25 93 H 05/19/25 03:10 92 H 20 91/48 L Pulse Ox Pulse Ox O2 Del Method O2 Del Method O2 Flow Rate O2 Flow Rate 05/19/25 14:30 05/19/25 14:30 97 05/19/25 14:15 95 05/19/25 14:00 05/19/25 13:45 94 05/19/25 13:30 05/19/25 13:30 05/19/25 13:30 94 05/19/25 13:15 95 05/19/25 13:00 05/19/25 13:00 95 05/19/25 12:46 05/19/25 12:45 95 05/19/25 12:44 05/19/25 12:42 96 05/19/25 12:32 05/19/25 12:30 96 05/19/25 12:15 96 05/19/25 12:01 05/19/25 12:00 97 05/19/25 11:45 95 05/19/25 11:30 05/19/25 11:30 95 05/19/25 11:15 96 05/19/25 11:00 05/19/25 11:00 95 05/19/25 10:45 97 05/19/25 10:30 05/19/25 10:30 96 05/19/25 10:15 96 05/19/25 10:00 Oxymask 4 05/19/25 10:00 05/19/25 10:00 97 05/19/25 09:45 98 05/19/25 09:30 05/19/25 09:30 97 05/19/25 09:20 05/19/25 09:18 95 05/19/25 09:15 97 05/19/25 09:10 05/19/25 09:09 99 05/19/25 09:00 05/19/25 09:00 100 05/19/25 08:50 05/19/25 08:48 98 05/19/25 08:40 05/19/25 08:39 100 05/19/25 08:39 05/19/25 08:30 100 05/19/25 07:55 Oxymask 4 05/19/25 07:50 05/19/25 07:33 99 Oxymask 4 05/19/25 07:09 98 Oxymask 6 05/19/25 07:05 05/19/25 07:03 97 05/19/25 07:00 97 05/19/25 06:55 05/19/25 06:55 05/19/25 06:54 96 05/19/25 06:50 05/19/25 06:50 05/19/25 06:48 97 05/19/25 06:46 05/19/25 06:46 05/19/25 06:45 96 05/19/25 06:40 05/19/25 06:39 96 05/19/25 06:35 05/19/25 06:35 05/19/25 06:33 97 05/19/25 06:30 96 05/19/25 06:30 05/19/25 06:26 05/19/25 06:26 05/19/25 06:24 96 05/19/25 05:45 98 05/19/25 05:45 05/19/25 05:45 05/19/25 05:45 05/19/25 05:45 05/19/25 05:45 05/19/25 05:40 05/19/25 05:40 05/19/25 05:40 05/19/25 05:40 05/19/25 05:40 05/19/25 05:39 100 05/19/25 05:38 05/19/25 05:35 05/19/25 05:35 05/19/25 05:35 05/19/25 05:35 05/19/25 05:35 05/19/25 05:33 05/19/25 05:33 05/19/25 05:33 96 05/19/25 05:30 94 05/19/25 05:25 05/19/25 05:25 05/19/25 05:25 05/19/25 05:25 05/19/25 05:25 05/19/25 05:24 96 05/19/25 05:20 05/19/25 05:20 05/19/25 05:20 05/19/25 05:20 05/19/25 05:20 05/19/25 05:18 97 05/19/25 05:17 Oxymask 6 05/19/25 05:15 98 05/19/25 05:15 05/19/25 05:15 05/19/25 05:15 05/19/25 05:15 05/19/25 05:15 05/19/25 05:10 05/19/25 05:10 05/19/25 05:10 05/19/25 05:10 05/19/25 05:10 05/19/25 05:09 97 05/19/25 05:05 05/19/25 05:05 05/19/25 05:05 05/19/25 05:05 05/19/25 05:05 05/19/25 04:48 95 Oxymask 6 05/19/25 04:09 93 Nasal Cannula 4 05/19/25 04:02 98 Oxymask 6 05/19/25 03:25 05/19/25 03:10 96 Nasal Cannula 3 Critical Care Results & Data Vital Signs (Past 12 Hours) Vital Signs Temp Pulse Pulse Resp BP BP BP 05/19/25 14:30 115/58 L 05/19/25 14:30 128 H 37 H 05/19/25 14:15 120 H 40 H 05/19/25 14:00 112/60 05/19/25 13:45 111 H 36 H 05/19/25 13:30 104/60 05/19/25 13:30 104/60 05/19/25 13:30 119 H 35 H 05/19/25 13:15 129 H 40 H 05/19/25 13:00 108/55 L 05/19/25 13:00 117 H 38 H 05/19/25 12:46 100/65 05/19/25 12:45 120 H 37 H 05/19/25 12:44 93/56 L 05/19/25 12:42 123 H 27 H 05/19/25 12:32 97/58 L 05/19/25 12:30 112 H 36 H 05/19/25 12:15 127 H 36 H 05/19/25 12:01 108/57 L 05/19/25 12:00 115 H 39 H 05/19/25 11:45 120 H 41 H 05/19/25 11:30 99/59 L 05/19/25 11:30 112 H 30 H 05/19/25 11:15 119 H 29 H 05/19/25 11:00 95/61 L 05/19/25 11:00 122 H 35 H 05/19/25 10:45 122 H 33 H 05/19/25 10:30 83/57 L 05/19/25 10:30 109 H 30 H 05/19/25 10:15 121 H 31 H 05/19/25 10:00 05/19/25 10:00 86/50 L 05/19/25 10:00 106 H 32 H 05/19/25 09:45 93 H 34 H 05/19/25 09:30 82/39 L 05/19/25 09:30 94 H 32 H 05/19/25 09:20 88/48 L 05/19/25 09:18 96 H 37 H 05/19/25 09:15 96 H 36 H 05/19/25 09:10 90/53 L 05/19/25 09:09 95 H 31 H 05/19/25 09:00 89/56 L 05/19/25 09:00 95 H 32 H 05/19/25 08:50 90/51 L 05/19/25 08:48 95 H 31 H 05/19/25 08:40 87/47 L 05/19/25 08:39 93 H 28 H 05/19/25 08:39 87/45 L 05/19/25 08:30 99 H 30 H 05/19/25 07:55 05/19/25 07:50 86 05/19/25 07:33 36.8 C 88 32 H 74/45 L 05/19/25 07:09 86 30 H 05/19/25 07:05 96/56 L 05/19/25 07:03 83 30 H 05/19/25 07:00 82 31 H 05/19/25 06:55 91/57 L 05/19/25 06:55 91/57 L 05/19/25 06:54 82 34 H 05/19/25 06:50 92/54 L 05/19/25 06:50 92/54 L 05/19/25 06:48 83 29 H 05/19/25 06:46 98/51 L 05/19/25 06:46 98/51 L 05/19/25 06:45 86 30 H 05/19/25 06:40 86/65 L 05/19/25 06:39 83 34 H 05/19/25 06:35 87/52 L 05/19/25 06:35 87/52 L 05/19/25 06:33 83 30 H 05/19/25 06:30 83 29 H 05/19/25 06:30 80/47 L 05/19/25 06:26 89/42 L 05/19/25 06:26 89/42 L 05/19/25 06:24 83 29 H 05/19/25 05:45 86 37 H 05/19/25 05:45 80/45 L 05/19/25 05:45 80/45 L 05/19/25 05:45 80/45 L 05/19/25 05:45 80/45 L 05/19/25 05:45 80/45 L 05/19/25 05:40 85/44 L 05/19/25 05:40 85/44 L 05/19/25 05:40 85/44 L 05/19/25 05:40 85/44 L 05/19/25 05:40 85/44 L 05/19/25 05:39 86 31 H 05/19/25 05:38 96 H 05/19/25 05:35 75/49 L 05/19/25 05:35 75/49 L 05/19/25 05:35 75/49 L 05/19/25 05:35 75/49 L 05/19/25 05:35 75/49 L 05/19/25 05:33 88/51 L 05/19/25 05:33 88/51 L 05/19/25 05:33 90 41 H 05/19/25 05:30 90 40 H 05/19/25 05:25 90/51 L 05/19/25 05:25 90/51 L 05/19/25 05:25 90/51 L 05/19/25 05:25 90/51 L 05/19/25 05:25 90/51 L 05/19/25 05:24 89 20 05/19/25 05:20 84/46 L 05/19/25 05:20 84/46 L 05/19/25 05:20 84/46 L 05/19/25 05:20 84/46 L 05/19/25 05:20 84/46 L 05/19/25 05:18 90 36 H 05/19/25 05:17 05/19/25 05:15 90 35 H 05/19/25 05:15 74/41 L 05/19/25 05:15 74/41 L 05/19/25 05:15 74/41 L 05/19/25 05:15 74/41 L 05/19/25 05:15 74/41 L 05/19/25 05:10 84/52 L 05/19/25 05:10 84/52 L 05/19/25 05:10 84/52 L 05/19/25 05:10 84/52 L 05/19/25 05:10 84/52 L 05/19/25 05:09 90 32 H 05/19/25 05:05 83/40 L 05/19/25 05:05 83/40 L 05/19/25 05:05 83/40 L 05/19/25 05:05 83/40 L 05/19/25 05:05 83/40 L 05/19/25 04:48 92 H 36 H 05/19/25 04:09 37.2 C 97 H 18 88/51 L 05/19/25 04:02 05/19/25 03:25 93 H Pulse Ox Pulse Ox O2 Del Method O2 Del Method O2 Flow Rate O2 Flow Rate 05/19/25 14:30 05/19/25 14:30 97 05/19/25 14:15 95 05/19/25 14:00 05/19/25 13:45 94 05/19/25 13:30 05/19/25 13:30 05/19/25 13:30 94 05/19/25 13:15 95 05/19/25 13:00 05/19/25 13:00 95 05/19/25 12:46 05/19/25 12:45 95 05/19/25 12:44 05/19/25 12:42 96 05/19/25 12:32 05/19/25 12:30 96 05/19/25 12:15 96 05/19/25 12:01 05/19/25 12:00 97 05/19/25 11:45 95 05/19/25 11:30 05/19/25 11:30 95 05/19/25 11:15 96 05/19/25 11:00 05/19/25 11:00 95 05/19/25 10:45 97 05/19/25 10:30 05/19/25 10:30 96 05/19/25 10:15 96 05/19/25 10:00 Oxymask 4 05/19/25 10:00 05/19/25 10:00 97 05/19/25 09:45 98 05/19/25 09:30 05/19/25 09:30 97 05/19/25 09:20 05/19/25 09:18 95 05/19/25 09:15 97 05/19/25 09:10 05/19/25 09:09 99 05/19/25 09:00 05/19/25 09:00 100 05/19/25 08:50 05/19/25 08:48 98 05/19/25 08:40 05/19/25 08:39 100 05/19/25 08:39 05/19/25 08:30 100 05/19/25 07:55 Oxymask 4 05/19/25 07:50 05/19/25 07:33 99 Oxymask 4 05/19/25 07:09 98 Oxymask 6 05/19/25 07:05 05/19/25 07:03 97 05/19/25 07:00 97 05/19/25 06:55 05/19/25 06:55 05/19/25 06:54 96 05/19/25 06:50 05/19/25 06:50 05/19/25 06:48 97 05/19/25 06:46 05/19/25 06:46 05/19/25 06:45 96 05/19/25 06:40 05/19/25 06:39 96 05/19/25 06:35 05/19/25 06:35 05/19/25 06:33 97 05/19/25 06:30 96 05/19/25 06:30 05/19/25 06:26 05/19/25 06:26 05/19/25 06:24 96 05/19/25 05:45 98 05/19/25 05:45 05/19/25 05:45 05/19/25 05:45 05/19/25 05:45 05/19/25 05:45 05/19/25 05:40 05/19/25 05:40 05/19/25 05:40 05/19/25 05:40 05/19/25 05:40 05/19/25 05:39 100 05/19/25 05:38 05/19/25 05:35 05/19/25 05:35 05/19/25 05:35 05/19/25 05:35 05/19/25 05:35 05/19/25 05:33 05/19/25 05:33 05/19/25 05:33 96 05/19/25 05:30 94 05/19/25 05:25 05/19/25 05:25 05/19/25 05:25 05/19/25 05:25 05/19/25 05:25 05/19/25 05:24 96 05/19/25 05:20 05/19/25 05:20 05/19/25 05:20 05/19/25 05:20 05/19/25 05:20 05/19/25 05:18 97 05/19/25 05:17 Oxymask 6 05/19/25 05:15 98 05/19/25 05:15 05/19/25 05:15 05/19/25 05:15 05/19/25 05:15 05/19/25 05:15 05/19/25 05:10 05/19/25 05:10 05/19/25 05:10 05/19/25 05:10 05/19/25 05:10 05/19/25 05:09 97 05/19/25 05:05 05/19/25 05:05 05/19/25 05:05 05/19/25 05:05 05/19/25 05:05 05/19/25 04:48 95 Oxymask 6 05/19/25 04:09 93 Nasal Cannula 4 05/19/25 04:02 98 Oxymask 6 05/19/25 03:25 Lab & Micro Results (Past 24 Hours) RBC 3.26 M/uL (4.20-5.40) L 05/19/25 WBC 11.78 K/ul (4.8-10.8) H 05/19/25 Hgb 9.6 g/dL (12.0-16.0) L 05/19/25 Hct 28.6 % (37.0-47.0) L 05/19/25 MCV 87.7 fL (80.0-100.0) 05/19/25 MCH 29.4 pg (25.0-34.0) 05/19/25 MCHC 33.6 g/dL (32.0-36.0) 05/19/25 RDW Standard Deviation 47.5 fL (36.4-46.3) H 05/19/25 RDW Coefficient of Variation 14.7 % (11.5-14.5) H 05/19/25 Plt Count 121 K/uL (130-400) L 05/19/25 MPV 10.1 fL (9.4-12.4) 05/19/25 Nucleated Red Blood Cells % (auto) 0.2 % 05/19 Nucleated RBC Absolute Count (auto) 0.02 K/uL (0.00-0.12) 1 07/20/24 Neutrophils (%) (Auto) 95.6 % 05/19/25 Lymphocytes (%) (Auto) 1.2 % 05/19/25 Monocytes # (Auto) 0.21 K/uL (0.11-0.59) 05/19/25 Eosinophils # (Auto) 0.00 K/uL (0.00-0.50) 05/19/25 Immature Granulocyte % (Auto) 1.2 % 05/19/25 Neutrophils # (Auto) 11.27 K/uL (1.40-6.50) H 05/19/25 Lymphocytes # (Auto) 0.14 K/uL (1.20-3.40) L 05/19/25 Monocytes # (Auto) 0.21 K/uL (0.11-0.59) 05/19/25 Eosinophils # (Auto) 0.00 K/uL (0.00-0.50) 05/19/25 Basophils # (Auto) 0.02 K/uL (0.00-0.20) 05/19/25 Immature Granulocyte # (Auto) 0.14 K/uL (0.01-0.20) 5 Polychromasia 1+ 05/19/25 Toxic Vacuolation 2+ 05/19/25 Dohle Bodies 1+ 05/19/25 Na 140 mmol/L (136-145) 05/19/25 K 3.9 mmol/L (3.5-5.1) 05/19/25 Cl 111 mmol/L (98-107) H 05/19/25 CO2 20 mmol/L (21-32) L 05/19/25 Anion Gap 9 (3-11) 05/19/25 BUN 35 mg/dl (6-23) H 05/19/25 Creatinine 1.78 mg/dl (0.6-1.2) H 05/19/25 BUN/Creatinine Ratio 19.7 (10-20) 05/19/25 Glu 104 mg/dl (70-99(Fasting)) H 05/19/25 Ca 7.1 mg/dl (8.6-10.3) L 05/19/25 Phosphorus Level 3.8 mg/dl (2.5-4.9) 05/19/25 Total Bilirubin 1.8 mg/dl (0.2-1.0) H 05/19/25 Direct Bilirubin 1.6 mg/dl (0-0.2) H 05/18/25 AST 773 U/L (13-39) H 05/19/25 ALT 352 U/L (7-52) H 05/19/25 Alkaline Phosphatase 100 U/L (34-104) 05/19/25 TP 5.2 gm/dl (6.0-8.3) L 05/19/25 Albumin 3.6 gm/dl (3.4-5.0) 05/19/25 Globulin 1.6 gm/dl (2.5-4.0) L 05/19/25 Albumin/Globulin Ratio 2.3 (0.9-2) H 05/19/25 Mg 1.6 mg/dl (1.7-2.4) L 05/19/25 12:09 Calcium Level 7.1 mg/dl (8.6-10.3) L 05/19/25 09:08 Prothromb Time International Ratio 1.4 (0.9-1.1) H 05/19/25 09 :08 Venous Blood pH 7.26 (7.36-7.41) L 05/19/25 05:24 Venous Blood Partial Pressure CO2 42 mmHg (38-50) 05/19/25 05:2 4 Venous Blood Partial Pressure O2 38 mmHg 05/19/25 05:24 Venous Blood HCO3 19 mmol/L 05/19/25 05:24 Venous Blood Base Excess -7.9 mEq/L 05/19/25 05:24 Venous Blood Oxygen Saturation 76.1 % 05/19/25 05:24 Microbiology 05/18/25 23:43 Urine Culture - Preliminary Urine,Straight Cath No growth - Less than 1,000 colonies/mL, Final report to follow. Diagnostic Findings (Past 24 Hours) Chest X-Ray 05/18/25 22:03 Exam(s): XR CXR 1 VIEW EXAM: XR Chest, 1 View CLINICAL HISTORY: Reason for exam: Sepsis. TECHNIQUE: Frontal view of the chest. Mild breathing motion artifact. COMPARISON: Chest x-ray 10/10/2024. FINDINGS: Lungs/Pleural space: Mild bibasilar atelectasis or scarring, stable. Lungs are otherwise clear. No focal infiltrate, pleural effusion or pneumothorax. Heart: Stable cardiomegaly. Mediastinum: Stable ectatic aorta. Bones/Soft Tissues: Stable bilateral shoulder prosthesis, left glenohumeral joint dislocated again. No acute abnormality. IMPRESSION: 1. No acute process in the chest. Electronically signed by: Alayna Garcia M.D. 05/19/25 00:09 AM Liver Ultrasound 05/19/25 00:27 EXAM: US liver CLINICAL HISTORY: Transaminitis TECHNIQUE: Ultrasound examination of the RUQ was performed using a [high-frequency transducer]. Scanning was performed with the patient in supine position. COMPARISON: Prior CT abdomen dated 05/18/2025. FINDINGS: Liver: Enlarged, measuring 20.4 cm. Diffusely increased heterogenous echogenicity consistent with hepatic steatosis or underlying parenchymal disease. Intrahepatic biliary ducts are mildly prominent in both lobes. No focal hepatic lesions identified. Gallbladder / Biliary System: Status post cholecystectomy; gallbladder fossa appears normal. The common bile duct measures 2.7 mm at the max hepatis and up to 7.3 mm distally, mildly prominent but within physiologic range for post-cholecystectomy. Pancreas: Pancreatic head is unremarkable without mass or ductal dilation. Body and tail are suboptimally visualized due to bowel gas. The main pancreatic duct is mildly prominent at 2.5 mm. Right Kidney: No hydronephrosis. Small amount of perinephric fluid at the lower pole. No renal calculi or masses identified. Aorta / IVC: Visualized portions of the aorta and IVC are normal in caliber and appearance. Additional Findings: None. IMPRESSION: 1. Hepatomegaly with increased echogenicity, most compatible with hepatic steatosis or parenchymal disease. Unchanged. Need clinical correlation. 2. Mild intrahepatic duct prominence; extrahepatic CBD mildly dilated but likely physiologic post-cholecystectomy. Unchanged. 3. Mild prominence of the pancreatic duct; body and tail partially obscured by bowel gas. Unchanged. 4. Small right perinephric fluid collection; no hydronephrosis. Unchanged. 5. No significant interval changes. Electronically signed by Atilio Mojica 05-19-2025 02:21 AM Abdomen/Pelvis CT 05/19/25 00:28 EXAM: CT abd pelvis wo con CLINICAL HISTORY: Transaminitis, ureteral stent today TECHNIQUE: Contiguous axial images were obtained from the level of the diaphragm to the pubic symphysis without intravenous or oral contrast. Coronal and sagittal reconstructions were likewise performed and indicated to increase the sensitivity for detecting clinically relevant pathology. CT scan was performed according to ALARA (as low as reasonably achievable). COMPARISON: CT, 03/24/2025 11:58:08 [employer] FINDINGS: The visualized lung bases shos fibro-atelectatic bands bilaterally with bilateral pleural thickening. Evaluation of the abdominal and pelvic visceral organs is limited without intravenous contrast. The unenhanced liver, spleen, pancreas, and adrenal glands are grossly unremarkable. The gallbladder is surgically removed. The kidneys are normal in size and attenuation without obvious calcification. There is no hydronephrosis or perinephric stranding. Right ureteric stent seen in place. The ureters are normal in caliber. The urinary bladder is normal in contour. Post hysterectomy status. No adenopathy or fluid collections are seen. Multiple small diverticuli of 2-4mm seen in sigmoid colon. No inflammatory changes. No evidence of focal or diffuse bowel wall thickening or evidence of bowel obstruction is seen. The appendix is visualized in the right lower quadrant and appears within normal limits.No evidence of inflamed appendix. Diastasis of recti with large anterior lower abdominal wall midline hernia with herniation of small and large bowel loops. The aorta is normal in caliber. No aggressive appearing osseous lesions are identified. Diffuse atherosclerotic wall calcification of abdominal aorta. Significant degenerative changes in visualized spine. Extensive degenerative changes seen in right hip joint- stable. IMPRESSION: 1. Interval resolution of right nephrolithiasis. 2. Interval placement of right ureteric stent. No hydronephrosis. 3. Uncomplicated sigmoid colon diverticulosis- Stable 4. Diastasis of recti with large anterior lower abdominal wall midline hernia with herniation of small and large bowel loops.Stable Electronically signed by Richie Fitzpatrick 05-19-2025 02:36 AM Chest X-Ray 05/19/25 04:39 EXAM: XR chest 1V portable CLINICAL HISTORY: crackles TECHNIQUE: An X-ray image of the chest is obtained in AP projection. COMPARISON: 10/10/2024 FINDINGS: Pulmonary Parenchyma: Increased bronchovascular markings. Obscured left lower lobe and costophrenic angle. Haziness is seen right upper zone. No evidence of consolidation, collapse, or focal opacities. No evidence of right pleural effusion or pleural thickening. Heart and Mediastinum: Cardiomegaly. Mediastinal widening . Prominent mediastinum. Bony Thorax: Bony thorax appears intact without fractures or deformities. Bilateral shoulder athroplasty. Soft Tissues: Soft tissues overlying the chest wall are unremarkable. IMPRESSION: 1. Increased bronchovascular markings, mostly vascular congestion. (Accentuated). 2. Cardiomegaly obscuring the left lower lobe and costophrenic angle. Stable 3. New right upper zone haziness. Electronically signed by Atilio Mojica 05-19-2025 06:16 AM Chest X-Ray 05/19/25 08:40 XR chest 1V portable HISTORY: 89 years-old Female eval right IJ placement status post placement of a right IJ central venous catheter COMPARISON: 05/19/2025 TECHNIQUE: AP view the chest FINDINGS: Status post placement of a right IJ central venous catheter with distal tip in the expected location of the superior cavoatrial junction. Atherosclerosis of the aorta. Cardiomegaly with pulmonary vascular congestion, interstitial coarsening and probable trace pleural effusions. Mild left basilar atelectasis. Bilateral shoulder arthroplasties. Cholecystectomy. IMPRESSION: 1. Status post placement of a right IJ central venous catheter. 2. No pneumothorax. 3. Cardiomegaly with pulmonary vascular congestion. ACT 112: Negative or not required by law. The above report was generated using voice recognition software. It may contain grammatical, syntax or spelling errors. Electronically signed by: Stevenson Serna M.D. 05/19/2025 9:09 AM I & O Totals 24 Hours 05/18/25 05/19/25 05/20/25 06:59 06:59 06:59 Intake Total 3547.5 / 3547.5 1508.79 / 1508.79 Output Total 325 / 325 125 / 125 Balance 3222.5 / 3222.5 1383.79 / 1383.79 Cumulative 05/18/25 21:47 thru 05/19/25 14:49 Intake Total 5056.29 Output Total 450 Balance 4606.29 RT Ventilator Mngmt (Last Documented) Ventilator Ordered Settings Respiratory Rate 37 05/19/25 14:30 Ventilator - PT Measurements Respiratory Rate 37 Coding Level of Care Code 31730 CRITICAL CARE 1ST 30-74M Diagnoses Shock liver K72.00 Sepsis due to urinary tract infection A41.9; N39.0 Acute kidney injury superimposed on CKD N17.9; N18.9 Class 1 obesity due to excess calories with serious comorbidity and body mass in dex (BMI) of 31.0 to 31.9 in adult E66.09; Z68.31 Body mass index: BMI 31.0-31.9 Obesity classification: adult class 1 (BMI 30 - 34.9) Obesity type: due to excess calories Serious obesity comorbidity presence: with serious comorbidity Multiple subsegmental pulmonary emboli without acute cor pulmonale I26.94 Pulmonary embolism type: multiple subsegmental (without acute cor pulmonale) Mixed hyperlipidemia E78.2 Hyperlipidemia type: mixed hyperlipidemia Hypothyroidism (acquired) E03.9 Anxiety F41.9 Severe persistent asthma without complication J45.50 Asthma complication type: uncomplicated Asthma persistence: persistent Asthma severity: severe Primary hypertension I10 Hypertension type: primary hypertension (4) Obesity Body mass index: BMI 31.0-31.9 Obesity classification: adult class 1 (BMI 30 - 34.9) Obesity type: due to excess calories Serious obesity comorbidity presence: with serious comorbidity Qualified Code(s): E66.09 - Other obesity due to excess calories; Z68.31 - Body mass index [BMI] 31.0-31.9, adult (5) Pulmonary embolism Pulmonary embolism type: multiple subsegmental (without acute cor pulmonale) Qualified Code(s): I26.94 - Multiple subsegmental pulmonary emboli without acute cor pulmonale (6) Hyperlipidemia Hyperlipidemia type: mixed hyperlipidemia Qualified Code(s): E78.2 - Mixed hyperlipidemia (9) Asthma Asthma complication type: uncomplicated Asthma persistence: persistent Asthma severity: severe Qualified Code(s): J45.50 - Severe persistent asthma, uncomplicated (10) Hypertension Hypertension type: primary hypertension Qualified Code(s): I10 - Essential (primary) hypertension
--- NOTE | 2025-05-19 15:10 | Urology Consultation ---
Date of Consultation May 19, 2025 Assessment & Plan (1) Sepsis: Plan 89yo F who is s/p right URS/LL/stent on 05/18/25 who returned to the ED later that night due to SOB and lethargy and is now admitted to the ICU with sepsis. - Patient in ICU on vasopressors - Labs-WBCs 11.78, hemoglobin 9.6, creatinine 1.78, lactate 2.2 - Urine and blood cultures collected and pending - On Zosyn and daptomycin - Santana catheter intact and draining yellow urine - CT abdomen pelvis showed a right ureteral stent in place with no hydronephrosis - Continue antibiotics and tailor per culture sensitivities - Continue supportive care and management per primary team/ICU - Urology will follow, please contact us with any questions/concerns Supervising Physician Co-Signing Physician Notes Agree with above, patient independently seen and evaluated History of Present Illness Attending Physician: Letty Dickens MD History of Present Illness 89-year-old female who underwent cystoscopy with right ureteroscopy laser destruction of the stone and right stent exchange on 05/18/[address] Jose manning who presented to the ED later that night with shortness of breath. Family had reported that she became more lethargic and fatigued progressively throughout the day. In the ED she was afebrile and blood pressure was 101/50. Her labs showed no leukocytosis, CHRISTIANO with creatinine 1.81, lactate 4.9. Urinalysis with 3+ blood, positive nitrite, 2+ leukocyte esterase, 2150 WBC,.>20 RBC, negative bacteria. Urine and blood cultures collected and pending. CT abdomen pelvis showed a right ureteral stent in place with no hydronephrosis. She was admitted to medicine service. Patient was volume resuscitated with 3.6 liters of crystalloid, started on daptomycin and Zosyn, and admitted to PCU. Unfortunately, despite volume resuscitation the patient remained hypotensive and was upgraded to ICU on the morning of 05/19/2025 for vasopressors in setting of likely septic shock r/t to most likely urinary source. She is on antibiotic coverage with Zosyn and daptomycin. A Santana catheter was placed. Allergies Allergy/AdvReac Type Severity Reaction Status Date / Time No Known Allergies Allergy Verified 05/18/25 23:12 Home Medications Medication Instructions Recorded Confirmed Type albuterol sulfate 90 mcg/actuation 2 puffs inhalation Q4H PRN 02/18/19 05/18/25 History aerosol inhaler Shortness Of Breath coenzyme Q10 10 mg capsule 100 mg PO QAM 02/18/19 05/18/25 History calcium carbonate (Tums) 200 mg PO TID 11/10/19 05/18/25 History cyanocobalamin (vitamin B-12) 1,000 mcg PO WK 11/23/19 05/18/25 History 1,000 mcg capsule magnesium oxide 500 mg capsule 500 mg PO Q2D@2100 11/23/19 05/18/25 History ferrous sulfate 27 mg iron tablet 27 mg PO QPM 09/05/21 05/18/25 History Flutter Valve #1 ea 01/15/22 05/18/25 Rx nebulizers (AeroEclipse II #1 ea 05/27/22 05/18/25 Rx Nebulizer) nebulizers (AeroEclipse II #1 ea 07/01/23 05/18/25 Rx Nebulizer) ascorbic acid (vitamin C) 500 mg 500 mg PO QPM 03/29/24 05/18/25 History tablet (Vitamin C) budesonide-formoterol HFA 160 1 inh inhalation BID PRN sob 05/24/24 05/18/25 History mcg-4.5 mcg/actuation aerosol inhaler (Symbicort) simethicone 125 mg capsule 125 mg PO 4XWK 10/10/24 05/18/25 History denosumab 60 mg/mL subcutaneous 60 mg subcut Q6MO 10/19/24 05/18/25 History syringe (Prolia) apple cider vinegar 250 mg 250 mg PO QID 12/29/24 05/18/25 History chewable tablet stone stopper 2 cap PO BID 12/29/24 05/18/25 History valsartan 160 mg tablet 160 mg PO QAM bp #90 tabs 01/03/25 05/18/25 Rx budesonide 0.5 mg/2 mL suspension 0.5 mg (2 mL) inhalation BID #120 01/18/25 05/18/25 Rx for nebulization mL formoterol fumarate 20 mcg/2 mL 2 ml inhalation BID #120 mL 01/18/25 05/18/25 Rx solution for nebulization (Perforomist) amlodipine 10 mg tablet 10 mg PO QPM #90 tabs 02/21/25 05/18/25 Rx solifenacin 5 mg tablet 5 mg PO QAM bladder #90 tabs 02/21/25 05/18/25 Rx carvedilol 6.25 mg tablet 6.25 mg PO BID #180 tabs 02/22/25 05/18/25 Rx levothyroxine 50 mcg tablet 50 mcg PO QAM thyriod #90 tabs 02/22/25 05/18/25 Rx rivaroxaban 20 mg tablet (Xarelto) 20 mg PO QAM #90 tabs 02/22/25 05/18/25 Rx sertraline 50 mg tablet 75 mg (1.5 x 50 mg) PO QAM #150 03/21/25 05/18/25 Rx tabs diazepam 5 mg tablet 5 mg PO 3XWK nerves #30 tabs 03/29/25 05/18/25 Rx ipratropium bromide 42 mcg (0.06 2 spray intranasal TID #15 mL 03/29/25 05/18/25 Rx %) nasal spray nystatin 100,000 unit/mL oral 100,000 unit PO TID PRN prn 03/29/25 05/18/25 History suspension tramadol 50 mg tablet 50 mg PO TID pain #90 tabs 03/31/25 05/18/25 Rx montelukast 10 mg tablet 10 mg PO QPM #90 tabs 05/17/25 05/18/25 Rx ciprofloxacin HCl 500 mg tablet 500 mg PO Q12H #14 tabs 05/18/25 05/18/25 Rx (Cipro) cranberry extract 500 mg capsule 500 mg PO DAILY 05/18/25 05/18/25 History oxycodone-acetaminophen 7.5 mg-325 1 tab PO Q8H PRN pain 3 days #7 05/18/25 05/18/25 Rx mg tablet (Percocet) tabs phenazopyridine 200 mg tablet 200 mg PO Q8H PRN pain #10 tabs 05/18/25 05/18/25 Rx (Pyridium) tamsulosin 0.4 mg capsule 0.4 mg PO HS #30 caps 05/18/25 05/18/25 Rx Patient History Medical History 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 Hypertension Anxiety Hypothyroidism Hyperlipidemia Essential tremor mild in bilateral hands on diazepam Osteoarthritis Asthma Sees [facility] [place]. Using neb BID. "has deconditioned lungs" pt is sedentary. uses nebulizer daily Generalized muscle weakness taking vitamins and increasing protein per 03/2025 PCP records Dysphagia mild Incontinence mild Frequent UTI since May 2024 off and on, to have urinanalysis week of 05/01/2025 Pancreatic cyst monitoring Renal cyst monitoring Kidney stones On anticoagulant therapy Hx of deep venous thrombosis hx - 2015 - unknown cause. on Xarelto currently Hx pulmonary embolism 04/2016--was being treated for empyema, saddle embolism on Xarelto currently Osteoporosis follows with rheum.. on Prolia Unsteady gait able to stand and pivot with 1 assist, uses wheelchair no right hip per records (all hardware removed ) History of blood transfusion 2018 nikolai-operative History of COVID-2020- no hosp; resolved Pulmonary nodules monitoring Surgical History S/P lumpectomy, left breast benign History of bilateral tubal ligation H/O shoulder surgery left shoulder "ball" replacement (unable to do full shoulder replacement) - Dr Bunch 05/2023 - does have limited mobility and mild pain (Chronic) "still partially dislocated" per daughter H/O joint surgery 12/2019 - right hip replacement removed due to complications. 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 H/O cataract extraction bilateral H/O shoulder replacement right S/P total hip arthroplasty right (November 2019) History of hysterectomy MATT BSO History of colonoscopy History of open reduction and internal fixation (ORIF) procedure Right Hip with hardware (Dr Francisco 04/2019) History of thoracentesis History of cholecystectomy Family History Mother Dementia Clotting disorder Diabetes Father Heart disease Myocardial infarction Brother Heart disease Myocardial infarction Brother Colorectal cancer Throat cancer Sister Breast cancer Ovarian cancer Dementia Social History Smoking Status: Former smoker Second Hand Exposure: No (in the past); Do You Dip or Chew Tobacco: No; Hx Alcohol Use: No Hx Substance Use: No Preferred Language: French Communication Ability: Effective Visual Impairment: Diminished 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: Normal 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 Sticker Operator Required: No Beliefs That Will Affect Care: None marital status: / Current Living Situation: Family Current Living Situation Comment: daughter and grandson current occupational status: retired How many Children do You have: 2 Feels Safe at Home: Yes Childhood Exposure to Second-Hand Smoke: Yes Diet: regular caffeine: Yes during the past year weight has: remained stable Dental Care, Regularly: Yes Physical Activity Frequency: Does not Exercise Seatbelt Use: always Sunscreen Use: No Assistive Devices: Bedside Commode, Denture - Upper, Glasses, Lift Chair, Nebulizer, Raised Toilet Seat, Walker and Wheelchair Review of Systems Review of Systems: All systems reviewed & are unremarkable except as noted in HPI & below Physical Exam Constitutional: + ill appearing; no acute distress Respiratory: no respiratory distress and no labored breathing On oxymask Musculoskeletal: Head/Neck/Chest: normocephalic Skin: No visible rashes or lesions to exposed skin areas Neurologic: awake Psychiatric: Orientation: alert Genitourinary: Santana intact Results & Data Vital Signs (Past 12 Hours) Vital Signs Temp Pulse Pulse Resp BP BP BP 05/19/25 10:45 122 H 33 H 05/19/25 10:30 83/57 L 05/19/25 10:30 109 H 30 H 05/19/25 10:15 121 H 31 H 05/19/25 10:00 86/50 L 05/19/25 10:00 106 H 32 H 05/19/25 09:45 93 H 34 H 05/19/25 09:30 82/39 L 05/19/25 09:30 94 H 32 H 05/19/25 09:20 88/48 L 05/19/25 09:18 96 H 37 H 05/19/25 09:15 96 H 36 H 05/19/25 09:10 90/53 L 05/19/25 09:09 95 H 31 H 05/19/25 09:00 89/56 L 05/19/25 09:00 95 H 32 H 05/19/25 08:50 90/51 L 05/19/25 08:48 95 H 31 H 05/19/25 08:40 87/47 L 05/19/25 08:39 93 H 28 H 05/19/25 08:39 87/45 L 05/19/25 08:30 99 H 30 H 05/19/25 07:55 05/19/25 07:50 86 05/19/25 07:33 36.8 C 88 32 H 74/45 L 05/19/25 07:09 86 30 H 05/19/25 07:05 96/56 L 05/19/25 07:03 83 30 H 05/19/25 07:00 82 31 H 05/19/25 06:55 91/57 L 05/19/25 06:55 91/57 L 05/19/25 06:54 82 34 H 05/19/25 06:50 92/54 L 05/19/25 06:50 92/54 L 05/19/25 06:48 83 29 H 05/19/25 06:46 98/51 L 05/19/25 06:46 98/51 L 05/19/25 06:45 86 30 H 05/19/25 06:40 86/65 L 05/19/25 06:39 83 34 H 05/19/25 06:35 87/52 L 05/19/25 06:35 87/52 L 05/19/25 06:33 83 30 H 05/19/25 06:30 83 29 H 05/19/25 06:30 80/47 L 05/19/25 06:26 89/42 L 05/19/25 06:26 89/42 L 05/19/25 06:24 83 29 H 05/19/25 05:45 86 37 H 05/19/25 05:45 80/45 L 05/19/25 05:45 80/45 L 05/19/25 05:45 80/45 L 05/19/25 05:45 80/45 L 05/19/25 05:45 80/45 L 05/19/25 05:40 85/44 L 05/19/25 05:40 85/44 L 05/19/25 05:40 85/44 L 05/19/25 05:40 85/44 L 05/19/25 05:40 85/44 L 05/19/25 05:39 86 31 H 05/19/25 05:38 96 H 05/19/25 05:35 75/49 L 05/19/25 05:35 75/49 L 05/19/25 05:35 75/49 L 05/19/25 05:35 75/49 L 05/19/25 05:35 75/49 L 05/19/25 05:33 88/51 L 05/19/25 05:33 88/51 L 05/19/25 05:33 90 41 H 05/19/25 05:30 90 40 H 05/19/25 05:25 90/51 L 05/19/25 05:25 90/51 L 05/19/25 05:25 90/51 L 05/19/25 05:25 90/51 L 05/19/25 05:25 90/51 L 05/19/25 05:24 89 20 05/19/25 05:20 84/46 L 05/19/25 05:20 84/46 L 05/19/25 05:20 84/46 L 05/19/25 05:20 84/46 L 05/19/25 05:20 84/46 L 05/19/25 05:18 90 36 H 05/19/25 05:17 05/19/25 05:15 90 35 H 05/19/25 05:15 74/41 L 05/19/25 05:15 74/41 L 05/19/25 05:15 74/41 L 05/19/25 05:15 74/41 L 05/19/25 05:15 74/41 L 05/19/25 05:10 84/52 L 05/19/25 05:10 84/52 L 05/19/25 05:10 84/52 L 05/19/25 05:10 84/52 L 05/19/25 05:10 84/52 L 05/19/25 05:09 90 32 H 05/19/25 05:05 83/40 L 05/19/25 05:05 83/40 L 05/19/25 05:05 83/40 L 05/19/25 05:05 83/40 L 05/19/25 05:05 83/40 L 05/19/25 04:48 92 H 36 H 05/19/25 04:09 37.2 C 97 H 18 88/51 L 05/19/25 04:02 05/19/25 03:25 93 H 05/19/25 03:10 92 H 20 91/48 L 05/19/25 02:30 92 H 22 98/52 L 05/19/25 02:15 93 H 24 86/44 L 05/19/25 02:00 92 H 22 86/44 L 05/19/25 01:30 94 H 24 96/58 L Pulse Ox Pulse Ox O2 Del Method O2 Del Method O2 Flow Rate O2 Flow Rate 05/19/25 10:45 97 05/19/25 10:30 05/19/25 10:30 96 05/19/25 10:15 96 05/19/25 10:00 05/19/25 10:00 97 05/19/25 09:45 98 05/19/25 09:30 05/19/25 09:30 97 05/19/25 09:20 05/19/25 09:18 95 05/19/25 09:15 97 05/19/25 09:10 05/19/25 09:09 99 05/19/25 09:00 05/19/25 09:00 100 05/19/25 08:50 05/19/25 08:48 98 05/19/25 08:40 05/19/25 08:39 100 05/19/25 08:39 05/19/25 08:30 100 05/19/25 07:55 Oxymask 4 05/19/25 07:50 05/19/25 07:33 99 Oxymask 4 05/19/25 07:09 98 Oxymask 6 05/19/25 07:05 05/19/25 07:03 97 05/19/25 07:00 97 05/19/25 06:55 05/19/25 06:55 05/19/25 06:54 96 05/19/25 06:50 05/19/25 06:50 05/19/25 06:48 97 05/19/25 06:46 05/19/25 06:46 05/19/25 06:45 96 05/19/25 06:40 05/19/25 06:39 96 05/19/25 06:35 05/19/25 06:35 05/19/25 06:33 97 05/19/25 06:30 96 05/19/25 06:30 05/19/25 06:26 05/19/25 06:26 05/19/25 06:24 96 05/19/25 05:45 98 05/19/25 05:45 05/19/25 05:45 05/19/25 05:45 05/19/25 05:45 05/19/25 05:45 05/19/25 05:40 05/19/25 05:40 05/19/25 05:40 05/19/25 05:40 05/19/25 05:40 05/19/25 05:39 100 05/19/25 05:38 05/19/25 05:35 05/19/25 05:35 05/19/25 05:35 05/19/25 05:35 05/19/25 05:35 05/19/25 05:33 05/19/25 05:33 05/19/25 05:33 96 05/19/25 05:30 94 05/19/25 05:25 05/19/25 05:25 05/19/25 05:25 05/19/25 05:25 05/19/25 05:25 05/19/25 05:24 96 05/19/25 05:20 05/19/25 05:20 05/19/25 05:20 05/19/25 05:20 05/19/25 05:20 05/19/25 05:18 97 05/19/25 05:17 Oxymask 6 05/19/25 05:15 98 05/19/25 05:15 05/19/25 05:15 05/19/25 05:15 05/19/25 05:15 05/19/25 05:15 05/19/25 05:10 05/19/25 05:10 05/19/25 05:10 05/19/25 05:10 05/19/25 05:10 05/19/25 05:09 97 05/19/25 05:05 05/19/25 05:05 05/19/25 05:05 05/19/25 05:05 05/19/25 05:05 05/19/25 04:48 95 Oxymask 6 05/19/25 04:09 93 Nasal Cannula 4 05/19/25 04:02 98 Oxymask 6 05/19/25 03:25 05/19/25 03:10 96 Nasal Cannula 3 05/19/25 02:30 96 05/19/25 02:15 94 Nasal Cannula 2 05/19/25 02:00 93 Nasal Cannula 2 05/19/25 01:30 94 Nasal Cannula 2 PG Care Time/CCT Total # of Minutes Spent Total Time Spent with Patient: Total time spent is greater than 50% in coordination of care (as documented) at patient's floor/unit and/or counseling patient: Coding Level of Care Code 65223 INT INP/OBS CARE 2/55MIN Diagnoses Sepsis A41.9
[2025-05-19] MEDS: PHENYLEPHRINE/NSS 25 MG/250 ML BAG IV SCH (15:17)
--- NOTE | 2025-05-19 16:05 | Electrocardiogram Report ---
Test Reason : Blood Pressure : */* mmHG Vent. Rate : 119 BPM Atrial Rate : * BPM P-R Int : * ms QRS Dur : 128 ms QT Int : 370 ms P-R-T Axes : * 44 -30 degrees QTcB Int : 520 ms Atrial fibrillation with rapid ventricular response Right bundle branch block T wave abnormality, consider inferior ischemia Abnormal ECG When compared with ECG of 19-May-2025 05:27, Atrial fibrillation has replaced Sinus rhythm T wave inversion more evident in Inferior leads Inverted T waves have replaced nonspecific T wave abnormality in Anterior leads Confirmed by Wolfgang Craven ([id number]) on 05/19/2025 4:05:34 PM Referred By: REFERRED SELF Confirmed By: Wolfgang Craven
[2025-05-19] MEDS: MAGNESIUM SULFATE / D5W 1 GM/100 ML BAG IV SCH (16:27)
[2025-05-19] MEDS: PANTOprazole 40 MG/10 ML SYR IV SCH (16:28)
--- NOTE | 2025-05-19 17:35 | Ultrasound Report ---
Technique: Venous ultrasound evaluation was performed utilizing grayscale, color Doppler and wave form evaluation. Images were also obtained with and without compression Comparison is made to the prior ultrasound dated 03/22/2018 Findings: There is a suspected small amount of nonocclusive thrombus in the right popliteal vein, likely chronic. This is less extensive than before The bilateral common femoral, bilateral superficial femoral, left popliteal, and visualized calf veins demonstrate normal anechoic lumens with full compressibility. Normal flow is seen on color Doppler images. Expected waveforms were produced with augmentation maneuvers Impression: 1. 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 No evidence of left leg deep venous thrombosis Electronically signed by Liu Leger 05-19-2025 5:35 PM
--- NOTE | 2025-05-19 17:40 | XCELERA ---
[id number] \\[id number]
[2025-05-19 18:35] LABS: ANTI-Xa, UFH(UnfractionatedHep 0.50 IU/ml (0.3-0.7)
[2025-05-19] MEDS: DIGOXIN IV ONE (19:26)
[2025-05-19] MEDS ORDERED: TAMSULOSIN HCL 0.4 MG CAP PO SCH (21:00)
[2025-05-19] MEDS: MONTELUKAST SODIUM 10 MG TABLET PO SCH (21:26)
[2025-05-19] MEDS: ACETAMINOPHEN 1,000 MG/100 ML VIAL IV STA (22:28)
[2025-05-20] MEDS ORDERED: STAT IV Infusion **Titration per Protocol STA ×2 (00:55→16:46)
[2025-05-20] MEDS ORDERED: AMIODARONE IV BOLUS & DRIP IV STA (00:55)
[2025-05-20] MEDS ORDERED: 0.2 MICRON FILTER SET 1 EACH IV STA (00:55)
[2025-05-20] MEDS: AMIODARONE / D5W 150 MG/100 ML BAG IV STA (01:33)
[2025-05-20] MEDS: AMIODARONE / D5W 360 MG/200 ML BAG IV ONE (01:49)
[2025-05-20 05:01] LABS: Hematocrit (blood only) 30.2 % (37.0-47.0); Hemoglobin 10.1 g/dL (12.0-16.0); Mean Corpuscular Hemoglobin 29.8 pg (25.0-34.0); Mean Corpuscular Volume 89.1 fL (80.0-100.0); Platelet Count 117 K/uL (130-400); RDW Standard Deviation 49.1 fL (36.4-46.3); Red Blood Count 3.39 M/uL (4.20-5.40); White Blood Count 26.62 K/ul (4.8-10.8)
[2025-05-20 05:14] LABS: Alanine Aminotransferase 184.0 U/L (7-52); Albumin Globulin Ratio 1.9 (0.9-2); Albumin Level 3.4 gm/dl (3.4-5.0); Alkaline Phosphatase 106.0 U/L (34-104); Anion Gap 14.0 (3-11); Bilirubin,Total 2.1 mg/dl (0.2-1.0); Blood Urea Nitrogen 45.0 mg/dl (6-23); Calcium 6.5 mg/dl (8.6-10.3); Carbon Dioxide 23.0 mmol/L (21-32); Chloride 100.0 mmol/L (98-107); Creatinine Clr Calc Pharmacy 11.8 ml/min; Globulin 1.8 gm/dl (2.5-4.0); Glucose 126.0 mg/dl (70-99(Fasting)); Potassium 4.1 mmol/L (3.5-5.1); Sodium 137.0 mmol/L (136-145); Total Protein 5.2 gm/dl (6.0-8.3)
[2025-05-20 05:30] LABS: ANC (manual) 23.69 K/uL (1.4-6.5); Dohle Bodies 1+; Toxic Vacuolation 1+
[2025-05-20 05:50] LABS: ANTI-Xa, UFH(UnfractionatedHep 1.00 IU/ml (0.3-0.7)
[2025-05-20] MEDS: AMIODARONE / D5W 360 MG/200 ML BAG IV SCH (06:42)
--- NOTE | 2025-05-20 08:45 | Critical Care Progress Note ---
Date of Service May 20, 2025 Assessment & Plan (1) Shock liver: (2) Sepsis due to urinary tract infection: (3) Acute kidney injury superimposed on CKD: (4) Obesity: (5) Pulmonary embolism: (6) Hyperlipidemia: (7) Hypothyroidism (acquired): (8) Anxiety: (9) Asthma: (10) Hypertension: Plan Jermaine Francis is an 89-year-old female with past medical history of nephrolithiasis, freq UTI, urinary incontinence, sleep disorder, pulm embolism on Xarelto, asthma, HTN, anxiety, hypothyroidism, and HLD who presented to [facility] on 05/18/25 with shortness of breath, lethargy, ad tachypnea. Patient was seen earlier on 05/18/2025 by Urology for right uretal stent placement and stone removal. Family noted her becoming more lethargic and breathing seemed more labored. Hypotensive in ED with SBP to the 70's. Patient was volume resuscitated with 3.6 liters of crystalloid, started on daptomycin and Zosyn, and admitted to PCU. Upgraded on the morning of 05/19/2025 for vasopressors in setting of likely septic shock r/t to most likely urinary source. Neuro: Acute Metabolic encephalopathy in s/o sepsis No focal deficit. Neuro exam improving with improved perfusion. Will hold off on head imaging at this time. CV: Septic shock; New onset a fib likely in setting of sepsis and vasopressors. Maintain MAP > 65 Currently on Levo 0.2 and vaso 0.04. Will transition to Eugenio and down titrate levo due to NOAF. Start stress dose steroids Cont ABX Doppler bilateral lower extremities shows chronic small right popliteal extremity DVT --New onset A-fib Did get digoxin 300 mcg on 05/19/2025 but heart rate was still difficult to control Currently on amiodarone drip Continue with heparin Xarelto has been on hold since 05/16/2025 Pulm: Hypoxic respiratory failure; asthma SpO2 88-90 on admit. Paced on 10L oxymask Weaned O2 to 4L NC Maintain SpO2 > 92% Cont Neb ICS and bronchodilator GI: -- Transaminitis --> trending down Likely from shock liver Continue to trend : CHRISTIANO on CKD likely ATN from hypoperfusion Baseline creatinine 0.8-0.9 1.79 on admission Maintain MAP > 65 Heme: Anemia likely of chronic disease; thrombocytopenia likely sepsis induced and dilutional Monitor H&H --Thrombocytopenia Likely secondary to sepsis Continue to trend Endo: Monitor BG Maintain BG < 180 Hyperglycemia protocol if needed Continue Synthroid ID: Sepsis likely secondary to urinary source WBC 11.78 Afebrile Procal > 100 UA positive. UC pending. Blood cultures pending. On Zosyn. Previous culture data with proteus mirabilis which was pansensitive Daptomycin discontinued 05/27/2025 -Follow cultures and escalate/deescalate as appropriate. --Prophylaxis VTE: Heparin drip GI: None Lines: Right IJ, radial, positive Santana Diet: NPO Plan: In/out: +4.3 L, urine output 520 mL, +7 L since coming to the hospital Tmax 38.6 The patient's chest x-ray from today on personal review shows bilateral pleural effusion, poor inspiratory effort. DC all IV fluids, give the patient Bumex 2 mg IV I did discuss the deteriorating kidney function with the patient's daughter who was at bedside, patient did not want any life-prolonging intervention including hemodialysis. Continue with vasopressor support to keep MAP greater than 65 Continue with amiodarone Although patient's LFTs are trending down we will need to keep an eye on them as patient has been started on amiodarone to control her heart rate UA was growing Proteus mirabilis which is pansensitive on 05/01/2025 Continue with empiric Zosyn Overall prognosis is guarded as patient's kidney function is getting worse with no urine output If we do not make any progress with the Bumex then keeping the patient comfortable will be the next step Patient's daughter is in agreement with this approach. I have personally spent 51 minutes of critical care time in the direct management of this patient. This is a life/limb threatening event. This includes time spent evaluating patient, direct bedside care, chart review, placing orders, interpretation of diagnostic studies, discussion with consultants, patient, and family members, as well as other required patient management activities. This time is exclusive of all separately billable procedures, and teaching time and separate from and in addition to any other critical care service time. Please note the above document was generated using voice recognition software. It may contain grammatical, syntax or spelling errors. Admission and Anticipated Discharge Date Admission Date: May 19, 2025 Subjective Patient seen and examined at bedside. Was in respiratory distress Her oxygen requirement went up from night to corrugator requiring 15 L Respiratory rate was in the low 40s when I saw her She was put on BiPAP 03/13 she was getting on a tidal volumes of 250 on that, I increased the BiPAP settings to 14/8. She was saturating 97% on 60% FiO2, I went down to 50%. She is somnolent and not answering questions appropriately Was a 1.3 of phenylephrine and 0.04 of vasopressin along with amiodarone 0.5 Review of Systems 2 Review of Systems: All systems reviewed & are unremarkable except as noted in Subjective and Unobtainable due to cognitive status Physical Exam 2 Physical Exam: Constitutional: No acute distress HEENT: EOMI, PERRLA Respiratory system: Decreased air entry bilaterally, no wheeze, no rhonchi, positive crackles bilaterally CVS: S1-S2 positive, no murmurs or gallops, distant heart sounds Abdomen: Soft, nontender, nondistended, positive bowel sounds x4 Extremities: +2 pulses bilaterally radialis/ dorsalis pedis, no cyanosis, +1 pitting edema bilateral lower extremity Neuro: Somnolent, arousable, moving all extremities to command Psych: Flat mood and affect G/U: Positive Santana Skin: no rashes, warm and dry Lymphatic: no cervical or axillary lymphadenopathy Results & Data Results & Data Vital Signs (Past 12 Hours) Vital Signs Temp Pulse Pulse Resp BP Pulse Ox O2 Del Method 05/20/25 07:55 112 H 25 H 90 Oxymask 05/20/25 06:30 102 H 29 H 90 Oxymask 05/20/25 06:00 108 H 31 H 91 Oxymask 05/20/25 06:00 110 H 28 H 105/58 L 91 Oxymask 05/20/25 05:30 93 H 28 H 91 Oxymask 05/20/25 05:00 113 H 29 H 91 Oxymask 05/20/25 05:00 106/75 05/20/25 04:30 97 H 23 91 Oxymask 05/20/25 04:01 90/52 L 05/20/25 04:00 102 H 20 91 Oxymask 05/20/25 03:30 102 H 20 95 Oxymask 05/20/25 03:01 112/58 L 05/20/25 03:00 113 H 29 H 92 Oxymask 05/20/25 02:30 114 H 20 94 05/20/25 02:00 95 H 26 H 93 Oxymask 05/20/25 02:00 107/71 05/20/25 01:30 119 H 28 H 95 Oxymask 05/20/25 01:02 103/56 L 05/20/25 01:00 126 H 34 H 94 Oxymask 05/20/25 00:31 97/61 L 05/20/25 00:30 130 H 30 H 92 Oxymask 05/20/25 00:01 121/60 05/20/25 00:00 127 H 24 92 Oxymask 05/20/25 00:00 116 H 05/19/25 23:31 116/49 L 05/19/25 23:30 143 H 24 93 Oxymask 05/19/25 23:11 111/59 L 05/19/25 23:09 130 H 30 H 92 Oxymask 05/19/25 23:01 85/46 L 05/19/25 23:00 132 H 17 92 Oxymask 05/19/25 22:30 141 H 33 H 93 Oxymask 05/19/25 22:30 111/67 05/19/25 22:03 138 H 28 H 92 Oxymask 05/19/25 22:01 38.6 C H 129/67 05/19/25 22:00 136 H 36 H 93 Oxymask 05/19/25 21:38 109/82 05/19/25 21:36 131 H 18 93 Oxymask 05/19/25 21:30 131 H 26 H 90 Oxymask 05/19/25 21:01 147/88 H 05/19/25 21:00 136 H 29 H 92 Oxymask O2 Flow Rate 05/20/25 07:55 4 05/20/25 06:30 8 05/20/25 06:00 8 05/20/25 06:00 8 05/20/25 05:30 6 05/20/25 05:00 6 05/20/25 05:00 05/20/25 04:30 6 05/20/25 04:01 05/20/25 04:00 6 05/20/25 03:30 6 05/20/25 03:01 05/20/25 03:00 6 05/20/25 02:30 05/20/25 02:00 6 05/20/25 02:00 05/20/25 01:30 4 05/20/25 01:02 05/20/25 01:00 6 05/20/25 00:31 05/20/25 00:30 6 05/20/25 00:01 05/20/25 00:00 6 05/20/25 00:00 05/19/25 23:31 05/19/25 23:30 4 05/19/25 23:11 05/19/25 23:09 4 05/19/25 23:01 05/19/25 23:00 4 05/19/25 22:30 4 05/19/25 22:30 05/19/25 22:03 6 05/19/25 22:01 05/19/25 22:00 6 05/19/25 21:38 05/19/25 21:36 6 05/19/25 21:30 6 05/19/25 21:01 05/19/25 21:00 6 Laboratory Results 05/20/25 04:06 05/20/25 04:06 Coding Level of Care Code 52234 CRITICAL CARE 1ST 30-74M Diagnoses Shock liver K72.00 Sepsis due to urinary tract infection A41.9; N39.0 Acute kidney injury superimposed on CKD N17.9; N18.9 Class 1 obesity due to excess calories with serious comorbidity and body mass index (BMI) of 31.0 to 31.9 in adult E66.09; Z68.31 Body mass index: BMI 31.0-31.9 Obesity classification: adult class 1 (BMI 30 - 34.9) Obesity type: due to excess calories Serious obesity comorbidity presence: with serious comorbidity Multiple subsegmental pulmonary emboli without acute cor pulmonale I26.94 Pulmonary embolism type: multiple subsegmental (without acute cor pulmonale) Mixed hyperlipidemia E78.2 Hyperlipidemia type: mixed hyperlipidemia Hypothyroidism (acquired) E03.9 Anxiety F41.9 Severe persistent asthma without complication J45.50 Asthma complication type: uncomplicated Asthma persistence: persistent Asthma severity: severe Primary hypertension I10 Hypertension type: primary hypertension (4) Obesity Body mass index: BMI 31.0-31.9 Obesity classification: adult class 1 (BMI 30 - 34.9) Obesity type: due to excess calories Serious obesity comorbidity presence: with serious comorbidity Qualified Code(s): E66.09 - Other obesity due to excess calories; Z68.31 - Body mass index [BMI] 31.0-31.9, adult (5) Pulmonary embolism Pulmonary embolism type: multiple subsegmental (without acute cor pulmonale) Qualified Code(s): I26.94 - Multiple subsegmental pulmonary emboli without acute cor pulmonale (6) Hyperlipidemia Hyperlipidemia type: mixed hyperlipidemia Qualified Code(s): E78.2 - Mixed hyperlipidemia (9) Asthma Asthma complication type: uncomplicated Asthma persistence: persistent A sthma severity: severe Qualified Code(s): J45.50 - Severe persistent asthma, uncomplicated (10) Hypertension Hypertension type: primary hypertension Qualified Code(s): I10 - Essential (primary) hypertension
--- NOTE | 2025-05-20 08:51 | XRay Report ---
Clinical History: Follow-up Technique: A frontal view of the chest was obtained Findings: There is new diffuse interstitial prominence, concerning for pulmonary edema. There is more focal right midlung and right lung base opacity that could be due to pneumonia. The heart is mildly enlarged. There is a suspected small right pleural effusion. No definite pneumothorax is seen. No fracture is noted. There are bilateral shoulder replacements. There is a right jugular central venous line with its tip in the SVC Impression: 1. Cardiomegaly and pulmonary edema 2. Possible concurrent right lung pneumonia 3. Small right pleural effusion Electronically signed by Liu Leger 05-20-2025 08:51 AM
[2025-05-20] MEDS: BUMETANIDE 2 MG in SYRINGE 0 ML IV ONE (09:55)
--- NOTE | 2025-05-20 10:44 | Urology Progress Note ---
Date of Service May 20, 2025 Assessment & Plan (1) Acute kidney injury superimposed on CKD: (2) Shock liver: (3) Sepsis due to urinary tract infection: Plan Recent ureteroscopy with subsequent development of sepsis send acute and highly critical illness Unfortunately, she is seeing some evidence of organ failure secondary to the sepsis and hypotension, etc. Continue to monitor urine output No plan for any surgical interventions Daughter was at bedside today we did have a discussion about long-term goals, she is uncertain how she would like to proceed and we are both hopeful that there will be some improvement in the next 24 to 48 hours, however, she is also extremely aware that this is a very guarded situation Admission and Anticipated Discharge Date Admission Date: May 19, 2025 Subjective Unfortunately, she has not made a great deal of progress overnight Remains in critical condition Elevated creatinine today, certainly a part of the overall complex White blood cell count has also elevated further Physical Exam Physical Exam: Somnolent On BiPAP Santana catheter in place Abdomen soft, palpation did not elicit any pain response Results & Data Vital Signs (Past 12 Hours) Vital Signs Pulse Pulse Resp BP Pulse Ox O2 Del Method O2 Flow Rate 05/20/25 09:00 108 H 44 H 94 BiPAP 05/20/25 09:00 92/52 L 05/20/25 09:00 92/52 L 05/20/25 09:00 92/52 L 05/20/25 09:00 92/52 L 05/20/25 09:00 92/52 L 05/20/25 08:50 102 H 43 H 93 05/20/25 08:45 97 H 43 H 93 05/20/25 08:30 107 H 25 H 88 L 05/20/25 08:20 Oxymask 15 05/20/25 08:15 112 H 42 H 88 L 05/20/25 08:00 97 H 25 H 91 05/20/25 08:00 96/54 L 05/20/25 08:00 96/54 L 05/20/25 08:00 96/54 L 05/20/25 08:00 96/54 L 05/20/25 08:00 96/54 L 05/20/25 07:55 112 H 25 H 90 Oxymask 4 05/20/25 07:45 113 H 42 H 89 L 05/20/25 07:30 109 H 49 H 90 05/20/25 07:15 113 H 19 89 L 05/20/25 07:00 110 H 26 H 91 05/20/25 07:00 95/56 L 05/20/25 07:00 95/56 L 05/20/25 07:00 95/56 L 05/20/25 07:00 95/56 L 05/20/25 07:00 95/56 L 05/20/25 06:30 102 H 29 H 90 Oxymask 8 05/20/25 06:00 108 H 31 H 91 Oxymask 8 05/20/25 06:00 110 H 28 H 105/58 L 91 Oxymask 8 05/20/25 05:30 93 H 28 H 91 Oxymask 6 05/20/25 05:00 113 H 29 H 91 Oxymask 6 05/20/25 05:00 106/75 05/20/25 04:30 97 H 23 91 Oxymask 6 05/20/25 04:01 90/52 L 05/20/25 04:00 102 H 20 91 Oxymask 6 05/20/25 03:30 102 H 20 95 Oxymask 6 05/20/25 03:01 112/58 L 05/20/25 03:00 113 H 29 H 92 Oxymask 6 05/20/25 02:30 114 H 20 94 05/20/25 02:00 95 H 26 H 93 Oxymask 6 05/20/25 02:00 107/71 05/20/25 01:30 119 H 28 H 95 Oxymask 4 05/20/25 01:02 103/56 L 05/20/25 01:00 126 H 34 H 94 Oxymask 6 05/20/25 00:31 97/61 L 05/20/25 00:30 130 H 30 H 92 Oxymask 6 05/20/25 00:01 121/60 05/20/25 00:00 127 H 24 92 Oxymask 6 05/20/25 00:00 116 H 05/19/25 23:31 116/49 L 05/19/25 23:30 143 H 24 93 Oxymask 4 05/19/25 23:11 111/59 L 05/19/25 23:09 130 H 30 H 92 Oxymask 4 05/19/25 23:01 85/46 L 05/19/25 23:00 132 H 17 92 Oxymask 4 FiO2 05/20/25 09:00 0.6 05/20/25 09:00 05/20/25 09:00 05/20/25 09:00 05/20/25 09:00 05/20/25 09:00 05/20/25 08:50 60 05/20/25 08:45 05/20/25 08:30 05/20/25 08:20 05/20/25 08:15 05/20/25 08:00 05/20/25 08:00 05/20/25 08:00 05/20/25 08:00 05/20/25 08:00 05/20/25 08:00 05/20/25 07:55 05/20/25 07:45 05/20/25 07:30 05/20/25 07:15 05/20/25 07:00 05/20/25 07:00 05/20/25 07:00 05/20/25 07:00 05/20/25 07:00 05/20/25 07:00 05/20/25 06:30 05/20/25 06:00 05/20/25 06:00 05/20/25 05:30 05/20/25 05:00 05/20/25 05:00 05/20/25 04:30 05/20/25 04:01 05/20/25 04:00 05/20/25 03:30 05/20/25 03:01 05/20/25 03:00 05/20/25 02:30 05/20/25 02:00 05/20/25 02:00 05/20/25 01:30 05/20/25 01:02 05/20/25 01:00 05/20/25 00:31 05/20/25 00:30 05/20/25 00:01 05/20/25 00:00 05/20/25 00:00 05/19/25 23:31 05/19/25 23:30 05/19/25 23:11 05/19/25 23:09 05/19/25 23:01 05/19/25 23:00 PG Care Time/CCT Total # of Minutes Spent Total Time Spent with Patient: Total time spent is greater than 50% in coordination of care (as documented) at patient's floor/unit and/or counseling patient: Coding Level of Care Code 16697 SUB INP/OBS CARE 2MIN Diagnoses Acute kidney injury superimposed on CKD N17.9; N18.9 Shock liver K72.00 Sepsis due to urinary tract infection A41.9; N39.0
[2025-05-20] MEDS: ACETAMINOPHEN 1,000 MG/100 ML VIAL IV PRN (11:53)
[2025-05-20 13:16] LABS: ANTI-Xa, UFH(UnfractionatedHep 0.76 IU/ml (0.3-0.7)
[2025-05-20 14:27] VITALS: O2SAT 96
[2025-05-20 15:19] VITALS: BP 107/62; PULSE 98; TEMP 101.5
--- NOTE | 2025-05-20 16:10 | Hospitalist Progress Note ---
Date of Service May 20, 2025 Assessment & Plan (1) Sepsis due to urinary tract infection: (2) Lactic acidosis: (3) Shock liver: (4) Acute kidney injury superimposed on CKD: Plan 89 y/o with nephrolithiasis and frequent UTIs, chronic AC for hx PE (had been held for procedure). 05/18, patient underwent urologic procedure of cystoscopy with right ureteral nephroscopy, right retrograde pyelogram, laser destruction of stone, basket extraction of the stone, exchange of stent catheter on the right. Later same day became ill. Admitted with septic shock, suspicious for urinary source. Required pressors and ICU transfer morning of 05/19. Has had multiorgan dysfuction with worsening CHRISTIANO, acute hypoxic respiratory failure, acute encephalopathy, shock liver. #Septic shock following urological procedure. I believe she was on oral cipro prior to procedure. Suspicious for urinary source - cont pip-tazo, daptomycin was stopped per cement sprayer helper. MRSA nares neg - continue vasopressin and kierra, stress dose steroids - increased leukocytosis, some is steroid effect - flomax and antihypertensives held - follow blood, urine Cx from ED #CHRISTIANO related to sepsis with metabolic acidosis - anuric this AM, Cr increased to 2.59, not having hyperkalemia or severe acidosis but accumulating pulmonary edema - discussed with her daughter and Jermaine would not want hemodialysis - trial of bumex IV. discussed with Dr. Parham #Acute hypoxic respiratory failure due to sepsis, may have cardiogenic and noncardiogenic pulmonary edema #COPD - CXR - personally reviewed film - increased pulmonary edema, pleural effusions, increased opacity on R - TTE 05/19 with mild-mod global hypokinesis probably related to sepsis, EF 40- 45%, normal RV, mild-mod TR - IVF held, bumex - Bipap started AM 05/20 #Acute metabolic encephalopathy due to sepsis - hold sedating/delirogenic medicines - arousable but not verbal today, worse #Acute ischemic hepatitis / shock liver - AST/ALT downtrending #Thrombocytopenia due to sepsis - Plt 117, monitor #Hx PE, new onset Afib - on heparin drip since AM 05/19 - amiodarone bolus/drip started 2AM 05/20 - monitor platelets - DOAC held DVT prophylaxis - she is anticoagulated on a heparin drip Note she has had R hip fractures and failed repairs/replacement so does not have R hip. NWB on R and transfers with L leg otherwise uses wheelchair, lives with her daughter who is caregiver. DNR/DNI but desired trial of pressors Updated her daughter at bedside 05/19, 05/20 - Jermaine would not want dialysis, recently she has been experiencing declining QOL and has not wanted to prolong her life. Family members are coming in to visit. If things were to worsen, progressive renal failure, they would choose comfort measures. We discussed prognosis which is extremely guarded Admission and Anticipated Discharge Date Admission Date: May 19, 2025 Subjective Started on BiPAP this morning for worsening hypoxia and pulmonary edema. Currently on 2 pressors, maintaining MAPs above 65. Started on IV amiodarone bolus and drip around 2 AM for rapid atrial fibrillation. Anuric this morning. Bladder scan showed volume of 150 mL, no urinary retention. Santana catheter in place. Progressively more lethargic. Opens eyes but not verbalizing. Not expressing any symptoms of pain or discomfort Physical Exam Physical Exam: General Appearance: Lethargic. Vital signs: Reviewed past 24h vital signs in EMR, unremarkable. HEENT: Pupils equal, round, reactive to light. Respiratory: Clear anteriorly, posterior crackles. No wheezing. Small lung volumes with BiPAP. Cardiovascular: Irregularly irregular rhythm, no murmur. Gastrointestinal: Abdomen soft, nontender, nondistended. Extremities: Warm, well perfused, some dependent edema. Skin: Warm, dry, no rashes. Neurological: Lethargic. Opens eyes, grimaces, does not speak. Moves all extre mities spontaneously. Psychiatric: Normal. Results & Data Results & Data Vital Signs (Past 12 Hours) Vital Signs Temp Pulse Pulse Resp BP Pulse Ox O2 Del Method 05/20/25 15:15 38.6 C H 98 H 41 H 96 05/20/25 15:00 05/20/25 15:00 05/20/25 15:00 05/20/25 15:00 05/20/25 15:00 05/20/25 15:00 38.6 C H 101 H 40 H 96 05/20/25 14:45 38.6 C H 95 H 38 H 96 05/20/25 14:30 38.7 C H 108 H 42 H 96 05/20/25 14:15 38.7 C H 99 H 39 H 97 05/20/25 14:00 38.7 C H 96 H 40 H 97 05/20/25 14:00 103/56 L 05/20/25 14:00 103/56 L 05/20/25 14:00 103/56 L 05/20/25 14:00 103/56 L 05/20/25 14:00 103/56 L 05/20/25 14:00 368 H 43 H 96 05/20/25 13:45 38.7 C H 90 40 H 96 05/20/25 13:30 38.7 C H 109 H 43 H 96 05/20/25 13:15 38.8 C H 113 H 42 H 96 05/20/25 13:00 38.8 C H 87 42 H 96 05/20/25 13:00 101/69 05/20/25 13:00 10105/20/25 13:00 05/20/25 13:00 05/20/25 13:00 10105/20/25 12:45 38.8 C H 117 H 41 H 97 05/20/25 12:30 38.8 C H 141 H 41 H 97 05/20/25 12:21 114 H 41 H 97 05/20/25 12:15 38.8 C H 139 H 37 H 97 05/20/25 12:00 38.8 C H 117 H 41 H 98 05/20/25 12:00 110/61 05/20/25 12:00 110/61 05/20/25 12:00 110/61 05/20/25 12:00 110/61 05/20/25 12:00 110/61 05/20/25 11:47 38.8 C H 44 H 98 05/20/25 11:32 38.7 C H 114 H 49 H 98 05/20/25 11:15 38.8 C H 108 H 42 H 98 05/20/25 11:00 38.8 C H 125 H 38 H 98 05/20/25 11:00 111/57 L 05/20/25 11:00 111/57 L 05/20/25 11:00 111/57 L 05/20/25 11:00 111/57 L 05/20/25 11:00 111/57 L 05/20/25 10:45 38.7 C H 97 H 1 L 97 05/20/25 10:30 38.7 C H 92 H 12 98 05/20/25 10:17 96 H 46 H 94 05/20/25 10:02 109 H 44 H 96 05/20/25 10:00 106/57 L 05/20/25 10:00 106/57 L 05/20/25 10:00 106/57 L 05/20/25 10:00 106/57 L 05/20/25 10:00 106/57 L 05/20/25 09:59 103 H 45 H 96 05/20/25 09:47 92 H 41 H 97 05/20/25 09:32 109 H 43 H 97 05/20/25 09:20 103 H 45 H 97 05/20/25 09:00 108 H 44 H 94 BiPAP 05/20/25 09:00 92/52 L 05/20/25 09:00 92/52 L 05/20/25 09:00 92/52 L 05/20/25 09:00 92/52 L 05/20/25 09:00 92/52 L 05/20/25 08:50 102 H 43 H 93 05/20/25 08:45 97 H 43 H 93 05/20/25 08:30 107 H 25 H 88 L 05/20/25 08:20 Oxymask 05/20/25 08:15 112 H 42 H 88 L 05/20/25 08:10 38.1 C H 05/20/25 08:00 97 H 25 H 91 05/20/25 08:00 96/54 L 05/20/25 08:00 96/54 L 05/20/25 08:00 96/54 L 05/20/25 08:00 96/54 L 05/20/25 08:00 96/54 L 05/20/25 07:55 112 H 25 H 90 Oxymask 05/20/25 07:45 113 H 42 H 89 L 05/20/25 07:30 109 H 49 H 90 05/20/25 07:15 113 H 19 89 L 05/20/25 07:00 110 H 26 H 91 05/20/25 07:00 95/56 L 05/20/25 07:00 95/56 L 05/20/25 07:00 95/56 L 05/20/25 07:00 95/56 L 05/20/25 07:00 95/56 L 05/20/25 06:30 102 H 29 H 90 Oxymask 05/20/25 06:00 108 H 31 H 91 Oxymask 05/20/25 06:00 110 H 28 H 105/58 L 91 Oxymask 05/20/25 05:30 93 H 28 H 91 Oxymask 05/20/25 05:00 113 H 29 H 91 Oxymask 05/20/25 05:00 106/75 05/20/25 04:30 97 H 23 91 Oxymask 05/20/25 04:01 90/52 L 05/20/25 04:00 102 H 20 91 Oxymask O2 Flow Rate FiO2 05/20/25 15:15 05/20/25 15:00 05/20/25 15:00 05/20/25 15:00 05/20/25 15:00 05/20/25 15:00 05/20/25 15:00 05/20/25 14:45 05/20/25 14:30 05/20/25 14:15 05/20/25 14:00 05/20/25 14:00 05/20/25 14:00 05/20/25 14:00 05/20/25 14:00 05/20/25 14:00 05/20/25 14:00 50 05/20/25 13:45 05/20/25 13:30 05/20/25 13:15 05/20/25 13:00 05/20/25 13:00 05/20/25 13:00 05/20/25 13:00 05/20/25 13:00 05/20/25 13:00 05/20/25 12:45 05/20/25 12:30 05/20/25 12:21 50 05/20/25 12:15 05/20/25 12:00 05/20/25 12:00 05/20/25 12:00 05/20/25 12:00 05/20/25 12:00 05/20/25 12:00 05/20/25 11:47 05/20/25 11:32 05/20/25 11:15 05/20/25 11:00 05/20/25 11:00 05/20/25 11:00 05/20/25 11:00 05/20/25 11:00 05/20/25 11:00 05/20/25 10:45 05/20/25 10:30 05/20/25 10:17 05/20/25 10:02 05/20/25 10:00 05/20/25 10:00 05/20/25 10:00 05/20/25 10:00 05/20/25 10:00 05/20/25 09:59 05/20/25 09:47 05/20/25 09:32 05/20/25 09:20 05/20/25 09:00 0.6 05/20/25 09:00 05/20/25 09:00 05/20/25 09:00 05/20/25 09:00 05/20/25 09:00 05/20/25 08:50 60 05/20/25 08:45 05/20/25 08:30 05/20/25 08:20 15 05/20/25 08:15 05/20/25 08:10 05/20/25 08:00 05/20/25 08:00 05/20/25 08:00 05/20/25 08:00 05/20/25 08:00 05/20/25 08:00 05/20/25 07:55 4 05/20/25 07:45 05/20/25 07:30 05/20/25 07:15 05/20/25 07:00 05/20/25 07:00 05/20/25 07:00 05/20/25 07:00 05/20/25 07:00 05/20/25 07:00 05/20/25 06:30 8 05/20/25 06:00 8 05/20/25 06:00 8 05/20/25 05:30 6 05/20/25 05:00 6 05/20/25 05:00 05/20/25 04:30 6 05/20/25 04:01 05/20/25 04:00 6 Laboratory Results - Labs: - WBC: 26 - Hgb: 10 - Anti-Xa: 1 - Na: 137 - K: 4.1 - Anion gap: 14 - BUN: 45 - Cr: 2.59 - Bilirubin: 2.1 - AST: 335 - ALT: 184 - Alk phos: 106 - Albumin: 3.4 - Urine culture: Preliminary, no growth - Blood cultures (05/18/2025): No growth after 24 hours PG Care Time/CCT Total # of Minutes Spent Total Time Spent with Patient: Total time spent is greater than 50% in coordination of care (as documented) at patient's floor/unit and/or counseling patient: Coding Level of Care Code 35100 SUB INP/OBS CARE 3/50MIN Diagnoses Sepsis due to urinary tract infection A41.9; N39.0 Lactic acidosis E87.2 Shock liver K72.00 Acute kidney injury superimposed on CKD N17.9; N18.9
[2025-05-20] MEDS ORDERED: ACETAMINOPHEN 650 MG SUPP PR PRN (16:46)
[2025-05-20] MEDS ORDERED: PROMETHAZINE 12.5 MG/50.5 ML BAG IV PRN (16:46)
[2025-05-20] MEDS ORDERED: GLYCOPYRROLATE 0.2 MG/ML VIAL IV PRN (16:46)
[2025-05-20] MEDS ORDERED: LORazepam Inj 0.5 MG in SYRINGE 0.25 ML IV PRN (16:46)
--- NOTE | 2025-05-20 16:55 | Communication Note ---
Date of Service: May 20, 2025 Family gathered today. Transitioning to comfort measures per Jermaine's previously stated wishes. I communicated with bedside RN and farm equipment engineer. With her degree of respiratory failure likely to need hydromorphone drip. Preferable over morphine because of renal failure. IV lorazepam PRN anxiety/agitation/dyspnea Zofran/phenergan PRN nausea Oxygen titrate to comfort Stopping medications not providing for comfort and arterial line will be removed by Dr. Niya fulton central line - leave in place OK to transfer to med/surg once comfortable
[2025-05-20] MEDS: HYDROmorphone INJ 0.5 MG/0.5 ML SYR IV PRN (16:58)
[2025-05-20] MEDS: HYDROmorphone 100 MG/100 ML BAG IV SCH (17:10)
[2025-05-20] MEDS: HYDROmorphone BOLUS from BAG IV PRN (17:25)
[2025-05-20] MEDS ORDERED: MAGNESIUM OXIDE 400 MG TAB PO SCH (21:00)
--- NOTE | 2025-05-21 09:03 | Urology Progress Note ---
Date of Service May 21, 2025 Assessment & Plan (1) Nephrolithiasis: (2) Acute renal failure: Plan Acute sepsis with subsequent shock and multiorgan failure Family has made a decision to move to comfort care rather than pursue significant intervention No plan for further urological surgery, etc. but we will certainly follow from a distance Admission and Anticipated Discharge Date Admission Date: May 19, 2025 Subjective Family has made a decision to move to comfort care in the past 24 hours We will continue to follow from a distance, certainly no interventions are planned and we will observe and hope for the best outcomes. Results & Data Vital Signs (Past 12 Hours) Vital Signs O2 Del Method 05/20/25 23:45 Room Air PG Care Time/CCT Total # of Minutes Spent Total Time Spent with Patient: Total time spent is greater than 50% in coordination of care (as documented) at patient's floor/unit and/or counseling patient: Coding Level of Care Code None Diagnoses Nephrolithiasis N20.0 Acute renal failure N17.9
[2025-05-21 12:41] VITALS: RESP 30
--- NOTE | 2025-05-21 15:02 | Discharge Summary ---
Discharge Summary Date of Service May 21, 2025 Principal Dx & Hospital Course #1 = Principal Diagnosis (1) Septic shock: (2) Acute hypoxic respiratory failure: (3) Acute renal failure: (4) Shock liver: (5) Nephrolithiasis: Plan 89 y/o with nephrolithiasis and frequent UTIs, chronic AC for hx PE (had been held for procedure). 05/18, patient underwent urologic procedure of cystoscopy with right ureteral nephroscopy, right retrograde pyelogram, laser destruction of stone, basket extraction of the stone, exchange of stent catheter on the right. She was on antibiotics prior to the procedure. Later same day became ill. Admitted with septic shock, suspicious for urinary source. she was started on broad-spectrum antibiotics, mainly treated with piperacillin/tazobactam. Required pressors for persistent hypotension and ICU transfer morning of 05/19. Developed multiorgan failure with anuric CHRISTIANO, acute hypoxic respiratory failure, acute encephalopathy, shock liver. Jermaine would not have wanted hemodialysis and her family chose to proceed with comfort measures, based on her previous stated wishes. She peacefully on 05/21 at 1407 p.m. Septic shock was likely triggered by a urinary source, probably treatment of an infected stone. Blood cultures remain no growth to date. Aspiration pneumonitis is a possibility because she had right upper lobe possible infiltrate on hospital day 2, however, she was not hypoxic on presentation so this seems less likely. diagnoses treated this admission: #Sepsis due to UTI, due to right ureteral nephroscopy, right retrograde pyelogram, laser destruction of stone, basket extraction of the stone, exchange of stent catheter; a complication of care #CHRISTIANO related to sepsis with metabolic acidosis #Acute hypoxic respiratory failure due to sepsis, may have cardiogenic and noncardiogenic pulmonary edema #COPD not in exacerbation #Acute metabolic encephalopathy due to sepsis #Acute ischemic hepatitis / shock liver #Thrombocytopenia due to sepsis #Hx PE on chronic anticoagulation #new onset Afib with rapid ventricular response Admission HPI Per Admitting Provider The patient is an 89-year-old female with a past medical history including nephrolithiasis, frequent urinary tract infections, urinary incontinence, sleep disorder, pulmonary embolism, asthma, hypertension, anxiety, hypothyroidism, hyperlipidemia, and chronic anticoagulation. Earlier in the day on 05/18, patient underwent urologic procedure of cystoscopy with right ureteral nephroscopy, right retrograde pyelogram, laser destruction of stone, basket extraction of the stone, exchange of stent catheter on the right. Family reports that as the day progressed, the patient became more lethargic, less interactive, and fatigued. She was brought to the emergency department, and found following abnormal laboratories: Creatinine 1.81, lactate 4.9, procalcitonin greater than 100.00, troponin 26.4, INR 1.3, calcium 8.0, venous blood gas with pH 7.20 pCO2 48, pO2 44 bicarb of 19. Abnormal LFTs: Total bilirubin 2.1, direct bilirubin 1.6, AST 1866, ALT 718, alkaline phosphatase 244. From the ED patient received 2.25 L of normal saline, and was given cefepime 2 g IV x 1. Discharge Plan Discharge Items Reason For Visit: sepsis, hypotension, shock liver, uti, ureteral st Condition on Discharge: Serious Follow-up/Referrals: Tan Savage MD [Primary Care Provider] - Medications and DC Order Prescriptions: No Action (DME) nebulizers [AeroEclipse II Nebulizer] [facility] [place] See Rx Instructions .Route Qty: 1 0RF Rx Instructions: As directed length of need 99 months (DME) nebulizers [AeroEclipse II Nebulizer] [facility] [place] See Rx Instructions .Route Qty: 1 0RF Rx Instructions: As directed length of need 99 months valsartan 160 mg tablet 160 mg PO QAM Qty: 90 3RF budesonide 0.5 mg/2 mL suspension for nebulization 0.5 mg inhalation BID Qty: 120 11RF formoterol fumarate [Perforomist] 20 mcg/2 mL solution for nebulization 2 ml inhalation BID Qty: 120 11RF amlodipine 10 mg tablet 10 mg PO QPM Qty: 90 3RF solifenacin 5 mg tablet 5 mg PO QAM Qty: 90 3RF Xarelto 20 mg tablet 20 mg PO QAM Qty: 90 3RF levothyroxine 50 mcg tablet 50 mcg PO QAM Qty: 90 3RF carvedilol 6.25 mg tablet 6.25 mg PO BID Qty: 180 3RF sertraline 50 mg tablet 75 mg PO QAM Qty: 150 3RF tramadol 50 mg tablet 50 mg PO TID Qty: 90 5RF montelukast 10 mg tablet 10 mg PO QPM Qty: 90 3RF (DME) Flutter Valve Device See Rx Instructions .ROUTE .MEDSUPPLY Qty: 1 0RF Rx Instructions: As directed budesonide-formoterol [Symbicort] 160-4.5 mcg/actuation HFA aerosol inhaler 1 inh inhalation BID PRN (Reason: sob) Rx Instructions: 2 puffs BID PRN albuterol sulfate 90 mcg/actuation HFA aerosol inhaler 2 puffs inhalation Q4H PRN (Reason: Shortness Of Breath) coenzyme Q10 10 mg capsule 100 mg PO QAM calcium carbonate [Tums] 200 mg calcium (500 mg) tablet,chewable 200 mg PO TID nystatin 100,000 unit/mL suspension 100,000 unit PO TID PRN (Reason: prn) Rx Instructions: administer 1/2 of dose in each side of the mouth diazepam 5 mg tablet 5 mg PO 3XWK Qty: 30 3RF Rx Instructions: TU, TH, SAT & SUN EVENINGS ipratropium bromide 42 mcg (0.06 %) spray,non-aerosol 2 spray intranasal TID Qty: 15 11RF Rx Instructions: administer into each nostril apple cider vinegar 250 mg tablet,chewable 250 mg PO QID stone stopper 2 cap PO BID cyanocobalamin (vitamin B-12) 1,000 mcg Capsule 1,000 mcg PO WK Rx Instructions: SUNDAYS magnesium oxide 500 mg Capsule 500 mg PO Q2D@2100 ascorbic acid (vitamin C) [Vitamin C] 500 mg tablet 500 mg PO QPM Rx Instructions: take with iron; stop when iron completed. ferrous sulfate 27 mg iron Tablet 27 mg PO QPM simethicone 125 mg Capsule 125 mg PO 4XWK Prolia 60 mg/mL syringe 60 mg SUBCUT Q6MO Patient Comments: around october 12 phenazopyridine [Pyridium] 200 mg tablet 200 mg PO Q8H PRN (Reason: pain) Qty: 10 0RF tamsulosin 0.4 mg capsule 0.4 mg PO HS Qty: 30 0RF oxycodone-acetaminophen [Percocet] 7.5-325 mg tablet 1 tab PO Q8H PRN (Reason: pain) 3 Days Qty: 7 0RF ciprofloxacin HCl [Cipro] 500 mg tablet 500 mg PO Q12H Qty: 14 0RF Rx Instructions: STARTED 05/18/25 WITH PM DOSE cranberry extract 500 mg Capsule 500 mg PO DAILY Rx Instructions: administer with meals Admission Data Admit Date/Time: 05/19/25 02:52 Attending Provider: Letty Dickens Admit Provider: Jean-Claude Cortes Primary Care Provider: Tan Savage Other Providers: Jean-Claude Cortes; Winston Zamorano; Naima Mathew; Tan Mckay; Adelaida Barrera; Giovany Adames; Mariaelena Cotter; Moy Flaherty; Marylin Kaplan; Bao Bunch; Dre Phillips; Antoine Osei Hospital Stay Data Consultations 05/19/25 00:13 ED Decision to Admit Stat 05/19/25 05:00 Consult Urology Routine 05/19/25 07:39 Consult Gaming Cashier Stat Diagnostic Imagining Performed 05/19/25 00:27 US liver Stat 05/19/25 00:28 CT abd pelvis wo con Stat 05/19/25 13:47 US venous doppler LE BI Stat Total Time Total Time Spent Total Time Spent (In Minutes): I personally spent: 45 today on clinical care activities including: reviewing chart notes and vital signs examining the patient counseling the patient's family documentation including certificate Coding Level of Care Code 72263 INP/OBS DISCH >30 MIN Diagnoses Septic shock A41.9; R65.21 Acute hypoxic respiratory failure J96.01 Acute renal failure N17.9 Shock liver K72.00 Nephrolithiasis N20.0
--- NOTE | 2025-05-21 15:02 | Death Pronouncement Note ---
Date of Service May 21, 2025 Pronouncement Note Admission Date Admission Date: May 19, 2025 Date and Time of Date of : 05/21/25 Time of : 14:07 Contributing Factors (1) Nephrolithiasis: (2) Acute renal failure: Summary Additional details: pupils fixed and dilated prolonged absence of respiratory efforts or heart sounds, time of 1407. preliminary cause of septic shock Additional Data Attending physician: Letty Dickens MD
--- NOTE | 2025-05-26 05:43 | Electrocardiogram Report ---
Test Reason : Blood Pressure : */* mmHG Vent. Rate : 107 BPM Atrial Rate : * BPM P-R Int : * ms QRS Dur : 132 ms QT Int : 372 ms P-R-T Axes : * 48 -40 degrees QTcB Int : 496 ms Atrial fibrillation with rapid ventricular response Right bundle branch block Cannot rule out Inferior infarct , age undetermined T wave abnormality, consider inferolateral ischemia Abnormal ECG When compared with ECG of 19-May-2025 09:58, No significant change was found Confirmed by Ismael Del Rio ([id number]) on 05/26/2025 5:43:13 AM Referred By: REFERRED SELF Confirmed By: Ismael Del Rio
== END 2025-05-21 15:31 | disposition expired | DRG 856 ==
LOC: ED 21:52 → 2E 05-19 02:52 → SUATTDRO 05-19 02:52 → 2E 05-19 03:44 → 1E 05-19 07:45 → 3E 05-20 20:33